=== PATIENT | male | born 1945 | race Caucasian/White ===

== ENCOUNTER 2018-06-11 16:47 | Inpatient (IN) | payer MEDICARE, OTHER ==
--- NOTE | 2018-06-11 17:39 | ED ---
General Adult HPI - General Chief complaint: Psychiatric Symptoms Stated complaint: PTSD/Suicidal Source: patient Mode of arrival: ambulatory Limitations: no limitations - History of Present Illness Initial comments: Dictation was produced using [employer] dictation software. please excuse any grammatical, word or spelling errors. Chief Complaint: 73-year-old war presents with suicidal ideation. History of Present Illness: Patient is a 73-year-old male past medical history of hiatal hernia presents with suicidal ideation. States that he wants to step out into traffic. Patient felt suicidal in the past. Physical history of posttraumatic stress disorder from [place] War. Patient reports not ever attempting suicide in the past. Patient denies any other symptoms at this time. No pain complaints. Denies any shortness of breath. No constitutional symptoms The ROS documented in this emergency department record has been reviewed and confirmed by me. Those systems with pertinent positive or negative responses have been documented in the HPI. All other systems are other negative and/or noncontributory. - Related Data Home Medications Medication Instructions Recorded Confirmed Fluticasone Nasal [place] [Flonase 1 spray EA NOSTRIL DAILY 06/21/15 06/11/18 Nasal [place]] Melatonin 3 mg PO HS 06/21/15 06/11/18 Omeprazole [PriLOSEC] 40 mg PO AC-[id number] 06/21/15 06/11/18 Atorvastatin [Lipitor] 40 mg PO HS 10/09/15 06/11/18 Isosorbide Mononitrate ER [Imdur] 30 mg PO QA 10/09/15 06/11/18 Nitroglycerin Sl Tabs [Nitrostat] 0.4 mg SUBLINGUAL DIRECTED PRN 12/28/15 Cholecalciferol (Vitamin D3) 2,000 unit PO DAILY 06/11/18 06/11/18 [Vitamin D3] LORazepam [Ativan] 0.5 mg PO DAILY PRN 06/11/18 06/11/18 Lisinopril [Zestril] 5 mg PO DAILY 06/11/18 06/11/18 Metoprolol Tartrate 25 mg PO BID 06/11/18 06/11/18 buPROPion HCL [Wellbutrin XL] 150 mg PO DAILY 06/11/18 06/11/18 traZODone HCL 50 mg PO HS 06/11/18 06/11/18 Previous Rx's Medication Instructions Recorded Aspirin EC [Ecotrin] 81 mg PO DAILY #30 tablet. 06/22/15 Allergies Allergy/AdvReac Type Severity Reaction Status Date / Time No Known Allergies Allergy Verified 06/11/18 17:35 Review of Systems ROS Statement: Those systems with pertinent positive or pertinent negative responses have been documented in the HPI. ROS Other: All systems not noted in ROS Statement are negative. Past Medical History Past Medical History: Coronary Artery Disease (CAD), Cancer, GERD/Reflux, Hyperlipidemia, Myocardial Infarction ([place]) Additional Past Medical History / Comment(s): DYSPHAGIA, CHRONIC DRY COUGH, HX COLON CANCER-2004, DIVERTICULAR DISORDER, hiatal hernia, Last Myocardial Infarction Date:: 2009 History of Any Multi-Drug Resistant Organisms: None Reported Past Surgical History: Bowel Resection, Cholecystectomy, Coronary Bypass/CABG, Heart Catheterization, Hernia Repair Additional Past Surgical History / Comment(s): QUAD CABG, bowel resection , umbilical hernia repair,,DEVIATED SEPTUM REPAIR AND SPUR REMOVED from nose Past Anesthesia/Blood Transfusion Reactions: Motion Sickness, Postoperative Nausea & Vomiting (PONV) Additional Past Anesthesia/Blood Transfusion Reaction / Comment(s): clausterphobic Past Psychological History: Anxiety, PTSD Smoking Status: Former smoker Past Alcohol Use History: None Reported Past Drug Use History: None Reported - Past Family History Son(s) Family Medical History: Cancer Father Family Medical History: Blood Disorder Additional Family Medical History / Comment(s): from a blood disorder Mother Family Medical History: Diabetes Mellitus Additional Family Medical History / Comment(s): age 53 -complications from dm Sister(s) Family Medical History: Diabetes Mellitus General Exam - General Exam Comments Initial Comments: PHYSICAL EXAM: General Impression: Alert and oriented x3, not in acute distress HEENT: Normocephalic atraumatic, extra-ocular movements intact, pupils equal and reactive to light bilaterally, mucous membranes moist. Cardiovascular: Heart regular rate and rhythm, S1&S2 audible, no murmurs, rubs or gallops Chest: Lungs clear to auscultation bilaterally, no rhonchi, no wheeze, no rales Abdomen: Bowel sounds present, abdomen soft, non-tender, non-distended, no organomegaly Musculoskeletal: Pulses present and equal in all extremities, no peripheral edema Motor: Power 5/5 bilaterally, no focal deficits noted Neurological: CN II-XII grossly intact, no focal motor or sensory deficits noted Skin: Intact with no visualized rashes Psych: Agitated, poor eye contact Limitations: no limitations Course Vital Signs 06/11/18 17:10 Temperature 98.1 F Pulse Rate 53 L Respiratory 18 Rate Blood Pressure 160/78 O2 Sat by Pulse 99 Oximetry Medical Decision Making - Medical Decision Making ED course: 73-year-old male presents with suicidal ideation. Patient denies any active auditory or visual hallucinations. No history of psychiatric disease. He does however have a history of posterior neck stress disorder. Patient has clear means of committing suicide. He does appear slightly agitated however is not overtly psychotic. Vital signs upon arrival are within acceptable limits. Patient PT was negative. Medical clearance for EPS assessment. Patient to be admitted to inpatient psychiatry. - Lab Data Result diagrams: 06/11/18 19:14 06/11/18 19:14 Lab Results 06/11/18 06/11/18 06/11/18 Range/Units 19:14 19:14 19:27 WBC 6.6 (3.8-10.6) k/uL RBC 5.80 (4.30-5.90) m/uL Hgb 17.7 H (13.0-17.5) gm/dL Hct 52.7 (39.0-53.0) % MCV 90.9 (80.0-100.0) fL MCH 30.5 (25.0-35.0) pg MCHC 33.5 (31.0-37.0) g/dL RDW 13.7 (11.5-15.5) % Plt Count 205 (150-450) k/uL Neutrophils % 62 % Lymphocytes % 25 % Monocytes % 8 % Eosinophils % 1 % Basophils % 1 % Neutrophils # 4.1 (1.3-7.7) k/uL Lymphocytes # 1.6 (1.0-4.8) k/uL Monocytes # 0.5 (0-1.0) k/uL Eosinophils # 0.1 (0-0.7) k/uL Basophils # 0.0 (0-0.2) k/uL Sodium 140 (137-145) mmol/L Potassium 4.5 (3.5-5.1) mmol/L Chloride 104 (98-107) mmol/L Carbon Dioxide 26 (22-30) mmol/L Anion Gap 10 mmol/L BUN 21 H (9-20) mg/dL Creatinine 0.67 (0.66-1.25) mg/dL Est GFR (CKD-EPI)AfAm >90 (>60 ml/min/1.73 sqM) Est GFR (CKD-EPI)NonAf >90 (>60 ml/min/1.73 sqM) Glucose 79 (74-99) mg/dL Calcium 9.7 (8.4-10.2) mg/dL Total Bilirubin 0.8 (0.2-1.3) mg/dL AST 31 (17-59) U/L ALT 44 (21-72) U/L Alkaline Phosphatase 119 (38-126) U/L Total Protein 6.8 (6.3-8.2) g/dL Albumin 4.4 (3.5-5.0) g/dL Urine Color Yellow Urine Appearance Clear (Clear) Urine pH 6.5 (5.0-8.0) Ur Specific [place] 1.017 (1.001-1.035) Urine Protein Negative (Negative) Urine Glucose (UA) Negative (Negative) Urine Ketones Negative (Negative) Urine Blood Negative (Negative) Urine Nitrite Negative (Negative) Urine Bilirubin Negative (Negative) Urine Urobilinogen <2.0 (<2.0) mg/dL Ur Leukocyte Esterase Negative (Negative) Urine Opiates Screen (NotDetected) Ur Oxycodone Screen (NotDetected) Urine Methadone Screen (NotDetected) Ur Propoxyphene Screen (NotDetected) Ur Barbiturates Screen (NotDetected) U Tricyclic Antidepress (NotDetected) Ur Phencyclidine Scrn (NotDetected) Ur Amphetamines Screen (NotDetected) U Methamphetamines Scrn (NotDetected) U Benzodiazepines Scrn (NotDetected) Urine Cocaine Screen (NotDetected) U Marijuana (THC) Screen (NotDetected) 06/11/18 Range/Units 19:27 WBC (3.8-10.6) k/uL RBC (4.30-5.90) m/uL Hgb (13.0-17.5) gm/dL Hct (39.0-53.0) % MCV (80.0-100.0) fL MCH (25.0-35.0) pg MCHC (31.0-37.0) g/dL RDW (11.5-15.5) % Plt Count (150-450) k/uL Neutrophils % % Lymphocytes % % Monocytes % % Eosinophils % % Basophils % % Neutrophils # (1.3-7.7) k/uL Lymphocytes # (1.0-4.8) k/uL Monocytes # (0-1.0) k/uL Eosinophils # (0-0.7) k/uL Basophils # (0-0.2) k/uL Sodium (137-145) mmol/L Potassium (3.5-5.1) mmol/L Chloride (98-107) mmol/L Carbon Dioxide (22-30) mmol/L Anion Gap mmol/L BUN (9-20) mg/dL Creatinine (0.66-1.25) mg/dL Est GFR (CKD-EPI)AfAm (>60 ml/min/1.73 sqM) Est GFR (CKD-EPI)NonAf (>60 ml/min/1.73 sqM) Glucose (74-99) mg/dL Calcium (8.4-10.2) mg/dL Total Bilirubin (0.2-1.3) mg/dL AST (17-59) U/L ALT (21-72) U/L Alkaline Phosphatase (38-126) U/L Total Protein (6.3-8.2) g/dL Albumin (3.5-5.0) g/dL Urine Color Urine Appearance (Clear) Urine pH (5.0-8.0) Ur Specific [place] (1.001-1.035) Urine Protein (Negative) Urine Glucose (UA) (Negative) Urine Ketones (Negative) Urine Blood (Negative) Urine Nitrite (Negative) Urine Bilirubin (Negative) Urine Urobilinogen (<2.0) mg/dL Ur Leukocyte Esterase (Negative) Urine Opiates Screen Not Detected (NotDetected) Ur Oxycodone Screen Not Detected (NotDetected) Urine Methadone Screen Not Detected (NotDetected) Ur Propoxyphene Screen Not Detected (NotDetected) Ur Barbiturates Screen Not Detected (NotDetected) U Tricyclic Antidepress Not Detected (NotDetected) Ur Phencyclidine Scrn Not Detected (NotDetected) Ur Amphetamines Screen Not Detected (NotDetected) U Methamphetamines Scrn Not Detected (NotDetected) U Benzodiazepines Scrn Detected H (NotDetected) Urine Cocaine Screen Not Detected (NotDetected) U Marijuana (THC) Screen Not Detected (NotDetected) Disposition Clinical Impression: Suicidal ideation Disposition: OTHER INSTITUTION NOT DEFINED Condition: Fair Decision Time: 21:18
[2018-06-11 19:33] LABS: Basophils % (A) 1 %; Eosinophils # (A) 0.1 k/uL (0-0.7); Eosinophils % (A) 1 %; HCT 52.7 % (39.0-53.0); HGB 17.7 gm/dL (13.0-17.5); Lymphocytes # (A) 1.6 k/uL (1.0-4.8); Lymphocytes % (A) 25 %; MCH 30.5 pg (25.0-35.0); MCHC 33.5 g/dL (31.0-37.0); MCV 90.9 fL (80.0-100.0); Mean Platelet Volume 6.5; Monocytes # (A) 0.5 k/uL (0-1.0); Monocytes % (A) 8 %; Neutrophils # (A) 4.1 k/uL (1.3-7.7); Neutrophils % (A) 62 %; Platelet Count 205 k/uL (150-450); RDW 13.7 % (11.5-15.5); WBC 6.6 k/uL (3.8-10.6)
[2018-06-11 19:42] LABS: Appearance,Urine Clear (Clear); Bilirubin,Urine Negative (Negative); Blood,Urine Negative (Negative); Color,Urine Yellow; Glucose,Urine (UA) Negative (Negative); Ketones,Urine Negative (Negative); Leukocyte Esterase,Urine Negative (Negative); Nitrite,Urine Negative (Negative); PH, Urine 6.5 (5.0-8.0); Protein,Urine Negative (Negative); Specific Gravity,Urine 1.017 (1.001-1.035); Urobilinogen,Urine <2.0 mg/dL (<2.0)
[2018-06-11 19:45] LABS: ALT 44 U/L (21-72); AST 31 U/L (17-59); Albumin 4.4 g/dL (3.5-5.0); Alkaline Phosphatase 119 U/L (38-126); Anion Gap 10 mmol/L; Blood Urea Nitrogen 21 mg/dL (9-20); Calcium 9.7 mg/dL (8.4-10.2); Carbon Dioxide 26 mmol/L (22-30); Chloride 104 mmol/L (98-107); Glucose 79 mg/dL (74-99); Potassium 4.5 mmol/L (3.5-5.1); Sodium 140 mmol/L (137-145); Total Bilirubin 0.8 mg/dL (0.2-1.3); Total Protein 6.8 g/dL (6.3-8.2)
[2018-06-11 19:57] LABS: Amphetamine Screen,Urine Not Detected (NotDetected); Barbiturate Screen,Urine Not Detected (NotDetected); Benzodiazepines Screen,Urine Detected (NotDetected); Cocaine Screen,Urine Not Detected (NotDetected); Methadone Screen, Urine Not Detected (NotDetected); Opiate Screen,Urine Not Detected (NotDetected); Oxycodone Screen, Urine Not Detected (NotDetected); Phencyclidine Screen,Urine Not Detected (NotDetected); Tricyclic Antidepressant,Urine Not Detected (NotDetected); Urn Cannabinoid Scrn Not Detected (NotDetected)
[2018-06-11] MEDS ORDERED: MAGNESIUM HYDROXIDE 2,400 MG/10 ML CUP PO PRN (21:03)
[2018-06-11] MEDS ORDERED: ACETAMINOPHEN TAB 325 MG TAB PO PRN (21:03)
[2018-06-11] MEDS ORDERED: MAG HYDROX/AL HYDROX/SIMETH 30 ML CUP PO PRN (21:03)
[2018-06-11] MEDS ORDERED: NITROGLYCERIN SL TABS 0.4 MG TAB SUBLINGUAL PRN (21:07)
[2018-06-11] MEDS: LORazepam 1 MG TAB PO SCH (21:32)
[2018-06-11] MEDS: MELATONIN 3 MG TABLET PO SCH (21:32)
[2018-06-12] MEDS: PANTOPRAZOLE 40 MG TABLET PO SCH (08:22)
[2018-06-12] MEDS: buPROPion XL 150 MG TAB.ER.24H PO SCH (08:23)
[2018-06-12] MEDS: ASPIRIN 81 MG PO SCH (08:23)
[2018-06-12] MEDS: LORATADINE 10 MG TAB PO SCH (08:23)
[2018-06-12] MEDS: METOPROLOL TARTRATE 25 MG TAB PO SCH (08:23)
[2018-06-12] MEDS: FLUTICASONE 50MCG/SPRAY NASAL 16GM EA NOSTRIL SCH (08:24)
[2018-06-12] MEDS: ISOSORBIDE MONONITRATE ER 30 MG TAB.ER.24H PO SCH (08:24)
[2018-06-12] MEDS: LISINOPRIL 5 MG TAB PO SCH (08:24)
[2018-06-12 09:34] VITALS: BMI 26.3
--- NOTE | 2018-06-12 11:28 | P.HP ---
Psychiatric H&P - . History & Physical: Allergies Allergy/AdvReac Type Severity Reaction Status Date / Time No Known Allergies Allergy Verified 06/11/18 17:35 Vital Signs Temp 97.5 F L 06/12/18 05:11 Pulse 59 L 06/12/18 08:26 Resp 16 06/12/18 05:11 BP 183/89 06/12/18 08:26 Pulse Ox 97 06/11/18 21:24 Intake & Output 06/11/18 06/12/18 06/12/18 18:59 06:59 18:59 Weight 85.6 kg 85.729 kg 85.729 kg Laboratory Last Values WBC 6.6 k/uL (3.8-10.6) 06/11/18 19:14 RBC 5.80 m/uL (4.30-5.90) 06/11/18 19:14 Hgb 17.7 gm/dL (13.0-17.5) H 06/11/18 19:14 Hct 52.7 % (39.0-53.0) 06/11/18 19:14 MCV 90.9 fL (80.0-100.0) 06/11/18 19:14 MCH 30.5 pg (25.0-35.0) 06/11/18 19:14 MCHC 33.5 g/dL (31.0-37.0) 06/11/18 19:14 RDW 13.7 % (11.5-15.5) 06/11/18 19:14 Plt Count 205 k/uL (150-450) 06/11/18 19:14 Neutrophils % 62 % 06/11/18 19:14 Lymphocytes % 25 % 06/11/18 19:14 Monocytes % 8 % 06/11/18 19:14 Eosinophils % 1 % 06/11/18 19:14 Basophils % 1 % 06/11/18 19:14 Neutrophils # 4.1 k/uL (1.3-7.7) 06/11/18 19:14 Lymphocytes # 1.6 k/uL (1.0-4.8) 06/11/18 19:14 Monocytes # 0.5 k/uL (0-1.0) 06/11/18 19:14 Eosinophils # 0.1 k/uL (0-0.7) 06/11/18 19:14 Basophils # 0.0 k/uL (0-0.2) 06/11/18 19:14 Sodium 140 mmol/L (137-145) 06/11/18 19:14 Potassium 4.5 mmol/L (3.5-5.1) 06/11/18 19:14 Chloride 104 mmol/L (98-107) 06/11/18 19:14 Carbon Dioxide 26 mmol/L (22-30) 06/11/18 19:14 Anion Gap 10 mmol/L 06/11/18 19:14 BUN 21 mg/dL (9-20) H 06/11/18 19:14 Creatinine 0.67 mg/dL (0.66-1.25) 06/11/18 19:14 Est GFR (CKD-EPI)AfAm >90 (>60 ml/min/1.73 sqM) 06/11/18 19:14 Est GFR (CKD-EPI)NonAf >90 (>60 ml/min/1.73 sqM) 06/11/18 19:14 Glucose 79 mg/dL (74-99) 06/11/18 19:14 Calcium 9.7 mg/dL (8.4-10.2) 06/11/18 19:14 Total Bilirubin 0.8 mg/dL (0.2-1.3) 06/11/18 19:14 AST 31 U/L (17-59) 06/11/18 19:14 ALT 44 U/L (21-72) 06/11/18 19:14 Alkaline Phosphatase 119 U/L (38-126) 06/11/18 19:14 Total Protein 6.8 g/dL (6.3-8.2) 06/11/18 19:14 Albumin 4.4 g/dL (3.5-5.0) 06/11/18 19:14 TSH 1.390 mIU/L (0.465-4.680) 06/11/18 19:14 Urine Color Yellow 06/11/18 19:27 Urine Appearance Clear (Clear) 06/11/18 19:27 Urine pH 6.5 (5.0-8.0) 06/11/18 19:27 Ur Specific [place] 1.017 (1.001-1.035) 06/11/18 19:27 Urine Protein Negative (Negative) 06/11/18 19:27 Urine Glucose (UA) Negative (Negative) 06/11/18 19:27 Urine Ketones Negative (Negative) 06/11/18 19:27 Urine Blood Negative (Negative) 06/11/18 19:27 Urine Nitrite Negative (Negative) 06/11/18 19:27 Urine Bilirubin Negative (Negative) 06/11/18 19:27 Urine Urobilinogen <2.0 mg/dL (<2.0) 06/11/18 19:27 Ur Leukocyte Esterase Negative (Negative) 06/11/18 19:27 Urine Opiates Screen Not Detected (NotDetected) 06/11/18 19:27 Ur Oxycodone Screen Not Detected (NotDetected) 06/11/18 19:27 Urine Methadone Screen Not Detected (NotDetected) 06/11/18 19:27 Ur Propoxyphene Screen Not Detected (NotDetected) 06/11/18 19:27 Ur Barbiturates Screen Not Detected (NotDetected) 06/11/18 19:27 U Tricyclic Antidepress Not Detected (NotDetected) 06/11/18 19:27 Ur Phencyclidine Scrn Not Detected (NotDetected) 06/11/18 19:27 Ur Amphetamines Screen Not Detected (NotDetected) 06/11/18 19:27 U Methamphetamines Scrn Not Detected (NotDetected) 06/11/18 19:27 U Benzodiazepines Scrn Detected (NotDetected) H 06/11/18 19:27 Urine Cocaine Screen Not Detected (NotDetected) 06/11/18 19:27 U Marijuana (THC) Screen Not Detected (NotDetected) 06/11/18 19:27 06/12/18 11:15 IDENTIFYING DATA: This patient is a 73-year-old male who was admitted to the mental health unit through the emergency room for suicidal ideation. HPI: The patient states he's been struggling with a very depressed mood and having suicidal thoughts. He states over the recent past he has been trying to convince himself to jump into traffic. He states on several occasions he has stood at the curb wanting to jump. He describes himself tearful on a regular basis. Sleep has been poor appetite stable energy level impaired. He has hopelessness thinking and states he has suicidal thoughts quite often. For unclear reasons he has had nonspecific thoughts of harming others. He identifies no potential person or group of people. He is uncomfortable with having those thoughts but they continue to occur at times. He endorses auditory hallucinations at times stating he is hearing noises and talking while at home. Sometimes it is mumbling but he will hear his name called. He describes no command auditory hallucinations. He describes no visual hallucinations. He states he will have a feeling as though there are other people in his home that aren't there. He endorses feelings of anxiety he will be panicky at times. He endorses a diagnosis of PTSD related to his service in [place] in the 60s. He states that he infrequently has nightmares but he often feels he is in danger he has a significant startle reflex noises are very uncomfortable he does not tolerate crowds of people etc. He states people were triggering his feelings of anger so much that he discontinued driving due to road rage reactions he was having. He states he would follow people and yell at them. He describes irritability in other contexts as well. He states he was recently around some neighborhood children and thought they were saying something about him and he yelled at them. He reports that he has no firearms at home. No clear history of hypomanic or manic episodes. PAST PSYCHIATRIC HISTORY: He reports this is his third psychiatric admission our staff are unaware of any prior admissions however, no history of suicide attempts however again he has stood at the curb several times thinking of jumping into traffic. He is currently [facility] He states he may be taking trazodone 50 mg at bedtime melatonin and Ativan 1 mg at bedtime as well. He believes he may have tried Lexapro in the past. He admits he is not a valid historian in terms of generating a list of medications used in the past. 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 No use of marijuana or any other illicit drug. FAMILY PSYCHIATRIC HISTORY: None reported, no history of suicides in the family FAMILY CHEMICAL DEPENDENCY HISTORY: None reported SOCIAL HISTORY: The patient is 73 years old he has been twice his current marriage has been 25 years. He resides with his . He is originally from the [facility]. He has 5 children 4 live in [place] and one lives in [place]. 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 He is also retired from the . He served 4 years in the [employer] in 16 years in the [employer]. 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 Although no details provided he states he was exposed to several traumas during his time of service. The patient reports an 11th grade education. He has 2 sisters. Legal history none reported, abuse history none reported. MENTAL STATUS EXAM: The patient is a male appearing his stated age she wears eyeglasses. He is dressed in his own clothing. He ambulates slowly to the office and is calmly seated. 3 times during our interaction he yells out "hey". He is aware he is doing this and states it has been a relatively new phenomenon over this last week. Speech is fluent and spontaneous nonpressured. He demonstrated some stuttering. He reports hopelessness thinking with ongoing suicidal thoughts. He states homicidal thoughts come to his mind but he does not want to harm anyone. He endorses auditory hallucinations as noted above and some thoughts that people are in his home but don't belong there. He endorses no visual hallucinations. Overall he was pleasant and cooperative during the session. Affect is congruent with his hopelessness and depressed mood. He did appear anxious at times. Thought process demonstrated circumstantial thinking he demonstrated no tangential thinking loose associations or flight of ideas. Insight and judgment impaired. He demonstrated no verbal or physical aggressiveness he demonstrated no abnormal involuntary movements. With cognitive testing he was oriented to person place and date although he name the date as the rather than the . He was able to register 3 words but could not spontaneously recall all 3 after a delay of 3 minutes. He did spontaneously recall one of the words he was able to recall another word with a verbal cue and was able to recall the last one with a multiple choice cue. He was able to easily name 5 major cities in the [place] and he was able to slowly name the months of the year backwards. He was able to name 3 objects. With abstraction questions he was mainly concrete he was able to abstract a proverb. STRENGTHS/WEAKNESSES: Strengths: Housing, income, support from spouse weaknesses : Current symptoms causing psychosocial dysfunction INTELLECTUAL FUNCTIONING: Average IMPRESSIONS: [] 1. Depression unspecified, psychosis unspecified, posttraumatic stress disorder chronic, rule out neurocognitive symptoms 2. History of hiatal hernia 3. Psychosocial dysfunction due to current psychiatric symptoms PLAN: Patient has been admitted to the mental health unit he is here voluntarily. We reviewed his presenting symptoms and medication options. I did try to reach his twice for collateral information but she was unavailable. [facility]. The Wellbutrin is likely subtherapeutic at its current dose and will not address symptoms of anxiety. We will consider changing that medication. We will consider utilizing Seroquel for symptoms of psychosis and to assist with sleep and mood stability. He will be seen by internal medicine for routine history and physical exam. We will monitor him for safety. We will involve his in treatment and discharge planning as he will allow.
[2018-06-12] MEDS: CHOLECALCIFEROL 1,000 UNIT TAB PO SCH (13:28)
[2018-06-12] MEDS: ATORVASTATIN 40 MG TAB PO SCH (21:10)
[2018-06-12] MEDS: MELATONIN 3 MG TABLET PO SCH (21:20)
[2018-06-12] MEDS: LORazepam 1 MG TAB PO SCH (21:20)
[2018-06-13] MEDS: buPROPion XL 150 MG TAB.ER.24H PO SCH (08:24)
[2018-06-13] MEDS: ISOSORBIDE MONONITRATE ER 30 MG TAB.ER.24H PO SCH (08:24)
[2018-06-13] MEDS: FLUTICASONE 50MCG/SPRAY NASAL 16GM EA NOSTRIL SCH (08:24)
[2018-06-13] MEDS: LORATADINE 10 MG TAB PO SCH (08:24)
[2018-06-13] MEDS: LISINOPRIL 5 MG TAB PO SCH (08:24)
[2018-06-13] MEDS: ASPIRIN 81 MG PO SCH (08:24)
[2018-06-13] MEDS: METOPROLOL TARTRATE 25 MG TAB PO SCH (08:24)
[2018-06-13] MEDS: PANTOPRAZOLE 40 MG TABLET PO SCH (08:25)
--- NOTE | 2018-06-13 10:54 | P.CONS ---
History of Present Illness - Reason for Consult Consult date: 06/12/18 Medical management - Chief Complaint PTSD/suicide - History of Present Illness 73-year-old male past medical history of hiatal hernia presents with suicidal ideation. States that he wants to step out into traffic. Patient felt suicidal in the past. Physical history of posttraumatic stress disorder from [place]. Patient reports not ever attempting suicide in the past. Patient denies any other symptoms at this time. No pain complaints. Denies any shortness of breath. No constitutional symptoms Review of Systems Constitutional: Denies anorexia, Denies fever Eyes: denies blurred vision Ears, nose, mouth and throat: Denies headache Cardiovascular: Denies chest pain, Denies dyspnea on exertion Respiratory: Denies cough, Denies hemoptysis Gastrointestinal: Denies abdominal pain, Denies nausea, Denies vomiting Genitourinary: Denies dysuria, Denies hematuria Musculoskeletal: Denies morning stiffness Integumentary: Denies color changes, Denies rash Neurological: Denies confusion, Denies headaches Endocrine: Denies excessive thirst Hematologic/Lymphatic: Denies easy bruising Past Medical History Past Medical History: Coronary Artery Disease (CAD), Cancer, GERD/Reflux, Hyperlipidemia, Myocardial Infarction (OR) Additional Past Medical History / Comment(s): DYSPHAGIA, CHRONIC DRY COUGH, HX COLON CANCER-2004, DIVERTICULAR DISORDER, hiatal hernia, Last Myocardial Infarction Date:: 2009 History of Any Multi-Drug Resistant Organisms: None Reported Past Surgical History: Bowel Resection, Cholecystectomy, Coronary Bypass/CABG, Heart Catheterization, Hernia Repair Additional Past Surgical History / Comment(s): QUAD CABG, bowel resection , umbilical hernia repair,,DEVIATED SEPTUM REPAIR AND SPUR REMOVED from nose Past Anesthesia/Blood Transfusion Reactions: Motion Sickness, Postoperative Nausea & Vomiting (PONV) Additional Past Anesthesia/Blood Transfusion Reaction / Comm: clausterphobic Past Psychological History: Anxiety, PTSD Smoking Status: Former smoker Past Alcohol Use History: None Reported Past Drug Use History: None Reported - Past Family History Son(s) Family Medical History: Cancer Father Family Medical History: Blood Disorder Additional Family Medical History / Comment(s): from a blood disorder Mother Family Medical History: Diabetes Mellitus Additional Family Medical History / Comment(s): age 53 -complications from dm Sister(s) Family Medical History: Diabetes Mellitus Medications and Allergies Home Medications Medication Instructions Recorded Confirmed Type Fluticasone Nasal [place] [Flonase 1 spray EA NOSTRIL DAILY 06/21/15 06/11/18 History Nasal [place]] Melatonin 3 mg PO HS 06/21/15 06/11/18 History Omeprazole [PriLOSEC] 40 mg PO AC-BRKFST 06/21/15 06/11/18 History Aspirin EC [Ecotrin] 81 mg PO DAILY #30 tablet. 06/22/15 06/11/18 Rx Atorvastatin [Lipitor] 40 mg PO HS 10/09/15 06/11/18 History Isosorbide Mononitrate ER [Imdur] 30 mg PO QAM 10/09/15 06/11/18 History Nitroglycerin Sl Tabs [Nitrostat] 0.4 mg SUBLINGUAL DIRECTED PRN 12/28/15 History Cholecalciferol (Vitamin D3) 2,000 unit PO DAILY 06/11/18 06/11/18 History [Vitamin D3] LORazepam [Ativan] 0.5 mg PO DAILY PRN 06/11/18 06/11/18 History Lisinopril [Zestril] 5 mg PO DAILY 06/11/18 06/11/18 History Metoprolol Tartrate 25 mg PO BID 06/11/18 06/11/18 History buPROPion HCL [Wellbutrin XL] 150 mg PO DAILY 06/11/18 06/11/18 History traZODone HCL 50 mg PO HS 06/11/18 06/11/18 History Allergies Allergy/AdvReac Type Severity Reaction Status Date / Time No Known Allergies Allergy Verified 06/11/18 17:35 Physical Exam Vitals: Vital Signs Temp Pulse Pulse Resp BP BP Pulse Ox 06/12/18 08:26 59 L 183/89 06/12/18 05:11 97.5 F L 60 16 154/83 06/11/18 21:24 97.7 F 53 L 16 124/75 97 06/11/18 17:10 98.1 F 53 L 18 160/78 99 Intake and Output 06/11/18 06/12/18 06/12/18 22:59 06:59 14:59 Other: Weight 85.729 kg 85.729 kg - Constitutional General appearance: Present: average body habitus, cooperative, no acute distress - EENT Eyes: Present: anicteric sclerae, EOMI, PERRLA, normal appearance ENT: Present: hearing grossly normal, normal oropharynx Ears: bilateral: normal - Neck Neck: Present: normal ROM. Absent: lymphadenopathy, rigidity, thyromegaly Carotids: negative: bruit present Thyroid: bilateral: normal size, negative: enlarged, nodule - Respiratory Respiratory: bilateral: CTA, negative: rales, rhonchi, wheezing - Cardiovascular Rhythm: regular Heart sounds: normal: S1, S2 Abnormal Heart Sounds: Absent: systolic murmur, diastolic murmur - Gastrointestinal General gastrointestinal: Present: normal bowel sounds, soft. Absent: distended , organomegaly, tenderness - Genitourinary Genitourinary Comment(s): deferred - Integumentary Integumentary: Present: normal turgor. Absent: jaundiced, rash, ulcer - Neurologic Neurologic: Present: CNII-XII intact. Absent: focal deficits - Musculoskeletal Musculoskeletal: Present: gait normal, strength equal bilaterally - Psychiatric Psychiatric: Present: A&O x's 3, appropriate affect, intact judgment & insight Results CBC & Chem 7: 06/11/18 19:14 06/11/18 19:14 Labs: Abnormal Lab Results - Last 24 Hours (Table) 06/11/18 06/11/18 06/11/18 Range/Units 19:14 19:14 19:27 Hgb 17.7 H (13.0-17.5) gm/dL BUN 21 H (9-20) mg/dL U Benzodiazepines Scrn Detected H (NotDetected) Assessment and Plan Assessment: 1. PTSD/suicide; your management 2. Uncontrolled Hypertension - Patient remains on lisinopril 5 mg daily along with metoprolol 25 mg daily and Imdur 30 mg daily - We will continue to monitor blood pressure closely and adjust medications if needed 3. Hyperlipidemia; continue with home dose of atorvastatin 40 mg daily at bedtime 4. Coronary artery disease; stable on aspirin, Lipitor, imdur, metoprolol and lisinopril 5. Gastroesophageal reflux disease; continue with Protonix 40 mg by mouth daily 6. Seasonal ALLERGIES; stable on fluticasone nasal spray 7. Sleep disorder; continue with trazodone and melatonin; further adjustments per your discretion We wish to thank you for this kind consultation; we will follow the patient with you; please don't hesitate to call for any questions and concerns
--- NOTE | 2018-06-13 11:35 | P.PN ---
Progress Note - Text Interval history: The patient is found walking in the hallway he follows me to an interview room. He reports his mood is "rough at times". Again he struggled with sleep last night as he chronically has. Appetite is stable. He reports trying to attend some groups. We discussed possible medication changes. I did receive a list of current medications from the [facility]. I was able to speak with his via phone with the patient's expressed permission. She is relatively unaware of any other medicines he's been on in the past and states he's been on his current medication regimen for as long as she has known him which is been over 20 years. She thinks he may have been on Lexapro but is not certain. She reviews symptoms he has been having at home prior to this admission including suicidal thoughts, irritability and "temper issues". She does corroborate the fact that he is experiencing auditory or visual hallucinations at times. Mental status exam: The patient is alert he is dressed in his own clothing he is seated calmly in the chair. Eye contact is intermittent. He is pleasant and cooperative during our session this morning. He describes a depressed mood with suicidal thoughts that are "off-and-on". He reports no thoughts of wanting to harm others. He states that he will experience an auditory hallucination most recently yesterday. He states at times he will see things in the room that appear to be shadowy figures. He reports feeling safe. He demonstrates no verbal or physical aggressiveness. Insight and judgment limited. Plan: The patient's will be started on Seroquel 25 mg at bedtime to help with hallucinations possible delusional thought irritability and possibly sleep. We will give consideration to changing the Wellbutrin to an SSRI so that it may target depressive and anxiety symptoms, we will discuss that further. We will monitor him for safety in encourage his continued participation in the milieu.
[2018-06-13] MEDS: CHOLECALCIFEROL 1,000 UNIT TAB PO SCH (11:50)
[2018-06-13] MEDS: MELATONIN 3 MG TABLET PO SCH (20:09)
[2018-06-13] MEDS: ATORVASTATIN 40 MG TAB PO SCH (20:09)
[2018-06-13] MEDS ORDERED: QUEtiapine 25 MG TAB PO SCH (21:00)
[2018-06-14] MEDS: PANTOPRAZOLE 40 MG TABLET PO SCH (08:40)
[2018-06-14] MEDS: LORATADINE 10 MG TAB PO SCH (08:40)
[2018-06-14] MEDS: LISINOPRIL 5 MG TAB PO SCH (08:40)
[2018-06-14] MEDS: METOPROLOL TARTRATE 25 MG TAB PO SCH (08:40)
[2018-06-14] MEDS: ISOSORBIDE MONONITRATE ER 30 MG TAB.ER.24H PO SCH (08:40)
[2018-06-14] MEDS: buPROPion XL 150 MG TAB.ER.24H PO SCH (08:40)
[2018-06-14] MEDS: FLUTICASONE 50MCG/SPRAY NASAL 16GM EA NOSTRIL SCH (08:40)
[2018-06-14] MEDS: ASPIRIN 81 MG PO SCH (08:40)
--- NOTE | 2018-06-14 11:01 | P.PN ---
Progress Note - Text Interval history: The patient is found in the hallway he follows me to an interview room. He reports feelings of depression. He continues to have difficulty with sleep. He states that it was fragmented throughout the night and staff recorded he slept 5 hours. He continues to report to staff experiences of auditory and visual hallucinations. We discussed our medication options he is comfortable with me initiating Zoloft for depression and anxiety in titrating the Seroquel further. We discussed discontinuing the Wellbutrin. Mental status exam: The patient is alert he ambulates slowly without ataxia. He reports a depressed mood with hopelessness thinking. He states he continues to have negative thoughts. He does continue to experience visual and auditory hallucinations at times. Overall he feels safe in the hospital. He demonstrates no verbal or physical aggressiveness. He demonstrates no tremor or any other abnormal involuntary movement. He demonstrated no cogwheel rigidity with passive extension of his upper extremities. Insight and judgment limited. He is pleasant and cooperative. He demonstrated no stuttering or yelling behavior during our interaction. Plan: The patient will continue on Seroquel we will titrate to 50 mg at bedtime , we will discontinue Wellbutrin XL and initiate Zoloft 25 mg daily with a plan of titrating that medication further. Vital signs reviewed. We will monitor him for safety. He requires continued psychiatric hospitalization.
[2018-06-14] MEDS: CHOLECALCIFEROL 1,000 UNIT TAB PO SCH (11:55)
[2018-06-14] MEDS: SERTRALINE 25 MG TAB PO SCH (11:55)
[2018-06-14] MEDS: MELATONIN 3 MG TABLET PO SCH (20:47)
[2018-06-14] MEDS: ATORVASTATIN 40 MG TAB PO SCH (20:47)
[2018-06-14] MEDS ORDERED: QUEtiapine 50 MG TAB PO SCH (21:00)
[2018-06-15] MEDS: METOPROLOL TARTRATE 25 MG TAB PO SCH (08:37)
[2018-06-15] MEDS: SERTRALINE 25 MG TAB PO SCH (08:37)
[2018-06-15] MEDS: ASPIRIN 81 MG PO SCH (08:37)
[2018-06-15] MEDS: PANTOPRAZOLE 40 MG TABLET PO SCH (08:37)
[2018-06-15] MEDS: LORATADINE 10 MG TAB PO SCH (08:37)
[2018-06-15] MEDS: ISOSORBIDE MONONITRATE ER 30 MG TAB.ER.24H PO SCH (08:37)
[2018-06-15] MEDS: FLUTICASONE 50MCG/SPRAY NASAL 16GM EA NOSTRIL SCH (08:38)
[2018-06-15] MEDS: LISINOPRIL 5 MG TAB PO SCH (08:38)
--- NOTE | 2018-06-15 08:55 | P.PN ---
Progress Note - Text Interval history: The patient is found in the hallway he follows me to an interview room. He states that he continues to struggle with negative thoughts and feels depressed. He finds his anxiety symptoms heightened at times and he will start stuttering. Staff recorded he slept 7 hours but he states that it was fragmented. He feels sleep is mildly better than when he presented to the hospital. He did have a supportive visit with his . We discussed his current medications and his questions were answered. Mental status exam: The patient is a male appearing his stated age. He is pleasant and cooperative. He is dressed in his own clothing hygiene grooming adequate. Speech is fluent spontaneous nonpressured. At times he does demonstrate some stuttering behavior. He endorses a depressed mood with some hopeless thinking. He endorses some intermittent auditory hallucinations. He is reporting no homicidal ideation. He demonstrates no verbal or physical aggressiveness. He demonstrates no abnormal involuntary movements. He does not appear to demonstrate any tangential thinking loose associations or flight of ideas. He remains oriented to person place and date. Plan: The patient will continue on Zoloft we will titrate this to 50 mg daily, we will titrate his Seroquel to 75 mg at bedtime. Vital signs reviewed. We will monitor him for safety and encourage his full participation in the milieu.
[2018-06-15] MEDS: CHOLECALCIFEROL 1,000 UNIT TAB PO SCH (12:39)
[2018-06-15] MEDS ORDERED: QUEtiapine 25 MG TAB PO SCH (21:00)
[2018-06-15] MEDS: ATORVASTATIN 40 MG TAB PO SCH (22:06)
[2018-06-15] MEDS: MELATONIN 3 MG TABLET PO SCH (22:06)
[2018-06-16] MEDS: PANTOPRAZOLE 40 MG TABLET PO SCH (08:36)
[2018-06-16] MEDS: ASPIRIN 81 MG PO SCH (08:36)
[2018-06-16] MEDS: SERTRALINE 50 MG TAB PO SCH (08:36)
[2018-06-16] MEDS: LORATADINE 10 MG TAB PO SCH (08:36)
[2018-06-16] MEDS: LISINOPRIL 5 MG TAB PO SCH (08:36)
[2018-06-16] MEDS: ISOSORBIDE MONONITRATE ER 30 MG TAB.ER.24H PO SCH (08:36)
[2018-06-16] MEDS: FLUTICASONE 50MCG/SPRAY NASAL 16GM EA NOSTRIL SCH (08:38)
[2018-06-16] MEDS: METOPROLOL TARTRATE 25 MG TAB PO SCH (09:21)
--- NOTE | 2018-06-16 10:23 | P.PN ---
Progress Note - Text Interval history: The patient is found in group he follows me to an interview room. He reports that he still feels on add and anxious at times. He states yesterday he had a thought of punching the window but he did not act on that and decided to walk in the hallway instead. He feels that his sleep is mildly improved. He feels he fell asleep quicker and when he woke up to use the restroom he was able to go back to sleep quicker than usual. We reviewed his psychotropic medications again his questions were answered. He endorses no visual hallucinations. He states he did experience an auditory hallucination briefly. Mental status exam: The patient is alert he is pleasant and cooperative. He endorses a distressed mood he feels on edge. He states he continues to feel some irritability at times. He reports intermittent auditory hallucinations but no visual hallucinations for 2 days. He demonstrates no verbal or physical aggressiveness he demonstrates no abnormal involuntary movements. Eye contact is appropriate speech is fluent spontaneous nonpressured. His affect is mildly anxious appearing. He is oriented to person place and date. Distribute no tangential thinking loose associations or flight of ideas. He states he will intermittently still have a suicidal thought. Plan: The patient will continue on his current psychotropic medication however I will titrate the Seroquel to 100 mg at bedtime. We will monitor him for safety and encourage his participation in the milieu. Vital signs reviewed. The patient requires continued psychiatric hospitalization for safety reasons.
[2018-06-16] MEDS: CHOLECALCIFEROL 1,000 UNIT TAB PO SCH (12:33)
[2018-06-16] MEDS: MELATONIN 3 MG TABLET PO SCH (21:32)
[2018-06-16] MEDS: ATORVASTATIN 40 MG TAB PO SCH (21:32)
[2018-06-16] MEDS: QUEtiapine 100 MG TAB PO SCH (21:32)
[2018-06-17] MEDS: PANTOPRAZOLE 40 MG TABLET PO SCH (08:35)
[2018-06-17] MEDS: LORATADINE 10 MG TAB PO SCH (08:36)
[2018-06-17] MEDS: ASPIRIN 81 MG PO SCH (08:36)
[2018-06-17] MEDS: METOPROLOL TARTRATE 25 MG TAB PO SCH (08:36)
[2018-06-17] MEDS: LISINOPRIL 5 MG TAB PO SCH (08:36)
[2018-06-17] MEDS: SERTRALINE 50 MG TAB PO SCH (08:36)
[2018-06-17] MEDS: ISOSORBIDE MONONITRATE ER 30 MG TAB.ER.24H PO SCH (08:36)
[2018-06-17] MEDS: FLUTICASONE 50MCG/SPRAY NASAL 16GM EA NOSTRIL SCH (09:33)
--- NOTE | 2018-06-17 10:20 | P.PN ---
Progress Note - Text Interval history: The patient is found in group he follows me to an interview room. He reports his mood is mildly better. He is endorsing no auditory or visual hallucinations and states he's had no suicidal thoughts in the last 24 hours. He does still feel on edge and feels his anxiety is provoked by stressors. [facility]. He reports having some difficulty sleeping last night due to disturbances on the unit. Mental status exam: The patient is a pleasant male appearing his stated age. He has adequate hygiene grooming. Speech is fluent spontaneous nonpressured. He does have an anxious affect at times he is able to demonstrate a range of affect however including appropriate smiling. He is reporting no suicidal ideation at this moment or homicidal ideation. He is endorsing no self-injurious thoughts. He does still have some intrusive anxiety thinking. Insight and judgment slowly improving. He demonstrates no verbal or physical aggressiveness. Currently he is reporting no auditory or visual hallucinations or specific delusions. He is oriented to person place and date. Plan: The patient will continue on the Zoloft and Seroquel as written. I will consider titrating the Zoloft further. We will monitor him for safety and encourage his participation in the milieu. He anticipates that his will visit this evening and we will look for collateral input from her after that visit. We will consider discharge towards the end of the week if clinically appropriate.
[2018-06-17] MEDS: CHOLECALCIFEROL 1,000 UNIT TAB PO SCH (12:32)
[2018-06-17] MEDS: ATORVASTATIN 40 MG TAB PO SCH (20:09)
[2018-06-17] MEDS: QUEtiapine 100 MG TAB PO SCH (20:09)
[2018-06-17] MEDS: MELATONIN 3 MG TABLET PO SCH (21:09)
[2018-06-17 21:24] LABS: Appearance,Urine Clear (Clear); Bacteria,Urine Rare /hpf; Bilirubin,Urine Negative (Negative); Blood,Urine Negative (Negative); Color,Urine Yellow; Glucose,Urine (UA) Negative (Negative); Ketones,Urine Negative (Negative); Leukocyte Esterase,Urine Small (Negative); Nitrite,Urine Negative (Negative); Protein,Urine Negative (Negative); RBC,Urine 1 /hpf (0-5); Specific Gravity,Urine 1.016 (1.001-1.035); Squamous Epithelial Cell,Urine <1 /hpf (0-4); Urobilinogen,Urine <2.0 mg/dL (<2.0); WBC,Urine 9 /hpf (0-5)
[2018-06-18] MEDS: ISOSORBIDE MONONITRATE ER 30 MG TAB.ER.24H PO SCH (08:40)
[2018-06-18] MEDS: FLUTICASONE 50MCG/SPRAY NASAL 16GM EA NOSTRIL SCH (08:40)
[2018-06-18] MEDS: PANTOPRAZOLE 40 MG TABLET PO SCH (08:41)
[2018-06-18] MEDS: ASPIRIN 81 MG PO SCH (08:41)
[2018-06-18] MEDS: LORATADINE 10 MG TAB PO SCH (08:41)
[2018-06-18] MEDS: METOPROLOL TARTRATE 25 MG TAB PO SCH (08:41)
[2018-06-18] MEDS: LISINOPRIL 5 MG TAB PO SCH (08:41)
[2018-06-18] MEDS: SERTRALINE 50 MG TAB PO SCH (08:41)
--- NOTE | 2018-06-18 10:06 | P.PN ---
Progress Note - Text Interval history: The patient is found in the hallway he follows me to an interview room. He reports that overall his mood is slowly improving. He states he did have a verbal argument with his over the phone yesterday but does not quite recall why. He thinks he slept well last night staff reported he slept 6 hours. Appetite stable. He is attending groups. He still describes being on edge but overall feels he is making some progress. Mental status exam: The patient is alert he is pleasant and cooperative. He is dressed in his own clothing. He is observed ambulating in the hallways without ataxia but does have a short stride. Eye contact is appropriate he is wearing eyeglasses. Speech is fluent spontaneous nonpressured. He reports some feelings of anxiety. He is reporting no suicidal ideation intent or plan for 2 days now. He is reporting no auditory or visual hallucinations for 2 days. He states he's had no impulsive thoughts of self injury. He does wonder why he came irritable with his on the phone. He does find himself irritated with disturbances on the mental health unit. He demonstrates no verbal or physical aggressiveness. He demonstrates no abnormal involuntary movements. Affect is expressive. He does have some appropriate smiling. Plan: The patient will continue on his current psychotropic medications we will consider titrating the Zoloft further. He is asked that I speak with his as she visited him last evening. We will continue to monitor him for safety. I will look for and put from the treatment team regarding his progress during group activity. Vital signs reviewed. We will continue to monitor him for safety.
[2018-06-18] MEDS: CHOLECALCIFEROL 1,000 UNIT TAB PO SCH (13:05)
[2018-06-18] MEDS: ATORVASTATIN 40 MG TAB PO SCH (20:57)
[2018-06-18] MEDS: MELATONIN 3 MG TABLET PO SCH (22:12)
[2018-06-18] MEDS: QUEtiapine 100 MG TAB PO SCH (22:12)
[2018-06-19 06:56] VITALS: BP 131/70; PULSE 70; RESP 12; TEMP 97.5
[2018-06-19] MEDS: PANTOPRAZOLE 40 MG TABLET PO SCH (08:38)
[2018-06-19] MEDS: ASPIRIN 81 MG PO SCH (08:38)
[2018-06-19] MEDS: FLUTICASONE 50MCG/SPRAY NASAL 16GM EA NOSTRIL SCH (08:39)
[2018-06-19] MEDS: LISINOPRIL 5 MG TAB PO SCH (08:39)
[2018-06-19] MEDS: SERTRALINE 50 MG TAB PO SCH (08:39)
[2018-06-19] MEDS: METOPROLOL TARTRATE 25 MG TAB PO SCH (08:39)
[2018-06-19] MEDS: LORATADINE 10 MG TAB PO SCH (08:39)
[2018-06-19] MEDS: ISOSORBIDE MONONITRATE ER 30 MG TAB.ER.24H PO SCH (08:39)
--- NOTE | 2018-06-19 09:23 | P.DS ---
Providers Date of admission: 06/11/18 20:28 Expected date of discharge: 06/19/18 Attending physician: Rodolfo Ramos Consults: 06/11/18 21:03 Consult Physician Routine Consulting Provider: Rojas Bowens Consult Reason/Comments: H & P and medical care Do you want consulting provider notified?: Yes Primary care physician: [facility] - Discharge Diagnosis(es) (1) Major depressive disorder, recurrent, severe w/o psychotic behavior Current Visit: Yes Status: Acute Priority: High (2) Posttraumatic stress disorder Current Visit: Yes Status: Acute Priority: Medium Hospital Course: Brief summary of admission note: This patient is a 73-year-old male who was admitted to the mental health unit through the emergency room for suicidal ideation. The patient stated he had been struggling with symptoms of depression and was feeling hopeless. In the recent past he has made several attempts to convince himself to jump into traffic. He reported being tearful on a regular basis and having impaired sleep and appetite. He was reporting auditory hallucinations and visual hallucinations at times. He endorsed no command auditory hallucinations. He described a history of PTSD related to his service in [place]. For full details please refer to my psychiatric evaluation dated 06/12/2018. Summary of hospital course: The patient was admitted to the mental health unit voluntarily. We reviewed his presenting symptoms and medication options. We were able to obtain a medication list from [facility]. I did speak with his via phone with his permission. He had been on Wellbutrin for a number of years. He had been taking Ativan and melatonin and trazodone at bedtime as well. We reviewed other medication trials. We decided to initiate Zoloft and titrated to 50 mg daily for depressive and anxiety symptoms. Seroquel was added to address symptoms of psychosis and this may also augment his antidepressant treatment as well as help with sleep. He tolerated these medications well. His did visit him during the course of the hospitalization. I did speak with her again yesterday via phone and she feels that he has made progress and feels comfortable with him returning home. The patient attended groups he was cooperative and pleasant throughout his stay. He was seen by internal medicine for routine history and physical exam. We discussed the need for him to work with a psychiatrist and he plans on following up with one in [facility]. He will likely utilized the [facility] for psychotherapy services. Mental status exam: The patient is a male appearing his stated age. He seated calmly hygiene grooming are adequate. He remains pleasant and cooperative. He is wearing his eyeglasses. He is observed ambulating in the hallway without ataxia but he does have a short stride in terms of gait. He describes his mood as being better. He is reporting no hopelessness thinking no suicidal or homicidal ideation intent or plan. He is reporting no auditory or visual hallucinations now for over 3 days. He is endorsing no specific delusions. He demonstrates no observed evidence of psychosis. His thought process is linear he demonstrates no tangential thinking loose associations or flight of ideas. He does not appear hypomanic or manic. He is oriented to person place and date. He demonstrates an appropriate range of affect including appropriate smiling. He demonstrates no verbal or physical aggressiveness he demonstrates no abnormal involuntary movements. Impressions 1. Major depressive disorder recurrent severe with psychosis, posttraumatic stress disorder chronic, rule out neurocognitive symptoms 2. History of hiatal hernia 3. Psychosocial dysfunction due to presenting symptoms Plan: The patient will be discharged from the mental health unit today. He will return home residing with his . His has been involved in his treatment planning and discharge planning and is agreeable with his return home. He will continue on Zoloft 50 mg daily. We discussed that this may require titration in the outpatient setting. He will continue on Seroquel 100 mg at bedtime. He may continue using melatonin 3 mg at bedtime as well. He is encouraged to follow-up with a psychiatrist for his medication management. He plans on utilizing the [facility] for individual psychotherapy. At this time there is no imminent safety concern he is appropriate for transition outpatient care. He is instructed to return to the hospital with any acute safety concerns. Patient Condition at Discharge: Stable Plan - Discharge Summary New Discharge Prescriptions: New Loratadine [Claritin] 10 mg PO DAILY tab Metoprolol Tartrate [Lopressor] 25 mg PO DAILY tab QUEtiapine [SEROquel] 100 mg PO HS #30 tab Sertraline [Zoloft] 50 mg PO DAILY #30 tab Continue Melatonin 3 mg PO HS Fluticasone Nasal [place] [Flonase Nasal [place]] 1 spray EA NOSTRIL DAILY Omeprazole [PriLOSEC] 40 mg PO AC-BRKFST Aspirin EC [Ecotrin] 81 mg PO DAILY #30 tablet. Atorvastatin [Lipitor] 40 mg PO HS Isosorbide Mononitrate ER [Imdur] 30 mg PO QAM Nitroglycerin Sl Tabs [Nitrostat] 0.4 mg SUBLINGUAL DIRECTED PRN PRN Reason: Chest Pain Lisinopril [Zestril] 5 mg PO DAILY Cholecalciferol (Vitamin D3) [Vitamin D3] 2,000 unit PO DAILY Discontinued traZODone HCL 50 mg PO HS LORazepam [Ativan] 0.5 mg PO DAILY PRN PRN Reason: Anxiety buPROPion HCL [Wellbutrin XL] 150 mg PO DAILY No Action Metoprolol Tartrate 25 mg PO BID Discharge Medication List Fluticasone Nasal [place] [Flonase Nasal [place]] 1 spray EA NOSTRIL DAILY 06/21/15 [History] Melatonin 3 mg PO HS 06/21/15 [History] Omeprazole [PriLOSEC] 40 mg PO AC-BRKFST 06/21/15 [History] Aspirin EC [Ecotrin] 81 mg PO DAILY #30 tablet. 06/22/15 [Rx] Atorvastatin [Lipitor] 40 mg PO HS 10/09/15 [History] Isosorbide Mononitrate ER [Imdur] 30 mg PO QAM 10/09/15 [History] Nitroglycerin Sl Tabs [Nitrostat] 0.4 mg SUBLINGUAL DIRECTED PRN 12/28/15 [ History] Cholecalciferol (Vitamin D3) [Vitamin D3] 2,000 unit PO DAILY 06/11/18 [History] Lisinopril [Zestril] 5 mg PO DAILY 06/11/18 [History] Metoprolol Tartrate 25 mg PO BID 06/11/18 [History] Loratadine [Claritin] 10 mg PO DAILY tab 06/19/18 [Rx] Metoprolol Tartrate [Lopressor] 25 mg PO DAILY tab 06/19/18 [Rx] QUEtiapine [SEROquel] 100 mg PO HS #30 tab 06/19/18 [Rx] Sertraline [Zoloft] 50 mg PO DAILY #30 tab 06/19/18 [Rx] Follow up Appointment(s)/Referral(s): [facility],Clinic [Primary Care Provider] - 1-2 days
[2018-06-19] MEDS: CHOLECALCIFEROL 1,000 UNIT TAB PO SCH (12:28)
== END 2018-06-19 12:27 | disposition home or self-care (01) | DRG 885 ==
LOC: EC 16:47 → 3MHU 20:28
PROVIDERS: ADMIT Psychiatry & Neurology Psychiatry; ATTEND Psychiatry & Neurology Psychiatry
DX: F33.3 Major depressive disorder, recurrent, severe with psychotic symptoms (principal); R45.851 Suicidal ideations; F43.12 Post-traumatic stress disorder, chronic; I25.10 Atherosclerotic heart disease of native coronary artery without angina pectoris; K21.9 Gastro-esophageal reflux disease without esophagitis; E78.5 Hyperlipidemia, unspecified; I10 Essential (primary) hypertension; J30.2 Other seasonal allergic rhinitis; G47.9 Sleep disorder, unspecified; Z79.82 Long term (current) use of aspirin; Z79.51 Long term (current) use of inhaled steroids; Z79.899 Other long term (current) drug therapy; I25.2 Old myocardial infarction; Z90.49 Acquired absence of other specified parts of digestive tract; Z95.1 Presence of aortocoronary bypass graft; Z85.038 Personal history of other malignant neoplasm of large intestine; Z87.891 Personal history of nicotine dependence; Z83.3 Family history of diabetes mellitus
CPT/HCPCS: 36415; 80053; 80306; 81001; 81003; 82075; 84443; 85025; 99285

== ENCOUNTER 2018-07-29 20:57 | Inpatient (IN) | payer MEDICARE, OTHER ==
[2018-07-29 22:50] LABS: Appearance,Urine Clear (Clear); Bilirubin,Urine Negative (Negative); Blood,Urine Negative (Negative); Color,Urine Yellow; Glucose,Urine (UA) Negative (Negative); Ketones,Urine Negative (Negative); Leukocyte Esterase,Urine Negative (Negative); Nitrite,Urine Negative (Negative); PH, Urine 5.5 (5.0-8.0); Protein,Urine Negative (Negative); Specific Gravity,Urine 1.022 (1.001-1.035); Urobilinogen,Urine <2.0 mg/dL (<2.0)
[2018-07-29 23:01] LABS: Amphetamine Screen,Urine Not Detected (NotDetected); Barbiturate Screen,Urine Not Detected (NotDetected); Benzodiazepines Screen,Urine Not Detected (NotDetected); Cocaine Screen,Urine Not Detected (NotDetected); Methadone Screen, Urine Not Detected (NotDetected); Opiate Screen,Urine Not Detected (NotDetected); Oxycodone Screen, Urine Not Detected (NotDetected); Phencyclidine Screen,Urine Not Detected (NotDetected); Tricyclic Antidepressant,Urine Detected (NotDetected); Urn Cannabinoid Scrn Not Detected (NotDetected)
[2018-07-29 23:40] LABS: Basophils # (A) 0.1 k/uL (0-0.2); Basophils % (A) 1 %; Eosinophils # (A) 0.1 k/uL (0-0.7); Eosinophils % (A) 2 %; HCT 46.7 % (39.0-53.0); Lymphocytes # (A) 1.1 k/uL (1.0-4.8); Lymphocytes % (A) 19 %; MCH 31.3 pg (25.0-35.0); MCHC 34.3 g/dL (31.0-37.0); MCV 91.2 fL (80.0-100.0); Mean Platelet Volume 7.1; Monocytes # (A) 0.4 k/uL (0-1.0); Monocytes % (A) 7 %; Neutrophils # (A) 3.8 k/uL (1.3-7.7); Neutrophils % (A) 67 %; Platelet Count 182 k/uL (150-450); RBC 5.12 m/uL (4.30-5.90); RDW 13.4 % (11.5-15.5); WBC 5.6 k/uL (3.8-10.6)
--- NOTE | 2018-07-29 23:57 | ED ---
Psych HPI - General Source: patient Mode of arrival: wheelchair <Keira Tapia - Last Filed: 07/30/18 03:35> <Low Hoyt - Last Filed: 07/30/18 04:53> - History of Present Illness MD Complaint: suicidal ideation <Benja Shepard - Last Filed: 07/30/18 13:42> - General Chief Complaint: Psychiatric Symptoms Stated Complaint: Suicidal Time Seen by Provider: 07/29/18 22:52 - History of Present Illness Initial Comments: 73-year-old male patient presents to the emergency department today for evaluation of suicidal ideation. Patient states that he was admitted to [facility] about one month ago. States that he was discharged on 3 new medications. States that he has been taking them as directed however over the last week he has been having impulses where he feels like he wants to break his fingers. 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 Patient states that he has been increasingly depressed and wants to . Patient states he is a [place] and has been dealing with PTSD and depression for many years however he never said anything are talked about it until recently. Patient states he doesn't know why he gets these impulses or what triggers them. He is also reporting "tics" where he has an "involuntary" movement of an arm or leg. Patient states he also has been experiencing generalized shaking. She states it has worsened since coming home from inpatient psych treatment, but he did have the episodes prior to the stay as well. Patient states otherwise he physically feels well. Patient denies any recent rash, fever, chills, shortness breath, chest pain, abdominal pain, nausea, vomiting, diarrhea, constipation, back pain, numbness, tingling, dizziness, weakness, hematuria, dysuria, urinary urgency, urinary frequency, headache, visual changes, or any other complaints. (Keira Tapia) - Related Data Home Medications Medication Instructions Recorded Confirmed Fluticasone Nasal [place] [Flonase 1 spray EA NOSTRIL DAILY 06/21/15 07/29/18 Nasal [place]] Melatonin 3 mg PO HS 06/21/15 07/29/18 Omeprazole [PriLOSEC] 40 mg PO AC-[id number] 06/21/15 07/29/18 Atorvastatin [Lipitor] 40 mg PO HS 10/09/15 07/29/18 Isosorbide Mononitrate ER [Imdur] 30 mg PO DAILY 10/09/15 07/29/18 Nitroglycerin Sl Tabs [Nitrostat] 0.4 mg SUBLINGUAL Q5M PRN 12/28/15 07/29/18 Cholecalciferol (Vitamin D3) 2,000 unit PO DAILY 06/11/18 07/29/18 [Vitamin D3] Lisinopril [Zestril] 5 mg PO HS 06/11/18 07/29/18 Divalproex Sodium [Depakote ER] 250 mg PO HS 07/29/18 07/29/18 Metoprolol Tartrate [Lopressor] 25 mg PO HS 07/29/18 07/29/18 QUEtiapine [SEROquel] 50 mg PO HS 07/29/18 07/29/18 Previous Rx's Medication Instructions Recorded Aspirin EC [Ecotrin] 81 mg PO DAILY #30 tablet. 06/22/15 Loratadine [Claritin] 10 mg PO DAILY tab 06/19/18 Sertraline [Zoloft] 50 mg PO DAILY #30 tab 06/19/18 Allergies Allergy/AdvReac Type Severity Reaction Status Date / Time No Known Allergies Allergy Verified 07/29/18 23:11 Review of Systems ROS Other: All systems not noted in ROS Statement are negative. <Keira Tapia - Last Filed: 07/30/18 03:35> ROS Other: All systems not noted in ROS Statement are negative. <Low Hoyt - Last Filed: 07/30/18 04:53> ROS Other: All systems not noted in ROS Statement are negative. <Benja Shepard - Last Filed: 07/30/18 13:42> ROS Statement: Those systems with pertinent positive or pertinent negative responses have been documented in the HPI. Past Medical History Past Medical History: Coronary Artery Disease (CAD), Cancer, GERD/Reflux, Hyperlipidemia, Myocardial Infarction ([place]) Additional Past Medical History / Comment(s): DYSPHAGIA, CHRONIC DRY COUGH, HX COLON CANCER-2004, DIVERTICULAR DISORDER, hiatal hernia,, Last Myocardial Infarction Date:: 2009 History of Any Multi-Drug Resistant Organisms: None Reported Past Surgical History: Bowel Resection, Cholecystectomy, Coronary Bypass/CABG, Heart Catheterization, Hernia Repair Additional Past Surgical History / Comment(s): QUAD CABG, bowel resection , umbilical hernia repair,,DEVIATED SEPTUM REPAIR AND SPUR REMOVED from nose, Past Anesthesia/Blood Transfusion Reactions: Motion Sickness, Postoperative Nausea & Vomiting (PONV) Additional Past Anesthesia/Blood Transfusion Reaction / Comment(s): clausterphobic Past Psychological History: Anxiety, Depression, PTSD Smoking Status: Former smoker Past Alcohol Use History: None Reported Past Drug Use History: None Reported - Past Family History Son(s) Family Medical History: Cancer Father Family Medical History: Blood Disorder Additional Family Medical History / Comment(s): from a blood disorder Mother Family Medical History: Diabetes Mellitus Additional Family Medical History / Comment(s): age 53 -complications from dm Sister(s) Family Medical History: Diabetes Mellitus <Keira Tapia M - Last Filed: 07/30/18 03:35> General Exam Limitations: physical limitation General appearance: alert, in no apparent distress, other (This is a well- developed, well-nourished elderly male patient in no acute distress. Vital signs upon presentation are temperature 98.4F, pulse 60, respirations 18, blood pressure 154/86, pulse ox 97% on room air.) Eye exam: Present: normal appearance, PERRL, EOMI. Absent: scleral icterus, conjunctival injection, periorbital swelling ENT exam: Present: normal exam, normal oropharynx, mucous membranes moist Respiratory exam: Present: normal lung sounds bilaterally. Absent: respiratory distress, wheezes, rales, rhonchi, stridor Cardiovascular Exam: Present: regular rate, normal rhythm, normal heart sounds. Absent: systolic murmur, diastolic murmur, rubs, gallop, clicks GI/Abdominal exam: Present: soft, normal bowel sounds. Absent: distended, tenderness, guarding, rebound, rigid Neurological exam: Present: alert, oriented X3, CN II-XII intact, other ( Strength in all 4 extremities is 5/5. Did see involuntary movement of the right arm and leg, lasted 1 second.) Psychiatric exam: Present: depressed, suicidal ideation Skin exam: Present: warm, dry, intact, normal color. Absent: rash <Keira Tapia M - Last Filed: 07/30/18 03:35> Vital Signs 07/29/18 07/30/18 07/30/18 21:59 02:32 03:30 Temperature 98.4 F Pulse Rate 60 68 Respiratory 18 16 16 Rate Blood Pressure 154/86 161/82 O2 Sat by Pulse 97 98 Oximetry 07/30/18 07:42 Temperature 97.7 F Pulse Rate 52 L Respiratory 15 Rate Blood Pressure 159/75 O2 Sat by Pulse 97 Oximetry Medical Decision Making - Lab Data Result diagrams: 07/29/18 23:13 07/30/18 00:45 - EKG Data -: EKG Interpreted by Mi - Radiology Data Radiology results: report reviewed, image reviewed <Keira Tapia - Last Filed: 07/30/18 03:35> - Lab Data Result diagrams: 07/29/18 23:13 07/30/18 00:45 <Low Hoyt - Last Filed: 07/30/18 04:53> - Lab Data Result diagrams: 07/29/18 23:13 07/30/18 00:45 <Benja Shepard - Last Filed: 07/30/18 13:42> - Medical Decision Making 73 male the ER for evaluation of psychiatric illness that he wants to/his fingers, patient be transferred for inpatient psychiatric treatment and evaluation (Benja Shepard) - Lab Data Lab Results 07/29/18 07/29/18 07/29/18 Range/Units 22:15 22:15 23:13 WBC 5.6 (3.8-10.6) k/uL RBC 5.12 (4.30-5.90) m/uL Hgb 16.0 (13.0-17.5) gm/dL Hct 46.7 (39.0-53.0) % MCV 91.2 (80.0-100.0) fL MCH 31.3 (25.0-35.0) pg MCHC 34.3 (31.0-37.0) g/dL RDW 13.4 (11.5-15.5) % Plt Count 182 (150-450) k/uL Neutrophils % 67 % Lymphocytes % 19 % Monocytes % 7 % Eosinophils % 2 % Basophils % 1 % Neutrophils # 3.8 (1.3-7.7) k/uL Lymphocytes # 1.1 (1.0-4.8) k/uL Monocytes # 0.4 (0-1.0) k/uL Eosinophils # 0.1 (0-0.7) k/uL Basophils # 0.1 (0-0.2) k/uL Sodium (137-145) mmol/L Potassium (3.5-5.1) mmol/L Chloride (98-107) mmol/L Carbon Dioxide (22-30) mmol/L Anion Gap mmol/L BUN (9-20) mg/dL Creatinine (0.66-1.25) mg/dL Est GFR (CKD-EPI)AfAm (>60 ml/min/1.73 sqM) Est GFR (CKD-EPI)NonAf (>60 ml/min/1.73 sqM) Glucose (74-99) mg/dL Calcium (8.4-10.2) mg/dL Total Bilirubin (0.2-1.3) mg/dL AST (17-59) U/L ALT (21-72) U/L Alkaline Phosphatase (38-126) U/L Total Protein (6.3-8.2) g/dL Albumin (3.5-5.0) g/dL Urine Color Yellow Urine Appearance Clear (Clear) Urine pH 5.5 (5.0-8.0) Ur Specific [place] 1.022 (1.001-1.035) Urine Protein Negative (Negative) Urine Glucose (UA) Negative (Negative) Urine Ketones Negative (Negative) Urine Blood Negative (Negative) Urine Nitrite Negative (Negative) Urine Bilirubin Negative (Negative) Urine Urobilinogen <2.0 (<2.0) mg/dL Ur Leukocyte Esterase Negative (Negative) Urine Opiates Screen Not Detected (NotDetected) Ur Oxycodone Screen Not Detected (NotDetected) Urine Methadone Screen Not Detected (NotDetected) Ur Propoxyphene Screen Not Detected (NotDetected) Ur Barbiturates Screen Not Detected (NotDetected) U Tricyclic Antidepress Detected H (NotDetected) Ur Phencyclidine Scrn Not Detected (NotDetected) Ur Amphetamines Screen Not Detected (NotDetected) U Methamphetamines Scrn Not Detected (NotDetected) U Benzodiazepines Scrn Not Detected (NotDetected) Urine Cocaine Screen Not Detected (NotDetected) U Marijuana (THC) Screen Not Detected (NotDetected) 07/30/18 Range/Units 00:45 WBC (3.8-10.6) k/uL RBC (4.30-5.90) m/uL Hgb (13.0-17.5) gm/dL Hct (39.0-53.0) % MCV (80.0-100.0) fL MCH (25.0-35.0) pg MCHC (31.0-37.0) g/dL RDW (11.5-15.5) % Plt Count (150-450) k/uL Neutrophils % % Lymphocytes % % Monocytes % % Eosinophils % % Basophils % % Neutrophils # (1.3-7.7) k/uL Lymphocytes # (1.0-4.8) k/uL Monocytes # (0-1.0) k/uL Eosinophils # (0-0.7) k/uL Basophils # (0-0.2) k/uL Sodium 140 (137-145) mmol/L Potassium 4.7 (3.5-5.1) mmol/L Chloride 106 (98-107) mmol/L Carbon Dioxide 27 (22-30) mmol/L Anion Gap 7 mmol/L BUN 21 H (9-20) mg/dL Creatinine 0.54 L (0.66-1.25) mg/dL Est GFR (CKD-EPI)AfAm >90 (>60 ml/min/1.73 sqM) Est GFR (CKD-EPI)NonAf >90 (>60 ml/min/1.73 sqM) Glucose 83 (74-99) mg/dL Calcium 9.3 (8.4-10.2) mg/dL Total Bilirubin 0.6 (0.2-1.3) mg/dL AST 38 (17-59) U/L ALT 51 (21-72) U/L Alkaline Phosphatase 104 (38-126) U/L Total Protein 6.5 (6.3-8.2) g/dL Albumin 4.0 (3.5-5.0) g/dL Urine Color Urine Appearance (Clear) Urine pH (5.0-8.0) Ur Specific [place] (1.001-1.035) Urine Protein (Negative) Urine Glucose (UA) (Negative) Urine Ketones (Negative) Urine Blood (Negative) Urine Nitrite (Negative) Urine Bilirubin (Negative) Urine Urobilinogen (<2.0) mg/dL Ur Leukocyte Esterase (Negative) Urine Opiates Screen (NotDetected) Ur Oxycodone Screen (NotDetected) Urine Methadone Screen (NotDetected) Ur Propoxyphene Screen (NotDetected) Ur Barbiturates Screen (NotDetected) U Tricyclic Antidepress (NotDetected) Ur Phencyclidine Scrn (NotDetected) Ur Amphetamines Screen (NotDetected) U Methamphetamines Scrn (NotDetected) U Benzodiazepines Scrn (NotDetected) Urine Cocaine Screen (NotDetected) U Marijuana (THC) Screen (NotDetected) - EKG Data EKG Comments: EKG obtained at 2333 shows sinus bradycardia with a ventricular rate of 55, [place] interval 122, QRS duration 90, QT 428, QTC 409. (Keira Tapia) - Radiology Data CT brain without contrast was obtained. Report was reviewed in its entirety. Impression by Dr. Caballero shows cerebral atrophy and chronic small vessel ischemia. Old left-sided lacunar infarct. There is some progression of the white matter disease compared to old exam. I did review previous MRI brain from 2015, lacunar infarct seems consistent with those findings. (Keira Tapia) Disposition <Keira Tapia - Last Filed: 07/30/18 03:35> <Low Hoyt - Last Filed: 07/30/18 04:53> Is patient prescribed a controlled substance at d/c from ED?: No <Benja Shepard - Last Filed: 07/30/18 13:42> Clinical Impression: Suicidal ideation, Mood disorder Disposition: TRANSFER TO PSYCH HOSP/UNIT Condition: Fair Referrals: Mark Wells DO [Primary Care Provider] - 1-2 days
--- NOTE | 2018-07-30 00:19 | CT ---
EXAMINATION TYPE: CT brain wo con DATE OF EXAM: 07/29/2018 COMPARISON: 11/27/2012 HISTORY: Prior on synapse, pt having suicidal thoughts CT DLP: 2247.70 mGycm Automated exposure control for dose reduction was used. FINDINGS: There is cerebral cortical atrophy. There is patchy hypodensity in the periventricular white matter. There is no mass effect nor midline shift. The calvarium is intact. There is no evidence of intracran ial hemorrhage. There is 8 mm old lacunar infarct in the anterior left internal capsule. IMPRESSION: CEREBRAL ATROPHY AND CHRONIC SMALL VESSEL ISCHEMIA. OLD LEFT-SIDED LACUNAR INFARCT. THERE IS SOME PRO GRESSION OF THE WHITE MATTER DISEASE COMPARED TO OLD EXAM.
[2018-07-30 01:04] LABS: ALT 51 U/L (21-72); AST 38 U/L (17-59); Alkaline Phosphatase 104 U/L (38-126); Anion Gap 7 mmol/L; Blood Urea Nitrogen 21 mg/dL (9-20); Calcium 9.3 mg/dL (8.4-10.2); Carbon Dioxide 27 mmol/L (22-30); Chloride 106 mmol/L (98-107); Glucose 83 mg/dL (74-99); Potassium 4.7 mmol/L (3.5-5.1); Sodium 140 mmol/L (137-145); Total Bilirubin 0.6 mg/dL (0.2-1.3); Total Protein 6.5 g/dL (6.3-8.2)
[2018-07-30] MEDS ORDERED: SERTRALINE 50 MG TAB PO SCH (09:00)
[2018-07-30] MEDS ORDERED: ISOSORBIDE MONONITRATE ER 30 MG TAB.ER.24H PO SCH (09:00)
[2018-07-30] MEDS ORDERED: ZIPRASIDONE 20 MG VIAL IM PRN (17:00)
[2018-07-30] MEDS ORDERED: ACETAMINOPHEN TAB 325 MG TAB PO PRN (17:00)
[2018-07-30] MEDS ORDERED: MAGNESIUM HYDROXIDE 2,400 MG/10 ML CUP PO PRN (17:00)
[2018-07-30] MEDS ORDERED: MAG HYDROX/AL HYDROX/SIMETH 30 ML CUP PO PRN (17:00)
[2018-07-30] MEDS ORDERED: NITROGLYCERIN SL TABS 0.4 MG TAB SUBLINGUAL PRN (17:18)
[2018-07-30] MEDS: MELATONIN 3 MG TABLET PO SCH (20:15)
[2018-07-30] MEDS: METOPROLOL TARTRATE 25 MG TAB PO SCH (20:15)
[2018-07-30] MEDS: ATORVASTATIN 40 MG TAB PO SCH (20:15)
[2018-07-30] MEDS: QUEtiapine 50 MG TAB PO SCH (20:15)
[2018-07-30] MEDS: DIVALPROEX ER 250 MG TAB.ER.24H PO SCH (20:15)
[2018-07-30] MEDS ORDERED: LISINOPRIL 5 MG TAB PO SCH (21:00)
[2018-07-30] MEDS ORDERED: QUEtiapine 50 MG TAB PO SCH (21:00)
[2018-07-30] MEDS ORDERED: MELATONIN 3 MG TABLET PO SCH (21:00)
[2018-07-30] MEDS ORDERED: DIVALPROEX ER 250 MG TAB.ER.24H PO SCH (21:00)
[2018-07-30] MEDS ORDERED: METOPROLOL TARTRATE 25 MG TAB PO SCH (21:00)
[2018-07-30] MEDS ORDERED: ATORVASTATIN 40 MG TAB PO SCH (21:00)
[2018-07-31] MEDS ORDERED: PANTOPRAZOLE 40 MG TABLET PO SCH (07:30)
[2018-07-31] MEDS: FLUTICASONE 50MCG/SPRAY NASAL 16GM EA NOSTRIL SCH (07:56)
[2018-07-31] MEDS: CHOLECALCIFEROL 1,000 UNIT TAB PO SCH (07:57)
[2018-07-31] MEDS: ASPIRIN 81 MG PO SCH (07:57)
[2018-07-31] MEDS: ISOSORBIDE MONONITRATE ER 30 MG TAB.ER.24H PO SCH (07:57)
[2018-07-31] MEDS: SERTRALINE 50 MG TAB PO SCH (07:57)
[2018-07-31] MEDS: LORATADINE 10 MG TAB PO SCH (07:57)
[2018-07-31] MEDS: LISINOPRIL 5 MG TAB PO SCH (07:57)
[2018-07-31] MEDS: PANTOPRAZOLE 40 MG TABLET PO SCH (08:29)
[2018-07-31 09:16] LABS: ALT 61 U/L (21-72); AST 42 U/L (17-59); Albumin 4.2 g/dL (3.5-5.0); Alkaline Phosphatase 116 U/L (38-126); Anion Gap 9 mmol/L; Bilirubin, Delta 0.3 mg/dL (0.0-0.2); Bilirubin,Unconjugated 0.5 mg/dL (0.0-1.1); Blood Urea Nitrogen 18 mg/dL (9-20); Calcium 9.4 mg/dL (8.4-10.2); Carbon Dioxide 26 mmol/L (22-30); Chloride 107 mmol/L (98-107); Glucose 92 mg/dL (74-99); Potassium 4.6 mmol/L (3.5-5.1); Sodium 142 mmol/L (137-145); Total Bilirubin 0.8 mg/dL (0.2-1.3)
--- NOTE | 2018-07-31 14:36 | P.HP ---
Psychiatric H&P - . H&P Date: 07/31/18 History & Physical: IDENTIFYING DATA: The patient is a 73-year-old male admitted to the psychiatric unit voluntarily with complaints of poor frustration tolerance, periods of increased anxiety and confusion, fluctuating levels of depression, episodes of irritability and thoughts of self-harm. HISTORY OF PRESENT ILLNESS: This is his second admission to our psychiatric unit ; the first was in May 2018 when he presented with depression and suicidal ideation. He was discharged with the diagnoses of major depressive disorder recurrent severe without psychotic features and posttraumatic stress disorder. He stated that he was "doing better" for a brief period of time after discharge but his overall his mental state gradually declined. He described fluctuating levels of depression and recurrent thoughts of and suicide. He is easily frustrated and when he becomes frustrated he punches the crawford or pulls at his fingers. He described increasing frustration in the context of increasing difficulties with concentration, attention and problem-solving. He states he becomes easily frustrated when faced with a problem or making a decision. As a result of his difficulties his has assumed responsibility for managing the household finances, paying bills and coordinating appointments. He recognizes that he is having more more difficulty with concentration and problem-solving skills and this recognition is part of his frustration. He also described increased problem with his balance and walking. He describes periodic involuntary movements that he believes have been increased in frequency. He believes the involuntary movements, which usually consists of an abrupt jerking of his hands or his legs, occur more difficulty when he is frustrated, angry or anxious. He also described instances where he becomes angry and fearful in the presence of strangers. He described a recurrent experience where he feels as though strangers are talking about him. He described an instance where he lashed out at "some younger people" because he believed they were talking about him. He feels sad, hopeless and helpless. He feels guilty his has to assume more responsibilities and managing the household because of his impairments. He has thoughts of suicide but denied intent or plan. He denied suicidal gestures. He described difficulty falling and staying asleep. He reports increased fatigue and a general feeling of weakness. He feels tense and irritable and finds himself worrying about minor matters. He denied recent change in weight. He obsesses over his increasing disability but did not describe behaviors or cognitions consistent with obsessions or compulsions. He denied use of alcohol or drugs. He denied experiencing auditory, visual or olfactory hallucinations. He described ideas of reference and general paranoia but did not described thought insertion, thought broadcasting or thought control. He had a repeat CT scanned in the emergency room which demonstrated cerebral atrophy and chronic small vessel disease ischemia, an old LEFT-sided lacunar infarct and progression of the white matter disease compared to his exam from November 2012. In retrospect, he began to experience difficulty with problem solving, concentration and attention while he was working at [employer]. He stated that he was making mistakes and "could've been fired" but instead was reassigned to a [employer] position. He also reported difficulties with problem solving and managing conflict when he was in the [employer]. These difficulties were the primary reasons he decided to retire from the [employer]. PAST PSYCHIATRIC HISTORY: This is his second or third psychiatric hospitalization. Has been diagnosed with recurrent depressive disorder and PTSD. The latter diagnosis as a result of his service and deployment during the [place] War. He receives his mental health [facility]. PAST MEDICAL HISTORY: History of coronary artery disease, GERD, cancer hyperlipidemia and an old myocardial infarct. ALLERGIES: NO KNOWN DRUG ALLERGIES. SUBSTANCE USE HISTORY: According to record she has a history of alcohol use problems but has been abstinent for over 40 years. FAMILY PSYCHIATRIC/SUBSTANCE USE HISTORY: None LEGAL HISTORY: No legal history. SOCIAL HISTORY: He is currently in his second marriage. He lives with his of 25 years in [facility]. He retired from [employer] after 36 years. He also retired from the . He served 4 years in the [employer] and 16 years in the [employer]. 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 He was exposed to combat during his deployment in [place]. He has high school education. He has 5 children four of whom live in [place]. MENTAL STATUS EXAM: He presented as a pale and frail-appearing 73-year-old male who was pleasant on approach. He made eye contact and attended to the interview. He had no distinguishing features or prominent physical abnormalities. He had a blunted facial expression. He was alert and oriented to person, place and time. He showed periodic involuntary movements characterized by abrupt jerking of his hands or his legs. He was tremulous. His gait was unsteady, slow and narrow-based. His speech was spontaneous with decreased rate and rhythm. He had occasional articulation difficulties. His affect was anxious but stable and appropriate. He described wishes but denied suicidal ideation, plan or intent. He denied homicidal ideation. He expressed such depressive cognitions as hopelessness and helplessness. He ruminated about his cognitive difficulties, his poor frustration tolerance and his difficulty with problem solving skills. He expressed ideas of reference and paranoid ideation but did not describe clear delusional paranoid thoughts. His thinking was concrete but his associations were coherent. Logical. He did not demonstrate clang associations, perseverations, nasal just some blocking. He denied hallucinations and did not appear to be responding to internal stimuli. Global impression of intellect is average. He has some awareness of his illness and need for mental health treatment. We completed the Mini-Mental State Examination. His total score is 25/30 consistent with cognitive impairment. He had no impairment in orientation, registration or language. He demonstrated difficulties with attention, calculation and recall. He also completed the Montral Cognitive Assessment. His total score was 20/30 consistent with moderate cognitive impairment. He showed no impairment in visuospatial/executive functioning, naming, and orientation. He had impairments in attention, language, abstraction and delayed recall. STRENGTHS: Family support, stable marriage, stable housing, stable finances. WEAKNESSES: Multiple medical problems, increasing cognitive impairment. IMPRESSION: Is a 73-year-old male who has a history of depression. He presented to the psychiatric unit with complaints of increasing anxiety, frustration, depression and thoughts of suicide. He described increasing cognitive impairment that has been present for about 10 years but worsening to where his is assuming more responsibility for managing the household. He has difficulty with problem solving and multitasking. His performance on both the Mini-Mental State Examination and the Montral Cognitive Assessment, consistent with a cognitive impairment involving such functions as attention, abstraction, language, calculation and delayed recall. 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 I suspect that the involuntary movements are related to the progression of this report vascular disease. 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 Safety precautions. Continue outpatient psychotropic medications including Depakote ER 250 mg at bedtime, melatonin 3 mg at bedtime, Seroquel 25 mg at bedtime and Zoloft 50 mg daily. Consult neurology for evaluation of the neurocognitive disorder and involuntary movements. Consider an MRI and EEG. Consult medicine for initial physical exam and medical history. Encourage participation in therapeutic groups and activities. Evaluate clinical status response to treatment daily basis. Allergies Allergy/AdvReac Type Severity Reaction Status Date / Time No Known Allergies Allergy Verified 07/29/18 23:11 Vital Signs Temp 97.7 F 07/31/18 07:15 Pulse 67 07/31/18 07:15 Resp 18 07/31/18 07:15 BP 132/90 07/31/18 07:15 Pulse Ox 97 07/31/18 07:15 Laboratory Last Values WBC 5.6 k/uL (3.8-10.6) 07/29/18 23:13 RBC 5.12 m/uL (4.30-5.90) 07/29/18 23:13 Hgb 16.0 gm/dL (13.0-17.5) 07/29/18 23:13 Hct 46.7 % (39.0-53.0) 07/29/18 23:13 MCV 91.2 fL (80.0-100.0) 07/29/18 23:13 MCH 31.3 pg (25.0-35.0) 07/29/18 23:13 MCHC 34.3 g/dL (31.0-37.0) 07/29/18 23:13 RDW 13.4 % (11.5-15.5) 07/29/18 23:13 Plt Count 182 k/uL (150-450) 07/29/18 23:13 Neutrophils % 67 % 07/29/18 23:13 Lymphocytes % 19 % 07/29/18 23:13 Monocytes % 7 % 07/29/18 23:13 Eosinophils % 2 % 07/29/18 23:13 Basophils % 1 % 07/29/18 23:13 Neutrophils # 3.8 k/uL (1.3-7.7) 07/29/18 23:13 Lymphocytes # 1.1 k/uL (1.0-4.8) 07/29/18 23:13 Monocytes # 0.4 k/uL (0-1.0) 07/29/18 23:13 Eosinophils # 0.1 k/uL (0-0.7) 07/29/18 23:13 Basophils # 0.1 k/uL (0-0.2) 07/29/18 23:13 Sodium 142 mmol/L (137-145) 07/31/18 08:04 Potassium 4.6 mmol/L (3.5-5.1) 07/31/18 08:04 Chloride 107 mmol/L (98-107) 07/31/18 08:04 Carbon Dioxide 26 mmol/L (22-30) 07/31/18 08:04 Anion Gap 9 mmol/L 07/31/18 08:04 BUN 18 mg/dL (9-20) 07/31/18 08:04 Creatinine 0.59 mg/dL (0.66-1.25) L 07/31/18 08:04 Est GFR (CKD-EPI)AfAm >90 (>60 ml/min/1.73 sqM) 07/31/18 08:04 Est GFR (CKD-EPI)NonAf >90 (>60 ml/min/1.73 sqM) 07/31/18 08:04 Glucose 92 mg/dL (74-99) 07/31/18 08:04 Calcium 9.4 mg/dL (8.4-10.2) 07/31/18 08:04 Total Bilirubin 0.8 mg/dL (0.2-1.3) 07/31/18 08:04 Conjugated Bilirubin 0.0 mg/dL (0.0-0.3) 07/31/18 08:04 Unconjugated Bilirubin 0.5 mg/dL (0.0-1.1) 07/31/18 08:04 Delta Bilirubin 0.3 mg/dL (0.0-0.2) H 07/31/18 08:04 AST 42 U/L (17-59) 07/31/18 08:04 ALT 61 U/L (21-72) 07/31/18 08:04 Alkaline Phosphatase 116 U/L (38-126) 07/31/18 08:04 Total Protein 7.0 g/dL (6.3-8.2) 07/31/18 08:04 Albumin 4.2 g/dL (3.5-5.0) 07/31/18 08:04 Urine Color Yellow 07/29/18 22:15 Urine Appearance Clear (Clear) 07/29/18 22:15 Urine pH 5.5 (5.0-8.0) 07/29/18 22:15 Ur Specific Spring 1.022 (1.001-1.035) 07/29/18 22:15 Urine Protein Negative (Negative) 07/29/18 22:15 Urine Glucose (UA) Negative (Negative) 07/29/18 22:15 Urine Ketones Negative (Negative) 07/29/18 22:15 Urine Blood Negative (Negative) 07/29/18 22:15 Urine Nitrite Negative (Negative) 07/29/18 22:15 Urine Bilirubin Negative (Negative) 07/29/18 22:15 Urine Urobilinogen <2.0 mg/dL (<2.0) 07/29/18 22:15 Ur Leukocyte Esterase Negative (Negative) 07/29/18 22:15 Urine Opiates Screen Not Detected (NotDetected) 07/29/18 22:15 Ur Oxycodone Screen Not Detected (NotDetected) 07/29/18 22:15 Urine Methadone Screen Not Detected (NotDetected) 07/29/18 22:15 Ur Propoxyphene Screen Not Detected (NotDetected) 07/29/18 22:15 Ur Barbiturates Screen Not Detected (NotDetected) 07/29/18 22:15 Valproic Acid <10.0 ug/mL 07/30/18 17:42 U Tricyclic Antidepress Detected (NotDetected) H 07/29/18 22:15 Ur Phencyclidine Scrn Not Detected (NotDetected) 07/29/18 22:15 Ur Amphetamines Screen Not Detected (NotDetected) 07/29/18 22:15 U Methamphetamines Scrn Not Detected (NotDetected) 07/29/18 22:15 U Benzodiazepines Scrn Not Detected (NotDetected) 07/29/18 22:15 Urine Cocaine Screen Not Detected (NotDetected) 07/29/18 22:15 U Marijuana (THC) Screen Not Detected (NotDetected) 07/29/18 22:15 07/31/18 09:20 07/31/18 14:28
--- NOTE | 2018-07-31 15:25 | CONS ---
CONSULTATION DATE OF CONSULTATION: 07/31/2018 REASON FOR CONSULTATION: Medical management requested by Dr. Hull. CONSULTATION: This is a pleasant 73-year-old patient of Dr. Wells. Chronic stable medical conditions include coronary artery disease with history of bypass, GERD, hyperlipidemia and diverticulosis. Patient has a diagnosis of anxiety, depression, PTSD. The patient was progressively getting more depressed, suicidal, and he has been battling psychiatric illness for a long time. Not too long ago he was in the psychiatry unit here. The patient was feeling strong feelings of suicide. Sometimes he wants to smash the wall or take a hammer and smash his fingers. Hence he presented to the ER, admitted for the same. Otherwise he has been tolerating a diet. He gets these episodes where his body will jerk; it is not seizure activity, and sometimes he can voluntarily control it. When he gets more anxious sometimes, it will be more pronounced. Sometimes it interferes with what he is doing otherwise. I did witness at least 2 of these during my interview. REVIEW OF SYSTEMS: CONSTITUTIONAL: None. HEENT: None. RESPIRATORY: None. CARDIOVASCULAR: None. GASTROINTESTINAL: GENITOURINARY: None. MUSCULOSKELETAL: None. DERMATOLOGICAL: None. HEMATOLOGICAL: None. LYMPHATICS: None. PSYCHIATRY: As above. NEUROLOGICAL: As above. PAST MEDICAL HISTORY: 1. Coronary artery disease. 2. GERD. 3. Hyperlipidemia. 4. Myocardial infarction. 5. Chronic dry cough. 6. Colon cancer in 2004. 7. Diverticulosis. 8. Hiatal hernia. PAST SURGICAL HISTORY: 1. Bowel resection. 2. Cholecystectomy. 3. Cardiac bypass. 4. Umbilical hernia repair. 5. Deviated nasal septum repair. PSYCH HISTORY: 1. Major depressive disorder, recurrent. 2. Post-traumatic stress disorder. SOCIAL HISTORY: Patient started smoking in his teens, quit in the 1970s, smoked anywhere from half to a pack a day. Has not drunk alcohol in over 40 years. . 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 FAMILY HISTORY: Blood disorder, type unknown. HOME MEDICATIONS: 1. Zoloft 50 mg a day. 2. Seroquel 50 mg at bedtime. 3. Prilosec 40 mg with breakfast. 4. Nitrostat 0.4 sublingually q.5 p.r.n. 5. Lopressor 25 p.o. at bedtime. 6. Melatonin 3 mg at bedtime. 7. Claritin 10 mg p.o. daily. 8. Zestril 5 mg at bedtime. 9. Imdur ER 30 mg p.o. daily. 10.Flonase 1 spray each nostril daily. 11.Depakote ER 250 mg at bedtime. 12.Vitamin D3 2000 units p.o. daily. 13.Lipitor 40 mg at bedtime. 14.Aspirin 81 mg p.o. daily. ALLERGIES: NONE. PHYSICAL EXAMINATION: Temperature 97.7, pulse 67, respiration 18, blood pressure 132/90, pulse ox 97% on room air. GENERAL APPEARANCE: Average build. Sitting up. Somewhat depressed-appearing. EYES: Pupils equal. Conjunctivae normal. HEENT: External appearance of nose and ears normal. Oral cavity normal. NECK: JVD not raised. Mass not palpable. RESPIRATORY: Effort normal. LUNGS: Slightly decreased breath sounds. CARDIOVASCULAR: First and second sounds normal. No edema. ABDOMEN: Soft, non-tender. Liver and spleen not palpable. LYMPHATIC: No lymph node palpable in neck or axillae. PSYCHIATRY: Alert and oriented x3. Mood and affect depressed-appearing. NEUROLOGICAL: Pupils equal. Cranial nerves grossly intact. Power and sensation grossly intact. I did witness an episode where his body just twitched momentarily. INVESTIGATIONS: White count 5.6, hemoglobin 16, potassium 4.7, BUN 18, creatinine 0.59. TSH 1.4. UA negative. Urine drug screen positive for tricyclic antidepressants. ASSESSMENT: 1. Major depression, recurrent, with an acute episode. 2. Post-traumatic stress disorder. 3. Coronary artery disease with prior history of coronary artery bypass. 4. Gastroesophageal reflux disease. 5. Essential hypertension. 6. Colonic diverticulosis, asymptomatic. 7. Hiatal hernia. PLAN: Home medications are to be resumed. Care was discussed with the patient. Antidepressant will be adjusted per Dr. Hull. Patient is otherwise up and about, tolerating his diet. Thank you, Dr. Hull. MMANDRZEJL / IJN: [id number] /
[2018-07-31] MEDS: QUEtiapine 50 MG TAB PO SCH (20:13)
[2018-07-31] MEDS: ATORVASTATIN 40 MG TAB PO SCH (20:13)
[2018-07-31] MEDS: DIVALPROEX ER 250 MG TAB.ER.24H PO SCH (20:13)
[2018-07-31] MEDS: MELATONIN 3 MG TABLET PO SCH (20:14)
[2018-07-31] MEDS: METOPROLOL TARTRATE 25 MG TAB PO SCH (20:14)
[2018-08-01] MEDS: SERTRALINE 50 MG TAB PO SCH (08:38)
[2018-08-01] MEDS: FLUTICASONE 50MCG/SPRAY NASAL 16GM EA NOSTRIL SCH (08:38)
[2018-08-01] MEDS: CHOLECALCIFEROL 1,000 UNIT TAB PO SCH (08:38)
[2018-08-01] MEDS: PANTOPRAZOLE 40 MG TABLET PO SCH (08:38)
[2018-08-01] MEDS: LORATADINE 10 MG TAB PO SCH (08:38)
[2018-08-01] MEDS: ISOSORBIDE MONONITRATE ER 30 MG TAB.ER.24H PO SCH (08:38)
[2018-08-01] MEDS: LISINOPRIL 5 MG TAB PO SCH (08:38)
[2018-08-01] MEDS: ASPIRIN 81 MG PO SCH (08:38)
--- NOTE | 2018-08-01 15:25 | P.PN ---
Progress Note - Text Progress Note Date: 08/01/18 Interval history: Patient seen in [facility] today. He says his sleep was about average last night. He does not seem to voice any adverse psychotropic medication side effects. He talks about having mood swings prior to admission. We discussed his medications. Mental status exam: He is alert and cooperative with the interview. His speech is fluent, not rapid or pressured. Thought processes are organized. His mood he describes as pretty good. He denies any thoughts of harm to self or others. He has not verbalize any current hallucinations. He does not show any current agitation. Plan: We'll maintain current psychotropic medication regimen. Continue to monitor for any side effects and monitor his ongoing response. We'll continue to cover this patient through the weekend.
[2018-08-01] MEDS: DIVALPROEX ER 250 MG TAB.ER.24H PO SCH (20:06)
[2018-08-01] MEDS: ATORVASTATIN 40 MG TAB PO SCH (20:06)
[2018-08-01] MEDS: MELATONIN 3 MG TABLET PO SCH (20:07)
[2018-08-01] MEDS: METOPROLOL TARTRATE 25 MG TAB PO SCH (20:07)
[2018-08-01] MEDS: QUEtiapine 50 MG TAB PO SCH (20:07)
[2018-08-02] MEDS: FLUTICASONE 50MCG/SPRAY NASAL 16GM EA NOSTRIL SCH (07:29)
[2018-08-02] MEDS: LORATADINE 10 MG TAB PO SCH (07:30)
[2018-08-02] MEDS: ISOSORBIDE MONONITRATE ER 30 MG TAB.ER.24H PO SCH (07:30)
[2018-08-02] MEDS: CHOLECALCIFEROL 1,000 UNIT TAB PO SCH (07:30)
[2018-08-02] MEDS: PANTOPRAZOLE 40 MG TABLET PO SCH (07:30)
[2018-08-02] MEDS: ASPIRIN 81 MG PO SCH (07:30)
[2018-08-02] MEDS: SERTRALINE 50 MG TAB PO SCH (07:30)
[2018-08-02] MEDS: LISINOPRIL 5 MG TAB PO SCH (07:30)
--- NOTE | 2018-08-02 10:25 | P.PN ---
Progress Note - Text Progress Note Date: 08/02/18 Interval history: Patient seen in [facility] today. He relates that he slept well last night. He seems to be eating well. He describes that his mood is doing good. He does not voice any adverse psychotropic medication side effects. Mental status exam: He is alert and cooperative with the interview. His speech is fluent, not rapid or pressured. Thought processes are organized. His mood is described as "good." He does not show any agitation. He denies any thoughts of harm to self or others. He denies any hallucinations. He does not make any delusional statements. Plan: Maintain current psychotropic medication regimen. We'll continue to monitor for any medication side effects and monitor his ongoing response to treatment.
[2018-08-02] MEDS: QUEtiapine 50 MG TAB PO SCH (20:10)
[2018-08-02] MEDS: DIVALPROEX ER 250 MG TAB.ER.24H PO SCH (20:10)
[2018-08-02] MEDS: ATORVASTATIN 40 MG TAB PO SCH (20:10)
[2018-08-02] MEDS: MELATONIN 3 MG TABLET PO SCH (20:10)
[2018-08-02] MEDS: METOPROLOL TARTRATE 25 MG TAB PO SCH (20:10)
[2018-08-03] MEDS: PANTOPRAZOLE 40 MG TABLET PO SCH (07:36)
[2018-08-03] MEDS: ISOSORBIDE MONONITRATE ER 30 MG TAB.ER.24H PO SCH (07:37)
[2018-08-03] MEDS: LISINOPRIL 5 MG TAB PO SCH (07:37)
[2018-08-03] MEDS: FLUTICASONE 50MCG/SPRAY NASAL 16GM EA NOSTRIL SCH (07:38)
[2018-08-03] MEDS: ASPIRIN 81 MG PO SCH (07:38)
[2018-08-03] MEDS: SERTRALINE 50 MG TAB PO SCH (07:38)
[2018-08-03] MEDS: LORATADINE 10 MG TAB PO SCH (07:38)
[2018-08-03] MEDS: CHOLECALCIFEROL 1,000 UNIT TAB PO SCH (07:38)
--- NOTE | 2018-08-03 15:03 | P.PN ---
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 He complained of feeling depressed and anxious by merely about his increasing disability abilities versus his and managing the household. He recognizes his cognitive impairments and a gradual decline in his memory. He also complained of increased anxiety and increasing distressing thoughts of his [place] war experiences. He slept 6 hours last night and is attending therapeutic groups and activities. Medicine consult appreciated. Mental status exam: He presented as a neatly groomed elderly male who was pleasant on approach. He made eye contact and attended to the interview. He had no prominent physical abnormalities. He had an anxious facial expression. He was alert and oriented to person, place and time. He was tremulous but displayed no abnormal movements today. His speech was spontaneous with slight increase in rate and rhythm. His affect was anxious but stable and appropriate. He denied suicidal ideation or wishes. He expressed feelings of hopelessness and helplessness. He did not express ideas reference, paranoid delusion or delusions. He denied hallucinations and did not appear to be responding to internal stimuli. Assessment: He appears less distressed and anxious denied admission. Although I suspect that he has a vascular neurocognitive disorder cannot rulec0- occurring Alzheimer's type dementia. He would benefit from a neurological evaluation particularly in light of the intermittent movement disorder. Plan: Continue hospitalization. Continue safety precautions. Begin a trial of Aricept 5 mg at bedtime. Discontinue Depakote ER. Increase Zoloft 100 mg daily. Continue Seroquel 50 mg at bedtime for now evaluate the need to continue the antipsychotic. Continue melatonin 3 mg at bedtime. Neurology consult. [facility] to coordinate discharge and aftercare services. Encouraged continued participation in therapeutic groups and activities. Evaluate clinical status response to treatment daily basis.
[2018-08-03] MEDS: QUEtiapine 50 MG TAB PO SCH (20:41)
[2018-08-03] MEDS: METOPROLOL TARTRATE 25 MG TAB PO SCH (20:41)
[2018-08-03] MEDS: DONEPEZIL 5 MG TAB PO SCH (20:41)
[2018-08-03] MEDS: MELATONIN 3 MG TABLET PO SCH (20:41)
[2018-08-03] MEDS: ATORVASTATIN 40 MG TAB PO SCH (20:41)
--- NOTE | 2018-08-04 00:07 | P.CNNES ---
History of Present Illness Consult date: 08/03/18 History of Present Illness: The patient is a 73-year-old right-handed white male with history of PTSD and depression who presented to the emergency room department with suicidal ideation. Neurology was requested to see the patient regarding dementia and abnormal movements. The patient states he's had memory problems for over a year. He states he has difficulty focusing. He stopped taking care of his finances several years ago on that his handle it because he was having difficulty. He gave up his license one year ago because he was having rage road rage. He describes occasional jerking of his limbs. He has been seen by a neurologist in the past and was prescribed Lyrica for this. He is not certain whether it helped. He has had an MRI in the past which showed a lacunar infarct. He is not aware of that. He denies any neurologic complaints such as headache dizziness focal weakness or numbness. His main neurologic complaint is his memory problems and forgetfulness. He had a CAT scan of the brain in the emergency room which showed cerebral atrophy and old left lacunar infarct. Review of Systems Constitutional: Denies chills, Denies fever Eyes: denies blurred vision, denies pain Ears, nose, mouth and throat: Denies headache, Denies sore throat Cardiovascular: Denies chest pain, Denies shortness of breath Musculoskeletal: Denies myalgias Neurological: Denies numbness, Denies weakness Past Medical History Past Medical History: Coronary Artery Disease (CAD), Cancer, GERD/Reflux, Hyperlipidemia, Myocardial Infarction (DE) Additional Past Medical History / Comment(s): DYSPHAGIA, CHRONIC DRY COUGH, HX COLON CANCER-2004, DIVERTICULAR DISORDER, hiatal hernia,, Last Myocardial Infarction Date:: 2009 History of Any Multi-Drug Resistant Organisms: None Reported Past Surgical History: Bowel Resection, Cholecystectomy, Coronary Bypass/CABG, Heart Catheterization, Hernia Repair Additional Past Surgical History / Comment(s): QUAD CABG, bowel resection , umbilical hernia repair,,DEVIATED SEPTUM REPAIR AND SPUR REMOVED from nose, Past Anesthesia/Blood Transfusion Reactions: Motion Sickness, Postoperative Nausea & Vomiting (PONV) Additional Past Anesthesia/Blood Transfusion Reaction / Comment(s): clausterphobic Smoking Status: Former smoker - Past Family History Son(s) Family Medical History: Cancer Father Family Medical History: Blood Disorder Additional Family Medical History / Comment(s): from a blood disorder Mother Family Medical History: Diabetes Mellitus Additional Family Medical History / Comment(s): age 53 -complications from dm Sister(s) Family Medical History: Diabetes Mellitus Medications and Allergies Home Medications Medication Instructions Recorded Confirmed Type Fluticasone Nasal [place] [Flonase 1 spray EA NOSTRIL DAILY 06/21/15 08/02/18 History Nasal [place]] Melatonin 3 mg PO HS 06/21/15 08/02/18 History Omeprazole [PriLOSEC] 40 mg PO AC-BRKFST 06/21/15 08/02/18 History Aspirin EC [Ecotrin] 81 mg PO DAILY #30 tablet.dr 06/22/15 08/02/18 Rx Atorvastatin [Lipitor] 40 mg PO HS 10/09/15 08/02/18 History Isosorbide Mononitrate ER [Imdur] 30 mg PO DAILY 10/09/15 08/02/18 History Nitroglycerin Sl Tabs [Nitrostat] 0.4 mg SUBLINGUAL Q5M PRN 12/28/15 08/02/18 History Cholecalciferol (Vitamin D3) 2,000 unit PO DAILY 06/11/18 08/02/18 History [Vitamin D3] Lisinopril [Zestril] 5 mg PO HS 06/11/18 08/02/18 History Loratadine [Claritin] 10 mg PO DAILY tab 06/19/18 08/02/18 Rx Sertraline [Zoloft] 50 mg PO DAILY #30 tab 06/19/18 08/02/18 Rx Divalproex Sodium [Depakote ER] 250 mg PO HS 07/29/18 08/02/18 History Metoprolol Tartrate [Lopressor] 25 mg PO HS 07/29/18 08/02/18 History QUEtiapine [SEROquel] 50 mg PO HS 07/29/18 08/02/18 History Allergies Allergy/AdvReac Type Severity Reaction Status Date / Time No Known Allergies Allergy Verified 08/02/18 06:26 Physical Examination - Vital Signs Vital Signs: Vital Signs Temp Pulse Pulse Resp BP BP 08/03/18 08:18 61 20 158/84 08/03/18 06:16 98.0 F 57 L 16 130/80 - Constitutional General appearance: average body habitus, cooperative - EENT EENT: PERRL, hearing intact, vision intact - Respiratory Respiratory: lungs clear - Cardiovascular Cardiovascular: regular rate, normal S1 - Neurologic Neurologic examination: X Mental status: He was awake he was alert he was oriented to person year and month he was able to give the date he knew he was in [facility] he knew the county he was able to name the president and past 3 presidents he was able to do simple calculations he was able to spell world forward and backward remote memory was intact. He was unable to recall objects given to him after 3 minutes. Cranial nerve examination: PERRL, face symmetric, tongue midline Speech examination: intact Sensorimotor examination: intact Detailed motor examination: grossly full strength in all extremities - Psychiatric Psychiatric: depressed Results - Laboratory Findings CBC and BMP: 07/29/18 23:13 07/31/18 08:04 Abnormal Lab Findings: Abnormal Labs 07/29/18 07/30/18 07/31/18 22:15 00:45 08:04 BUN 21 H Creatinine 0.54 L 0.59 L Delta Bilirubin 0.3 H U Tricyclic Antidepress Detected H Assessment and Plan (1) Cognitive impairment Current Visit: Yes Status: Acute SNOMED Code(s): 183187484 (2) Myoclonic jerking Current Visit: Yes Status: Acute SNOMED Code(s): 44043233 (3) Posttraumatic stress disorder Current Visit: No Status: Acute Priority: Medium SNOMED Code(s): 78418914 Plan: The patient is a 73-year-old man with cognitive impairment and history of myoclonic jerks. He states he's had the involuntary movements for several years. Been treated in the past with Lyrica. He is unclear whether it helped. His had a CAT scan of the brain which showed atrophy and old left lacunar infarct and white matter changes. Patient may have some degree of vascular dementia. Recommend carotid ultrasound and EEG He is already on Depakote which may help the myoclonic jerks
[2018-08-04] MEDS: LISINOPRIL 5 MG TAB PO SCH (08:31)
[2018-08-04] MEDS: ASPIRIN 81 MG PO SCH (08:31)
[2018-08-04] MEDS: CHOLECALCIFEROL 1,000 UNIT TAB PO SCH (08:31)
[2018-08-04] MEDS: ISOSORBIDE MONONITRATE ER 30 MG TAB.ER.24H PO SCH (08:31)
[2018-08-04] MEDS: FLUTICASONE 50MCG/SPRAY NASAL 16GM EA NOSTRIL SCH (08:32)
[2018-08-04] MEDS: SERTRALINE 100 MG TAB PO SCH (08:32)
[2018-08-04] MEDS: LORATADINE 10 MG TAB PO SCH (08:32)
[2018-08-04] MEDS: PANTOPRAZOLE 40 MG TABLET PO SCH (08:32)
--- NOTE | 2018-08-04 11:33 | US ---
EXAMINATION TYPE: US carotid duplex BILAT DATE OF EXAM: 08/04/2018 COMPARISON: US 2010 CLINICAL HISTORY: Stroke. Patient stated has had TICS with noted stuttering x multiple years EXAM MEASUREMENTS: RIGHT: Peak Systolic Velocity (PSV) cm/sec ----- Right CCA: 59.4 ----- Right ICA: 55.7 ----- Right ECA: 80.5 ICA/CCA ratio: 0.9 RIGHT: End Diastole cm/sec ----- Right CCA: 7.6 ----- Right ICA: 16.5 ----- Right ECA: 2.2 LEFT: Peak Systolic Velocity (PSV) cm/sec ----- Left CCA: 72.6 ----- Left ICA: 97.7 ----- Left ECA: 98.4 prox ICA/CCA ratio: 1.3 LEFT: End Diastole cm/sec ----- Left CCA: 11.8 ----- Left ICA: 21.0 ----- Left ECA: 0.0 VERTEBRALS (direction of flow): Right Vertebral: Antegrade Left Vertebral: Antegrade Rhythm: Normal Mild intimal wall changes are noted Right ICA/ECA. Moderate, mixed and irregular intimal wall changes are noted Left ICA/ ECA, abut PSV is wnl bilaterally. IMPRESSION: 1. Atherosclerotic changes bilaterally with no significant hemodynamic stenosis. Criteria for Assigning % of Stenosis / Diameter reduction (Estimation based on the indirect measurements of the internal carotid artery velocities (ICA PSV). 1. Normal (no stenosis)=ICA PSV < 125 cm/s: ratio < 2.0: ICA EDV<40 cm/s. 2. Less than 50% stenosis=ICA PSV < 125 cm/s: ratio < 2.0: ICA EDV<40 cm/s. 3. 50 to 69% stenosis=ICA PSV of 125 to 230 cm/s: ration 2.0 ? 4.0: ICA EDV 40-100 cm/s. 4. Greater than 70% stenosis to near occlusion= ICA PSV > 230 cm/s: ratio > 4.0: ICA EDV > 100 cm/s. 5. Near occlusion= ICA PSV velocities may be low or undetectable: variable ratio and ICA EDV. 6. Total occlusion=unable to detect flow.
--- NOTE | 2018-08-04 13:42 | P.PN ---
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 I also met with his during the family meeting. He reports feeling less depressed and anxious. During the family meeting he described his concerns including his difficulty with memory and problem solving. He recognizes that some of the apparent self-harm such as twisting his finger and punching wall or expression of the frustration he is felt regarding his cognitive changes. His recognizes the memory impairments and increased difficulty with problem solving. She asked if he has a Alzheimer's disease because her father had the illness. I explained that we suspect he has a dementia most likely as result of "mini strokes". We discussed aftercare and recommended to have neuropsychological testing, a geropsychiatry assessment and continue medical and /or neurological management through the [place]. Neurology consult appreciated. Carotid Doppler showed atherosclerotic changes bilaterally with no significant hemodynamic stenosis. Mental status exam: He was neatly groomed, pleasant and cooperative. He demonstrated myoclonic movements during the interview. He was anxious. He denied suicidal ideation or wishes. He did not express ideas reference or paranoid ideation. His thinking was concrete but his associations were coherent and logical. He demonstrates insight or understanding of his cognitive limitations. Assessment: He is less distressed anxious and depressed since admission. The neurologist concurs with diagnosis of a vascular dementia. Awaiting the results of the EEG. Plan: Continue the inpatient hospitalization. Continue seeing precautions. Continue Zoloft 100 mg daily and Seroquel 50 mg at bedtime. Continue Aricept 5 mg at bedtime and titrated clinical response and tolerance. ornamental metal worker helper to coordinate aftercare including neuropsychological testing and a general psychiatric assessment at [facility]. Encouraged continued participation in therapeutic groups and activities. Evaluate clinical status response to treatment daily basis.
[2018-08-04] MEDS: ATORVASTATIN 40 MG TAB PO SCH (20:12)
[2018-08-04] MEDS: QUEtiapine 50 MG TAB PO SCH (20:12)
[2018-08-04] MEDS: DONEPEZIL 5 MG TAB PO SCH (20:12)
[2018-08-04] MEDS: METOPROLOL TARTRATE 25 MG TAB PO SCH (20:12)
[2018-08-04] MEDS: MELATONIN 3 MG TABLET PO SCH (20:12)
--- NOTE | 2018-08-04 20:51 | EEG ---
ELECTROENCEPHALOGRAM REPORT DATE OF EE08/04/2018 ELECTROENCEPHALOGRAPHIC EXAMINATION REPORT: INDICATION FOR EXAMINATION: This patient is a 73-year-old male being evaluated for altered mental status and myoclonic jerks. AGE: [age]. EEG FINDINGS: A routine 21-channel awake digital EEG recording was accomplished utilizing the 10-20 international system with bipolar and referential montages. The background activity in the most alert resting state consists of a low to medium amplitude, fairly well developed and well sustained 7-8 Hz activity over the posterior head regions. This posterior rhythm attenuates to eye opening. There is a small amount of low amplitude 18-20 Hz beta activity seen maximally over the anterior head regions. Muscle and movement artifact was observed on a few occasions during the tracing. Hyperventilation was not performed. Photic stimulation and flash frequencies of 2-30 Hz produced a good symmetrical occipital driving response. No epileptiform discharges were seen. IMPRESSION: This EEG is within normal limits for the patient's age. The EEG failed to reveal any focal, lateralized, or epileptiform abnormalities. Clinical correlation is recommended. MMDEVON / NOELN: [id number] /
[2018-08-05] MEDS: FLUTICASONE 50MCG/SPRAY NASAL 16GM EA NOSTRIL SCH (07:42)
[2018-08-05] MEDS: LISINOPRIL 5 MG TAB PO SCH (07:42)
[2018-08-05] MEDS: SERTRALINE 100 MG TAB PO SCH (07:42)
[2018-08-05] MEDS: ISOSORBIDE MONONITRATE ER 30 MG TAB.ER.24H PO SCH (07:43)
[2018-08-05] MEDS: CHOLECALCIFEROL 1,000 UNIT TAB PO SCH (07:43)
[2018-08-05] MEDS: ASPIRIN 81 MG PO SCH (07:43)
[2018-08-05] MEDS: LORATADINE 10 MG TAB PO SCH (07:43)
[2018-08-05] MEDS: PANTOPRAZOLE 40 MG TABLET PO SCH (07:43)
--- NOTE | 2018-08-05 09:43 | P.PN ---
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 He complained of feeling depressed and anxious by merely about his increasing disability abilities versus his and managing the household. He recognizes his cognitive impairments and a gradual decline in his memory. Assessment: He appears less distressed and anxious denied admission. Although I suspect that he has a vascular neurocognitive disorder cannot rulec0- occurring Alzheimer's type dementia. He would benefit from a neurological evaluation particularly in light of the intermittent movement disorder. . 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 He complained of feeling depressed and anxious by merely about his increasing disability abilities versus his and managing the household. He recognizes his cognitive impairments and a gradual decline in his memory. He also complained of increased anxiety and increasing distressing thoughts of his [place] war experiences. He slept 6 hours last night and is attending therapeutic groups and activities. Medicine consult appreciated. Mental status exam: He presented as a neatly groomed elderly male who was pleasant on approach. He made eye contact and attended to the interview. He had no prominent physical abnormalities. He had an anxious facial expression. He was alert and oriented to person, place and time. He was tremulous but displayed no abnormal movements today. His speech was spontaneous with slight increase in rate and rhythm. His affect was anxious but stable and appropriate. He denied suicidal ideation or wishes. He expressed feelings of hopelessness and helplessness. He did not express ideas reference, paranoid delusion or delusions. He denied hallucinations and did not appear to be responding to internal stimuli. Assessment: He appears less distressed and anxious denied admission. Although I suspect that he has a vascular neurocognitive disorder cannot rulec0- occurring Alzheimer's type dementia. He would benefit from a neurological evaluation particularly in light of the intermittent movement disorder. Plan: Continue hospitalization. Continue safety precautions. Begin a trial of Aricept 5 mg at bedtime. Discontinue Depakote ER. Increase Zoloft 100 mg daily. Continue Seroquel 50 mg at bedtime for now evaluate the need to continue the antipsychotic. Continue melatonin 3 mg at bedtime. Neurology consult. log chain worker to coordinate discharge and aftercare services. Encouraged continued participation in therapeutic groups and activities. Evaluate clinical status response to treatment daily basis. Objective - Vital Signs Vital signs: Vital Signs Temp 97.8 F 08/05/18 06:31 Pulse 66 08/05/18 07:45 Resp 18 08/05/18 07:45 BP 136/76 08/05/18 07:45 Pulse Ox 97 08/04/18 07:06 - Constitutional General appearance: Present: cooperative - EENT Eyes: Present: PERRLA - Neck Thyroid: right: normal size - Cardiovascular Heart sounds: normal: S1, S2 - Neurologic Neurologic: Present: CNII-XII intact, focal deficits - Psychiatric Psychiatric: Present: A&O x's 3, intact judgment & insight - Labs CBC & Chem 7: 07/29/18 23:13 07/31/18 08:04
[2018-08-05] MEDS: DONEPEZIL 5 MG TAB PO SCH (20:10)
[2018-08-05] MEDS: METOPROLOL TARTRATE 25 MG TAB PO SCH (20:10)
[2018-08-05] MEDS: QUEtiapine 50 MG TAB PO SCH (20:10)
[2018-08-05] MEDS: ATORVASTATIN 40 MG TAB PO SCH (20:10)
[2018-08-05] MEDS: MELATONIN 3 MG TABLET PO SCH (20:10)
[2018-08-06] MEDS: LORazepam 1 MG TAB PO PRN (03:40)
[2018-08-06] MEDS: FLUTICASONE 50MCG/SPRAY NASAL 16GM EA NOSTRIL SCH (07:44)
[2018-08-06] MEDS: ASPIRIN 81 MG PO SCH (07:44)
[2018-08-06] MEDS: ISOSORBIDE MONONITRATE ER 30 MG TAB.ER.24H PO SCH (07:44)
[2018-08-06] MEDS: LORATADINE 10 MG TAB PO SCH (07:44)
[2018-08-06] MEDS: LISINOPRIL 5 MG TAB PO SCH (07:44)
[2018-08-06] MEDS: CHOLECALCIFEROL 1,000 UNIT TAB PO SCH (07:44)
[2018-08-06] MEDS: PANTOPRAZOLE 40 MG TABLET PO SCH (07:45)
[2018-08-06] MEDS: SERTRALINE 100 MG TAB PO SCH (07:58)
--- NOTE | 2018-08-06 13:55 | P.PN ---
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 He complained of feeling depressed and anxious by merely about his increasing disability abilities versus his and managing the household. He recognizes his cognitive impairments and a gradual decline in his memory. Assessment: He appears less distressed and anxious denied admission. Although I suspect that he has a vascular neurocognitive disorder cannot rulec0- occurring Alzheimer's type dementia. He would benefit from a neurological evaluation particularly in light of the intermittent movement disorder. I will discuss today with with the patient about adding new medicine Namenda 5 mg at bedtime plus . . 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 He complained of feeling depressed and anxious by merely about his increasing disability abilities versus his and managing the household. He recognizes his cognitive impairments and a gradual decline in his memory. He also complained of increased anxiety and increasing distressing thoughts of his [place] war experiences. He slept 6 hours last night and is attending therapeutic groups and activities. Medicine consult appreciated. Mental status exam: He presented as a neatly groomed elderly male who was pleasant on approach. He made eye contact and attended to the interview. He had no prominent physical abnormalities. He had an anxious facial expression. He was alert and oriented to person, place and time. He was tremulous but displayed no abnormal movements today. His speech was spontaneous with slight increase in rate and rhythm. His affect was anxious but stable and appropriate. He denied suicidal ideation or wishes. He expressed feelings of hopelessness and helplessness. He did not express ideas reference, paranoid delusion or delusions. He denied hallucinations and did not appear to be responding to internal stimuli. Assessment: He appears less distressed and anxious denied admission. Although I suspect that he has a vascular neurocognitive disorder cannot rulec0- occurring Alzheimer's type dementia. He would benefit from a neurological evaluation particularly in light of the intermittent movement disorder. Plan: Continue hospitalization. Continue safety precautions. Begin a trial of Aricept 5 mg at bedtime. Discontinue Depakote ER. Increase Zoloft 100 mg daily. Continue Seroquel 50 mg at bedtime for now evaluate the need to continue the antipsychotic. Continue melatonin 3 mg at bedtime. Neurology consult. rail maintenance worker to coordinate discharge and aftercare services. Encouraged continued participation in therapeutic groups and activities. Evaluate clinical status response to treatment daily basis. Consideration today after talking with the patient would be to add Namenda 5 mg by mouth daily at bedtime and will add Lamictal 25 mg for racing thoughts and decrease rumination Objective - Vital Signs Vital signs: Vital Signs Temp 97.8 F 08/06/18 03:35 Pulse 57 L 08/06/18 07:47 Resp 18 08/06/18 07:47 BP 153/75 08/06/18 07:47 Pulse Ox 97 08/04/18 07:06 - Labs CBC & Chem 7: 07/29/18 23:13 07/31/18 08:04
[2018-08-06] MEDS: MELATONIN 3 MG TABLET PO SCH (19:41)
[2018-08-06] MEDS: METOPROLOL TARTRATE 25 MG TAB PO SCH (19:42)
[2018-08-06] MEDS: ATORVASTATIN 40 MG TAB PO SCH (19:42)
[2018-08-06] MEDS: DONEPEZIL 5 MG TAB PO SCH (19:42)
[2018-08-06] MEDS: QUEtiapine 50 MG TAB PO SCH (19:42)
[2018-08-06] MEDS: MEMANTINE 5 MG TAB PO SCH (19:42)
[2018-08-06] MEDS ORDERED: lamoTRIgine 25 MG TAB PO SCH (21:00)
[2018-08-07] MEDS: FLUTICASONE 50MCG/SPRAY NASAL 16GM EA NOSTRIL SCH (08:32)
[2018-08-07] MEDS: LISINOPRIL 5 MG TAB PO SCH (08:32)
[2018-08-07] MEDS: SERTRALINE 100 MG TAB PO SCH ×2 (08:33→20:34)
[2018-08-07] MEDS: ASPIRIN 81 MG PO SCH (08:33)
[2018-08-07] MEDS: ISOSORBIDE MONONITRATE ER 30 MG TAB.ER.24H PO SCH (08:33)
[2018-08-07] MEDS: PANTOPRAZOLE 40 MG TABLET PO SCH (08:33)
[2018-08-07] MEDS: CHOLECALCIFEROL 1,000 UNIT TAB PO SCH (08:33)
[2018-08-07] MEDS: LORATADINE 10 MG TAB PO SCH (08:33)
--- NOTE | 2018-08-07 10:22 | P.PN ---
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 He complained of feeling depressed and anxious by merely about his increasing disability abilities versus his and managing the household. He recognizes his cognitive impairments and a gradual decline in his memory. He also complained of increased anxiety and increasing distressing thoughts of his [place] war experiences. He slept 8 hours last night and is attending therapeutic groups and activities. Medicine consult appreciated. Mental status exam: He presented as a neatly groomed elderly male who was pleasant on approach. He made eye contact and attended to the interview. He had no prominent physical abnormalities. He had an anxious facial expression. He was alert and oriented to person, place and time. He was tremulous but displayed no abnormal movements today. His speech was spontaneous with slight increase in rate and rhythm. His affect was anxious but stable and appropriate. He denied suicidal ideation or wishes. He expressed feelings of hopelessness and helplessness.He rates his depression as 8 /10 and anxiety 8/10. He did not express ideas reference, paranoid delusion or delusions. He denied hallucinations and did not appear to be responding to internal stimuli. Assessment: He appears less distressed and anxious denied admission. Although I suspect that he has a vascular neurocognitive disorder cannot rulec0- occurring Alzheimer's type dementia. He would benefit from a neurological evaluation particularly in light of the intermittent movement disorder. Plan: Continue hospitalization. Continue safety precautions. Begin a trial of Aricept 10 mg at bedtime. Discontinue Depakote ER. Increase Zoloft 200 mg daily. Continue Seroquel 50 mg at bedtime for now evaluate the need to continue the antipsychotic. Continue melatonin 3 mg at bedtime. Neurology consult. electronics worker to coordinate discharge and aftercare services. Encouraged continued participation in therapeutic groups and activities. Evaluate clinical status response to treatment daily basis. Consideration today after talking with the patient would be to add Namenda 5 mg by mouth daily at bedtime and will add Lamictal 50 mg for racing thoughts and decrease rumination. He is very inquisitive but shows short-term memory confusion but has a better long-term memory. [id number] 20 minutes and documentation time.
[2018-08-07] MEDS: QUEtiapine 50 MG TAB PO SCH (20:33)
[2018-08-07] MEDS: ATORVASTATIN 40 MG TAB PO SCH (20:33)
[2018-08-07] MEDS: DONEPEZIL 10 MG TAB PO SCH (20:33)
[2018-08-07] MEDS: MEMANTINE 5 MG TAB PO SCH (20:33)
[2018-08-07] MEDS: lamoTRIgine 25 MG TAB PO SCH (20:34)
[2018-08-07] MEDS: MELATONIN 3 MG TABLET PO SCH (20:34)
[2018-08-07] MEDS: METOPROLOL TARTRATE 25 MG TAB PO SCH (20:34)
[2018-08-08] MEDS: PANTOPRAZOLE 40 MG TABLET PO SCH (07:50)
[2018-08-08] MEDS: ASPIRIN 81 MG PO SCH (08:25)
[2018-08-08] MEDS: ISOSORBIDE MONONITRATE ER 30 MG TAB.ER.24H PO SCH (08:25)
[2018-08-08] MEDS: LISINOPRIL 5 MG TAB PO SCH (08:25)
[2018-08-08] MEDS: FLUTICASONE 50MCG/SPRAY NASAL 16GM EA NOSTRIL SCH (08:25)
[2018-08-08] MEDS: LORATADINE 10 MG TAB PO SCH (08:25)
[2018-08-08] MEDS: CHOLECALCIFEROL 1,000 UNIT TAB PO SCH (08:25)
--- NOTE | 2018-08-08 19:04 | PN ---
PROGRESS NOTE The patient is seen, interviewed in detail. Found in a better mood. He reports his mood has been improving slowly and gradually. Today he denies any suicidal or homicidal ideation. He said he used to have worsening symptoms of PTSD, but they are getting better. He is still having some memory lapses. He reports that this is month of May and but he knows the year. He is oriented to place. The patient reports with the medication his mood is improving and so is his cognition. He denies any side effects from medication. MENTAL EXAMINATION: Patient is alert on x2. Has fair eye contact. Speech few word sentences. Mood dysphoric and anxious with congruent affect. He denies any suicidal ideation. I did not see him responding to internal stimuli. Attention span is fair. Insight and judgment improving slowly and gradually. ASSESSMENT: 1. Posttraumatic stress disorder by history. 2. Vascular neurocognitive disorder. 3. Possible major depressive disorder, moderate. PLAN OF TREATMENT: We will continue to adjust medications accordingly as he has been responding to medication and having no side effects. We will continue to monitor his behaviors. May increase the Lamictal after a few days. We will continue with Daja for now. MMODL / IJN: [id number] /
[2018-08-08] MEDS: lamoTRIgine 25 MG TAB PO SCH (20:19)
[2018-08-08] MEDS: ATORVASTATIN 40 MG TAB PO SCH (20:19)
[2018-08-08] MEDS: MEMANTINE 5 MG TAB PO SCH (20:20)
[2018-08-08] MEDS: DONEPEZIL 10 MG TAB PO SCH (20:20)
[2018-08-08] MEDS: METOPROLOL TARTRATE 25 MG TAB PO SCH (20:20)
[2018-08-08] MEDS: QUEtiapine 50 MG TAB PO SCH (20:20)
[2018-08-08] MEDS: SERTRALINE 100 MG TAB PO SCH (20:20)
[2018-08-08] MEDS: MELATONIN 3 MG TABLET PO SCH (20:21)
[2018-08-08] MEDS ORDERED: lamoTRIgine 25 MG TAB PO SCH (21:00)
[2018-08-09] MEDS: LORazepam 1 MG TAB PO PRN (04:10)
[2018-08-09] MEDS: LISINOPRIL 5 MG TAB PO SCH (08:35)
[2018-08-09] MEDS: CHOLECALCIFEROL 1,000 UNIT TAB PO SCH (08:35)
[2018-08-09] MEDS: LORATADINE 10 MG TAB PO SCH (08:35)
[2018-08-09] MEDS: ASPIRIN 81 MG PO SCH (08:35)
[2018-08-09] MEDS: PANTOPRAZOLE 40 MG TABLET PO SCH (08:35)
[2018-08-09] MEDS: ISOSORBIDE MONONITRATE ER 30 MG TAB.ER.24H PO SCH (08:35)
[2018-08-09] MEDS: FLUTICASONE 50MCG/SPRAY NASAL 16GM EA NOSTRIL SCH (08:36)
--- NOTE | 2018-08-09 12:59 | PN ---
PROGRESS NOTE HISTORY: The patient is seen interviewed, found in somewhat better. He still has some memory issues. He keeps saying that it is the month of May rather than July, but he is accurate about the date and the year. He is oriented to place and person. He said he continues to have sleep problems. He did not sleep good last night, which is making him a little tired during the day. He is trying to go to groups and learn coping skills. MENTAL STATUS EXAM: The patient is alert and oriented x2. Has fair eye contact. Speech fluent. His mood anxious, dysphoric with congruent affect. Denies suicidal ideation. I did not see him responding to internal stimuli. Memory somewhat impaired. Insight and judgment improving slowing and gradually. ASSESSMENT: 1. Posttraumatic stress disorder by history. 2. Vascular neurocognitive disorder. 3. 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 PLAN: We will continue with the current medications for now. We may increase the melatonin from 3 mg to 5 or 6 to help with sleep because he continues to have sleep issues. We will keep him on other medications, as he has been responding well to the medications. Encouraged him to attend groups and meetings. HAYLEY / SABINO: [id number] /
[2018-08-09] MEDS: ATORVASTATIN 40 MG TAB PO SCH (20:28)
[2018-08-09] MEDS: MELATONIN 5 MG TABLET PO SCH (20:28)
[2018-08-09] MEDS: QUEtiapine 50 MG TAB PO SCH (20:29)
[2018-08-09] MEDS: MEMANTINE 5 MG TAB PO SCH (20:29)
[2018-08-09] MEDS: lamoTRIgine 25 MG TAB PO SCH (20:29)
[2018-08-09] MEDS: SERTRALINE 100 MG TAB PO SCH (20:29)
[2018-08-09] MEDS: METOPROLOL TARTRATE 25 MG TAB PO SCH (20:29)
[2018-08-09] MEDS: DONEPEZIL 10 MG TAB PO SCH (20:29)
[2018-08-09] MEDS ORDERED: MEMANTINE 5 MG TAB PO SCH (21:00)
[2018-08-10] MEDS: FLUTICASONE 50MCG/SPRAY NASAL 16GM EA NOSTRIL SCH (07:41)
[2018-08-10] MEDS: CHOLECALCIFEROL 1,000 UNIT TAB PO SCH (07:41)
[2018-08-10] MEDS: ASPIRIN 81 MG PO SCH (07:41)
[2018-08-10] MEDS: LISINOPRIL 5 MG TAB PO SCH (07:41)
[2018-08-10] MEDS: LORATADINE 10 MG TAB PO SCH (07:41)
[2018-08-10] MEDS: ISOSORBIDE MONONITRATE ER 30 MG TAB.ER.24H PO SCH (07:42)
[2018-08-10] MEDS: PANTOPRAZOLE 40 MG TABLET PO SCH (08:09)
--- NOTE | 2018-08-10 12:05 | P.PN ---
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 He complained of feeling depressed and anxious by merely about his increasing disability abilities versus his and managing the household. He recognizes his cognitive impairments and a gradual decline in his memory. He also complained of increased anxiety and increasing distressing thoughts of his [place] war experiences. He slept 8 hours last night and is attending therapeutic groups and activities. Medicine consult appreciated. Mental status exam: He presented as a neatly groomed elderly male who was pleasant on approach. He made eye contact and attended to the interview. He had no prominent physical abnormalities. He had an anxious facial expression. He was alert and oriented to person, place and time. He was tremulous but displayed no abnormal movements today. His speech was spontaneous with slight increase in rate and rhythm. His affect was anxious but stable and appropriate. He denied suicidal ideation or wishes. He expressed feelings of hopelessness and helplessness.He rates his depression as 4 /10 and anxiety 4/10. He did not express ideas reference, paranoid delusion or delusions. He denied hallucinations and did not appear to be responding to internal stimuli. Assessment: He appears less distressed and anxious denied admission. Although I suspect that he has a vascular neurocognitive disorder cannot rulec0- occurring Alzheimer's type dementia which has improved. He is able to ambulate in the hallway without a cane and does well. He would benefit from a neurological evaluation particularly in light of the intermittent movement disorder. 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 On these types of patients are difficult on medications usually require higher dosing due to alteration in the NMDA receptor. Plan: Continue hospitalization. Continue safety precautions. Begin a trial of Aricept 10 mg at bedtime. Increase Zoloft 200 mg daily. Continue Seroquel 50 mg at bedtime for now evaluate the need to continue the antipsychotic. Continue melatonin 3 mg at bedtime. Neurology consult. food counter worker to coordinate discharge and aftercare services. Encouraged continued participation in therapeutic groups and activities. Evaluate clinical status response to treatment daily basis. Consideration today after talking with the patient would be to add Namenda 10 mg by mouth daily at bedtime and will add Lamictal 100 mg for racing thoughts and decrease rumination. After addition of 100 mg a Lamictal at at bedtime and increase his Namenda to 10 mg without any side effects should be able to be discharged on 08/11/2018. He is very inquisitive but shows improvement short-term memory but has a better long-term memory. [id number] 20 minutes and documentation time.
[2018-08-10] MEDS: ATORVASTATIN 40 MG TAB PO SCH (20:13)
[2018-08-10] MEDS: DONEPEZIL 10 MG TAB PO SCH (20:13)
[2018-08-10] MEDS: MELATONIN 5 MG TABLET PO SCH (20:15)
[2018-08-10] MEDS: SERTRALINE 100 MG TAB PO SCH (20:16)
[2018-08-10] MEDS: QUEtiapine 50 MG TAB PO SCH (20:16)
[2018-08-10] MEDS: METOPROLOL TARTRATE 25 MG TAB PO SCH (20:16)
[2018-08-10] MEDS ORDERED: MEMANTINE 10 MG TAB PO SCH (21:00)
[2018-08-10] MEDS ORDERED: lamoTRIgine 100 MG TAB PO SCH (21:00)
[2018-08-11] MEDS: LORazepam 1 MG TAB PO PRN (03:43)
[2018-08-11 03:44] VITALS: TEMP 97.8
[2018-08-11] MEDS: ISOSORBIDE MONONITRATE ER 30 MG TAB.ER.24H PO SCH (08:29)
[2018-08-11] MEDS: CHOLECALCIFEROL 1,000 UNIT TAB PO SCH (08:29)
[2018-08-11] MEDS: LISINOPRIL 5 MG TAB PO SCH (08:29)
[2018-08-11] MEDS: ASPIRIN 81 MG PO SCH (08:29)
[2018-08-11] MEDS: LORATADINE 10 MG TAB PO SCH (08:30)
[2018-08-11] MEDS: FLUTICASONE 50MCG/SPRAY NASAL 16GM EA NOSTRIL SCH (08:30)
[2018-08-11] MEDS: PANTOPRAZOLE 40 MG TABLET PO SCH (08:30)
[2018-08-11 09:27] VITALS: BP 170/79; PULSE 64; RESP 20
--- NOTE | 2018-08-11 12:28 | P.DS ---
Providers Date of admission: 07/30/18 16:58 Expected date of discharge: 08/11/18 Attending physician: Salo Vaughn DO Consults: 07/30/18 17:00 Consult Physician Routine Consulting Provider: Rojas Bowens Consult Reason/Comments: H &P and medical care Do you want consulting provider notified?: Yes 08/03/18 09:38 Consult Physician Routine Consulting Provider: Margarita Jordan Consult Reason/Comments: dementia, white matter disease, abnormal movements Do you want consulting provider notified?: Yes Primary care physician: Mark Wells - Discharge Diagnosis(es) (1) Cognitive impairment Current Visit: Yes Status: Acute Priority: Low (2) Mood disorder Current Visit: Yes Status: Acute Priority: Low (3) Bradycardia Current Visit: No Status: Acute Priority: Low (4) CAD (coronary artery disease) Current Visit: Yes Status: Acute Hospital Course: IDENTIFYING DATA: The patient is a 73-year-old male admitted to the psychiatric unit voluntarily with complaints of poor frustration tolerance, periods of increased anxiety and confusion, fluctuating levels of depression, episodes of irritability and thoughts of self-harm.Clinical Problems : Major vascular neurocognitive disorder, 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 He complained of feeling depressed and anxious by merely about his increasing disability abilities versus his and managing the household. He recognizes his cognitive impairments and a gradual decline in his memory. Mental status exam: He presented as a neatly groomed elderly male who was pleasant on approach. He made eye contact and attended to the interview. He had no prominent physical abnormalities. He had an anxious facial expression. He was alert and oriented to person, place and time. He was tremulous but displayed no abnormal movements today. His speech was spontaneous with slight increase in rate and rhythm. His affect was anxious but stable and appropriate. He denied suicidal ideation or wishes. He expressed feelings of hopelessness and helplessness.He rates his depression as 4 /10 and anxiety 4/10. He did not express ideas reference, paranoid delusion or delusions. He denied hallucinations and did not appear to be responding to internal stimuli. Assessment: He appears less distressed and anxious denied admission. Although I suspect that he has a vascular neurocognitive disorder cannot rulec0- occurring Alzheimer's type dementia which has improved. He is able to ambulate in the hallway without a cane and does well. He would benefit from a neurological evaluation particularly in light of the intermittent movement disorder. 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 On these types of patients are difficult on medications usually require higher dosing due to alteration in the NMDA receptor. He is on Depakote and Lamictal and should be monitored his ammonia level as well as Depakote level. I think would be of value outpatient basis for the neurologist to see if really need Depakote and Lamictal and could decrease Depakote and discontinue on outpatient basis. I do believe has diagnoses at the time of admission was neurocognitive disorder but I think her greater extent he showed more pseudodementia which more dementia qualities. He is certainly improved with the addition of Namenda and increasing his Aricept will additional increase of the Zoloft to 200 mg at bedtime and stabilized his affect mood and his rumination. Pertinent Studies: Lab work was well within normal limits at the time of discharge Patient Condition at Discharge: Stable Plan - Discharge Summary Discharge Rx Participant: Yes New Discharge Prescriptions: New Donepezil [Aricept] 10 mg PO HS #30 tab Cholecalciferol [Vitamin D3] 2,000 unit PO DAILY tab lamoTRIgine [LaMICtal] 100 mg PO HS #30 tab Memantine [Namenda] 10 mg PO HS #30 tab Metoprolol Tartrate [Lopressor] 25 mg PO HS tab QUEtiapine [SEROquel] 50 mg PO HS #30 tab Sertraline [Zoloft] 200 mg PO HS #30 tab Continue Fluticasone Nasal [place] [Flonase Nasal [place]] 1 spray EA NOSTRIL DAILY Omeprazole [PriLOSEC] 40 mg PO AC-BRKFST Isosorbide Mononitrate ER [Imdur] 30 mg PO DAILY Nitroglycerin Sl Tabs [Nitrostat] 0.4 mg SUBLINGUAL Q5M PRN PRN Reason: Chest Pain Cholecalciferol (Vitamin D3) [Vitamin D3] 2,000 unit PO DAILY Loratadine [Claritin] 10 mg PO DAILY tab Atorvastatin [Lipitor] 40 mg PO HS #60 tab Divalproex Sodium [Depakote ER] 250 mg PO HS #60 tab.er.24h Discontinued Melatonin 3 mg PO HS Aspirin EC [Ecotrin] 81 mg PO DAILY #30 tablet. Lisinopril [Zestril] 5 mg PO HS Sertraline [Zoloft] 50 mg PO DAILY #30 tab Metoprolol Tartrate [Lopressor] 25 mg PO HS QUEtiapine [SEROquel] 50 mg PO HS Discharge Medication List Fluticasone Nasal [place] [Flonase Nasal [place]] 1 spray EA NOSTRIL DAILY 06/21/15 [History] Omeprazole [PriLOSEC] 40 mg PO AC-BRKFST 06/21/15 [History] Isosorbide Mononitrate ER [Imdur] 30 mg PO DAILY 10/09/15 [History] Nitroglycerin Sl Tabs [Nitrostat] 0.4 mg SUBLINGUAL Q5M PRN 12/28/15 [History] Cholecalciferol (Vitamin D3) [Vitamin D3] 2,000 unit PO DAILY 06/11/18 [History] Loratadine [Claritin] 10 mg PO DAILY tab 06/19/18 [Rx] Atorvastatin [Lipitor] 40 mg PO HS #60 tab 08/11/18 [Rx] Cholecalciferol [Vitamin D3] 2,000 unit PO DAILY tab 08/11/18 [Rx] Divalproex Sodium [Depakote ER] 250 mg PO HS #60 tab.er.24h 08/11/18 [Rx] Donepezil [Aricept] 10 mg PO HS #30 tab 08/11/18 [Rx] Memantine [Namenda] 10 mg PO HS #30 tab 08/11/18 [Rx] Metoprolol Tartrate [Lopressor] 25 mg PO HS tab 08/11/18 [Rx] QUEtiapine [SEROquel] 50 mg PO HS #30 tab 08/11/18 [Rx] Sertraline [Zoloft] 200 mg PO HS #30 tab 08/11/18 [Rx] lamoTRIgine [LaMICtal] 100 mg PO HS #30 tab 08/11/18 [Rx] Follow up Appointment(s)/Referral(s): Susan SÁNCHEZ [Other] - 08/13/18 12:00 pm (Skype: Jackelin Diego) Mark Wells, [Primary Care Provider] - 1-2 days Activity/Diet/Wound Care/Special Instructions: Keep your follow up appointments as scheduled. Continue medications as prescribed. No alcohol or street drugs. No access to guns or weapons. Crisis line if needed . Discharge Disposition: HOME SELF-CARE
[2018-08-11 13:40] VITALS: BMI 26.5
== END 2018-08-11 14:38 | disposition home or self-care (01) | DRG 885 ==
LOC: EC 20:57 → 3MHU 07-30 16:58
PROVIDERS: ADMIT Psychiatry & Neurology Psychiatry; ATTEND Psychiatry & Neurology Psychiatry
DX: F39 Unspecified mood [affective] disorder (principal); F33.1 Major depressive disorder, recurrent, moderate; R45.851 Suicidal ideations; R41.9 Unspecified symptoms and signs involving cognitive functions and awareness; E78.5 Hyperlipidemia, unspecified; F01.50 Vascular dementia, unspecified severity, without behavioral disturbance, psychotic disturbance, mood disturbance, and anxiety; F43.10 Post-traumatic stress disorder, unspecified; G25.3 Myoclonus; I10 Essential (primary) hypertension; I25.10 Atherosclerotic heart disease of native coronary artery without angina pectoris; I25.2 Old myocardial infarction; I73.9 Peripheral vascular disease, unspecified; K21.9 Gastro-esophageal reflux disease without esophagitis; K44.9 Diaphragmatic hernia without obstruction or gangrene; K57.30 Diverticulosis of large intestine without perforation or abscess without bleeding; K57.90 Diverticulosis of intestine, part unspecified, without perforation or abscess without bleeding; R00.1 Bradycardia, unspecified; R13.10 Dysphagia, unspecified; R05 Cough; G30.9 Alzheimer's disease, unspecified; F02.80 Dementia in other diseases classified elsewhere, unspecified severity, without behavioral disturbance, psychotic disturbance, mood disturbance, and anxiety; G31.9 Degenerative disease of nervous system, unspecified; Z79.82 Long term (current) use of aspirin; Z79.899 Other long term (current) drug therapy; Z85.038 Personal history of other malignant neoplasm of large intestine; Z95.1 Presence of aortocoronary bypass graft; Z87.891 Personal history of nicotine dependence; Z86.73 Personal history of transient ischemic attack (TIA), and cerebral infarction without residual deficits; Z90.49 Acquired absence of other specified parts of digestive tract; Z83.3 Family history of diabetes mellitus
CPT/HCPCS: 36415; 70450; 80048; 80053; 80076; 80164; 80306; 81003; 84443; 85025; 93005; 93880; 95816; 99285

== ENCOUNTER 2018-11-21 22:35 | Emergency (ER) | payer MEDICARE, OTHER ==
[2018-11-21 22:47] VITALS: RESP 20
[2018-11-21] MEDS ORDERED: SODIUM CHLORIDE 0.9% 1,000 ML IV STA (23:02)
[2018-11-21 23:22] LABS: Basophils % (A) 1 %; Eosinophils # (A) 0.1 k/uL (0-0.7); Eosinophils % (A) 3 %; HCT 43.5 % (39.0-53.0); HGB 14.8 gm/dL (13.0-17.5); Lymphocytes # (A) 1.4 k/uL (1.0-4.8); Lymphocytes % (A) 27 %; MCH 30.9 pg (25.0-35.0); Mean Platelet Volume 6.7; Monocytes # (A) 0.4 k/uL (0-1.0); Monocytes % (A) 8 %; Neutrophils # (A) 3.1 k/uL (1.3-7.7); Neutrophils % (A) 60 %; Platelet Count 164 k/uL (150-450); RBC 4.78 m/uL (4.30-5.90); RDW 13.3 % (11.5-15.5); WBC 5.3 k/uL (3.8-10.6)
[2018-11-21 23:26] LABS: Partial Thromboplastin Time 23.1 sec (22.0-30.0); Prothrombin Time 10.3 sec (9.0-12.0)
--- NOTE | 2018-11-21 23:26 | ED ---
Abdominal Pain HPI - General Chief Complaint: Abdominal Pain Stated Complaint: Abd pain Time Seen by Provider: 11/21/18 23:02 Source: patient Mode of arrival: EMS Limitations: no limitations - History of Present Illness Initial Comments: This is a 73-year-old woman with past medical history listed below who presents to the emergency department today for evaluation of abdominal pain. The patient reports that he was in his usual state of health throughout the day today, he had a normal bowel movement was able to eat his normal diet. He reports that he went to bed but upon laying down and began having some abdominal discomfort. He describes it as diffuse but worse in the left lower quadrant. Pain was not associated with any nausea, vomiting or to have a bowel movement. Patient reports he got back up and tried walking around but continued to have abdominal pain so he asked his to bring him to the hospital for evaluation. describes the pain as generalized aching throughout his entire abdomen. Pain resolved after receiving morphine in route to the hospital. - Related Data Home Medications Medication Instructions Recorded Confirmed Fluticasone Nasal [place] [Flonase 1 spray EA NOSTRIL DAILY 06/21/15 11/21/18 Nasal [place]] Omeprazole [PriLOSEC] 40 mg PO AC-BRKFST 06/21/15 11/21/18 Isosorbide Mononitrate ER [Imdur] 30 mg PO DAILY 10/09/15 11/21/18 Nitroglycerin Sl Tabs [Nitrostat] 0.4 mg SUBLINGUAL Q5M PRN 12/28/15 11/21/18 Atorvastatin [Lipitor] 20 mg PO HS 11/21/18 11/21/18 Cholecalciferol [Vitamin D3] 1,000 unit PO DAILY 11/21/18 11/21/18 Divalproex ER [Depakote ER] 500 mg PO HS 11/21/18 11/21/18 Previous Rx's Medication Instructions Recorded Loratadine [Claritin] 10 mg PO DAILY tab 06/19/18 Memantine [Namenda] 10 mg PO HS #30 tab 08/11/18 Metoprolol Tartrate [Lopressor] 25 mg PO HS tab 08/11/18 QUEtiapine [SEROquel] 50 mg PO HS #30 tab 08/11/18 Sertraline [Zoloft] 200 mg PO HS #30 tab 08/11/18 lamoTRIgine [LaMICtal] 100 mg PO HS #30 tab 08/11/18 Allergies Allergy/AdvReac Type Severity Reaction Status Date / Time No Known Allergies Allergy Verified 11/21/18 23:28 Review of Systems ROS Statement: Those systems with pertinent positive or pertinent negative responses have been documented in the HPI. ROS Other: All systems not noted in ROS Statement are negative. Past Medical History Past Medical History: Coronary Artery Disease (CAD), Cancer, GERD/Reflux, Hyperlipidemia, Myocardial Infarction (SC) Additional Past Medical History / Comment(s): DYSPHAGIA, CHRONIC DRY COUGH, HX COLON CANCER-2004, DIVERTICULAR DISORDER, hiatal hernia,, Last Myocardial Infarction Date:: 2009 History of Any Multi-Drug Resistant Organisms: None Reported Past Surgical History: Bowel Resection, Cholecystectomy, Coronary Bypass/CABG, Heart Catheterization, Hernia Repair Additional Past Surgical History / Comment(s): QUAD CABG, bowel resection , umbilical hernia repair,,DEVIATED SEPTUM REPAIR AND SPUR REMOVED from nose, Past Anesthesia/Blood Transfusion Reactions: Motion Sickness, Postoperative Nausea & Vomiting (PONV) Additional Past Anesthesia/Blood Transfusion Reaction / Comment(s): clausterphobic Past Psychological History: Anxiety, Depression, PTSD Smoking Status: Former smoker Past Alcohol Use History: None Reported Past Drug Use History: None Reported - Past Family History Son(s) Family Medical History: Cancer Father Family Medical History: Blood Disorder Additional Family Medical History / Comment(s): from a blood disorder Mother Family Medical History: Diabetes Mellitus Additional Family Medical History / Comment(s): age 53 -complications from dm Sister(s) Family Medical History: Diabetes Mellitus General Exam - General Exam Comments Initial Comments: Physical Exam GENERAL: Patient is well-developed and well-nourished. Patient is nontoxic and well- hydrated and is in no distress. HENT: Normocephalic, Atraumatic. EYES: PERRL, EOMI PULMONARY: Unlabored respirations. No audible rales rhonchi or wheezing was noted. CARDIOVASCULAR: There is a regular rate and rhythm without any murmurs gallops or rubs. ABDOMEN: Soft with normal bowel sounds. Mild tenderness to palpation in all quadrants, worse in the left lower quadrant , non-peritoneal No pulsating masses SKIN: Skin is clear with no lesions or rashes and otherwise unremarkable. : Deferred NEUROLOGIC: Alert and oriented to person, place and month MUSCULOSKELETAL: Normal extremities with adequate strength and full range of motion. No lower extremity swelling or edema. No calf tenderness. PSYCHIATRIC: Pleasantly confused Limitations: no limitations Limitations: no limitations Course Vital Signs 11/21/18 11/22/18 11/22/18 22:43 02:02 04:06 Temperature 98.4 F 98.1 F Pulse Rate 57 L 47 L 52 L Respiratory 20 20 20 Rate Blood Pressure 115/77 140/82 147/79 O2 Sat by Pulse 94 L 97 94 L Oximetry Medical Decision Making - Medical Decision Making Patient was seen and evaluated history was obtained from the patient and at bedside Elderly male with diffuse abdominal pain and labs and imaging ordered As revealed no acute abnormalities Computed tomography scan revealed no acute pathology Patient is resting comfortably and is abdominal pain-free. Results were discussed with the patient, at this time he is concerned that his abdominal pain is possibly related to gas. At this time patient is comfortable with plan for discharge home. Return parameters were discussed of questions pertaining care were answered and patient was discharged home in stable condition. - Lab Data Result diagrams: 11/21/18 22:57 11/21/18 22:57 Lab Results 11/21/18 11/21/18 11/21/18 Range/Units 22:57 22:57 22:57 WBC 5.3 (3.8-10.6) k/uL RBC 4.78 (4.30-5.90) m/uL Hgb 14.8 (13.0-17.5) gm/dL Hct 43.5 (39.0-53.0) % MCV 91.0 (80.0-100.0) fL MCH 30.9 (25.0-35.0) pg MCHC 34.0 (31.0-37.0) g/dL RDW 13.3 (11.5-15.5) % Plt Count 164 (150-450) k/uL Neutrophils % 60 % Lymphocytes % 27 % Monocytes % 8 % Eosinophils % 3 % Basophils % 1 % Neutrophils # 3.1 (1.3-7.7) k/uL Lymphocytes # 1.4 (1.0-4.8) k/uL Monocytes # 0.4 (0-1.0) k/uL Eosinophils # 0.1 (0-0.7) k/uL Basophils # 0.0 (0-0.2) k/uL PT (9.0-12.0) sec INR (<1.2) APTT (22.0-30.0) sec Sodium 142 (137-145) mmol/L Potassium 4.2 (3.5-5.1) mmol/L Chloride 111 H (98-107) mmol/L Carbon Dioxide 25 (22-30) mmol/L Anion Gap 6 mmol/L BUN 20 (9-20) mg/dL Creatinine 0.57 L (0.66-1.25) mg/dL Est GFR (CKD-EPI)AfAm >90 (>60 ml/min/1.73 sqM) Est GFR (CKD-EPI)NonAf >90 (>60 ml/min/1.73 sqM) Glucose 105 H (74-99) mg/dL Plasma Lactic Acid Bhavik 1.2 (0.7-2.0) mmol/L Calcium 8.6 (8.4-10.2) mg/dL Total Bilirubin 0.2 (0.2-1.3) mg/dL AST 22 (17-59) U/L ALT 36 (21-72) U/L Alkaline Phosphatase 79 (38-126) U/L Troponin I (0.000-0.034) ng/mL Total Protein 5.8 L (6.3-8.2) g/dL Albumin 3.5 (3.5-5.0) g/dL Amylase 43 (30-110) U/L Lipase 153 (23-300) U/L Urine Color Urine Appearance (Clear) Urine pH (5.0-8.0) Ur Specific [place] (1.001-1.035) Urine Protein (Negative) Urine Glucose (UA) (Negative) Urine Ketones (Negative) Urine Blood (Negative) Urine Nitrite (Negative) Urine Bilirubin (Negative) Urine Urobilinogen (<2.0) mg/dL Ur Leukocyte Esterase (Negative) 11/21/18 11/21/18 11/22/18 Range/Units 22:57 22:57 01:54 WBC (3.8-10.6) k/uL RBC (4.30-5.90) m/uL Hgb (13.0-17.5) gm/dL Hct (39.0-53.0) % MCV (80.0-100.0) fL MCH (25.0-35.0) pg MCHC (31.0-37.0) g/dL RDW (11.5-15.5) % Plt Count (150-450) k/uL Neutrophils % % Lymphocytes % % Monocytes % % Eosinophils % % Basophils % % Neutrophils # (1.3-7.7) k/uL Lymphocytes # (1.0-4.8) k/uL Monocytes # (0-1.0) k/uL Eosinophils # (0-0.7) k/uL Basophils # (0-0.2) k/uL PT 10.3 (9.0-12.0) sec INR 1.0 (<1.2) APTT 23.1 (22.0-30.0) sec Sodium (137-145) mmol/L Potassium (3.5-5.1) mmol/L Chloride (98-107) mmol/L Carbon Dioxide (22-30) mmol/L Anion Gap mmol/L BUN (9-20) mg/dL Creatinine (0.66-1.25) mg/dL Est GFR (CKD-EPI)AfAm (>60 ml/min/1.73 sqM) Est GFR (CKD-EPI)NonAf (>60 ml/min/1.73 sqM) Glucose (74-99) mg/dL Plasma Lactic Acid Bhavik (0.7-2.0) mmol/L Calcium (8.4-10.2) mg/dL Total Bilirubin (0.2-1.3) mg/dL AST (17-59) U/L ALT (21-72) U/L Alkaline Phosphatase (38-126) U/L Troponin I <0.012 (0.000-0.034) ng/mL Total Protein (6.3-8.2) g/dL Albumin (3.5-5.0) g/dL Amylase (30-110) U/L Lipase (23-300) U/L Urine Color Light Yellow Urine Appearance Clear (Clear) Urine pH 7.0 (5.0-8.0) Ur Specific [place] 1.047 H (1.001-1.035) Urine Protein Negative (Negative) Urine Glucose (UA) Negative (Negative) Urine Ketones Negative (Negative) Urine Blood Negative (Negative) Urine Nitrite Negative (Negative) Urine Bilirubin Negative (Negative) Urine Urobilinogen <2.0 (<2.0) mg/dL Ur Leukocyte Esterase Negative (Negative) Disposition Clinical Impression: Abdominal pain Disposition: HOME SELF-CARE Condition: Good Instructions: Abdominal Pain (ED) Is patient prescribed a controlled substance at d/c from ED?: No Referrals: Mark Wells DO [Primary Care Provider] - 1-2 days
[2018-11-21 23:37] LABS: ALT 36 U/L (21-72); AST 22 U/L (17-59); Albumin 3.5 g/dL (3.5-5.0); Alkaline Phosphatase 79 U/L (38-126); Amylase 43 U/L (30-110); Anion Gap 6 mmol/L; Blood Urea Nitrogen 20 mg/dL (9-20); Calcium 8.6 mg/dL (8.4-10.2); Carbon Dioxide 25 mmol/L (22-30); Chloride 111 mmol/L (98-107); Glucose 105 mg/dL (74-99); Lipase 153 U/L (23-300); Potassium 4.2 mmol/L (3.5-5.1); Sodium 142 mmol/L (137-145); Total Bilirubin 0.2 mg/dL (0.2-1.3); Total Protein 5.8 g/dL (6.3-8.2)
--- NOTE | 2018-11-22 01:00 | CT ---
EXAMINATION TYPE: CT abdomen pelvis w con DATE OF EXAM: 11/22/2018 COMPARISON: 04/29/2014 HISTORY: LLQ abd pain CT DLP: 1058 mGycm Automated exposure control for dose reduction was used. TECHNIQUE: Helical acquisition of images was performed from the lung bases through the pelvis. CONTRAST: Performed without Oral Contrast and with IV Contrast, patient injected with 100 mL of Isovue 300. FINDINGS: There is mild subsegmental atelectasis at the lung bases. Heart is enlarged. There is no pericardial effusion. There is very small hiatal hernia. Liver and spleen appear normal. There are clips from cholecystectomy. The bile ducts are not dilated. There is no adrenal mass. There is no evidence of pancreatic mass. There is small accessory spleen. Kidneys show satisfactory contrast opacification. There is no hydron ephrosis. Abdominal aorta is atheromatous. There is no retroperitoneal adenopathy. Ureters are not di lated. Appendix is not seen. There is no sign of appendicitis. There is no evidence of free air. Bladder distends smoothly. There is no inguinal hernia. There is no free fluid in the pelvis. There i s no evidence of a bowel obstruction. I see no intestinal wall thickening. There is no mesenteric [place] ma. There are mild spondylotic changes in the lumbar spine. Bony pelvis is intact. IMPRESSION: MILD ATHEROSCLEROTIC VASCULAR DISEASE. CARDIOMEGALY. INTERSTITIAL INFILTRATES AND ATELECTASIS AT THE LUNG BASES. NO SIGNIFICANT CHANGE OVERALL COMPARED TO OLD EXAM. STABLE CARDIOMEGALY. I do not see a cause for left lower quadrant pain.
[2018-11-22 02:24] LABS: Appearance,Urine Clear (Clear); Bilirubin,Urine Negative (Negative); Blood,Urine Negative (Negative); Color,Urine Light Yellow; Glucose,Urine (UA) Negative (Negative); Ketones,Urine Negative (Negative); Leukocyte Esterase,Urine Negative (Negative); Nitrite,Urine Negative (Negative); Protein,Urine Negative (Negative); Urobilinogen,Urine <2.0 mg/dL (<2.0)
[2018-11-22 02:43] LABS: Specific Gravity,Urine 1.047 (1.001-1.035)
[2018-11-22 04:07] VITALS: BP 147/79; PULSE 52; TEMP 98.1
== END 2018-11-22 04:07 | disposition home or self-care (01) ==
LOC: EC 22:35
DX: R10.84 Generalized abdominal pain (principal); R41.0 Disorientation, unspecified; E78.5 Hyperlipidemia, unspecified; I25.10 Atherosclerotic heart disease of native coronary artery without angina pectoris; K21.9 Gastro-esophageal reflux disease without esophagitis; I25.2 Old myocardial infarction; F32.9 Major depressive disorder, single episode, unspecified; Z87.891 Personal history of nicotine dependence; Z79.51 Long term (current) use of inhaled steroids; Z79.899 Other long term (current) drug therapy; Z85.038 Personal history of other malignant neoplasm of large intestine; Z95.1 Presence of aortocoronary bypass graft; Z90.49 Acquired absence of other specified parts of digestive tract
CPT/HCPCS: 36415; 80053; 82150; 83605; 83690; 84484; 85025; 85610; 85730; 81003; 74177; 99285; 96360; Q9967

== ENCOUNTER 2019-03-09 07:09 | Day surgery (SDC) | payer MEDICARE, OTHER ==
[2019-03-04 16:21] VITALS: BMI 27.1
[~2019-03-09 07:09] MED LIST: LACTATED RINGERS 1,000 ML IV SCH
[2019-03-09 07:56] VITALS: TEMP 97.2
[2019-03-09] MEDS: PHENYLEPHRINE 10% OPHTH DROPS 5 ML BTL OP ONE ×3 (07:57→08:24)
[2019-03-09] MEDS: CYCLOPENTOLATE 1% OPHTH SOLN 2 ML BTL OP ONE ×3 (08:04→08:27)
[2019-03-09] MEDS ORDERED: LIDOCAINE 1% 20 ML VIAL (10MG/ML) FOR IV START INTRADERMA ONE (08:04)
[2019-03-09] MEDS: KETOROLAC 0.5% OPHTH DROPS 5 ML BTL OP ONE ×3 (08:07→08:30)
[2019-03-09] MEDS ORDERED: HYALURONATE SODIUM INTRAOCULAR 1 EACH SYRINGE (10MG/ML) INTRAOCULA ONE (08:52)
[2019-03-09] MEDS ORDERED: BALANCED SALT IRRIG SOLN COMB2 15 ML IRRIG.SOLN IRRIGATION ONE (08:52)
[2019-03-09] MEDS ORDERED: PROPOFOL 10 MG/ML 20 ML VIAL IV ONE (08:54)
[2019-03-09] MEDS ORDERED: MIDAZOLAM 2 MG/2 ML VIAL ONE (08:54)
[2019-03-09] MEDS ORDERED: EPINEPHrine (PF) 0.5 ML in BALANCED SALT IRRIG SOLN COMB2 500 ML IRRIGATION ONE (09:09)
[2019-03-09 09:26] VITALS: PULSE 51
--- NOTE | 2019-03-09 09:27 | P.OP ---
Date of Procedure: 03/09/19 Procedure(s) Performed: PREOPERATIVE DIAGNOSIS: Cataract, left eye. POSTOPERATIVE DIAGNOSIS: Cataract, left eye. OPERATION: Phacoemulsification of cataract, intraocular lens placement, left eye. DESCRIPTION OF PROCEDURE: The patient was taken to the operating room. Intravenous Propofol was given so as to bring about sedation. The following mixture was given for local anesthesia: 5 mL of 2% lidocaine, 5 mL of 0.75% Marcaine, and 1 mL of Wydase. Approximately 4 mL was injected in the retrobulbar space of the surgical eye. Additional 1 mL was then directed to the temporal area of the surgical eye. This was performed to allow adequate neurological block of the facial muscles. The patient was revived. The patient was prepped and draped in the usual sterile manner for the operative eye. A lid speculum was put into position. The conjunctiva was resected back from the limbus in the 12 o'clock position. Bleeding was controlled with electrocautery. A #69 blade was then used and a half-thickness scleral incision approximately 1-mm posterior to the limbus was made on bare sclera. This was shelved in the clear cornea using a crescent knife. Next a 15-degree blade was used to make a stab incision at the 3 o'clock position at the corneolimbal interface. A keratome blade was then used and the superior wound was extended into the anterior chamber. Viscoelastic was injected into the anterior chamber to maintain its form. A cystotome was used and a continuous anterior capsulot bk was made. Hydrodissection of the lens cortex using a blunt cannula and BSS was performed. A phaco probe was then introduced and a groove extending from 12 to 6 o'clock in the lens was created. A Jae wand was used through the stab incision and used to perform a divide and conquer dismantling of the cataract. An irrigation aspiration probe was utilized and any residual cortex was removed from the eye. Again, viscoelastic was injected into the anterior chamber. An Donald posterior chamber lens implant was placed in a delivery cartridge and injected into the anterior chamber. A Sinskey hook was utilized to spin the lens into position within the capsular bag. The irrigation and aspiration probe was again introduced and any residual viscoelastic was removed from the eye. BSS was injected via blunt canula into the limbal stab incision and the anterior chamber was re-inflated. The conjunctiva was reapproximated using electrocautery. One drop of 0.25% Timoptic was placed over the corneal along with an antibiotic ophthalmic ointment. Two sterile patches and a Pearl eye shield were taped into position. The patient was transported to the recovery room in stable condition. Pathology: none sent Condition: stable Disposition: same day
[2019-03-09 09:46] VITALS: BP 125/79; RESP 18
[2019-03-09] MEDS ORDERED: TIMOLOL 0.5% OPHTH DROPS 5 ML BTL OP ONE (23:00)
[2019-03-09] MEDS ORDERED: TOBRA-DEXAMET 0.3-0.1% OPHTH OINT 3.5 GM TUBE OPHTHALMIC NR (23:00)
[2019-03-09] MEDS ORDERED: BUPIVACAINE (PF) 0.75% 5 ML, HYALURONIDASE, HUMAN RECOMB 150 UNIT, LIDOCAINE 2% (PF) 10... MISCELLANE ONE ×3 (23:00)
== END 2019-03-09 09:48 | disposition home or self-care (01) ==
LOC: OR 07:09
PROVIDERS: ATTEND Ophthalmology
DX: H25.13 Age-related nuclear cataract, bilateral (principal); F03.90 Unspecified dementia, unspecified severity, without behavioral disturbance, psychotic disturbance, mood disturbance, and anxiety; I10 Essential (primary) hypertension; E78.5 Hyperlipidemia, unspecified; Z79.899 Other long term (current) drug therapy
CPT/HCPCS: 66984; V2632; J2250; J3470; J2001; J0171; J2704

== ENCOUNTER → 2019-04-16 | Outpatient (CLI) | payer MEDICARE, OTHER ==
[~2019-04-16] MED LIST changes: +IODINE/POTASS IOD (LUGOLS) 8 ML BTL TOPICAL ONE; -LACTATED RINGERS 1,000 ML IV SCH
--- NOTE | 2019-04-17 13:13 | NM ---
EXAMINATION TYPE: NM DatScan Brain SPECT DATE OF EXAM: 04/16/2019 COMPARISON: NONE HISTORY: Tremor TECHNIQUE: 10 drops of Lugol's solution was administered 1 hour prior to injection as a thyroid bloc juana agent. After the administration of 4.53 mCi I-123 Ioflupane DaTscan. Images obtained 3 hours p ost injection. SPECT images of the brain were acquired with axial and coronal reconstructions. FINDINGS: There is normal uptake along the striata. Comma shaped activity is symmetric. IMPRESSION: Normal NICOLE scan.
== END | disposition home or self-care (01) ==
LOC: RADNMMAIN 10:57
PROVIDERS: ATTEND Psychiatry & Neurology Neurology
DX: G25.0 Essential tremor (principal)
CPT/HCPCS: 78607; A9584

== ENCOUNTER → 2019-05-05 | Outpatient (CLI) | payer MEDICARE, OTHER ==
--- NOTE | 2019-05-05 15:29 | US ---
EXAMINATION TYPE: US venous doppler duplex LE BI DATE OF EXAM: 05/05/2019 3:14 PM COMPARISON: NONE CLINICAL HISTORY: R60.0 Bilateral low ext edema. Pain and edema bilateral legs, worse on the left SIDE PERFORMED: bilateral TECHNIQUE: The lower extremity deep venous system is examined utilizing real time linear array sonog anjali with graded compression, doppler sonography and color-flow sonography. VESSELS IMAGED: External Iliac Vein (EIV) Common Femoral Vein Deep Femoral Vein Greater Saphenous Vein * Femoral Vein Popliteal Vein Small Saphenous Vein * Proximal Calf Veins (* superficial vessels) Grayscale, color doppler, spectral doppler imaging performed of the deep veins of the lower extremiti es. There is normal flow, compressibility, vascular waveforms. Right Leg: No evidence of DVT as visualized Left Leg: No evidence of DVT as visualized IMPRESSION: No sonographic evidence of deep venous thrombosis within the bilateral lower extremities .
[2019-05-05 15:56] LABS: Basophils # (A) 0.1 k/uL (0-0.2); Basophils % (A) 1 %; Eosinophils # (A) 0.1 k/uL (0-0.7); Eosinophils % (A) 2 %; HCT 47.2 % (39.0-53.0); HGB 15.3 gm/dL (13.0-17.5); Lymphocytes # (A) 1.5 k/uL (1.0-4.8); Lymphocytes % (A) 23 %; MCH 29.8 pg (25.0-35.0); MCHC 32.3 g/dL (31.0-37.0); MCV 92.3 fL (80.0-100.0); Mean Platelet Volume 6.8; Monocytes # (A) 0.4 k/uL (0-1.0); Monocytes % (A) 7 %; Neutrophils % (A) 64 %; Platelet Count 202 k/uL (150-450); RBC 5.11 m/uL (4.30-5.90); RDW 13.6 % (11.5-15.5); WBC 6.3 k/uL (3.8-10.6)
[2019-05-05 16:12] LABS: ALT 25 U/L (21-72); AST 28 U/L (17-59); African American GFR (CKD) >90 (>60 ml/min/1.73 sqM); Albumin 4.3 g/dL (3.5-5.0); Alkaline Phosphatase 80 U/L (38-126); Anion Gap 9 mmol/L; Blood Urea Nitrogen 19 mg/dL (9-20); Calcium 9.4 mg/dL (8.4-10.2); Carbon Dioxide 26 mmol/L (22-30); Chloride 110 mmol/L (98-107); Glucose 80 mg/dL (74-99); Sodium 145 mmol/L (137-145); Total Bilirubin 0.5 mg/dL (0.2-1.3); Total Protein 6.7 g/dL (6.3-8.2)
== END | disposition home or self-care (01) ==
LOC: RADUSWWP 13:11
PROVIDERS: ATTEND Family Medicine
DX: R60.0 Localized edema (principal)
CPT/HCPCS: 36415; 80053; 83880; 85025; 93970

== ENCOUNTER 2019-05-17 23:07 | Observation (INO) | payer MEDICARE, OTHER ==
[2019-05-17] MEDS ORDERED: SODIUM CHLORIDE 0.9% 500 ML 500 ML IV ONE (23:20)
--- NOTE | 2019-05-17 23:21 | ED ---
General Adult HPI - General Stated complaint: L side numbness Time Seen by Provider: 05/17/19 23:11 Source: patient, family, RN notes reviewed, old records reviewed - History of Present Illness Initial comments: 74-year-old male presenting for evaluation of left-sided numbness. Symptoms began approximately one hour prior to arrival. At 2220. Patient states they are somewhat improved. He felt as though his speech was somewhat slow to this is also resolved. He has no headache. Denies any weakness. Only complains of numbness left leg, left hand and left face. Again this is improving at the time my evaluation. He has previous history of TIA. Denies chest pain or dyspnea. Denies abdominal pain. Denies nausea vomiting. Denies headache. - Related Data Home Medications Medication Instructions Recorded Confirmed Fluticasone Nasal [place] [Flonase 1 spray EA NOSTRIL DAILY 06/21/15 05/17/19 Nasal [place]] Omeprazole [PriLOSEC] 40 mg PO AC-BRKFST 06/21/15 05/17/19 Isosorbide Mononitrate ER [Imdur] 30 mg PO DAILY 10/09/15 05/17/19 Nitroglycerin Sl Tabs [Nitrostat] 0.4 mg SUBLINGUAL Q5M PRN 12/28/15 05/17/19 Atorvastatin [Lipitor] 20 mg PO HS 11/21/18 05/17/19 Cholecalciferol [Vitamin D3] 1,000 unit PO DAILY 11/21/18 05/17/19 Divalproex ER [Depakote ER] 500 mg PO HS 11/21/18 05/17/19 Sertraline [Zoloft] 100 mg PO DAILY 12/17/18 05/17/19 Loratadine [Claritin] 10 mg PO DAILY 03/04/19 05/17/19 Furosemide [Lasix] 20 mg PO DAILY 05/17/19 05/17/19 Previous Rx's Medication Instructions Recorded Memantine [Namenda] 10 mg PO HS #30 tab 08/11/18 Metoprolol Tartrate [Lopressor] 25 mg PO HS tab 08/11/18 QUEtiapine [SEROquel] 50 mg PO HS #30 tab 08/11/18 lamoTRIgine [LaMICtal] 100 mg PO HS #30 tab 08/11/18 Allergies Allergy/AdvReac Type Severity Reaction Status Date / Time No Known Allergies Allergy Verified 05/17/19 23:43 Review of Systems ROS Statement: Those systems with pertinent positive or pertinent negative responses have been documented in the HPI. ROS Other: All systems not noted in ROS Statement are negative. Past Medical History Past Medical History: Coronary Artery Disease (CAD), Cancer, CVA/TIA, Eye Disorder, GERD/Reflux, Hyperlipidemia, Memory Impairment, Myocardial Infarction ([place]) Additional Past Medical History / Comment(s): DYSPHAGIA, CHRONIC DRY COUGH, HX COLON CANCER-2004, DIVERTICULAR DISORDER, Hiatal Hernia, "TOLD HE HAD A COUPLE MINI-STROKES." DILIP CATARACTS. MILD DEMENTIA. UNSTEADY ON FEET AT TIMES, USES CANE OR WALKER. Last Myocardial Infarction Date:: 2009 History of Any Multi-Drug Resistant Organisms: None Reported Past Surgical History: Bowel Resection, Cholecystectomy, Coronary Bypass/CABG, Heart Catheterization, Hernia Repair Additional Past Surgical History / Comment(s): QUAD CABG, Umbilical hernia repair, DEVIATED SEPTUM REPAIR/SPUR REMOVED from nose, Past Anesthesia/Blood Transfusion Reactions: Motion Sickness, Postoperative Nausea & Vomiting (PONV) Additional Past Anesthesia/Blood Transfusion Reaction / Comment(s): PONV X1. Claustrophobic Smoking Status: Former smoker - Past Family History Son(s) Family Medical History: Cancer Father Family Medical History: Blood Disorder Additional Family Medical History / Comment(s): from a blood disorder Mother Family Medical History: Diabetes Mellitus Additional Family Medical History / Comment(s): age 53 -complications from dm Sister(s) Family Medical History: Diabetes Mellitus General Exam General appearance: alert, in no apparent distress Head exam: Present: atraumatic, normocephalic Eye exam: Present: normal appearance, PERRL, EOMI ENT exam: Present: mucous membranes dry Respiratory exam: Present: normal lung sounds bilaterally, respiratory distress Cardiovascular Exam: Present: regular rate, normal rhythm GI/Abdominal exam: Present: soft. Absent: distended, tenderness Extremities exam: Present: full ROM, pedal edema Back exam: Present: normal inspection Neurological exam: Present: alert, oriented X3, CN II-XII intact, other (Normal strength throughout all 4 extremities, 5 out of 5. No ataxia. No facial droop, no dysarthria.). Absent: motor sensory deficit Psychiatric exam: Present: normal affect, normal mood Skin exam: Present: warm, dry, intact Course Vital Signs 05/17/19 23:20 Temperature 98.0 F Pulse Rate 56 L Respiratory 20 Rate Blood Pressure 158/83 O2 Sat by Pulse 96 Oximetry EKG Findings - EKG Comments: EKG Findings:: EKG: Sinus bradycardia, rate 54, FL interval 154, QRS duration 90, QTC 402, no ST segment elevation. Medical Decision Making - Medical Decision Making 74-year-old male presenting with sudden onset left-sided numbness. Patient does have decreased sensation on the left, he has normal motor exam. NIH of 3. No ataxia, stable vitals. Head CT is obtained which is negative for intracranial hemorrhage or mass effect, CT angiography negative for acute occlusion or stenosis. Patient has normal CBC, normal CMP. He will be admitted for further TIA and CVA workup. - Lab Data Result diagrams: 05/17/19 23:24 05/17/19 23:24 Lab Results 05/17/19 05/17/19 05/17/19 Range/Units 23:24 23:24 23:24 WBC 6.2 (3.8-10.6) k/uL RBC 4.82 (4.30-5.90) m/uL Hgb 14.4 (13.0-17.5) gm/dL Hct 43.6 (39.0-53.0) % MCV 90.6 (80.0-100.0) fL MCH 29.9 (25.0-35.0) pg MCHC 33.0 (31.0-37.0) g/dL RDW 13.6 (11.5-15.5) % Plt Count 183 (150-450) k/uL Neutrophils % 62 % Lymphocytes % 25 % Monocytes % 8 % Eosinophils % 3 % Basophils % 1 % Neutrophils # 3.9 (1.3-7.7) k/uL Lymphocytes # 1.6 (1.0-4.8) k/uL Monocytes # 0.5 (0-1.0) k/uL Eosinophils # 0.2 (0-0.7) k/uL Basophils # 0.0 (0-0.2) k/uL PT 11.1 (9.0-12.0) sec INR 1.0 (<1.2) APTT 23.9 (22.0-30.0) sec Sodium 141 (137-145) mmol/L Potassium 3.8 (3.5-5.1) mmol/L Chloride 107 (98-107) mmol/L Carbon Dioxide 25 (22-30) mmol/L Anion Gap 9 mmol/L BUN 15 (9-20) mg/dL Creatinine 0.62 L (0.66-1.25) mg/dL Est GFR (CKD-EPI)AfAm >90 (>60 ml/min/1.73 sqM) Est GFR (CKD-EPI)NonAf >90 (>60 ml/min/1.73 sqM) Glucose 108 H (74-99) mg/dL Calcium 9.1 (8.4-10.2) mg/dL Total Bilirubin 0.4 (0.2-1.3) mg/dL AST 21 (17-59) U/L ALT 17 L (21-72) U/L Alkaline Phosphatase 80 (38-126) U/L Troponin I (0.000-0.034) ng/mL Total Protein 6.1 L (6.3-8.2) g/dL Albumin 3.9 (3.5-5.0) g/dL 05/17/19 Range/Units 23:24 WBC (3.8-10.6) k/uL RBC (4.30-5.90) m/uL Hgb (13.0-17.5) gm/dL Hct (39.0-53.0) % MCV (80.0-100.0) fL MCH (25.0-35.0) pg MCHC (31.0-37.0) g/dL RDW (11.5-15.5) % Plt Count (150-450) k/uL Neutrophils % % Lymphocytes % % Monocytes % % Eosinophils % % Basophils % % Neutrophils # (1.3-7.7) k/uL Lymphocytes # (1.0-4.8) k/uL Monocytes # (0-1.0) k/uL Eosinophils # (0-0.7) k/uL Basophils # (0-0.2) k/uL PT (9.0-12.0) sec INR (<1.2) APTT (22.0-30.0) sec Sodium (137-145) mmol/L Potassium (3.5-5.1) mmol/L Chloride (98-107) mmol/L Carbon Dioxide (22-30) mmol/L Anion Gap mmol/L BUN (9-20) mg/dL Creatinine (0.66-1.25) mg/dL Est GFR (CKD-EPI)AfAm (>60 ml/min/1.73 sqM) Est GFR (CKD-EPI)NonAf (>60 ml/min/1.73 sqM) Glucose (74-99) mg/dL Calcium (8.4-10.2) mg/dL Total Bilirubin (0.2-1.3) mg/dL AST (17-59) U/L ALT (21-72) U/L Alkaline Phosphatase (38-126) U/L Troponin I <0.012 (0.000-0.034) ng/mL Total Protein (6.3-8.2) g/dL Albumin (3.5-5.0) g/dL Disposition Clinical Impression: Cerebrovascular accident, Transient cerebral ischemia Disposition: ADMITTED IP TO THIS [facility] Condition: Stable Is patient prescribed a controlled substance at d/c from ED?: No Referrals: [facility],Clinic [Primary Care Provider] - 1-2 days Decision to Admit Reason: Admit from EC Decision Date: 05/18/19 Decision Time: 00:33
[2019-05-17 23:34] LABS: Basophils % (A) 1 %; Eosinophils # (A) 0.2 k/uL (0-0.7); Eosinophils % (A) 3 %; HCT 43.6 % (39.0-53.0); HGB 14.4 gm/dL (13.0-17.5); Lymphocytes # (A) 1.6 k/uL (1.0-4.8); Lymphocytes % (A) 25 %; MCH 29.9 pg (25.0-35.0); MCV 90.6 fL (80.0-100.0); Mean Platelet Volume 6.6; Monocytes # (A) 0.5 k/uL (0-1.0); Monocytes % (A) 8 %; Neutrophils # (A) 3.9 k/uL (1.3-7.7); Neutrophils % (A) 62 %; Platelet Count 183 k/uL (150-450); RBC 4.82 m/uL (4.30-5.90); RDW 13.6 % (11.5-15.5); WBC 6.2 k/uL (3.8-10.6)
[2019-05-17 23:43] LABS: ALT 17 U/L (21-72); AST 21 U/L (17-59); African American GFR (CKD) >90 (>60 ml/min/1.73 sqM); Albumin 3.9 g/dL (3.5-5.0); Alkaline Phosphatase 80 U/L (38-126); Anion Gap 9 mmol/L; Blood Urea Nitrogen 15 mg/dL (9-20); Calcium 9.1 mg/dL (8.4-10.2); Carbon Dioxide 25 mmol/L (22-30); Chloride 107 mmol/L (98-107); Glucose 108 mg/dL (74-99); Potassium 3.8 mmol/L (3.5-5.1); Sodium 141 mmol/L (137-145); Total Bilirubin 0.4 mg/dL (0.2-1.3); Total Protein 6.1 g/dL (6.3-8.2)
[2019-05-17 23:50] LABS: Partial Thromboplastin Time 23.9 sec (22.0-30.0); Prothrombin Time 11.1 sec (9.0-12.0)
--- NOTE | 2019-05-18 00:13 | CT ---
EXAM: CT Angiography Head With Intravenous Contrast CLINICAL HISTORY: Neuro Deficits TECHNIQUE: Axial computed tomographic angiography images of the head with intravenous contrast using CT angiography protocol. DLP is 1744 mGy-cm. This CT exam was performed using one or more of the following dose reduction techniques: automated exposure control, adjustment of the mA and/or kV according to patient size, and/or use of iterative reconstruction technique. MIP reconstructed images were created and reviewed. Coronal and sagittal reformatted images were created and reviewed. COMPARISON: No relevant prior studies available. FINDINGS: Right internal carotid artery: No acute findings. Intracranial segment is patent with no significant stenosis. No aneurysm. Right anterior cerebral artery: Unremarkable. No occlusion or significant stenosis. No aneurysm. Right middle cerebral artery: Unremarkable. No occlusion or significant stenosis. No aneurysm. Right posterior cerebral artery: Unremarkable. No occlusion or significant stenosis. No aneurysm. Right vertebral artery: Unremarkable as visualized. Left internal carotid artery: No acute findings. Intracranial segment is patent with no significant stenosis. No aneurysm. Left anterior cerebral artery: Unremarkable. No occlusion or significant stenosis. No aneurysm. Left middle cerebral artery: Unremarkable. No occlusion or significant stenosis. No aneurysm. Left posterior cerebral artery: Unremarkable. No occlusion or significant stenosis. No aneurysm. Left vertebral artery: Unremarkable as visualized. Basilar artery: Unremarkable. No occlusion or significant stenosis. No aneurysm. IMPRESSION: Normal head CTA. EXAM: CT Angiography Neck With intravenous Contrast CLINICAL HISTORY: : Neuro Deficits TECHNIQUE: Axial computed tomographic angiography images of the neck with intravenous contrast DLP is 744 mGy-cm. This CT exam was performed using one or more of the following dose reduction techniques: automated exposure control, adjustment of the mA and/or kV according to patient size, and/or use of iterative reconstruction technique. MIP reconstructed images were created and reviewed. Coronal and sagittal reformatted images were created and reviewed. COMPARISON: No relevant prior studies available. FINDINGS: VASCULATURE: Right common carotid artery: Unremarkable. No significant stenosis. No dissection or occlusion. Right internal carotid artery: Unremarkable. Extracranial segment is patent with no significant stenosis. No dissection or occlusion. Right external carotid artery: Unremarkable. No occlusion. Right vertebral artery: Unremarkable. No significant stenosis. No dissection or occlusion. Left common carotid artery: Unremarkable. No significant stenosis. No dissection or occlusion. Left internal carotid artery: Unremarkable. Extracranial segment is patent with no significant stenosis. No dissection or occlusion. Left external carotid artery: Unremarkable. No occlusion. Left vertebral artery: Unremarkable. No significant stenosis. No dissection or occlusion. NECK: Bones/joints: No acute fracture. No dislocation. Soft tissues: Unremarkable as visualized. No mass. CAROTID STENOSIS REFERENCE USING NASCET CRITERIA: % ICA stenosis = (1 - narrowest ICA diameter/diameter of distal cervical ICA) x 100. Mild - <50% stenosis. Moderate - 50-69% stenosis. Severe - 70-94% stenosis. Near occlusion - 95-99% stenosis. Occluded - 100% stenosis. IMPRESSION: Normal neck CTA.
--- NOTE | 2019-05-18 00:15 | CT ---
EXAM: CT Head Without Intravenous Contrast CLINICAL HISTORY: Reason: Neuro Deficits TECHNIQUE: Axial computed tomography images of the head/brain without intravenous contrast. DLP is 1744 mGy-cm. This CT exam was performed using one or more of the following dose reduction techniques: automated exposure control, adjustment of the mA and/or kV according to patient size, and/or use of iterative reconstruction technique. COMPARISON: No relevant prior studies available. FINDINGS: No intracranial hemorrhage, abnormal intra- or extra-axial collections or parenchymal lesions are seen. There are involutional changes with prominence of the sulci, basal cisterns and ventricles. Scattered white matter hypoattenuations are present, likely from small vessel disease. The simmons-white differentiation is preserved. No evidence of mass effect, midline shift, or edema. The osseous structures are unremarkable. The visualized portions of the paranasal sinuses are clear. IMPRESSION: 1. No acute intracranial process. 2. Involutional changes with small vessel disease. Stable compared to prior study
[2019-05-18] MEDS ORDERED: ASPIRIN 325 MG TAB PO STA (00:19)
--- NOTE | 2019-05-18 00:29 | XR ---
EXAM: XR Chest, 1 View CLINICAL HISTORY: altered mental status TECHNIQUE: Frontal view of the chest. COMPARISON: 12/17/18 FINDINGS: Lungs: Unremarkable. No consolidation. Pleural space: Unremarkable. No pneumothorax. Heart: Unremarkable. No cardiomegaly. Mediastinum: Unremarkable. Bones/joints: Unremarkable. IMPRESSION: Normal chest x-ray.
[2019-05-18] MEDS: SODIUM CHLORIDE 0.9% 1,000 ML IV SCH ×2 (02:00→18:11)
--- NOTE | 2019-05-18 15:01 | P.CNNES ---
History of Present Illness Consult date: 05/18/19 Requesting physician: Ricky Salvador Reason for Consult: CVA Chief complaint: Left facial and sided numbness and weakness History of Present Illness: 74 RH male who presented to the ER on the evening of 05/17/19 with a one-hour onset of left facial and upper and lower extremity weakness as well as LL>UE weakness. There was also mentioning of difficulty with speech. He had some trouble getting OOB to ambulate according to the , so came to the ER due to the abrupt neuro changes. He was noted to be improving with his symptoms on arrival, specifically his speech. However, he is still numb and weak on the left side. There is no facial droop, but his LLE in particular is edematous and feels heavy. The edema has been ongoing for a while. Denies recent head/neck trauma. Review of Systems 14-point ROS performed and as per HPI. Neurologically, patient denies decreased level or loss of consciousness, headache, seizure, changes in vision, diplopia, amaurosis, changes in hearing, facial droop, ptosis, vertigo, hearing loss, tinnitus, dysphagia, aphasia, other focal numbness/weakness not mentioned above, tremors or bowel/bladder incontinence. Past Medical History Past Medical History: Coronary Artery Disease (CAD), Cancer, CVA/TIA, Eye Disorder, GERD/Reflux, Hyperlipidemia, Memory Impairment, Myocardial Infarction (MS) Additional Past Medical History / Comment(s): DYSPHAGIA, CHRONIC DRY COUGH, HX COLON CANCER-2004, DIVERTICULAR DISORDER, Hiatal Hernia, "TOLD HE HAD A COUPLE MINI-STROKES." DILIP CATARACTS. MILD DEMENTIA. UNSTEADY ON FEET AT TIMES, USES CANE OR WALKER. Last Myocardial Infarction Date:: 2009 History of Any Multi-Drug Resistant Organisms: None Reported Past Surgical History: Bowel Resection, Cholecystectomy, Coronary Bypass/CABG, Heart Catheterization, Hernia Repair Additional Past Surgical History / Comment(s): QUAD CABG, Umbilical hernia repair, DEVIATED SEPTUM REPAIR/SPUR REMOVED from nose, Past Anesthesia/Blood Transfusion Reactions: Motion Sickness, Postoperative Nausea & Vomiting (PONV) Additional Past Anesthesia/Blood Transfusion Reaction / Comment(s): PONV X1. Claustrophobic Past Psychological History: Anxiety, Depression, PTSD Smoking Status: Former smoker Past Alcohol Use History: None Reported Additional Past Alcohol Use History / Comment(s): started smoking in his teens- quit 1969's, smoked 1/2-1 PPD Past Drug Use History: None Reported - Past Family History Son(s) Family Medical History: Cancer Father Family Medical History: Blood Disorder Additional Family Medical History / Comment(s): from a blood disorder Mother Family Medical History: Diabetes Mellitus Additional Family Medical History / Comment(s): age 53 -complications from dm Sister(s) Family Medical History: Diabetes Mellitus Medications and Allergies Home Medications Medication Instructions Recorded Confirmed Type Fluticasone Nasal [place] [Flonase 1 spray EA NOSTRIL DAILY 06/21/15 05/17/19 History Nasal [place]] Omeprazole [PriLOSEC] 40 mg PO AC-BRKFST 06/21/15 05/17/19 History Isosorbide Mononitrate ER [Imdur] 30 mg PO DAILY 10/09/15 05/17/19 History Nitroglycerin Sl Tabs [Nitrostat] 0.4 mg SUBLINGUAL Q5M PRN 12/28/15 05/17/19 History Memantine [Namenda] 10 mg PO HS #30 tab 08/11/18 05/17/19 Rx Metoprolol Tartrate [Lopressor] 25 mg PO HS tab 08/11/18 05/17/19 Rx QUEtiapine [SEROquel] 50 mg PO HS #30 tab 08/11/18 05/17/19 Rx lamoTRIgine [LaMICtal] 100 mg PO HS #30 tab 08/11/18 05/17/19 Rx Atorvastatin [Lipitor] 20 mg PO HS 11/21/18 05/17/19 History Cholecalciferol [Vitamin D3] 1,000 unit PO DAILY 11/21/18 05/17/19 History Divalproex ER [Depakote ER] 500 mg PO HS 11/21/18 05/17/19 History Sertraline [Zoloft] 100 mg PO DAILY 12/17/18 05/17/19 History Loratadine [Claritin] 10 mg PO DAILY 03/04/19 05/17/19 History Furosemide [Lasix] 20 mg PO DAILY 05/17/19 05/17/19 History Allergies Allergy/AdvReac Type Severity Reaction Status Date / Time No Known Allergies Allergy Verified 05/17/19 23:43 Physical Examination - Vital Signs Vital Signs: Vital Signs Temp Pulse Pulse Resp BP BP Pulse Ox 05/18/19 09:29 96.8 F L 50 L 16 131/72 97 05/18/19 03:30 54 L 17 05/18/19 03:15 98.2 F 54 L 17 118/70 95 05/18/19 02:00 51 L 22 135/83 92 L 05/18/19 01:10 55 L 19 127/77 95 05/18/19 00:40 52 L 9 L 143/82 95 05/18/19 00:10 55 L 20 127/78 92 L 05/18/19 00:00 55 L 30 H 158/83 93 L 05/17/19 23:20 98.0 F 56 L 20 158/83 96 Intake and Output 05/17/19 05/18/19 05/18/19 22:59 06:59 14:59 Intake Total 230 118 Balance 230 118 Intake: Amount of Fluid Infused ( 30 ml) Intake, IV Titration 200 Amount Sodium Chloride 0.9% 1, 200 000 ml @ 100 mls/hr IV . Q10H [facility] Rx#:[id number] Oral 118 Other: Voiding Method Urinal Urinal # Voids 1 1 Weight 90.5 kg Gen NAD Pleasant and cooperative HEENT NCAT Sclera without icterus O/P clear Neck Supple No carotid bruit Cor RRR no m/r/g Lungs CTAB Abd Soft NTND +BS Ext Warm to touch 2+ LLE pitting edema Neuro MS A+Ox2 Normal fluency Able to follow all basic commands MoCA 20/30 with mild perseveration and semantic paraphasia CN PERRL VFF no APD EOMI no nystagmus or ANGÉLICA Left V2-3 decreased to LT No facial asymmetry Masseter's symmetric Hearing diminished to normal voice bilaterally Speech not dysarthric Equal elevation of palate Tongue midline Sym shrug and SCM bilaterally Motor Normal bulk/tone Mild left pronator and leg drift No tremors Strength 5/5 right 4+/5 left Sens Diminished to LT throughout left No neglect or extinction Coord No dysmetria on FTN bilaterally DTRs 1+/4 sym throughout Toes mute bilaterally No clonus at achilles Gait Deferred NIHSS [address] of without contrast 05/17/19. No acute intracranial abnormalities. There are involutional changes with prominence of the sulci, basal cisterns and ventricles. There are scattered white matter hypo-densities consistent with chronic small vessel ischemic disease. CT angiogram head and neck 05/17/19. No intra-or extracranial vascular stenosis or large vessel occlusion. - Laboratory Findings CBC and BMP: 05/17/19 23:24 05/17/19 23:24 Abnormal Lab Findings: Abnormal Labs 05/17/19 23:24 Creatinine 0.62 L Glucose 108 H ALT 17 L Total Protein 6.1 L Assessment and Plan Assessment: New-onset left-sided numbness and weakness with concerns for subcortical acute CVA. 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 Plan: -Since his ABCD2 score is 5, will treat him with DAPT aspirin 81mg/day and clopidogrel 75mg/day for 21 days then de-escalate to 325mg po qd. -Permissive HTN <220/120. -Statin therapy. -MRI Brain wo juan luis. -TTE -PT/OT/SP per protocol -Stroke education given to patient and -DVT prophylaxis: SCDs -Continue memantine from outpatient for his cognitive impairment with question of vascular dementia. This will need to be followed up as outpatient. -d/w patient and . All questions answered. Thank you for this consultation. Time with Patient: Greater than 30 (Time spent in direct patient care, greater than 50% of which was spent in [id number] counseling and coordination of care: 70 minutes.)
--- NOTE | 2019-05-18 17:47 | P.HPIM ---
History of Present Illness H&P Date: 05/18/19 Chief Complaint: Left-sided numbness and weakness. Patient is a 74-year-old male with a known history of CVA/TIA with greater stability, coronary artery disease status post bypass graft, hypertension, hyperlipidemia and mild cognitive impairment came to ER with the complaints of left-sided numbness and slightly increased weakness mainly left lower extremity since yesterday evening. Patient also felt some facial numbness and numbness of the lips as well on the left side. Patient thinks his weakness on the left side is slightly worsened compared to his baseline. Patient had dizziness. No chest pain or shortness of breath. Patient is having bilateral lower extremity swelling and is on Lasix for the past 14 days. Recent lower 20 duplex scan is negative for DVT. Denied any leg pain. Right lower extremities swelling is better and he still having left lower extremity swelling. Patient did have graft vein taken from left leg previously. No complaints of pleuritic chest pain. Patient had fluid drained from his spine about her month back. No fever no chills. No nausea vomiting abdominal pain or diarrhea. Chest x-ray showed no acute cardio pulmonary process. EKG showed sinus bradycardia. CT head showed no acute intracranial process. Involutional changes with small vessel disease. Stable compared to previous study. CTA head and neck no abnormalities. Review of Systems Constitutional: Patient denies any fever or chills . No generalized weakness or weight loss. Abdomen: Patient denied nausea vomiting and diarrhea and abdominal pain. Cardiovascular: Patient denies any chest pain or short of breath no palpitations. Respiratory: patient denied any cough is from production. No shortness of breath Neurologic: Vision does have numbness and weakness on the left side and left facial numbness as well.. Musculoskeletal: Patient denies any complaints of joint swelling or deformity. Left leg swelling. No pain. Skin: Negative Psychiatric: Negative Endocrine: No heat or cold intolerance. No recent weight gain. Genitourinary: No dysuria or hematuria. All other 14 point ROS negative except the above Past Medical History Past Medical History: Coronary Artery Disease (CAD), Cancer, CVA/TIA, Eye Disorder, GERD/Reflux, Hyperlipidemia, Memory Impairment, Myocardial Infarction (VT) Additional Past Medical History / Comment(s): DYSPHAGIA, CHRONIC DRY COUGH, HX COLON CANCER-2004, DIVERTICULAR DISORDER, Hiatal Hernia, "TOLD HE HAD A COUPLE MINI-STROKES." DILIP CATARACTS. MILD DEMENTIA. UNSTEADY ON FEET AT TIMES, USES CANE OR WALKER. Last Myocardial Infarction Date:: 2009 History of Any Multi-Drug Resistant Organisms: None Reported Past Surgical History: Bowel Resection, Cholecystectomy, Coronary Bypass/CABG, Heart Catheterization, Hernia Repair Additional Past Surgical History / Comment(s): QUAD CABG, Umbilical hernia repair, DEVIATED SEPTUM REPAIR/SPUR REMOVED from nose, Past Anesthesia/Blood Transfusion Reactions: Motion Sickness, Postoperative Nausea & Vomiting (PONV) Additional Past Anesthesia/Blood Transfusion Reaction / Comment(s): PONV X1. Claustrophobic Past Psychological History: Anxiety, Depression, PTSD Smoking Status: Former smoker Past Alcohol Use History: None Reported Additional Past Alcohol Use History / Comment(s): started smoking in his teens- quit s, smoked 1/2-1 PPD Past Drug Use History: None Reported - Past Family History Son(s) Family Medical History: Cancer Father Family Medical History: Blood Disorder Additional Family Medical History / Comment(s): from a blood disorder Mother Family Medical History: Diabetes Mellitus Additional Family Medical History / Comment(s): age 53 -complications from dm Sister(s) Family Medical History: Diabetes Mellitus Medications and Allergies Home Medications Medication Instructions Recorded Confirmed Type Fluticasone Nasal [place] [Flonase 1 spray EA NOSTRIL DAILY 06/21/15 05/17/19 History Nasal [place]] Omeprazole [PriLOSEC] 40 mg PO AC-BRKFST 06/21/15 05/17/19 History Isosorbide Mononitrate ER [Imdur] 30 mg PO DAILY 10/09/15 05/17/19 History Nitroglycerin Sl Tabs [Nitrostat] 0.4 mg SUBLINGUAL Q5M PRN 12/28/15 05/17/19 History Memantine [Namenda] 10 mg PO HS #30 tab 08/11/18 05/17/19 Rx Metoprolol Tartrate [Lopressor] 25 mg PO HS tab 08/11/18 05/17/19 Rx QUEtiapine [SEROquel] 50 mg PO HS #30 tab 08/11/18 05/17/19 Rx lamoTRIgine [LaMICtal] 100 mg PO HS #30 tab 08/11/18 05/17/19 Rx Atorvastatin [Lipitor] 20 mg PO HS 12/29/18 06/24/19 History Cholecalciferol [Vitamin D3] 1,000 unit PO DAILY 11/21/18 05/17/19 History Divalproex ER [Depakote ER] 500 mg PO HS 11/21/18 05/17/19 History Sertraline [Zoloft] 100 mg PO DAILY 12/17/18 05/17/19 History Loratadine [Claritin] 10 mg PO DAILY 03/04/19 05/17/19 History Furosemide [Lasix] 20 mg PO DAILY 05/17/19 05/17/19 History Allergies Allergy/AdvReac Type Severity Reaction Status Date / Time No Known Allergies Allergy Verified 05/17/19 23:43 Physical Exam Vitals: Vital Signs Temp Pulse Pulse Resp BP BP Pulse Ox 05/18/19 09:29 96.8 F L 50 L 16 131/72 97 05/18/19 03:30 54 L 17 05/18/19 03:15 98.2 F 54 L 17 118/70 95 05/18/19 02:00 51 L 22 135/83 92 L 05/18/19 01:10 55 L 19 127/77 95 05/18/19 00:40 52 L 9 L 143/82 95 05/18/19 00:10 55 L 20 127/78 92 L 05/18/19 00:00 55 L 30 H 158/83 93 L 05/17/19 23:20 98.0 F 56 L 20 158/83 96 Intake and Output 05/17/19 05/18/19 05/18/19 22:59 06:59 14:59 Intake Total 230 118 Balance 230 118 Intake: Amount of Fluid Infused ( 30 ml) Intake, IV Titration 200 Amount Sodium Chloride 0.9% 1, 200 000 ml @ 100 mls/hr IV . Q10H [facility] Rx#:[id number] Oral 118 Other: Voiding Method Urinal Urinal # Voids 1 1 Weight 90.5 kg PHYSICAL EXAMINATION: Patient is lying in the bed comfortably, no acute distress, awake alert and oriented.. HEENT: Normocephalic. Neck is supple. Pupils reactive. Nostrils clear. Oral cavity is moist. Ears reveal no drainage. Neck reveals no JVD, carotid bruits, or thyromegaly. CHEST EXAMINATION: Trachea is central. Symmetrical expansion. Lung ribera clear to auscultation and percussion. CARDIAC: Normal S1, S2 with no gallops. No murmurs ABDOMEN: Soft. Bowel sounds normal. No organomegaly. No abdominal bruits. Extremities: reveal no edema. No clubbing or cyanosis Neurologically awake, alert, oriented x3 . Left-sided numbness and weakness, motor 4/5 Skin: No rash or skin lesions. Psychiatric: Coperative. Nonsuicidal Musculoskeletal: No joint swelling or deformity. Normal range of motion. Results CBC & Chem 7: 05/17/19 23:24 05/17/19 23:24 Labs: Abnormal Lab Results - Last 24 Hours (Table) 05/17/19 Range/Units 23:24 Creatinine 0.62 L (0.66-1.25) mg/dL Glucose 108 H (74-99) mg/dL ALT 17 L (21-72) U/L Total Protein 6.1 L (6.3-8.2) g/dL Thrombosis Risk Factor Assmnt - DVT/VTE Prophylaxis DVT/VTE Prophylaxis: Pharmacologic Prophylaxis ordered - Choose All That Apply Any of the Below Risk Factors Present?: Yes Each Factor Represents 1 point: Abnormal pulmonary function (COPD), Obesity (BMI >25), Swollen legs (current) Other Risk Factors: Yes Each Risk Factor Represents 2 Points: Age 61-74 years Other congenital or acquired thrombophilia - If yes, enter type in comment: No Thrombosis Risk Factor Assessment Total Risk Factor Score: 5 Thrombosis Risk Factor Assessment Level: High Risk Assessment and Plan Assessment: Left-sided numbness and tingling along with increased weakness. Possible acute CVA. Left lower extremity swelling is likely due to venous stasis. Recent duplex scan is negative for DVT. History of CVA/TIA with gait instability and uses a walker. Coronary artery disease with history of CABG Hypertension Hyperlipidemia GERD History of colonic Cancer in 2004 Mild cognitive impairment History of [place] Hiatal hernia Anxiety/depression/PTSD next and previous history of smoking DVT prophylaxis with heparin subcu Plan: Patient be continued on aspirin Plavix. We'll hold blood pressure medications for permissive hypertension due to acute CVA. CT head and CT angiogram of the head and neck workup negative so far. MRI of the brain and TTE was ordered. Neurology was consulted. Continue with home medications and follow up closely. Continue with neuro checks and fall precautions. Further conditions based on the clitoral course. Prognosis is guarded. Time with Patient: Greater than 30
[2019-05-18] MEDS: SERTRALINE 100 MG TAB PO SCH (18:09)
[2019-05-18] MEDS: PANTOPRAZOLE 40 MG TABLET PO SCH (18:09)
[2019-05-18] MEDS: CLOPIDOGREL 75 MG TAB PO SCH (18:09)
[2019-05-18 19:55] VITALS: RESP 18
[2019-05-18] MEDS ORDERED: lamoTRIgine 100 MG TAB PO SCH (21:00)
[2019-05-18] MEDS ORDERED: QUEtiapine 50 MG TAB PO SCH (21:00)
[2019-05-18] MEDS ORDERED: DIVALPROEX ER 500 MG TAB.ER.24H PO SCH (21:00)
[2019-05-18] MEDS ORDERED: MEMANTINE 10 MG TAB PO SCH (21:00)
[2019-05-18] MEDS ORDERED: ATORVASTATIN 20 MG TAB PO SCH (21:00)
[2019-05-18] MEDS: HEPARIN SODIUM,PORCINE 5,000 UNIT/ML 1 ML VIAL SQ SCH (22:07)
[2019-05-19] MEDS ORDERED: ASPIRIN 325 MG TAB PO SCH (00:30)
[2019-05-19] MEDS: SODIUM CHLORIDE 0.9% 1,000 ML IV SCH ×2 (06:02→06:36)
[2019-05-19] MEDS: PANTOPRAZOLE 40 MG TABLET PO SCH (06:36)
[2019-05-19] MEDS: CLOPIDOGREL 75 MG TAB PO SCH (08:06)
[2019-05-19] MEDS: SERTRALINE 100 MG TAB PO SCH (08:06)
[2019-05-19] MEDS: HEPARIN SODIUM,PORCINE 5,000 UNIT/ML 1 ML VIAL SQ SCH (08:06)
[2019-05-19 08:07] LABS: Cholesterol 153 mg/dL (<200); HDL Cholesterol 31 mg/dL (40-60); LDL Cholesterol,Calculated 99 mg/dL (0-99); Triglycerides 117 mg/dL (<150)
[2019-05-19] MEDS ORDERED: ASPIRIN 81 MG PO SCH (09:00)
[2019-05-19] MEDS ORDERED: CHOLECALCIFEROL 1,000 UNIT TAB PO SCH (09:00)
[2019-05-19] MEDS ORDERED: FLUTICASONE 50MCG/SPRAY NASAL 16GM EA NOSTRIL SCH (09:00)
--- NOTE | 2019-05-19 09:46 | P.PN ---
Subjective Progress Note Date: 05/19/19 Principal diagnosis: CVA Numbness improved. No other events O/N. No new neuro c/o. Objective - Vital Signs Vital signs: Vital Signs Temp 97.5 F L 05/19/19 08:00 Pulse 57 L 05/19/19 08:00 Resp 18 05/19/19 08:00 BP 121/59 05/19/19 08:00 Pulse Ox 97 05/19/19 08:00 Intake & Output 05/18/19 05/19/19 05/19/19 18:59 06:59 18:59 Intake Total 598 120 Balance 598 120 Weight 90.5 kg Intake: Oral 598 120 Other: Voiding Method Urinal Urinal # Voids 1 1 1 - Exam Gen NAD Pleasant and cooperative Neuro MS A+Ox2 Normal fluency Able to follow all basic commands CN PERRL VFF no APD EOMI no nystagmus or ANGÉLICA Left V2-3 decreased to LT No facial asymmetry Masseter's symmetric Hearing diminished to normal voice bilaterally Speech not dysarthric Equal elevation of palate Tongue midline Sym shrug and SCM bilaterally Motor Normal bulk/tone Mild left pronator and leg drift No tremors Strength 5/5 right 4+/5 left Sens Diminished to LT throughout left No neglect or extinction Coord Not tested today DTRs 1+/4 sym throughout Toes mute bilaterally No clonus at achilles Gait Deferred NIHSS 3 - Labs CBC & Chem 7: 05/17/19 23:24 05/17/19 23:24 Labs: Abnormal Lab Results - Last 24 Hours (Table) 05/19/19 Range/Units 06:21 HDL Cholesterol 31 L (40-60) mg/dL Assessment and Plan Assessment: New-onset left-sided numbness and weakness with concerns for subcortical acute CVA. 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 Plan: -Since his ABCD2 score is 5, will treat him with DAPT aspirin 81mg/day and clopidogrel 75mg/day for 21 days then de-escalate to 325mg po qd. -Can start to gradually lower BP but keep SBP >130. -Statin therapy. -MRI Brain wo juan luis; awaiting study. -TTE; awaiting study. -PT/OT/SP per protocol -DVT prophylaxis: SCDs -Continue memantine from outpatient for his cognitive impairment with question of vascular dementia. This will need to be followed up as outpatient. -d/w patient. All questions answered. Thank you again for this consultation. Please call with ?. Time with Patient: Less than 30 (Time spent in direct patient care, greater than 50% of which was spent in [id number] counseling and coordination of care: 25 minutes.)
[2019-05-19] MEDS ORDERED: LORazepam 2 MG/ML INJ IV STA (10:08)
--- NOTE | 2019-05-19 11:52 | ECHOF ---
Referral Reason:CVA MEASUREMENTS -------- HEIGHT: 180.3 cm WEIGHT: 90.3 kg BP: 147/62 RVIDd: 4.2 cm (< 3.3) IVSd: 1.2 cm (0.6 - 1.1) LVIDd: 4.6 cm (3.9 - 5.3) LVPWd: 1.1 cm (0.6 - 1.1) IVSs: 1.7 cm LVIDs: 3.3 cm LVPWs: 1.5 cm LAESV Index (A-L): 30.49 ml/m Ao Diam: 3.1 cm (2.0 - 3.7) AV Cusp: 2.2 cm (1.5 - 2.6) LA Diam: 3.8 cm (2.7 - 3.8) MV EXCURSION: 18.048 mm (> 18.000) MV EF SLOPE: 69 mm/s (70 - 150) EPSS: 0.7 cm MV E Rene: 0.54 m/s MV DecT: 174 ms MV A Rene: 0.68 m/s MV E/A Ratio: 0.80 RAP: 5.00 mmHg RVSP: 19.87 mmHg FINDINGS -------- Sinus rhythm. This was a technically difficult study with suboptimal views. Previous CABG The left ventricular size is normal. There is mild concentric left ventricular hypertrophy. Overa ll left ventricular systolic function is low-normal with, an EF between 50 - 55 %. The right ventricle is severely enlarged. LA is midly dilated 29-33ml/m2. The right atrial size is normal. Lumason used Interatrial and interventricular septum intact. The aortic valve is trileaflet and appears structurally normal. The mitral valve leaflets are mildly thickened. Mild mitral regurgitation is present. Mild tricuspid regurgitation present. Right ventricular systolic pressure is normal at < 35 mmHg. There is no pulmonic regurgitation present. The aortic root size is normal. IVC Not well visulized. There is no pericardial effusion. CONCLUSIONS -------- 1. Sinus rhythm. 2. This was a technically difficult study with suboptimal views. 3. Previous CABG 4. The left ventricular size is normal. 5. There is mild concentric left ventricular hypertrophy. 6. Overall left ventricular systolic function is low-normal with, an EF between 50 - 55 %. 7. The right ventricle is severely enlarged. 8. LA is midly dilated 29-33ml/m2. 9. The right atrial size is normal. 10. Lumason used 11. Interatrial and interventricular septum intact. 12. The aortic valve is trileaflet and appears structurally normal. 13. Mild mitral regurgitation is present. 14. Mild tricuspid regurgitation present. 15. Right ventricular systolic pressure is normal at < 35 mmHg. 16. There is no pulmonic regurgitation present. 17. The aortic root size is normal. 18. IVC Not well visulized. 19. There is no pericardial effusion. EVENT COORDINATOR: Mirta Sullivan RDCS
--- NOTE | 2019-05-19 11:54 | MR ---
EXAMINATION TYPE: MR brain wo con DATE OF EXAM: 05/19/2019 COMPARISON: 06/02/2015 HISTORY: 74-year-old female CVA TECHNIQUE: Multiplanar, multisequence images of the brain and brainstem were acquired without IV con trast. Diffusion weighted imaging is performed. FINDINGS: No evidence for acute infarction, hemorrhage, mass, mass effect, midline shift, herniation, effacemen t of basal cisterns, or extra-axial fluid collection. Mild to moderate generalized supratentorial volume loss. There is moderate ventriculomegaly which is stable to minimally progressed from 06/02/2015. Jack's ra carina is calculated at 0.38 (versus 0.36, previously). Major intracranial flow voids are intact. T2/FLAIR weighted sequences show moderate scattered burden of bright white matter change in the subco rtical, deep, and more confluent disease in the periventricular region of both cerebral hemispheres. Changes are overall stable and also involve the bilateral paramedian saurav. Midline structures demonstrate normal morphology. The craniocervical junction is normal. Scattered moderate mucosal thickening ethmoid air cells and mild to moderate within the maxillary sin uses. Globes appear intact. Fluid within the right mastoid air cells. IMPRESSION: 1. No acute intracranial abnormality seen. 2. Moderate ventriculomegaly, stable to minimally progressed from 06/02/2015. Findings likely in part secondary to central cerebral atrophy. Underlying NPH not excluded. Clinically correlate. 3. Moderate scattered and confluent burden of bright white matter change similar to 2014, nonspecific , likely relating to chronic small vessel ischemic disease. 4. Trapped fluid in the right mastoid air cells. Correlate for any mastoid pain to exclude mastoiditi s.
[2019-05-19 13:02] VITALS: BP 133/66; PULSE 61; TEMP 97.4
--- NOTE | 2019-05-27 23:51 | P.DS ---
Providers Date of admission: 05/18/19 00:29 Expected date of discharge: 05/19/19 Attending physician: Yoly Elam Consults: 05/18/19 00:30 Consult Physician Routine Consulting Provider: Sj Daley Consult Reason/Comments: TIA Do you want consulting provider notified?: Yes Primary care physician: [facility] Hospital Course: Discharge diagnosis Left-sided numbness and tingling along with increased weakness. Possible acute CVA. Left lower extremity swelling is likely due to venous stasis. Recent duplex scan is negative for DVT. Improved now. History of CVA/TIA with gait instability and uses a walker. Coronary artery disease with history of CABG Hypertension Hyperlipidemia GERD History of colonic Cancer in 2004 Mild cognitive impairment History of [place] Hiatal hernia Anxiety/depression/PTSD next and previous history of smoking DVT prophylaxis with heparin subcu Hospital course Patient is a 74-year-old male with a known history of CVA/TIA with greater stability, coronary artery disease status post bypass graft, hypertension, hyperlipidemia and mild cognitive impairment came to ER with the complaints of left-sided numbness and slightly increased weakness mainly left lower extremity since yesterday evening. Patient also felt some facial numbness and numbness of the lips as well on the left side. Patient thinks his weakness on the left side is slightly worsened compared to his baseline. Patient had dizziness. No chest pain or shortness of breath. Patient is having bilateral lower extremity swelling and is on Lasix for the past 14 days. Recent lower 20 duplex scan is negative for DVT. Denied any leg pain. Right lower extremities swelling is better and he still having left lower extremity swelling. Patient did have graft vein taken from left leg previously. No complaints of pleuritic chest pain. Patient had fluid drained from his spine about her month back. No fever no chills. No nausea vomiting abdominal pain or diarrhea. Chest x-ray showed no acute cardio pulmonary process. EKG showed sinus bradycardia. CT head showed no acute intracranial process. Involutional changes with small vessel disease. Stable compared to previous study. CTA head and neck no abnormalities. Patient will be continued on aspirin Plavix. Did hold blood pressure medications for permissive hypertension due to acute CVA. CT head and CT angiogram of the head and neck workup negative so far. MRI of the brain and TTE was ordered. Negative so far. Neurology has seen the patient. . Continue with home medications and follow up closely. Continue with neuro checks and fall precautions. Patient's leg swelling left improved with compression stockings. Otherwise patient did improve clinically and left-sided weakness also at baseline now. Patient is stable to be discharged home. PHYSICAL EXAMINATION: Patient is lying in the bed comfortably, no acute distress, awake alert and oriented.. HEENT: Normocephalic. Neck is supple. Pupils reactive. Nostrils clear. Oral cavity is moist. Ears reveal no drainage. Neck reveals no JVD, carotid bruits, or thyromegaly. CHEST EXAMINATION: Trachea is central. Symmetrical expansion. Lung ribera clear to auscultation and percussion. CARDIAC: Normal S1, S2 with no gallops. No murmurs ABDOMEN: Soft. Bowel sounds normal. No organomegaly. No abdominal bruits. Extremities: reveal no edema. No clubbing or cyanosis Neurologically awake, alert, oriented x3 . Left-sided numbness and weakness, motor 4/5 Skin: No rash or skin lesions. Psychiatric: Coperative. Nonsuicidal Musculoskeletal: No joint swelling or deformity. Normal range of motion. Vital Signs Temp 97.5 F L 05/19/19 08:00 Pulse 57 L 05/19/19 08:00 Resp 18 05/19/19 08:00 BP 121/59 05/19/19 08:00 Pulse Ox 97 05/19/19 08:00 Intake & Output 05/18/19 05/19/19 05/19/19 18:59 06:59 18:59 Intake Total 598 120 Balance 598 120 Weight 90.5 kg Intake: Oral 598 120 Other: Voiding Method Urinal Urinal # Voids 1 1 1 Total time taken greater than 35 minutes including 18 minutes for counseling and coordination of care. Patient Condition at Discharge: Stable Plan - Discharge Summary Discharge Rx Participant: No New Discharge Prescriptions: New Aspirin 81 mg PO DAILY #21 chew Clopidogrel [Plavix] 75 mg PO DAILY #21 tab Continue Fluticasone Nasal [place] [Flonase Nasal [place]] 1 spray EA NOSTRIL DAILY Omeprazole [PriLOSEC] 40 mg PO AC-BRKFST Isosorbide Mononitrate ER [Imdur] 30 mg PO DAILY Nitroglycerin Sl Tabs [Nitrostat] 0.4 mg SUBLINGUAL Q5M PRN PRN Reason: Chest Pain lamoTRIgine [LaMICtal] 100 mg PO HS #30 tab Memantine [Namenda] 10 mg PO HS #30 tab Metoprolol Tartrate [Lopressor] 25 mg PO HS tab QUEtiapine [SEROquel] 50 mg PO HS #30 tab Cholecalciferol [Vitamin D3 (25 Mcg = 1000 Iu)] 1,000 unit PO DAILY Atorvastatin [Lipitor] 20 mg PO HS Divalproex ER [Depakote ER] 500 mg PO HS Sertraline [Zoloft] 100 mg PO DAILY Loratadine [Claritin] 10 mg PO DAILY Discontinued Furosemide [Lasix] 20 mg PO DAILY Discharge Medication List Fluticasone Nasal [place] [Flonase Nasal [place]] 1 spray EA NOSTRIL DAILY 06/21/15 [History] Omeprazole [PriLOSEC] 40 mg PO AC-BRKFST 06/21/15 [History] Isosorbide Mononitrate ER [Imdur] 30 mg PO DAILY 10/09/15 [History] Nitroglycerin Sl Tabs [Nitrostat] 0.4 mg SUBLINGUAL Q5M PRN 12/28/15 [History] Memantine [Namenda] 10 mg PO HS #30 tab 08/11/18 [Rx] Metoprolol Tartrate [Lopressor] 25 mg PO HS tab 08/11/18 [Rx] QUEtiapine [SEROquel] 50 mg PO HS #30 tab 08/11/18 [Rx] lamoTRIgine [LaMICtal] 100 mg PO HS #30 tab 08/11/18 [Rx] Atorvastatin [Lipitor] 20 mg PO HS 11/21/18 [History] Cholecalciferol [Vitamin D3 (25 Mcg = 1000 Iu)] 1,000 unit PO DAILY 11/21/18 [History] Divalproex ER [Depakote ER] 500 mg PO HS 11/21/18 [History] Sertraline [Zoloft] 100 mg PO DAILY 12/17/18 [History] Loratadine [Claritin] 10 mg PO DAILY 03/04/19 [History] Aspirin 81 mg PO DAILY #21 chew 05/19/19 [Rx] Clopidogrel [Plavix] 75 mg PO DAILY #21 tab 05/19/19 [Rx] Follow up Appointment(s)/Referral(s): [facility],Clinic [Primary Care Provider] - 05/26/19 2:00 pm Patient Instructions/Handouts: Transient Ischemic Attack (DC), Bradycardia (DC) Discharge Disposition: HOME SELF-CARE
== END 2019-05-19 17:00 | disposition home or self-care (01) ==
LOC: EC 23:07 → 3SCARD 05-18 00:29
PROVIDERS: ADMIT Hospitalist; ATTEND Hospitalist
DX: R20.2 Paresthesia of skin (principal); R20.0 Anesthesia of skin; R53.1 Weakness; M79.89 Other specified soft tissue disorders; I10 Essential (primary) hypertension; R41.3 Other amnesia; R42 Dizziness and giddiness; Z86.73 Personal history of transient ischemic attack (TIA), and cerebral infarction without residual deficits; R26.9 Unspecified abnormalities of gait and mobility; I25.10 Atherosclerotic heart disease of native coronary artery without angina pectoris; Z95.1 Presence of aortocoronary bypass graft; E78.5 Hyperlipidemia, unspecified; K21.9 Gastro-esophageal reflux disease without esophagitis; I25.2 Old myocardial infarction; F03.90 Unspecified dementia, unspecified severity, without behavioral disturbance, psychotic disturbance, mood disturbance, and anxiety; F43.10 Post-traumatic stress disorder, unspecified; F40.240 Claustrophobia; F32.9 Major depressive disorder, single episode, unspecified; J44.9 Chronic obstructive pulmonary disease, unspecified; E66.9 Obesity, unspecified; Z68.27 Body mass index [BMI] 27.0-27.9, adult; R60.9 Edema, unspecified; G93.89 Other specified disorders of brain; R41.89 Other symptoms and signs involving cognitive functions and awareness; K44.9 Diaphragmatic hernia without obstruction or gangrene; R29.703 NIHSS score 3; Z85.038 Personal history of other malignant neoplasm of large intestine; Z90.49 Acquired absence of other specified parts of digestive tract; Z87.891 Personal history of nicotine dependence; Z79.899 Other long term (current) drug therapy; Z80.9 Family history of malignant neoplasm, unspecified; Z83.3 Family history of diabetes mellitus; Z83.2 Family history of diseases of the blood and blood-forming organs and certain disorders involving the immune mechanism; I73.9 Peripheral vascular disease, unspecified
CPT/HCPCS: 96372 ×2; 96374; 99285; 36415; 93005; 97162; 97535; 97166; 92610; 92523; 80061; 80053; 84484; 85025; 85610; 85730; 71045; 70496; 70450; 70498; 70551; G0378 ×2; C8929; J2060; J1644 ×2; Q9950; Q9967; 93306

== ENCOUNTER → 2019-07-14 | Day surgery (SDC) | payer MEDICARE, OTHER ==
[2019-07-12 11:23] VITALS: BMI 27.1
[~2019-07-14] MED LIST changes: -IODINE/POTASS IOD (LUGOLS) 8 ML BTL TOPICAL ONE; +LACTATED RINGERS 1,000 ML IV SCH; +LIDOCAINE 1% 20 ML VIAL (10MG/ML) FOR IV START INTRADERMA PRN; +LIDOCAINE 1% INJ 10MG/ML (20 ML MDV) ONE; +PROPOFOL 10 MG/ML 20 ML VIAL IV ONE
--- NOTE | 2019-07-14 09:22 | P.GSHP ---
History of Present Illness H&P Date: 07/14/19 CHIEF COMPLAINT: GERD and colon screen HISTORY OF PRESENT ILLNESS: The patient is a 74-year-old male who presents with gastroesophageal reflux disease and need for colon screen. Upper and lower endoscopy were offered for further evaluation and management. PAST MEDICAL HISTORY: Please see list. PAST SURGICAL HISTORY: Please see list. MEDICATIONS: Please see list. ALLERGIES: Please see list. SOCIAL HISTORY: No illicit drug use FAMILY HISTORY: No reports of Crohn disease or ulcerative colitis. REVIEW OF ORGAN SYSTEMS: CONSTITUTIONAL: No reports of fevers or chills. GI: Denies any blood in stools or constipation. PHYSICAL EXAM: VITAL SIGNS: Stable GENERAL: Well-developed pleasant in no acute distress. HEENT: No scleral icterus. Extraocular movements grossly intact. Moist buccal mucosa. NECK: Supple without lymphadenopathy. CHEST: Unlabored respirations. Equal bilateral excursions. CARDIOVASCULAR: Regular rate and rhythm. Distal 2+ pulses. ABDOMEN: Soft, nondistended. MUSCULOSKELETAL: No clubbing, cyanosis, or edema. ASSESSMENT: 1. Gastroesophageal reflux disease 2. Colon screen. PLAN: 1. Recommend proceeding with an upper and lower endoscopy Past Medical History Past Medical History: Coronary Artery Disease (CAD), Cancer, CVA/TIA, Eye Disorder, GERD/Reflux, Hyperlipidemia, Memory Impairment, Myocardial Infarction (CT) Additional Past Medical History / Comment(s): DYSPHAGIA, CHRONIC DRY COUGH, HX COLON CANCER-2004 WITH SURGERY., DIVERTICULAR DISORDER, Hiatal Hernia, TIA'S , CATARACT RIGHT EYE., MILD DEMENTIA. , PROBLEMS WITH BALANCE- USES CANE., STATES HAVING DIARRHEA. Last Myocardial Infarction Date:: 2009 History of Any Multi-Drug Resistant Organisms: None Reported Past Surgical History: Bowel Resection, Cholecystectomy, Coronary Bypass/CABG, Heart Catheterization, Hernia Repair Additional Past Surgical History / Comment(s): QUAD CABG (MPH 2009), Umbilical hernia repair, DEVIATED SEPTUM REPAIR/SPUR REMOVED from nose, Past Anesthesia/Blood Transfusion Reactions: Motion Sickness, Postoperative Nausea & Vomiting (PONV) Additional Past Anesthesia/Blood Transfusion Reaction / Comment(s): PONV X1. Claustrophobic Past Psychological History: Anxiety, Depression, PTSD Smoking Status: Former smoker Past Alcohol Use History: None Reported Additional Past Alcohol Use History / Comment(s): started smoking in his teens- quit , smoked 1/2-1 PPD Past Drug Use History: None Reported - Past Family History Son(s) Family Medical History: Cancer Father Family Medical History: Blood Disorder Additional Family Medical History / Comment(s): from a blood disorder Mother Family Medical History: Diabetes Mellitus Additional Family Medical History / Comment(s): age 53 -complications from dm Sister(s) Family Medical History: Diabetes Mellitus Medications and Allergies Home Medications Medication Instructions Recorded Confirmed Type Fluticasone Nasal [place] [Flonase 1 spray EA NOSTRIL DAILY 06/21/15 07/12/19 History Nasal [place]] Omeprazole [PriLOSEC] 40 mg PO AC-BRKFST 06/21/15 07/12/19 History Isosorbide Mononitrate ER [Imdur] 30 mg PO DAILY 10/09/15 07/12/19 History Nitroglycerin Sl Tabs [Nitrostat] 0.4 mg SUBLINGUAL Q5M PRN 12/28/15 07/12/19 History Memantine [Namenda] 10 mg PO HS #30 tab 08/11/18 07/12/19 Rx Metoprolol Tartrate [Lopressor] 25 mg PO HS tab 08/11/18 07/12/19 Rx QUEtiapine [SEROquel] 50 mg PO HS #30 tab 08/11/18 07/12/19 Rx lamoTRIgine [LaMICtal] 100 mg PO HS #30 tab 08/11/18 07/12/19 Rx Atorvastatin [Lipitor] 20 mg PO HS 11/21/18 07/12/19 History Cholecalciferol [Vitamin D3 (25 1,000 unit PO DAILY 11/21/18 07/12/19 History Mcg = 1000 Iu)] Divalproex ER [Depakote ER] 500 mg PO HS 11/21/18 07/12/19 History Sertraline [Zoloft] 100 mg PO DAILY 12/17/18 07/12/19 History Loratadine [Claritin] 10 mg PO DAILY 03/04/19 07/12/19 History Ascorbic Acid [Vitamin C] 1,000 mg PO DAILY 07/12/19 07/12/19 History Melatonin 3 mg PO HS PRN 07/12/19 07/12/19 History Tamsulosin HCl [Flomax] 0.4 mg PO DAILY 07/12/19 07/12/19 History Allergies Allergy/AdvReac Type Severity Reaction Status Date / Time No Known Allergies Allergy Verified 07/12/19 10:47
[2019-07-14 09:41] VITALS: TEMP 97.8
--- NOTE | 2019-07-14 10:19 | P.PCN ---
Date of Procedure: 07/14/19 Description of Procedure: PREOPERATIVE DIAGNOSIS: Gastroesophageal reflux disease. POSTOPERATIVE DIAGNOSIS: Gastroesophageal reflux disease. Diaphragmatic hiatal hernia Superficial chronic gastritis Hyperplastic gastric polyps OPERATION: Esophagogastroduodenoscopy with biopsies along antrum. SURGEON: Evy Marina MD ANESTHESIA: MAC. INDICATIONS: The patient is a 74-year-old male who presents with a history of reflux disease. Benefits and risks of the procedure were described. Informed consent was obtained. DESCRIPTION: The patient was brought into the endoscopy suite and laid in the left lateral decubitus position. An Olympus gastroscope was passed along the posterior oropharynx down to the distal esophagus where the squamocolumnar junction was encountered at 41 cm from the incisors. The stomach was entered and no bile reflux was found. Additional findings are listed below. Biopsies with cold forceps were obtained of the antrum. The first through third portion of the duodenum was examined and unremarkable. Retroflexion of the scope confirmed Hill grade 3 lower esophageal valve. The squamocolumnar junction demonstrated LA grade B erosive esophagitis. The stomach was desufflated. The patient tolerated the procedure well. FINDINGS: Squamocolumnar junction 41 cm from the incisors. Diaphragmatic hiatus at 43 cm. Hiatal hernia, 2 cm Hill grade 3 lower esophageal valve. LA grade B erosive esophagitis. No active duodenitis. Chronic gastritis without active bleeding Gastric polyp along gastric cardia, hyperplastic RECOMMENDATIONS: Upper endoscopy as needed.
[2019-07-14 10:22] VITALS: RESP 17
--- NOTE | 2019-07-14 10:24 | P.PCN ---
Date of Procedure: 07/14/19 Description of Procedure: PREOPERATIVE DIAGNOSIS: Change in bowel habits POSTOPERATIVE DIAGNOSIS: Change in bowel habits Diverticulosis, scattered Ascending colon adenoma OPERATION: Colonoscopy to the ileocecal valve and appendiceal orifice. Colonoscopy with cold forceps for polypectomy ascending colon SURGEON: Evy Marina MD. ANESTHESIA: MAC. INDICATIONS: The patient is a 74-year-old male who presents with change in bowel habits. Benefits and risks were described and informed consent was obtained. DESCRIPTION OF PROCEDURE: The patient had undergone Sprep. He had been brought into the operating room and laid in the left lateral decubitus position. After adequate intravenous sedation, the rectum was examined with 2% lidocaine jelly. The prostatic fossa was unremarkable. No external hemorrhoids were encountered. The rectal tone was within normal limits. No lesions were palpated in the rectal vault. An Olympus colonoscope was advanced until the ileocecal valve and appendiceal orifice were clearly viewed. The prep was good. Scattered diverticulosis was encountered. No colonic polyps were found. No evidence of focal colitis was found. Retroflexion of the scope demonstrated grade 1 internal hemorrhoids without active bleeding or inflammation. The colon was desufflated. The patient had tolerated the procedure well. Withdrawal time was over 6 minutes. FINDINGS: Aronchick preparation quality scale 2 (1-5) Internal hemorrhoids, grade 1 No external prolapsed hemorrhoids. No arteriovenous malformations. Scattered sigmoid diverticulosis Removal of 1 polyp: -Cold forceps biopsy at ascending colon, 4 mm tubulovillous adenoma No focal colitis. RECOMMENDATIONS: Lower endoscopy in 5 years, 2023 Plan - Discharge Summary New Discharge Prescriptions: No Action Fluticasone Nasal [place] [Flonase Nasal [place]] 1 spray EA NOSTRIL DAILY Omeprazole [PriLOSEC] 40 mg PO AC-BRKFST Isosorbide Mononitrate ER [Imdur] 30 mg PO DAILY Nitroglycerin Sl Tabs [Nitrostat] 0.4 mg SUBLINGUAL Q5M PRN PRN Reason: Chest Pain lamoTRIgine [LaMICtal] 100 mg PO HS #30 tab Memantine [Namenda] 10 mg PO HS #30 tab Metoprolol Tartrate [Lopressor] 25 mg PO HS tab QUEtiapine [SEROquel] 50 mg PO HS #30 tab Cholecalciferol [Vitamin D3 (25 Mcg = 1000 Iu)] 1,000 unit PO DAILY Atorvastatin [Lipitor] 20 mg PO HS Divalproex ER [Depakote ER] 500 mg PO HS Sertraline [Zoloft] 100 mg PO DAILY Loratadine [Claritin] 10 mg PO DAILY Tamsulosin HCl [Flomax] 0.4 mg PO DAILY Melatonin 3 mg PO HS PRN PRN Reason: Insomnia Ascorbic Acid [Vitamin C] 1,000 mg PO DAILY Discharge Medication List Fluticasone Nasal [place] [Flonase Nasal [place]] 1 spray EA NOSTRIL DAILY 06/21/15 [History] Omeprazole [PriLOSEC] 40 mg PO AC-BRKFST 06/21/15 [History] Isosorbide Mononitrate ER [Imdur] 30 mg PO DAILY 10/09/15 [History] Nitroglycerin Sl Tabs [Nitrostat] 0.4 mg SUBLINGUAL Q5M PRN 12/28/15 [History] Memantine [Namenda] 10 mg PO HS #30 tab 08/11/18 [Rx] Metoprolol Tartrate [Lopressor] 25 mg PO HS tab 08/11/18 [Rx] QUEtiapine [SEROquel] 50 mg PO HS #30 tab 08/11/18 [Rx] lamoTRIgine [LaMICtal] 100 mg PO HS #30 tab 08/11/18 [Rx] Atorvastatin [Lipitor] 20 mg PO HS 11/21/18 [History] Cholecalciferol [Vitamin D3 (25 Mcg = 1000 Iu)] 1,000 unit PO DAILY 11/21/18 [History] Divalproex ER [Depakote ER] 500 mg PO HS 11/21/18 [History] Sertraline [Zoloft] 100 mg PO DAILY 12/17/18 [History] Loratadine [Claritin] 10 mg PO DAILY 03/04/19 [History] Ascorbic Acid [Vitamin C] 1,000 mg PO DAILY 07/12/19 [History] Melatonin 3 mg PO HS PRN 07/12/19 [History] Tamsulosin HCl [Flomax] 0.4 mg PO DAILY 07/12/19 [History] Follow up Appointment(s)/Referral(s): Evy Marina MD [STAFF PHYSICIAN] - 08/03/19 Patient Instructions/Handouts: *Surgery [facility] - (Anesthesia) Endoscopy Discharge Instructions, Hiatal Hernia (DC), Gastroesophageal Reflux Disease (DC), Colonoscopy (DC), Upper Endoscopy (DC) Activity/Diet/Wound Care/Special Instructions: REST TODAY, ENCOURAGE FLUIDS AT HOME Discharge Disposition: HOME SELF-CARE
[2019-07-14 10:35] VITALS: BP 124/74; PULSE 77
== END | disposition home or self-care (01) ==
LOC: ORWHC2ENDO 09:06
PROVIDERS: ATTEND Surgery Plastic and Reconstructive Surgery
DX: K57.30 Diverticulosis of large intestine without perforation or abscess without bleeding (principal); K29.50 Unspecified chronic gastritis without bleeding; K44.9 Diaphragmatic hernia without obstruction or gangrene; D12.2 Benign neoplasm of ascending colon; K31.7 Polyp of stomach and duodenum; K22.10 Ulcer of esophagus without bleeding; K64.0 First degree hemorrhoids; R13.10 Dysphagia, unspecified; K21.9 Gastro-esophageal reflux disease without esophagitis; Z85.038 Personal history of other malignant neoplasm of large intestine; I25.10 Atherosclerotic heart disease of native coronary artery without angina pectoris; Z87.891 Personal history of nicotine dependence; E78.5 Hyperlipidemia, unspecified; I21.A9 Other myocardial infarction type; I69.311 Memory deficit following cerebral infarction; F03.90 Unspecified dementia, unspecified severity, without behavioral disturbance, psychotic disturbance, mood disturbance, and anxiety; R05 Cough; Z95.1 Presence of aortocoronary bypass graft; Z90.49 Acquired absence of other specified parts of digestive tract; F41.9 Anxiety disorder, unspecified; F32.9 Major depressive disorder, single episode, unspecified; F43.10 Post-traumatic stress disorder, unspecified; Z83.2 Family history of diseases of the blood and blood-forming organs and certain disorders involving the immune mechanism; Z83.3 Family history of diabetes mellitus; Z79.899 Other long term (current) drug therapy
CPT/HCPCS: 88305; 45380; 43239; J2001; J2704

== ENCOUNTER 2019-10-03 05:51 | Emergency (ER) | payer MEDICARE, OTHER ==
[2019-10-03 06:00] VITALS: BP 169/80; PULSE 57; RESP 18; TEMP 98
[2019-10-03] MEDS ORDERED: HYDROcodone/APAP 7.5-325MG 1 EACH TAB PO ONE (06:13)
--- NOTE | 2019-10-03 06:32 | XR ---
EXAM: XR Right Ribs, 2 Views CLINICAL HISTORY: ITS.REASON XR Reason: fall, pain, sob TECHNIQUE: Frontal and oblique views of the right ribs. COMPARISON: No relevant prior studies available. IMPRESSION: Cardiomegaly. No pneumothorax. Small opacities in the left lower lobe, possibly aspiration or atelectasis. No definite rib fracture.
--- NOTE | 2019-10-03 06:44 | ED ---
Fall HPI - General Chief Complaint: Fall Stated Complaint: bROKEN RIBS Time Seen by Provider: 10/03/19 06:09 Source: patient, RN notes reviewed Mode of arrival: ambulatory - History of Present Illness Initial Comments: 74-year-old male presents emergency Department chief complaint fall, right sided rib pain. Patient states that around 6 PM yesterday he tripped falling on the g round striking his right ribs. He denies any abdominal pain, headache injury, neck pain, upper or lower extremity injury. Patient states that her stated deep breath does not feel short of breath at rest. Patient denies any bruising denies any blood thinners. - Related Data Home Medications Medication Instructions Recorded Confirmed Fluticasone Nasal [place] [Flonase 1 spray EA NOSTRIL DAILY 06/21/15 07/12/19 Nasal [place]] Omeprazole [PriLOSEC] 40 mg PO AC-BRKFST 06/21/15 07/12/19 Isosorbide Mononitrate ER [Imdur] 30 mg PO DAILY 10/09/15 07/14/19 Nitroglycerin Sl Tabs [Nitrostat] 0.4 mg SUBLINGUAL Q5M PRN 12/28/15 07/14/19 Atorvastatin [Lipitor] 20 mg PO HS 11/21/18 07/12/19 Cholecalciferol [Vitamin D3 (25 1,000 unit PO DAILY 11/21/18 07/12/19 Mcg = 1000 Iu)] Divalproex ER [Depakote ER] 500 mg PO HS 11/21/18 07/12/19 Sertraline [Zoloft] 100 mg PO DAILY 12/17/18 07/12/19 Loratadine [Claritin] 10 mg PO DAILY 03/04/19 07/12/19 Ascorbic Acid [Vitamin C] 1,000 mg PO DAILY 07/12/19 07/12/19 Melatonin 3 mg PO HS PRN 07/12/19 07/12/19 Tamsulosin HCl [Flomax] 0.4 mg PO DAILY 07/12/19 07/12/19 Previous Rx's Medication Instructions Recorded Memantine [Namenda] 10 mg PO HS #30 tab 08/11/18 Metoprolol Tartrate [Lopressor] 25 mg PO HS tab 08/11/18 QUEtiapine [SEROquel] 50 mg PO HS #30 tab 08/11/18 lamoTRIgine [LaMICtal] 100 mg PO HS #30 tab 08/11/18 Hydrocodone/Acetaminophen [[place] 1 tab PO Q6HR PRN #12 tab 10/03/19 5-325] Allergies Allergy/AdvReac Type Severity Reaction Status Date / Time No Known Allergies Allergy Verified 10/03/19 06:00 Review of Systems ROS Statement: Those systems with pertinent positive or pertinent negative responses have been documented in the HPI. ROS Other: All systems not noted in ROS Statement are negative. Past Medical History Past Medical History: Coronary Artery Disease (CAD), Cancer, CVA/TIA, Eye Disorder, GERD/Reflux, Hyperlipidemia, Memory Impairment, Myocardial Infarction (ID) Additional Past Medical History / Comment(s): DYSPHAGIA, CHRONIC DRY COUGH, HX COLON CANCER-2004 WITH SURGERY., DIVERTICULAR DISORDER, Hiatal Hernia, TIA'S , CATARACT RIGHT EYE., MILD DEMENTIA. , PROBLEMS WITH BALANCE- USES CANE., STATES HAVING DIARRHEA. Last Myocardial Infarction Date:: 2009 History of Any Multi-Drug Resistant Organisms: None Reported Past Surgical History: Bowel Resection, Cholecystectomy, Coronary Bypass/CABG, Heart Catheterization, Hernia Repair Additional Past Surgical History / Comment(s): QUAD CABG (MPH 2009), Umbilical hernia repair, DEVIATED SEPTUM REPAIR/SPUR REMOVED from nose, Past Anesthesia/Blood Transfusion Reactions: Motion Sickness, Postoperative Nausea & Vomiting (PONV) Additional Past Anesthesia/Blood Transfusion Reaction / Comment(s): PONV X1. Claustrophobic Past Psychological History: Anxiety, Depression, PTSD Smoking Status: Former smoker Past Alcohol Use History: None Reported Past Drug Use History: None Reported - Past Family History Son(s) Family Medical History: Cancer Father Family Medical History: Blood Disorder Additional Family Medical History / Comment(s): from a blood disorder Mother Family Medical History: Diabetes Mellitus Additional Family Medical History / Comment(s): age 53 -complications from dm Sister(s) Family Medical History: Diabetes Mellitus General Exam Limitations: no limitations General appearance: alert, in no apparent distress Head exam: Present: atraumatic, normocephalic, normal inspection Eye exam: Present: normal appearance, PERRL, EOMI. Absent: scleral icterus, conjunctival injection, periorbital swelling ENT exam: Present: normal exam, normal oropharynx, mucous membranes moist Neck exam: Present: normal inspection, full ROM. Absent: tenderness, meningismus, lymphadenopathy Respiratory exam: Present: normal lung sounds bilaterally, chest wall tenderness (Moderate right anterior to lateral rib tenderness). Absent: respiratory dis tress, wheezes, rales, rhonchi, stridor Cardiovascular Exam: Present: regular rate, normal rhythm, normal heart sounds. Absent: systolic murmur, diastolic murmur, rubs, gallop, clicks GI/Abdominal exam: Present: soft, normal bowel sounds. Absent: distended, tenderness, guarding, rebound, rigid Back exam: Present: full ROM. Absent: tenderness, CVA tenderness (R), CVA tenderness (L) Course Vital Signs 10/03/19 05:58 Temperature 98 F Pulse Rate 57 L Respiratory 18 Rate Blood Pressure 169/80 O2 Sat by Pulse 97 Oximetry Medical Decision Making - Medical Decision Making Rib series x-rays were obtained which shows no definite rib fracture or no evidence of pneumothorax. There is some atelectasis noted in the left lung which is consistent with patient short shallow breaths. Patient will provided pain control, incentive spirometry. Patient advised to follow-up for recheck in 2 days return for any worsening cough, fever or any other symptoms. Disposition Clinical Impression: Fall, Contusion of rib on right side Disposition: HOME SELF-CARE Condition: Stable Instructions (If sedation given, give patient instructions): Rib Contusion (ED) Additional Instructions: Please return to the Emergency Department if symptoms worsen or any other concerns. Prescriptions: Hydrocodone/Acetaminophen [[place] 5-325] 1 tab PO Q6HR PRN #12 tab PRN Reason: Pain Is patient prescribed a controlled substance at d/c from ED?: Yes When asked, does pt state using other controlled substances?: No If prescribed controlled substance>3 days was MAPS reviewed?: Prescribed <3 Days If opioid is for acute pain is fill amount 7 days or less?: Yes If Rx opioid, was Start Talking consent form obtained?: Yes Referrals: Mark Wells DO [Primary Care Provider] - 1-2 days Time of Disposition: 06:44
== END 2019-10-03 07:02 | disposition home or self-care (01) ==
LOC: EC 05:51
DX: S20.211A Contusion of right front wall of thorax, initial encounter (principal); I25.10 Atherosclerotic heart disease of native coronary artery without angina pectoris; E78.5 Hyperlipidemia, unspecified; I25.2 Old myocardial infarction; K21.9 Gastro-esophageal reflux disease without esophagitis; F41.9 Anxiety disorder, unspecified; F32.9 Major depressive disorder, single episode, unspecified; Z79.51 Long term (current) use of inhaled steroids; Z79.899 Other long term (current) drug therapy; Z87.891 Personal history of nicotine dependence; Z95.1 Presence of aortocoronary bypass graft; Z85.038 Personal history of other malignant neoplasm of large intestine; Z86.73 Personal history of transient ischemic attack (TIA), and cerebral infarction without residual deficits; W01.198A Fall on same level from slipping, tripping and stumbling with subsequent striking against other object, initial encounter
CPT/HCPCS: 99283

== ENCOUNTER 2019-11-05 15:24 | Observation (INO) | payer MEDICARE, OTHER ==
--- NOTE | 2019-11-05 16:15 | ED ---
General Adult HPI - General Chief complaint: Extremity Problem,Nontraumatic Stated complaint: Arm numbness/pain Time Seen by Provider: 11/05/19 15:33 Source: patient Mode of arrival: ambulatory Limitations: no limitations - History of Present Illness Initial comments: patient is 74-year-old male with history of TIA presenting to the emergency department with a chief complaint of numbness and pain in the left arm. Patient reports the pain has been ongoing for last 2-3 weeks and has not developed more numbness along the upper part of the left arm. Patient also reports he has developed left leg numbness but denies weakness there. Patient reports he is having slight trouble speaking. His states that has been out when for the past week. Patient is also reported numbness on his lips. His reports the symptoms have been ongoing for about one week. Patient went to sleep last night at 1900 and wwoke up this morning at 0600 with worsening of the symptoms.patient denies any blurry vision.patient does have some tremors in the left upper extremity. - Related Data Home Medications Medication Instructions Recorded Confirmed Fluticasone Nasal [place] [Flonase 1 spray EA NOSTRIL DAILY 06/21/15 07/12/19 Nasal [place]] Omeprazole [PriLOSEC] 40 mg PO AC-BRKFST 06/21/15 07/12/19 Isosorbide Mononitrate ER [Imdur] 30 mg PO DAILY 10/09/15 07/14/19 Nitroglycerin Sl Tabs [Nitrostat] 0.4 mg SUBLINGUAL Q5M PRN 12/28/15 07/14/19 Atorvastatin [Lipitor] 20 mg PO HS 11/21/18 07/12/19 Cholecalciferol [Vitamin D3 (25 1,000 unit PO DAILY 11/21/18 07/12/19 Mcg = 1000 Iu)] Divalproex ER [Depakote ER] 500 mg PO HS 11/21/18 07/12/19 Sertraline [Zoloft] 100 mg PO DAILY 12/17/18 07/12/19 Loratadine [Claritin] 10 mg PO DAILY 03/04/19 07/12/19 Ascorbic Acid [Vitamin C] 1,000 mg PO DAILY 07/12/19 07/12/19 Melatonin 3 mg PO HS PRN 07/12/19 07/12/19 Tamsulosin HCl [Flomax] 0.4 mg PO DAILY 07/12/19 07/12/19 Previous Rx's Medication Instructions Recorded Memantine [Namenda] 10 mg PO HS #30 tab 08/11/18 Metoprolol Tartrate [Lopressor] 25 mg PO HS tab 08/11/18 QUEtiapine [SEROquel] 50 mg PO HS #30 tab 08/11/18 lamoTRIgine [LaMICtal] 100 mg PO HS #30 tab 08/11/18 Hydrocodone/Acetaminophen [[place] 1 tab PO Q6HR PRN #12 tab 10/03/19 5-325] Allergies Allergy/AdvReac Type Severity Reaction Status Date / Time No Known Allergies Allergy Verified 11/05/19 15:31 Review of Systems ROS Statement: Those systems with pertinent positive or pertinent negative responses have been documented in the HPI. ROS Other: All systems not noted in ROS Statement are negative. Past Medical History Past Medical History: Coronary Artery Disease (CAD), Cancer, CVA/TIA, Eye Disorder, GERD/Reflux, Hyperlipidemia, Memory Impairment, Myocardial Infarction ([place]) Additional Past Medical History / Comment(s): DYSPHAGIA, CHRONIC DRY COUGH, HX COLON CANCER-2004 WITH SURGERY., DIVERTICULAR DISORDER, Hiatal Hernia, TIA'S , CATARACT RIGHT EYE., MILD DEMENTIA. , PROBLEMS WITH BALANCE- USES CANE., STATES HAVING DIARRHEA. Last Myocardial Infarction Date:: 2009 History of Any Multi-Drug Resistant Organisms: None Reported Past Surgical History: Bowel Resection, Cholecystectomy, Coronary Bypass/CABG, Heart Catheterization, Hernia Repair Additional Past Surgical History / Comment(s): QUAD CABG (MPH 2009), Umbilical hernia repair, DEVIATED SEPTUM REPAIR/SPUR REMOVED from nose, Past Anesthesia/Blood Transfusion Reactions: Motion Sickness, Postoperative Nausea & Vomiting (PONV) Additional Past Anesthesia/Blood Transfusion Reaction / Comment(s): PONV X1. Claustrophobic Past Psychological History: Anxiety, Depression, PTSD Smoking Status: Former smoker Past Alcohol Use History: None Reported Past Drug Use History: None Reported - Past Family History Son(s) Family Medical History: Cancer Father Family Medical History: Blood Disorder Additional Family Medical History / Comment(s): from a blood disorder Mother Family Medical History: Diabetes Mellitus Additional Family Medical History / Comment(s): age 53 -complications from dm Sister(s) Family Medical History: Diabetes Mellitus General Exam Limitations: no limitations General appearance: alert, in no apparent distress Head exam: Present: atraumatic, normocephalic, normal inspection Eye exam: Present: normal appearance, PERRL, EOMI Pupils: Present: normal accommodation ENT exam: Present: normal exam, normal oropharynx, mucous membranes moist, TM's normal bilaterally, normal external ear exam Neck exam: Present: normal inspection, full ROM Respiratory exam: Present: normal lung sounds bilaterally. Absent: respiratory distress, wheezes, rales, stridor, chest wall tenderness Cardiovascular Exam: Present: regular rate, normal rhythm, normal heart sounds Extremities exam: Present: normal inspection, full ROM Back exam: Present: normal inspection, full ROM Neurological exam: Present: alert, oriented X3, normal gait Psychiatric exam: Present: normal affect, normal mood Skin exam: Present: warm, dry, intact, normal color Course Vital Signs 11/05/19 11/05/19 11/05/19 15:29 17:00 17:10 Temperature 97.5 F L Pulse Rate 63 56 L 57 L Respiratory 16 20 24 Rate Blood Pressure 172/97 146/84 141/100 O2 Sat by Pulse 99 98 98 Oximetry 11/05/19 11/05/19 17:20 18:10 Temperature Pulse Rate 58 L 59 L Respiratory 23 17 Rate Blood Pressure 141/100 155/81 O2 Sat by Pulse 97 97 Oximetry Medical Decision Making - Medical Decision Making patient is 74-year-old male with history of TIA presenting to the emergency department a chief complaint ofleft arm pain. On exam patient has no left-sided weakness. Patient is having tremors. Patient is also complaining of some lip numbness, left-sided arm pain and numbness, left lower extremity. Patient does have dementia. present to answer any questions. So. The patient has been having these symptoms for a week that have been waxing and waning. Patient went to sleep last night at 1900 with baseline symptoms and woke up this morning with gradually increasing severity of the symptoms according to the . Patient is not slurring. No facial drooping noted. no visual changes. I suspect the patient has suffered a TIA. during the ED course, patient developed left-sided chest pain that radiates along the left arm. Patient was given Nitropaste. Initial EKG shows sinus bradycardia with no ST changes. Repeat EKG shows normal sinus rhythm with out any ST changes. Initial troponin is negative. CT brain negative for acute changes. CBC and CMP unremarkable. Patient given Nitropaste with some improvement in symptoms. Chest x-ray shows negative acute changes. Patient will be admitted for observation and serial troponins. Neurology consulted. Cardiology consulted. Admitting physician is Dr. jones. Case discussed with Dr. El who also examined the patient. - Lab Data Result diagrams: 11/05/19 16:30 11/05/19 16:30 Lab Results 11/05/19 11/05/19 11/05/19 Range/Units 16:30 16:30 16:30 WBC 5.3 (3.8-10.6) k/uL RBC 5.18 (4.30-5.90) m/uL Hgb 15.5 (13.0-17.5) gm/dL Hct 45.8 (39.0-53.0) % MCV 88.5 (80.0-100.0) fL MCH 29.9 (25.0-35.0) pg MCHC 33.7 (31.0-37.0) g/dL RDW 13.5 (11.5-15.5) % Plt Count 170 (150-450) k/uL Neutrophils % 64 % Lymphocytes % 25 % Monocytes % 7 % Eosinophils % 2 % Basophils % 1 % Neutrophils # 3.3 (1.3-7.7) k/uL Lymphocytes # 1.3 (1.0-4.8) k/uL Monocytes # 0.4 (0-1.0) k/uL Eosinophils # 0.1 (0-0.7) k/uL Basophils # 0.0 (0-0.2) k/uL PT 10.2 (9.0-12.0) sec INR 0.9 (<1.2) APTT 23.4 (22.0-30.0) sec Sodium 141 (137-145) mmol/L Potassium 4.1 (3.5-5.1) mmol/L Chloride 106 (98-107) mmol/L Carbon Dioxide 25 (22-30) mmol/L Anion Gap 10 mmol/L BUN 16 (9-20) mg/dL Creatinine 0.62 L (0.66-1.25) mg/dL Est GFR (CKD-EPI)AfAm >90 (>60 ml/min/1.73 sqM) Est GFR (CKD-EPI)NonAf >90 (>60 ml/min/1.73 sqM) Glucose 74 (74-99) mg/dL Calcium 9.2 (8.4-10.2) mg/dL Total Bilirubin 0.5 (0.2-1.3) mg/dL AST 22 (17-59) U/L ALT 19 (4-49) U/L Alkaline Phosphatase 97 (38-126) U/L Troponin I (0.000-0.034) ng/mL Total Protein 6.6 (6.3-8.2) g/dL Albumin 4.2 (3.5-5.0) g/dL 11/05/19 Range/Units 16:30 WBC (3.8-10.6) k/uL RBC (4.30-5.90) m/uL Hgb (13.0-17.5) gm/dL Hct (39.0-53.0) % MCV (80.0-100.0) fL MCH (25.0-35.0) pg MCHC (31.0-37.0) g/dL RDW (11.5-15.5) % Plt Count (150-450) k/uL Neutrophils % % Lymphocytes % % Monocytes % % Eosinophils % % Basophils % % Neutrophils # (1.3-7.7) k/uL Lymphocytes # (1.0-4.8) k/uL Monocytes # (0-1.0) k/uL Eosinophils # (0-0.7) k/uL Basophils # (0-0.2) k/uL PT (9.0-12.0) sec INR (<1.2) APTT (22.0-30.0) sec Sodium (137-145) mmol/L Potassium (3.5-5.1) mmol/L Chloride (98-107) mmol/L Carbon Dioxide (22-30) mmol/L Anion Gap mmol/L BUN (9-20) mg/dL Creatinine (0.66-1.25) mg/dL Est GFR (CKD-EPI)AfAm (>60 ml/min/1.73 sqM) Est GFR (CKD-EPI)NonAf (>60 ml/min/1.73 sqM) Glucose (74-99) mg/dL Calcium (8.4-10.2) mg/dL Total Bilirubin (0.2-1.3) mg/dL AST (17-59) U/L ALT (4-49) U/L Alkaline Phosphatase (38-126) U/L Troponin I <0.012 (0.000-0.034) ng/mL Total Protein (6.3-8.2) g/dL Albumin (3.5-5.0) g/dL Disposition Clinical Impression: Chest pain, Neurological symptoms Disposition: ADMITTED IP TO THIS HOSP Condition: Stable Is patient prescribed a controlled substance at d/c from ED?: No Time of Disposition: 18:02
--- NOTE | 2019-11-05 17:12 | CT ---
EXAMINATION TYPE: CT brain wo con for TPA DATE OF EXAM: 11/05/2019 COMPARISON: 05/17/2019 HISTORY: Neuro deficits. CT DLP: 1379.4 mGycm Automated exposure control for dose reduction was used. There is cerebral cortical atrophy. There is patchy hypodensity in the periventricular white matter a nd more noticeable in the occipital lobes. There is probably old 1 cm lacunar infarct left internal c apsule. The calvarium is intact. There is no mass effect nor midline shift. There is no sign of intra cranial hemorrhage. IMPRESSION: Cerebral atrophy and chronic small vessel ischemia. No acute abnormality. No change.
[2019-11-05 17:14] LABS: Basophils % (A) 1 %; Eosinophils # (A) 0.1 k/uL (0-0.7); Eosinophils % (A) 2 %; HCT 45.8 % (39.0-53.0); HGB 15.5 gm/dL (13.0-17.5); Lymphocytes # (A) 1.3 k/uL (1.0-4.8); Lymphocytes % (A) 25 %; MCH 29.9 pg (25.0-35.0); MCHC 33.7 g/dL (31.0-37.0); MCV 88.5 fL (80.0-100.0); Mean Platelet Volume 7.2; Monocytes # (A) 0.4 k/uL (0-1.0); Monocytes % (A) 7 %; Neutrophils # (A) 3.3 k/uL (1.3-7.7); Neutrophils % (A) 64 %; Platelet Count 170 k/uL (150-450); RBC 5.18 m/uL (4.30-5.90); RDW 13.5 % (11.5-15.5); WBC 5.3 k/uL (3.8-10.6)
--- NOTE | 2019-11-05 17:15 | XR ---
EXAMINATION TYPE: XR chest 2V DATE OF EXAM: 11/05/2019 COMPARISON: 10/03/2019 HISTORY: Rib pain TECHNIQUE: 2 views FINDINGS: There is no heart failure nor confluent pneumonic infiltrate. Costophrenic angles are clear . There are sternal wires. Costophrenic angles are fairly clear. IMPRESSION: No active cardiopulmonary disease. There is clearing of some mild pleural reaction left l ateral lung base compared to old exam.
[2019-11-05 17:25] LABS: INR 0.9 (<1.2); Partial Thromboplastin Time 23.4 sec (22.0-30.0); Prothrombin Time 10.2 sec (9.0-12.0)
[2019-11-05 17:26] LABS: ALT 19 U/L (4-49); AST 22 U/L (17-59); African American GFR (CKD) >90 (>60 ml/min/1.73 sqM); Albumin 4.2 g/dL (3.5-5.0); Alkaline Phosphatase 97 U/L (38-126); Anion Gap 10 mmol/L; Blood Urea Nitrogen 16 mg/dL (9-20); Calcium 9.2 mg/dL (8.4-10.2); Carbon Dioxide 25 mmol/L (22-30); Chloride 106 mmol/L (98-107); Glucose 74 mg/dL (74-99); Non-African American GFR(CKD) >90 (>60 ml/min/1.73 sqM); Potassium 4.1 mmol/L (3.5-5.1); Sodium 141 mmol/L (137-145); Total Bilirubin 0.5 mg/dL (0.2-1.3); Total Protein 6.6 g/dL (6.3-8.2)
[2019-11-05] MEDS ORDERED: NITROGLYCERIN OINT 1 INCH/GM PACKET TOPICAL STA (17:41)
[2019-11-05] MEDS ORDERED: NITROGLYCERIN SL TABS 0.4 MG TAB SUBLINGUAL PRN ×2 (17:56→21:33)
--- NOTE | 2019-11-05 21:14 | P.CNNES ---
History of Present Illness Consult date: 11/05/19 Requesting physician: Mauricio Delgado Reason for Consult: TIA neuro symptoms History of Present Illness: Patient is a 74-year-old male with history of coronary artery disease, previous TIA/CVA on 05/18/2019, when he presented with left facial, left lower and left upper extremity weakness. Patient had a negative MRI, was placed on dual antiplatelet medications for 3 weeks, then to switch to aspirin alone. Patient was taking aspirin 325 mg daily, but one of his physicians told him to stop the aspirin and he has not been taking any aspirin or any antiplatelet agent in the past 4 months. Patient states that his left leg has been feeling numb almost for a month. He has been having pain in the left arm, left hand and forearm for a week, but yesterday it started extending to the left shoulder and left side of the neck, therefore his brought him to the ER. In the ER he was also having pain in the left side of the jaw, and left side of the neck. He was given nitro paste. Patient says that he has been having some numbness of left perioral region since yesterday, which seems to be getting worse. Patient's EKG shows normal sinus rhythm. CBC, CMP him a PT/PTT normal. Troponin negative. Computed tomography scan of head showed cerebral atrophy and chronic small vessel ischemia. No acute abnormality. Chest x-ray showed no active cardiopulmonary disease. There is clearing of some mild pleural reaction left lateral lung base compared to old exam. Patient had a normal CTA of head and neck on 05/17/2019. Patient's last 2-D echo also from April 2019 showed EF 50-55%. Left atrium is mildly dilated. Interatrial and interventricular septum intact. Patient's last cholesterol checked on 05/19/2019 showed 153, LDL 99, HDL 31 and triglycerides 117. Review of Systems Patient complains of left arm pain, left-sided numbness, stuttering, difficulty finding words sometimes. States he had history of PTSD and follows up at [facility] as he is a from [place]. Denies headache, diplopia, loss of vision. Past Medical History Past Medical History: Coronary Artery Disease (CAD), Cancer, CVA/TIA, Eye Disorder, GERD/Reflux, Hyperlipidemia, Memory Impairment, Myocardial Infarction ([place]) Additional Past Medical History / Comment(s): DYSPHAGIA, CHRONIC DRY COUGH, HX COLON CANCER-2004 WITH SURGERY., DIVERTICULAR DISORDER, Hiatal Hernia, TIA'S , CATARACT RIGHT EYE., MILD DEMENTIA. , PROBLEMS WITH BALANCE- USES CANE., STATES HAVING DIARRHEA. Last Myocardial Infarction Date:: 2009 History of Any Multi-Drug Resistant Organisms: None Reported Past Surgical History: Bowel Resection, Cholecystectomy, Coronary Bypass/CABG, Heart Catheterization, Hernia Repair Additional Past Surgical History / Comment(s): QUAD CABG (MPH 2009), Umbilical hernia repair, DEVIATED SEPTUM REPAIR/SPUR REMOVED from nose, Past Anesthesia/Blood Transfusion Reactions: Motion Sickness, Postoperative Nausea & Vomiting (PONV) Additional Past Anesthesia/Blood Transfusion Reaction / Comment(s): PONV X1. Claustrophobic Past Psychological History: Anxiety, Depression, PTSD Smoking Status: Former smoker Past Alcohol Use History: None Reported Past Drug Use History: None Reported - Past Family History Son(s) Family Medical History: Cancer Father Family Medical History: Blood Disorder Additional Family Medical History / Comment(s): from a blood disorder Mother Family Medical History: Diabetes Mellitus Additional Family Medical History / Comment(s): age 53 -complications from dm Sister(s) Family Medical History: Diabetes Mellitus Medications and Allergies Home Medications Medication Instructions Recorded Confirmed Type Fluticasone Nasal [place] [Flonase 1 spray EA NOSTRIL DAILY 06/21/15 11/05/19 History Nasal [place]] Omeprazole [PriLOSEC] 40 mg PO AC-BRKFST 06/21/15 11/05/19 History Isosorbide Mononitrate ER [Imdur] 30 mg PO DAILY 10/09/15 11/05/19 History Nitroglycerin Sl Tabs [Nitrostat] 0.4 mg SUBLINGUAL Q5M PRN 12/28/15 11/05/19 History Memantine [Namenda] 10 mg PO HS #30 tab 08/11/18 11/05/19 Rx Metoprolol Tartrate [Lopressor] 25 mg PO HS tab 08/11/18 11/05/19 Rx QUEtiapine [SEROquel] 50 mg PO HS #30 tab 08/11/18 11/05/19 Rx lamoTRIgine [LaMICtal] 100 mg PO HS #30 tab 08/11/18 11/05/19 Rx Atorvastatin [Lipitor] 20 mg PO HS 11/21/18 11/05/19 History Cholecalciferol [Vitamin D3 (25 1,000 unit PO DAILY 11/21/18 11/05/19 History Mcg = 1000 Iu)] Divalproex ER [Depakote ER] 500 mg PO HS 11/21/18 11/05/19 History Sertraline [Zoloft] 100 mg PO DAILY 12/17/18 11/05/19 History Loratadine [Claritin] 10 mg PO DAILY 03/04/19 11/05/19 History Tamsulosin HCl [Flomax] 0.4 mg PO BID 07/12/19 11/05/19 History Hydrocodone/Acetaminophen [[place] 1 tab PO Q6HR PRN #12 tab 10/03/19 Rx 5-325] Cholestyramine/Aspartame 1 scoop PO TID 11/05/19 11/05/19 History [Cholestyramine Light Powder] Allergies Allergy/AdvReac Type Severity Reaction Status Date / Time No Known Allergies Allergy Verified 11/05/19 20:31 Physical Examination - Vital Signs Vital Signs: Vital Signs Temp Pulse Resp BP Pulse Ox 11/05/19 18:55 98.1 F 11/05/19 18:36 98.1 F 11/05/19 18:10 59 L 17 155/81 97 11/05/19 17:20 58 L 23 141/100 97 11/05/19 17:10 57 L 24 141/100 98 11/05/19 17:00 56 L 20 146/84 98 11/05/19 15:29 97.5 F L 63 16 172/97 99 Intake and Output 11/05/19 11/05/19 11/05/19 06:59 14:59 22:59 Other: Weight 90.718 kg On examination patient is an elderly male, in no acute distress. He is alert and awake, fairly well oriented. He thinks it is September 2019 that he is in [facility] and knows name of the current president. Patient's speech and language functions appear is intact although he sometimes stutters. No aphasia. On cranial examination pupils are round and reactive to light, visual ribera are full, external muscles are intact. Face is symmetric and tongue protrudes slightly to the right. Palatal elevation is normal. On muscle strength testing there is no pronator drift and the strength is normal in the arms and legs except left hip flexion, which is 5-. Reflexes are 2+ and plantars are probably upgoing bilaterally. Sensory touch is decreased in the left side of the body. No ataxia for [id number], tone and bulk of muscles normal. There is no carotid bruit or murmur peripheral pulses present. Results - Laboratory Findings CBC and BMP: 11/05/19 16:30 11/05/19 16:30 Abnormal Lab Findings: Abnormal Labs 11/05/19 16:30 Creatinine 0.62 L Assessment and Plan Assessment: * 74-year-old male with history of TIA/CVA in April 2019, was supposed to be on aspirin, discontinued aspirin 4 months ago, now admitted with left arm and neck pain, and left-sided paresthesias. Need to rule out cardiac as well as cerebrovascular etiology. Patient's examination shows numbness of left side of the body, which possibly could be chronic from his previous CVA in April 2019. * Hypertension * Coronary artery disease Plan: * Patient has not been taking antiplatelet medication for 4 months. Patient has been restarted on aspirin 325 mg daily. * Patient's left arm, left-sided neck and jaw pain is more suggestive of cardiac etiology. Cardiology is also on board. * Continue Lipitor 40 mg. * Dr. Posada will be covering neurology service over the weekend.
[2019-11-05] MEDS: lamoTRIgine 100 MG TAB PO SCH (22:28)
[2019-11-05] MEDS: DIVALPROEX ER 500 MG TAB.ER.24H PO SCH (22:28)
[2019-11-05] MEDS: TAMSULOSIN 0.4 MG CAP.ER.24H PO SCH (22:29)
[2019-11-05] MEDS: METOPROLOL TARTRATE 25 MG TAB PO SCH (22:29)
[2019-11-05] MEDS: QUEtiapine 50 MG TAB PO SCH (22:29)
[2019-11-05] MEDS: MEMANTINE 10 MG TAB PO SCH (22:29)
[2019-11-05] MEDS: MELATONIN 5 MG TABLET PO SCH (23:05)
[2019-11-05] MEDS: CHOLESTYRAMINE (WITH SUGAR) 4 GM PACKET PO SCH (23:05)
[2019-11-06 06:00] LABS: Cholesterol 151 mg/dL (<200); HDL Cholesterol 35 mg/dL (40-60); LDL Cholesterol,Calculated 90 mg/dL (0-99); Triglycerides 132 mg/dL (<150)
[2019-11-06] MEDS: PANTOPRAZOLE 40 MG TABLET PO SCH (07:01)
[2019-11-06] MEDS ORDERED: ASPIRIN 325 MG TAB PO SCH (09:00)
[2019-11-06] MEDS: FLUTICASONE 50MCG/SPRAY NASAL 16GM EA NOSTRIL SCH (09:13)
[2019-11-06] MEDS: TAMSULOSIN 0.4 MG CAP.ER.24H PO SCH ×2 (09:13→22:01)
[2019-11-06] MEDS: CHOLESTYRAMINE (WITH SUGAR) 4 GM PACKET PO SCH ×3 (09:13→22:01)
[2019-11-06] MEDS: SERTRALINE 100 MG TAB PO SCH (09:13)
[2019-11-06] MEDS: LORATADINE 10 MG TAB PO SCH (09:13)
[2019-11-06] MEDS: CHOLECALCIFEROL 1,000 UNIT TAB PO SCH (09:13)
[2019-11-06] MEDS ORDERED: REGADENOSON 0.4 MG/5 ML SYRINGE IV ONE (10:10)
--- NOTE | 2019-11-06 10:11 | P.CRDCN ---
History of Present Illness Consult date: 11/06/19 Requesting physician: Rojas Bowens Chief complaint: left arm and leg numbness, facial numbness, chest pressure History of present illness: this is a 74-year-old gentleman who follows regularly with Dr. VC Childs in the office. Patient has known history of coronary artery disease with prior bypass surgery, BELL to the LAD, saphenous vein graft to the PDA, PLV, and OM, history of hyperlipidemia hypertension,patient also has a history of some weakness and numbness in his bilateral lower extremities over the years. According to the patient, he was at a [employer] yesterday and developed some numbness and tingling in his left arm, as well as his left leg, he states that the side of his face also felt numb and tingly and he had some mild difficulty in speaking. Patient is known to have mild stuttering but this was different according to the . Patient also states that at the same time he had some pressure in the left chest area with some discomfort in his jaw, he has been getting intermittent left-sided chest pressure and jaw discomfort off-and-on. He states that the discomfort he had prior to his bypass was also located in the jaw area.patient's most recent cardiac catheterization was performed in 2014, medical therapy advised at that time. He is unsure as to when his last stress test was.at scan of the brain performed on arrival here showed cerebral atrophy and chronic small vessel ischemia with no acute abnormality.chest x-ray did not reveal any active cardiopulmonary disease.EKG on presentation here showed a normal sinus rhythm with T wave inversion noted in the anterior leads, upon reviewing prior EKGs patient had similar changes in the past.blood pressure 140/70 with a heart rate in the 50s, 97% on room air.White blood cell count 5.3, hemoglobin 15.5, platelet count 170. Sodium 141, potassium 4.1, BUN 16, creatinine 0.6.troponins are negative 3. Cholesterol 151, LDL 90, triglycerides 132, and HDL 35.at the time of my examination this morning, patient continues to complain of some mild numbness and tingling in his left upper and lower extremity, denies any chest discomfort at present. Past Medical History Past Medical History: Coronary Artery Disease (CAD), Cancer, CVA/TIA, Eye Disorder, GERD/Reflux, Hyperlipidemia, Memory Impairment, Myocardial Infarction (MT) Additional Past Medical History / Comment(s): DYSPHAGIA, CHRONIC DRY COUGH, HX COLON CANCER-2005 WITH SURGERY., DIVERTICULAR DISORDER, Hiatal Hernia, TIA'S , CATARACT RIGHT EYE., MILD DEMENTIA. , PROBLEMS WITH BALANCE- USES CANE., STATES HAVING DIARRHEA. Last Myocardial Infarction Date:: 2009 History of Any Multi-Drug Resistant Organisms: None Reported Past Surgical History: Bowel Resection, Cholecystectomy, Coronary Bypass/CABG, Heart Catheterization, Hernia Repair Additional Past Surgical History / Comment(s): QUAD CABG (MPH 2009), Umbilical hernia repair, DEVIATED SEPTUM REPAIR/SPUR REMOVED from nose, Past Anesthesia/Blood Transfusion Reactions: Motion Sickness, Postoperative Nausea & Vomiting (PONV) Additional Past Anesthesia/Blood Transfusion Reaction / Comment(s): PONV X1. Claustrophobic Past Psychological History: Anxiety, Depression, PTSD Smoking Status: Former smoker Past Alcohol Use History: None Reported Past Drug Use History: None Reported - Past Family History Son(s) Family Medical History: Cancer Father Family Medical History: Blood Disorder Additional Family Medical History / Comment(s): from a blood disorder Mother Family Medical History: Diabetes Mellitus Additional Family Medical History / Comment(s): age 53 -complications from dm Sister(s) Family Medical History: Diabetes Mellitus Medications and Allergies Home Medications Medication Instructions Recorded Confirmed Type Fluticasone Nasal [place] [Flonase 1 spray EA NOSTRIL DAILY 06/21/15 11/05/19 History Nasal [place]] Omeprazole [PriLOSEC] 40 mg PO AC-BRKFST 06/21/15 11/05/19 History Isosorbide Mononitrate ER [Imdur] 30 mg PO DAILY 10/09/15 11/05/19 History Nitroglycerin Sl Tabs [Nitrostat] 0.4 mg SUBLINGUAL Q5M PRN 12/28/15 11/05/19 History Memantine [Namenda] 10 mg PO HS #30 tab 08/11/18 11/05/19 Rx Metoprolol Tartrate [Lopressor] 25 mg PO HS tab 08/11/18 11/05/19 Rx QUEtiapine [SEROquel] 50 mg PO HS #30 tab 08/11/18 11/05/19 Rx lamoTRIgine [LaMICtal] 100 mg PO HS #30 tab 08/11/18 11/05/19 Rx Atorvastatin [Lipitor] 20 mg PO HS 11/21/18 11/05/19 History Cholecalciferol [Vitamin D3 (25 1,000 unit PO DAILY 11/21/18 11/05/19 History Mcg = 1000 Iu)] Divalproex ER [Depakote ER] 500 mg PO HS 11/21/18 11/05/19 History Sertraline [Zoloft] 100 mg PO DAILY 12/17/18 11/05/19 History Loratadine [Claritin] 10 mg PO DAILY 03/04/19 11/05/19 History Tamsulosin HCl [Flomax] 0.4 mg PO BID 07/12/19 11/05/19 History Cholestyramine/Aspartame 1 scoop PO TID 11/05/19 11/05/19 History [Cholestyramine Light Powder] Allergies Allergy/AdvReac Type Severity Reaction Status Date / Time No Known Allergies Allergy Verified 11/05/19 20:31 Physical Exam Vitals: Vital Signs Temp Pulse Pulse Resp BP BP Pulse Ox 11/06/19 08:35 97.4 F L 52 L 18 141/72 97 11/06/19 04:00 97.9 F 50 L 18 130/67 96 11/06/19 00:00 97.7 F 61 18 136/63 97 11/05/19 20:46 97.8 F 64 18 157/76 97 11/05/19 20:00 97.8 F 64 20 157/76 97 11/05/19 18:55 98.1 F 11/05/19 18:36 98.1 F 11/05/19 18:10 59 L 17 155/81 97 11/05/19 17:20 58 L 23 141/100 97 11/05/19 17:10 57 L 24 141/100 98 11/05/19 17:00 56 L 20 146/84 98 11/05/19 15:29 97.5 F L 63 16 172/97 99 Intake and Output 11/05/19 11/06/19 11/06/19 22:59 06:59 14:59 Other: # Voids 1 Weight 90.718 kg 89.5 kg PHYSICAL EXAMINATION: GENERAL:4-year-old gentleman in no acute distress at the time of my ex amination HEENT: Head is atraumatic, normocephalic. Pupils equal, round. Sclera anicteric. Conjunctiva are clear. Mucous membranes of the mouth are moist. Neck is supple. There is no elevated jugular venous pressure.no carotid bruit is heard. HEART EXAMINATION: [Heart S1, S2 normal. No murmur or gallop heard.] CHEST EXAMINATION:[ Lungs are clear to auscultation and precussion. No chest w all tenderness is noted on palpation or with deep breathing.] ABDOMEN: [ Soft, nontender. Bowel sounds are heard. No organomegaly noted]. EXTREMITIES:[ 2+ peripheral pulses with no evidence of peripheral edema and no calf tenderness noted]. NEUROLOGIC [patient is awake, alert and oriented 3 Results 11/05/19 16:30 11/05/19 16:30 Cardiac Enzymes 11/05/19 11/05/19 11/05/19 Range/Units 16:30 16:30 22:15 AST 22 (17-59) U/L Troponin I <0.012 <0.012 (0.000-0.034) ng/mL 11/06/19 Range/Units 05:11 AST (17-59) U/L Troponin I <0.012 (0.000-0.034) ng/mL Coagulation 11/05/19 Range/Units 16:30 PT 10.2 (9.0-12.0) sec APTT 23.4 (22.0-30.0) sec Lipids 11/06/19 Range/Units 05:11 Triglycerides 132 (<150) mg/dL Cholesterol 151 (<200) mg/dL HDL Cholesterol 35 L (40-60) mg/dL CBC 11/05/19 Range/Units 16:30 WBC 5.3 (3.8-10.6) k/uL RBC 5.18 (4.30-5.90) m/uL Hgb 15.5 (13.0-17.5) gm/dL Hct 45.8 (39.0-53.0) % Plt Count 170 (150-450) k/uL Comprehensive Metabolic Panel 11/05/19 Range/Units 16:30 Sodium 141 (137-145) mmol/L Potassium 4.1 (3.5-5.1) mmol/L Chloride 106 (98-107) mmol/L Carbon Dioxide 25 (22-30) mmol/L BUN 16 (9-20) mg/dL Creatinine 0.62 L (0.66-1.25) mg/dL Glucose 74 (74-99) mg/dL Calcium 9.2 (8.4-10.2) mg/dL AST 22 (17-59) U/L ALT 19 (4-49) U/L Alkaline Phosphatase 97 (38-126) U/L Total Protein 6.6 (6.3-8.2) g/dL Albumin 4.2 (3.5-5.0) g/dL Current Medications Generic Name Dose Route Start Last Admin Trade Name Freq PRN Reason Stop Dose Admin Aspirin 325 mg 11/06/19 09:00 11/06/19 09:13 Aspirin PO 325 mg DAILY MARI Administration Cholecalciferol 1,000 unit 11/06/19 09:00 11/06/19 09:13 Vitamin D3 (25 Mcg = 1000 Iu) PO 1,000 unit DAILY MARI Administration Cholestyramine Resin 1 gm 11/05/19 22:00 11/06/19 09:13 Questran PO 1 gm TID MARI Administration Divalproex Sodium 500 mg 11/05/19 21:45 11/05/19 22:28 Depakote Er PO 500 mg HS MARI Administration Fluticasone Propionate 1 spray 11/06/19 09:00 11/06/19 09:13 Flonase Nasal [place] EA NOSTRIL 1 spray DAILY MARI Administration Lamotrigine 100 mg 11/05/19 21:45 11/05/19 22:28 Lamictal PO 100 mg HS MARI Administration Loratadine 10 mg 11/06/19 09:00 11/06/19 09:13 Claritin PO 10 mg DAILY MARI Administration Melatonin 5 mg 11/05/19 22:30 11/05/19 23:05 Melatonin PO 5 mg HS MARI Administration Memantine 10 mg 11/05/19 21:45 11/05/19 22:29 Namenda PO 10 mg HS MARI Administration Metoprolol Tartrate 25 mg 11/05/19 21:45 11/05/19 22:29 Lopressor PO 25 mg HS MARI Administration Nitroglycerin 0.4 mg 11/05/19 17:56 Nitrostat SUBLINGUAL Q5M PRN Chest Pain Nitroglycerin 0.4 mg 11/05/19 21:33 Nitrostat SUBLINGUAL Q5M PRN Chest Pain Pantoprazole Sodium 40 mg 11/06/19 07:30 11/06/19 07:01 Protonix PO 40 mg AC-BRKFST MARI Administration Quetiapine Fumarate 50 mg 11/05/19 21:45 11/05/19 22:29 Seroquel PO 50 mg HS MARI Administration Sertraline HCl 100 mg 11/06/19 09:00 11/06/19 09:13 Zoloft PO 100 mg DAILY MARI Administration Tamsulosin HCl 0.4 mg 11/05/19 21:45 11/06/19 09:13 Flomax PO 0.4 mg BID MARI Administration Intake and Output 11/05/19 11/06/19 11/06/19 22:59 06:59 14:59 Other: # Voids 1 Weight 90.718 kg 89.5 kg 11/05/19 16:30 11/05/19 16:30 EKG Interpretations (text) EKG shows normal sinus rhythm with T wave inversion in the anterior leads Assessment and Plan Plan: assessment and plan #1 symptoms of left arm and leg numbness with left facial numbness, rule out TIA #2 symptoms of left-sided chest pressure and heaviness with radiation to the jaw, possible angina, troponins negative 3. EKG shows normal sinus rhythm with anterior T-wave inversion. Similar to prior EKGs. #3 coronary artery disease with prior bypass surgery #4 hypertension #5 hyperlipidemia #6 prior TIA Plan From cardiology's perspective, we will request an echocardiogram with Doppler study be performed. We'll perform a Lexiscan stress test on Friday. continue aspirin, metoprolol, initiate a statin.Further recommendations to follow. DNP note has been reviewed, I agree with a documented findings and plan of care. Patient was seen and examined.
[2019-11-06] MEDS ORDERED: DIAZEPAM 5 MG TAB PO STA (10:16)
--- NOTE | 2019-11-06 10:29 | P.PN ---
Subjective Progress Note Date: 11/06/19 Principal diagnosis: Right cerebral infarct The patient is a 74-year-old gentleman who presented to the emergency department with left sided numbness tingling and pain. Patient reports his symptoms are the same as yesterday. He does however notice tingling involving his lips also. Patient complains of a mild headache. He says that the numbness involves the entire left side of his body, including his chest and abdomen. Objective - Vital Signs Vital signs: Vital Signs Temp 97.4 F L 11/06/19 08:35 Pulse 52 L 11/06/19 08:35 Resp 18 11/06/19 08:35 BP 141/72 11/06/19 08:35 Pulse Ox 97 11/06/19 08:35 Intake & Output 11/05/19 11/06/19 11/06/19 18:59 06:59 18:59 Weight 90.718 kg 89.5 kg Other: # Voids 1 - Exam the patient is reclining in the bed. He is well-nourished, well-developed and in no acute distress. Heart: Regular rate and rhythm Extremities: Without edema Neurological examination Mental status: Patient is awake, alert and oriented 3. He feels as if he is having difficulty with his speech. I do not detect any dysarthria or aphasia. Cranial nerves: Pupils are equal, round and reactive to light. Visual ribera are full to confrontation. Extraocular muscles are intact. There is diminished sensation to pinprick and light touch in the left V2 distribution. Smile was symmetric. Tongue protrudes to the right of midline. Shoulder shrug is symmetric. Motor: Left upper and lower extremity strength is diminished in comparison to the right. Deep tendon reflexes: 2+/4+ throughout. - Labs CBC & Chem 7: 11/05/19 16:30 11/05/19 16:30 Labs: Abnormal Lab Results - Last 24 Hours (Table) 11/05/19 11/06/19 Range/Units 16:30 05:11 Creatinine 0.62 L (0.66-1.25) mg/dL HDL Cholesterol 35 L (40-60) mg/dL Assessment and Plan Plan: Impressions/plan: 1) right sided cerebral ischemia-we'll check MRI of the brain. 2) appreciate cardiology input as patient seems to be some quite anxious and concerned about an TX 3) we'll prescribe Valium for claustrophobia related to MRI 4) agree with restarting the patient's aspirin 5) echocardiogram and further stroke workup has been ordered Time with Patient: Less than 30 (spent 25 minutes with patient via telephone neurology)
--- NOTE | 2019-11-06 14:20 | MR ---
EXAMINATION TYPE: MR brain wo con DATE OF EXAM: 11/06/2019 1:40 PM. COMPARISON: Previous study dated 05/19/2019. HISTORY: Right cerebral infarct. Technique: Multiplanar, multiecho imaging of the brain was obtained without intravenous contrast. FINDINGS: There are generalized changes of sulcal prominence and ventriculomegaly, compatible with a trophic change. Structures are unremarkable. There is a normal craniocervical junction. Echoplanar diffusion imaging shows no evidence of restricted diffusion. There are normal vascular flow voids. Both orbits appear normal. There is no evidence of a CP angle mass lesion. There is diffuse punctate and confluent periventricular white matter disease, unchanged from the prev ious study. There is no mass effect, midline shift or intracranial blood. IMPRESSION: 1. NO ACUTE INTRACRANIAL ABNORMALITY. 2. ATROPHIC CHANGE. 3. BOTH PUNCTATE AND CONFLUENT PERIVENTRICULAR WHITE MATTER DISEASE SUGGESTIVE OF SMALL VESSEL DISEAS E AND CHRONIC ISCHEMIC CHANGE.
--- NOTE | 2019-11-06 20:29 | P.HPIM ---
History of Present Illness H&P Date: 11/06/19 Chief Complaint: left-sided weakness History of presenting complaint: This is a pleasant 74-year-old patient of Dr. woo. Chronic stable medical conditions include: 2 disease with a bypass, GERD, hyperlipidemia, history of colon cancer with surgery in 2004, chronic diverticulosis, hiatal hernia prior TIA. A day prior to presentation patient was numbers and weakness of the left arm and left leg. Also left side of the face became numb. There was a questionable change in speech. No change in vision no change in swallowing. Admitted for the same. Initial computed tomography scan in the ER did not show any evidence of acute stroke. There is some improvement but no resolution of symptoms. Patient at the bedside this morning. Neurology was consulted. They ordered an MRI.. Patient to baseline uses a cane Review of systems: GEN.: Tired EYES: None HEENT: None NECK: None RESPIRATORY: None CARDIOVASCULAR: None GASTROINTESTINAL: None GENITOURINARY: None MUSCULOSKELETAL: Some joint pains LYMPHATICS: None HEMATOLOGICAL: None PSYCHIATRY: None NEUROLOGICAL: As above Social history: . No alcohol history. Patient smoked from his teens to early 70s. Smoked half a pack to a pack a day. Physical examination: VITAL SIGNS: 97.5, 63, 16, 172/77, 99% room air GENERAL: 26.8-BMI, propped up in bed. EYES: Pupils equal. Conjunctiva normal. HEENT: External appearance of nose and ears normal, oral cavity grossly normal. NECK: JVD not raised; masses not palpable. HEART: First and second heart sounds are normal; no edema. LUNGS: Respiratory rate normal; clear to auscultation. ABDOMEN: Soft, nontender, liver spleen not palpable, no masses palpable. PSYCH: Alert and oriented x3; mood and affect normal. NEUROLOGICAL: Decreased sensation left side of the face, power on the left arm and left leg is 4/5. LYMPHATICS: No lymph nodes palpable in the axilla and neck INVESTIGATIONS, reviewed in the clinical context: White count 5.3 hemoglobin 15.5 platelets 170 potassium 4.1 and creatinine 0.62 Troponin I [address] brain-chronic changes Chest x-ray film personally reviewed by me-possibly some chronic findings EKG tracing personally reviewed by me-nonspecific T-wave changes Assessment: -Possible acute stroke in the brain stem affecting the left top of the face and the left side of the body -Coronary artery disease with prior history of bypass -GERD -Hyperlipidemia -Chronic diverticulosis -Hiatal hernia -Mild cognitive impairment -BPH Plan: Home medications resumed. MRI was ordered. Dose of Lipitor was increased. Rayray canchola is on aspirin. Other home medications resumed. No change in swallowing. No change in vision. We'll consult PTOT. Care was discussed with the patient and at the bedside. Past Medical History Past Medical History: Coronary Artery Disease (CAD), Cancer, CVA/TIA, Eye Disorder, GERD/Reflux, Hyperlipidemia, Memory Impairment, Myocardial Infarction (MD) Additional Past Medical History / Comment(s): DYSPHAGIA, CHRONIC DRY COUGH, HX COLON CANCER-2004 WITH SURGERY., DIVERTICULAR DISORDER, Hiatal Hernia, TIA'S , CATARACT RIGHT EYE., MILD DEMENTIA. , PROBLEMS WITH BALANCE- USES CANE., STATES HAVING DIARRHEA. Last Myocardial Infarction Date:: 2009 History of Any Multi-Drug Resistant Organisms: None Reported Past Surgical History: Bowel Resection, Cholecystectomy, Coronary Bypass/CABG, Heart Catheterization, Hernia Repair Additional Past Surgical History / Comment(s): QUAD CABG (MPH 2009), Umbilical hernia repair, DEVIATED SEPTUM REPAIR/SPUR REMOVED from nose, Past Anesthesia/Blood Transfusion Reactions: Motion Sickness, Postoperative Nausea & Vomiting (PONV) Additional Past Anesthesia/Blood Transfusion Reaction / Comment(s): PONV X1. Claustrophobic Past Psychological History: Anxiety, Depression, PTSD Smoking Status: Former smoker Past Alcohol Use History: None Reported Past Drug Use History: None Reported - Past Family History Son(s) Family Medical History: Cancer Father Family Medical History: Blood Disorder Additional Family Medical History / Comment(s): from a blood disorder Mother Family Medical History: Diabetes Mellitus Additional Family Medical History / Comment(s): age 53 -complications from dm Sister(s) Family Medical History: Diabetes Mellitus Medications and Allergies Home Medications Medication Instructions Recorded Confirmed Type Fluticasone Nasal [place] [Flonase 1 spray EA NOSTRIL DAILY 06/21/15 11/05/19 History Nasal [place]] Omeprazole [PriLOSEC] 40 mg PO AC-BRKFST 06/21/15 11/05/19 History Isosorbide Mononitrate ER [Imdur] 30 mg PO DAILY 10/09/15 11/05/19 History Nitroglycerin Sl Tabs [Nitrostat] 0.4 mg SUBLINGUAL Q5M PRN 12/28/15 11/05/19 History Memantine [Namenda] 10 mg PO HS #30 tab 08/11/18 11/05/19 Rx Metoprolol Tartrate [Lopressor] 25 mg PO HS tab 08/11/18 11/05/19 Rx QUEtiapine [SEROquel] 50 mg PO HS #30 tab 08/11/18 11/05/19 Rx lamoTRIgine [LaMICtal] 100 mg PO HS #30 tab 08/11/18 11/05/19 Rx Atorvastatin [Lipitor] 20 mg PO HS 11/21/18 11/05/19 History Cholecalciferol [Vitamin D3 (25 1,000 unit PO DAILY 11/21/18 11/05/19 History Mcg = 1000 Iu)] Divalproex ER [Depakote ER] 500 mg PO HS 11/21/18 11/05/19 History Sertraline [Zoloft] 100 mg PO DAILY 12/17/18 11/05/19 History Loratadine [Claritin] 10 mg PO DAILY 03/04/19 11/05/19 History Tamsulosin HCl [Flomax] 0.4 mg PO BID 07/12/19 11/05/19 History Cholestyramine/Aspartame 1 scoop PO TID 11/05/19 11/05/19 History [Cholestyramine Light Powder] Allergies Allergy/AdvReac Type Severity Reaction Status Date / Time No Known Allergies Allergy Verified 11/05/19 20:31 Physical Exam Vitals: Vital Signs Temp Pulse Pulse Resp BP BP Pulse Ox 11/06/19 08:35 97.4 F L 52 L 18 141/72 97 11/06/19 04:00 97.9 F 50 L 18 130/67 96 11/06/19 00:00 97.7 F 61 18 136/63 97 11/05/19 20:46 97.8 F 64 18 157/76 97 11/05/19 20:00 97.8 F 64 20 157/76 97 11/05/19 18:55 98.1 F 11/05/19 18:36 98.1 F 11/05/19 18:10 59 L 17 155/81 97 11/05/19 17:20 58 L 23 141/100 97 11/05/19 17:10 57 L 24 141/100 98 11/05/19 17:00 56 L 20 146/84 98 11/05/19 15:29 97.5 F L 63 16 172/97 99 Intake and Output 11/05/19 11/06/19 11/06/19 22:59 06:59 14:59 Other: # Voids 1 Weight 90.718 kg 89.5 kg Results CBC & Chem 7: 11/05/19 16:30 11/05/19 16:30 Labs: Abnormal Lab Results - Last 24 Hours (Table) 11/05/19 11/06/19 Range/Units 16:30 05:11 Creatinine 0.62 L (0.66-1.25) mg/dL HDL Cholesterol 35 L (40-60) mg/dL Thrombosis Risk Factor Assmnt - Choose All That Apply Each Risk Factor Represents 2 Points: Age 61-74 years Thrombosis Risk Factor Assessment Total Risk Factor Score: 2 Thrombosis Risk Factor Assessment Level: Low Risk
[2019-11-06] MEDS: METOPROLOL TARTRATE 25 MG TAB PO SCH (22:00)
[2019-11-06] MEDS: DIVALPROEX ER 500 MG TAB.ER.24H PO SCH (22:00)
[2019-11-06] MEDS: CLOPIDOGREL 75 MG TAB PO SCH (22:00)
[2019-11-06] MEDS: ATORVASTATIN 40 MG TAB PO SCH (22:00)
[2019-11-06] MEDS: lamoTRIgine 100 MG TAB PO SCH (22:00)
[2019-11-06] MEDS: ENOXAPARIN 40 MG/0.4 ML SYRINGE SQ SCH (22:01)
[2019-11-06] MEDS: MELATONIN 5 MG TABLET PO SCH (22:01)
[2019-11-06] MEDS: QUEtiapine 50 MG TAB PO SCH (22:01)
[2019-11-06] MEDS: MEMANTINE 10 MG TAB PO SCH (22:01)
[2019-11-07] MEDS: PANTOPRAZOLE 40 MG TABLET PO SCH (06:46)
[2019-11-07] MEDS: LORATADINE 10 MG TAB PO SCH (08:33)
[2019-11-07] MEDS: SERTRALINE 100 MG TAB PO SCH (08:33)
[2019-11-07] MEDS: CHOLESTYRAMINE (WITH SUGAR) 4 GM PACKET PO SCH ×3 (08:33→21:16)
[2019-11-07] MEDS: ASPIRIN 81 MG PO SCH (08:33)
[2019-11-07] MEDS: TAMSULOSIN 0.4 MG CAP.ER.24H PO SCH ×2 (08:33→21:15)
[2019-11-07] MEDS: CLOPIDOGREL 75 MG TAB PO SCH (08:33)
[2019-11-07] MEDS: CHOLECALCIFEROL 1,000 UNIT TAB PO SCH (08:33)
[2019-11-07] MEDS: FLUTICASONE 50MCG/SPRAY NASAL 16GM EA NOSTRIL SCH (08:34)
[2019-11-07] MEDS: ENOXAPARIN 40 MG/0.4 ML SYRINGE SQ SCH (08:34)
--- NOTE | 2019-11-07 13:23 | PN ---
PROGRESS NOTE This patient was admitted with a numbness in the left upper arm as well as the leg. The MRI is not suggestive of any stroke. The patient could have underlying possibility of cervical arthritis or pinched nerve needs to be ruled out. The patient has a history suggestive of atypical angina. The patient can be discharged from the cardiac point of view, and we will evaluate the patient with a stress test as an outpatient. HAYLEY / SABINO: [id number] /
--- NOTE | 2019-11-07 16:12 | P.PN ---
Progress Note - Text Progress Note Date: 11/07/19 Chief Complaint: left-sided weakness History of presenting complaint: This is a pleasant 74-year-old patient of Dr. woo. Chronic stable medical conditions include: 2 disease with a bypass, GERD, hyperlipidemia, history of colon cancer with surgery in 2004, chronic diverticulosis, hiatal hernia prior TIA. A day prior to presentation patient was numbers and weakness of the left arm and left leg. Also left side of the face became numb. There was a questionable change in speech. No change in vision no change in swallowing. Admitted for the same. Initial computed tomography scan in the ER did not show any evidence of acute stroke. There is some improvement but no resolution of symptoms. Patient at the bedside this morning. Neurology was consulted. They ordered an MRI.. Patient to baseline uses a cane [id number] weakness is still present and some left-sided facial weakness is also present. MRI was unremarkable. Review of systems: Was done for constitutional, cardiovascular,neurological, GI, pulmonary. relevant finding as above Active Medications Aminophylline (Aminophylline) 100 mg IV ONCE PRN PRN Reason: Patient Response Stop: 11/08/19 23:00 Aspirin (Aspirin) 81 mg PO DAILY [facility] Last Admin: 11/07/19 08:33 Dose: 81 mg Documented by: Atorvastatin Calcium (Lipitor) 40 mg PO [facility] Last Admin: 11/06/19 22:00 Dose: 40 mg Documented by: Caffeine Citrate (Cafcit Inj) 60 mg IV ONCE PRN PRN Reason: Patient Response Stop: 11/08/19 23:00 Cholecalciferol (Vitamin D3 (25 Mcg = 1000 Iu)) 1,000 unit PO DAILY [facility] Last Admin: 11/07/19 08:33 Dose: 1,000 unit Documented by: Cholestyramine Resin (Questran) 1 gm PO TID [facility] Last Admin: 11/07/19 08:33 Dose: 1 gm Documented by: Clopidogrel Bisulfate (Plavix) 75 mg PO DAILY [facility] Last Admin: 11/07/19 08:33 Dose: 75 mg Documented by: Divalproex Sodium (Depakote Er) 500 mg PO HS [facility] Last Admin: 11/06/19 22:00 Dose: 500 mg Documented by: Enoxaparin Sodium (Lovenox) 40 mg SQ DAILY [facility] Last Admin: 11/07/19 08:34 Dose: 40 mg Documented by: Fluticasone Propionate (Flonase Nasal [place]) 1 spray EA NOSTRIL DAILY [facility] Last Admin: 11/07/19 08:34 Dose: 1 spray Documented by: Dipyridamole 51 mg/ Sodium (Chloride) 50 mls @ 750 mls/hr IV ONCE ONE Stop: 11/08/19 06:03 Lamotrigine (Lamictal) 100 mg PO [facility] Last Admin: 11/06/19 22:00 Dose: Not Given Documented by: Loratadine (Claritin) 10 mg PO DAILY [facility] Last Admin: 11/07/19 08:33 Dose: 10 mg Documented by: Melatonin (Melatonin) 5 mg PO [facility] Last Admin: 11/06/19 22:01 Dose: 5 mg Documented by: Memantine (Namenda) 10 mg PO [facility] Last Admin: 11/06/19 22:01 Dose: 10 mg Documented by: Metoprolol Tartrate (Lopressor) 25 mg PO [facility] Last Admin: 11/06/19 22:00 Dose: 25 mg Documented by: Nitroglycerin (Nitrostat) 0.4 mg SUBLINGUAL Q5M PRN PRN Reason: Chest Pain Nitroglycerin (Nitrostat) 0.4 mg SUBLINGUAL Q5M PRN PRN Reason: Chest Pain Pantoprazole Sodium (Protonix) 40 mg PO AC-BRKFST [facility] Last Admin: 11/07/19 06:46 Dose: 40 mg Documented by: Quetiapine Fumarate (Seroquel) 50 mg PO [facility] Last Admin: 11/06/19 22:01 Dose: 50 mg Documented by: Sertraline HCl (Zoloft) 100 mg PO DAILY [facility] Last Admin: 11/07/19 08:33 Dose: 100 mg Documented by: Tamsulosin HCl (Flomax) 0.4 mg PO BID [facility] Last Admin: 11/07/19 08:33 Dose: 0.4 mg Documented by: Physical examination: VITAL SIGNS: 98.1, 60, 18, 139/80, 98% room air GENERAL: sitting up in bed. EYES: Pupils equal. Conjunctiva normal. HEENT: External appearance of nose and ears normal, oral cavity grossly normal. NECK: JVD not raised; masses not palpable. HEART: First and second heart sounds are normal; no edema. LUNGS: Respiratory rate normal; clear to auscultation. ABDOMEN: Soft, nontender, liver spleen not palpable, no masses palpable. PSYCH: Alert and oriented x3; mood and affect normal. NEUROLOGICAL: Decreased sensation left side of the face, power on the left arm and left leg is 4/5. INVESTIGATIONS, reviewed in the clinical context: MRI showing some punctated very ventricular white matter disease. Previous testing White count 5.3 hemoglobin 15.5 platelets 170 potassium 4.1 and creatinine 0.62 Troponin I [address] brain-chronic changes Chest x-ray film personally reviewed by me-possibly some chronic findings EKG tracing personally reviewed by me-nonspecific T-wave changes Assessment: -Possible acute lacunar stroke in the brain stem affecting the left top of the face and the left side of the body, possibly is not not shown up on the MRI. -Coronary artery disease with prior history of bypass -GERD -Hyperlipidemia -Chronic diverticulosis -Hiatal hernia -Mild cognitive impairment -BPH Plan: discuss with and . Depending on PTOT output. Patient family looking at possible ECF. For rehab
[2019-11-07] MEDS: MELATONIN 5 MG TABLET PO SCH (21:15)
[2019-11-07] MEDS: lamoTRIgine 100 MG TAB PO SCH (21:15)
[2019-11-07] MEDS: METOPROLOL TARTRATE 25 MG TAB PO SCH (21:15)
[2019-11-07] MEDS: DIVALPROEX ER 500 MG TAB.ER.24H PO SCH (21:15)
[2019-11-07] MEDS: QUEtiapine 50 MG TAB PO SCH (21:15)
[2019-11-07] MEDS: MEMANTINE 10 MG TAB PO SCH (21:15)
[2019-11-07] MEDS: ATORVASTATIN 40 MG TAB PO SCH (21:15)
[2019-11-08] MEDS ORDERED: AMINOPHYLLINE 500 MG/20 ML VIAL IV PRN (06:00)
[2019-11-08] MEDS ORDERED: CAFFEINE CITRATE 60 MG/3 ML VIAL IV PRN (06:00)
--- NOTE | 2019-11-08 06:19 | P.CONS ---
History of Present Illness - Chief Complaint Gait disturbance - History of Present Illness I had the opportunity to see patient for inpatient rehab consultation with regard to gait disturbance. Patient admitted to [facility] November 05 acute onset left-sided numbness and left-sided facial discomfort. Seen in consultation by neurology, Dr. Avendano and cardiology who notes T-wave inversion. Head CT with atrophy and chronic small vessel change. Chest x-ray with old left pleural reaction only. Brain MRI with atrophy and punctate lesions periventricular white matter. PT reports minimal assistance for functional mobility and gait 20 feet, hand-held, incoordination noted. OT and speech prescribed. Previous functional history as elicited from patient: 74-year-old right-handed white male who is lives in one floor home with . Retired. does cooking, laundry, driving. Patient independent with standing shower and occasionally with standard cane. Dr. Wells is regular doctor. Denies tobacco or alcohol. Family history mother with diabetes. Review of Systems Review of systems: ENT: Denies sneezes or discharge. Eyes: Denies discharge or photophobia. Cardiac: Denies chest pain or palpitation. Pulmonary: Denies cough or shortness of breath. Gastrointestinal: Denies nausea, emesis, constipation, diarrhea. Genitourinary: Denies discharge or frequency. Musculoskeletal: Denies muscle or bone aches. Neurologic: Left-sided numbness and mild weakness. Endocrine: Denies shakes or sweats. Oncology: Denies cancers. Dermatologic: Denies rash, itching, pruritus. ALLERGY/immunology: Denies sneezes, rashes. Past Medical History Past Medical History: Coronary Artery Disease (CAD), Cancer, CVA/TIA, Eye Disorder, GERD/Reflux, Hyperlipidemia, Memory Impairment, Myocardial Infarction (NE) Additional Past Medical History / Comment(s): DYSPHAGIA, CHRONIC DRY COUGH, HX COLON CANCER-2004 WITH SURGERY., DIVERTICULAR DISORDER, Hiatal Hernia, TIA'S , CATARACT RIGHT EYE., MILD DEMENTIA. , PROBLEMS WITH BALANCE- USES CANE., STATES HAVING DIARRHEA. Last Myocardial Infarction Date:: 2009 History of Any Multi-Drug Resistant Organisms: None Reported Past Surgical History: Bowel Resection, Cholecystectomy, Coronary Bypass/CABG, Heart Catheterization, Hernia Repair Additional Past Surgical History / Comment(s): QUAD CABG ([facility] 2009), Umbilical hernia repair, DEVIATED SEPTUM REPAIR/SPUR REMOVED from nose, Past Anesthesia/Blood Transfusion Reactions: Motion Sickness, Postoperative Nausea & Vomiting (PONV) Additional Past Anesthesia/Blood Transfusion Reaction / Comm: PONV X1. Claustrophobic Past Psychological History: Anxiety, Depression, PTSD Smoking Status: Former smoker Past Alcohol Use History: None Reported Past Drug Use History: None Reported - Past Family History Son(s) Family Medical History: Cancer Father Family Medical History: Blood Disorder Additional Family Medical History / Comment(s): from a blood disorder Mother Family Medical History: Diabetes Mellitus Additional Family Medical History / Comment(s): age 53 -complications from dm Sister(s) Family Medical History: Diabetes Mellitus Medications and Allergies Home Medications Medication Instructions Recorded Confirmed Type Fluticasone Nasal [place] [Flonase 1 spray EA NOSTRIL DAILY 06/21/15 11/06/19 History Nasal [place]] Omeprazole [PriLOSEC] 40 mg PO AC-BRKFST 06/21/15 11/06/19 History Isosorbide Mononitrate ER [Imdur] 30 mg PO DAILY 10/09/15 11/06/19 History Nitroglycerin Sl Tabs [Nitrostat] 0.4 mg SUBLINGUAL Q5M PRN 12/28/15 11/06/19 History Memantine [Namenda] 10 mg PO HS #30 tab 08/11/18 11/06/19 Rx Metoprolol Tartrate [Lopressor] 25 mg PO HS tab 08/11/18 11/06/19 Rx QUEtiapine [SEROquel] 50 mg PO HS #30 tab 08/11/18 11/06/19 Rx lamoTRIgine [LaMICtal] 100 mg PO HS #30 tab 08/11/18 11/06/19 Rx Atorvastatin [Lipitor] 20 mg PO HS 11/21/18 11/06/19 History Cholecalciferol [Vitamin D3 (25 1,000 unit PO DAILY 11/21/18 11/06/19 History Mcg = 1000 Iu)] Divalproex ER [Depakote ER] 500 mg PO HS 11/21/18 11/06/19 History Sertraline [Zoloft] 100 mg PO DAILY 12/17/18 11/06/19 History Loratadine [Claritin] 10 mg PO DAILY 03/04/19 11/06/19 History Tamsulosin HCl [Flomax] 0.4 mg PO BID 07/12/19 11/06/19 History Cholestyramine/Aspartame 1 scoop PO TID 11/05/19 11/06/19 History [Cholestyramine Light Powder] Allergies Allergy/AdvReac Type Severity Reaction Status Date / Time No Known Allergies Allergy Verified 11/05/19 20:31 Physical Exam Vitals: Vital Signs Temp Pulse Resp BP Pulse Ox 11/08/19 00:00 98.4 F 62 18 139/74 97 11/07/19 19:27 98.4 F 62 18 152/84 96 11/07/19 16:45 97.9 F 62 18 121/65 96 11/07/19 11:30 98.1 F 60 18 139/80 98 11/07/19 08:20 97.8 F 59 L 18 123/72 96 Intake and Output 11/07/19 11/07/19 11/08/19 14:59 22:59 06:59 Intake Total 1080 360 Output Total 800 Balance 1080 -440 Intake: Oral 1080 360 Output: Urine 800 Other: # Voids 2 2 Weight 90.4 kg Skin: Good color, texture, turgor. General: Medium build and comfortable appearance. Head: Normocephalic, atraumatic. Eyes: Symmetric. Pupils equal round. Ears: Symmetric. Hearing within normal limits. Mouth: Clear. Neck: Supple. Carotid without bruit. Cardiac: Regular rate and rhythm. Lungs: Clear anteriorly and posteriorly. Abdomen: Soft active nontender. Extremities: Normal tone. Neurological: Mental status: Alert, cooperative, pleasant. Cranial nerves: Symmetric facial tone and trapezius. Motor: Normal strength and isolation all 4 limbs. Apraxic left side. Sensation: Intact throughout but mildly depressed left side. DTRs: Symmetric and equal throughout. Mobility: Sits with minimal assistance. Results CBC & Chem 7: 11/05/19 16:30 11/05/19 16:30 Assessment and Plan (1) Cerebrovascular accident Current Visit: No Status: Acute Code(s): I63.9 - CEREBRAL INFARCTION, UNSPECIFIED SNOMED Code(s): 376965057 Plan: Impression: 1. Gait disturbance. 2. Stroke with resultant left repair with history of previous stroke. 3. Coronary disease with history of NE. 4. History of cancer. Comments and plan: At this time PT ongoing and OT and speech prescribed. Follow therapies with yourself for possible need and benefit of inpatient rehab. This was discussed with patient.
[2019-11-08] MEDS: PANTOPRAZOLE 40 MG TABLET PO SCH (06:30)
[2019-11-08] MEDS ORDERED: DIPYRIDAMOLE 51 MG in SODIUM CHLORIDE 0.9% 39.8 ML IV ONE (07:00)
[2019-11-08] MEDS: TAMSULOSIN 0.4 MG CAP.ER.24H PO SCH ×2 (09:18→20:19)
[2019-11-08] MEDS: ENOXAPARIN 40 MG/0.4 ML SYRINGE SQ SCH (09:18)
[2019-11-08] MEDS: CHOLECALCIFEROL 1,000 UNIT TAB PO SCH (09:18)
[2019-11-08] MEDS: LORATADINE 10 MG TAB PO SCH (09:18)
[2019-11-08] MEDS: CHOLESTYRAMINE (WITH SUGAR) 4 GM PACKET PO SCH ×3 (09:18→20:19)
[2019-11-08] MEDS: ASPIRIN 81 MG PO SCH (09:18)
[2019-11-08] MEDS: SERTRALINE 100 MG TAB PO SCH (09:18)
[2019-11-08] MEDS: CLOPIDOGREL 75 MG TAB PO SCH (09:18)
--- NOTE | 2019-11-08 10:14 | ECHOF ---
Referral Reason:chest pain MEASUREMENTS -------- HEIGHT: 180.3 cm WEIGHT: 90.3 kg BP: 139/74 RVIDd: 3.3 cm (< 3.3) IVSd: 1.4 cm (0.6 - 1.1) LVIDd: 4.3 cm (3.9 - 5.3) LVPWd: 1.4 cm (0.6 - 1.1) IVSs: 1.6 cm LVIDs: 3.0 cm LVPWs: 1.9 cm LAESV Index (A-L): 42.71 ml/m Ao Diam: 3.4 cm (2.0 - 3.7) AV Cusp: 1.8 cm (1.5 - 2.6) LA Diam: 4.0 cm (2.7 - 3.8) MV EXCURSION: 16.312 mm (> 18.000) MV EF SLOPE: 70 mm/s (70 - 150) EPSS: 0.6 cm MV E Rene: 0.46 m/s MV DecT: 248 ms MV A Rene: 0.67 m/s MV E/A Ratio: 0.69 RAP: 5.00 mmHg RVSP: 30.35 mmHg TAPSE: 20.69 mm FINDINGS -------- Sinus rhythm. This was a technically difficult study with suboptimal views. The left ventricular size is normal. There is moderate concentric left ventricular hypertrophy. O verall left ventricular systolic function is mildly impaired with, an EF between 45 - 50 %. Normal LAP Grade 1 Diastolic Dysfunction. Mid to basal inferiorlateral is hypokinetic The right ventricle is mildly enlarged. The right ventricular systolic function is mildly impaired. LA is severely dilated >40 ml/m2 The right atrial size is normal. Lumason used Aortic valve is trileaflet and is mildly thickened. The mitral valve is normal. Mild mitral regurgitation is present. The tricuspid valve appears structurally normal. Mild tricuspid regurgitation present. Right vent ricular systolic pressure is normal at < 35 mmHg. There is no pulmonic regurgitation present. The aortic root size is normal. IVC Not well visulized. There is no pericardial effusion. CONCLUSIONS -------- 1. Sinus rhythm. 2. This was a technically difficult study with suboptimal views. 3. The left ventricular size is normal. 4. There is moderate concentric left ventricular hypertrophy. 5. Overall left ventricular systolic function is mildly impaired with, an EF between 45 - 50 %. 6. Normal LAP Grade 1 Diastolic Dysfunction. 7. Mid to basal inferiorlateral is hypokinetic 8. The right ventricle is mildly enlarged. 9. The right ventricular systolic function is mildly impaired. 10. LA is severely dilated >40 ml/m2 11. The right atrial size is normal. 12. Lumason used 13. Aortic valve is trileaflet and is mildly thickened. 14. The mitral valve is normal. 15. Mild mitral regurgitation is present. 16. The tricuspid valve appears structurally normal. 17. Mild tricuspid regurgitation present. 18. Right ventricular systolic pressure is normal at < 35 mmHg. 19. There is no pulmonic regurgitation present. 20. The aortic root size is normal. 21. IVC Not well visulized. 22. There is no pericardial effusion. MAILROOM CLERK: Mirta Sullivan RDCS
[2019-11-08] MEDS: DIVALPROEX ER 500 MG TAB.ER.24H PO SCH (20:18)
[2019-11-08] MEDS: ATORVASTATIN 40 MG TAB PO SCH (20:18)
[2019-11-08] MEDS: lamoTRIgine 100 MG TAB PO SCH (20:19)
[2019-11-08] MEDS: QUEtiapine 50 MG TAB PO SCH (20:19)
[2019-11-08] MEDS: MEMANTINE 10 MG TAB PO SCH (20:19)
[2019-11-08] MEDS: MELATONIN 5 MG TABLET PO SCH (20:19)
[2019-11-08] MEDS: METOPROLOL TARTRATE 25 MG TAB PO SCH (20:22)
[2019-11-08] MEDS: FLUTICASONE 50MCG/SPRAY NASAL 16GM EA NOSTRIL SCH (20:23)
--- NOTE | 2019-11-08 20:33 | P.PN ---
Progress Note - Text Progress Note Date: 11/08/19 Chief Complaint: left-sided weakness interval history: This is a pleasant 74-year-old patient of Dr. woo. Chronic stable medical conditions include: 2 disease with a bypass, GERD, hyperlipidemia, history of colon cancer with surgery in 2004, chronic diverticulosis, hiatal hernia prior TIA. A day prior to presentation patient was numbers and weakness of the left arm and left leg. Also left side of the face became numb. There was a questionable change in speech. No change in vision no change in swallowing. Admitted for the same. Initial computed tomography scan in the ER did not show any evidence of acute stroke. There is some improvement but no resolution of symptoms. Patient at the bedside this morning. Neurology was consulted. They ordered an MRI.. Patient to baseline uses a cane [id number] weakness persist. No new issues. Tolerated diet. PTOT of the case. Looking to go to inpatient rehab.. Review of systems: Was done for constitutional, cardiovascular,neurological, GI, pulmonary. relevant finding as above Active Medications Aminophylline (Aminophylline) 100 mg IV ONCE PRN PRN Reason: Patient Response Stop: 11/08/19 23:00 Aspirin (Aspirin) 81 mg PO DAILY [facility] Last Admin: 11/08/19 09:18 Dose: 81 mg Documented by: Atorvastatin Calcium (Lipitor) 40 mg PO HS [facility] Last Admin: 11/08/19 20:18 Dose: 40 mg Documented by: Caffeine Citrate (Cafcit Inj) 60 mg IV ONCE PRN PRN Reason: Patient Response Stop: 11/08/19 23:00 Cholecalciferol (Vitamin D3 (25 Mcg = 1000 Iu)) 1,000 unit PO DAILY [facility] Last Admin: 11/08/19 09:18 Dose: 1,000 unit Documented by: Cholestyramine Resin (Questran) 1 gm PO TID [facility] Last Admin: 11/08/19 20:19 Dose: 1 gm Documented by: Clopidogrel Bisulfate (Plavix) 75 mg PO DAILY [facility] Last Admin: 11/08/19 09:18 Dose: 75 mg Documented by: Divalproex Sodium (Depakote Er) 500 mg PO HS [facility] Last Admin: 11/08/19 20:18 Dose: 500 mg Documented by: Enoxaparin Sodium (Lovenox) 40 mg SQ DAILY [facility] Last Admin: 11/08/19 09:18 Dose: 40 mg Documented by: Fluticasone Propionate (Flonase Nasal [place]) 1 spray EA NOSTRIL DAILY [facility] Last Admin: 11/08/19 20:23 Dose: Not Given Documented by: Lamotrigine (Lamictal) 100 mg PO [facility] Last Admin: 11/08/19 20:19 Dose: 100 mg Documented by: Loratadine (Claritin) 10 mg PO DAILY [facility] Last Admin: 11/08/19 09:18 Dose: 10 mg Documented by: Melatonin (Melatonin) 5 mg PO [facility] Last Admin: 11/08/19 20:19 Dose: 5 mg Documented by: Memantine (Namenda) 10 mg PO [facility] Last Admin: 11/08/19 20:19 Dose: 10 mg Documented by: Metoprolol Tartrate (Lopressor) 25 mg PO [facility] Last Admin: 11/08/19 20:22 Dose: 25 mg Documented by: Nitroglycerin (Nitrostat) 0.4 mg SUBLINGUAL Q5M PRN PRN Reason: Chest Pain Nitroglycerin (Nitrostat) 0.4 mg SUBLINGUAL Q5M PRN PRN Reason: Chest Pain Pantoprazole Sodium (Protonix) 40 mg PO AC-BRKFST [facility] Last Admin: 11/08/19 06:30 Dose: 40 mg Documented by: Quetiapine Fumarate (Seroquel) 50 mg PO [facility] Last Admin: 11/08/19 20:19 Dose: 50 mg Documented by: Sertraline HCl (Zoloft) 100 mg PO DAILY [facility] Last Admin: 11/08/19 09:18 Dose: 100 mg Documented by: Tamsulosin HCl (Flomax) 0.4 mg PO BID [facility] Last Admin: 11/08/19 20:19 Dose: 0.4 mg Documented by: Physical examination: VITAL SIGNS: medicine 0.5, 60, 16, 129/68, 97% room air GENERAL: laying in bed, comfortable EYES: Pupils equal. Conjunctiva normal. HEENT: External appearance of nose and ears normal, oral cavity grossly normal. NECK: JVD not raised; masses not palpable. HEART: First and second heart sounds are normal; no edema. LUNGS: Respiratory rate normal; clear to auscultation. ABDOMEN: Soft, nontender, liver spleen not palpable, no masses palpable. PSYCH: Alert and oriented x3; mood and affect normal. NEUROLOGICAL: Decreased sensation left side of the face, power on the left arm and left leg is 4/5. INVESTIGATIONS, reviewed in the clinical context: MRI showing some punctated very ventricular white matter disease. Previous testing White count 5.3 hemoglobin 15.5 platelets 170 potassium 4.1 and creatinine 0.62 Troponin I [address] brain-chronic changes Chest x-ray film personally reviewed by me-possibly some chronic findings EKG tracing personally reviewed by me-nonspecific T-wave changes Assessment: -Possible acute lacunar stroke in the brain stem affecting the left top of the face and the left side of the body, possibly is not not shown up on the MRI. -Coronary artery disease with prior history of bypass -GERD -Hyperlipidemia -Chronic diverticulosis -Hiatal hernia -Mild cognitive impairment -BPH Plan: discussed with social insurance administrator Charly. Authorization will not come back at least until tomorrow. Care was discussed with the patient. Other medications to continue. Heart rate to go down to rehab once authorization maco
--- NOTE | 2019-11-08 21:37 | P.PN ---
Progress Note - Text Progress Note Date: 11/08/19 SUBJECTIVE/INTERVAL EVENTS: No acute overnight events. Patient continues to report numbness of his L face, arm, trunk and leg along with some weakness. Patient reporting issues with gait for about 3 months where his balance would be off. Patient reports some urinary accidents and problems with short term memory. PHYSICAL EXAMINATION: VITAL SIGNS: T 97.5 HR 60 RR 16 BP 129/68 O2 sat 97% on RA GEN.: NAD, pleasant and cooperative HEENT: NCAT, sclera without icterus NECK: Supple SKIN AND EXTREMITIES: Warm to touch, no edema NEURO: Mental status: Patient is awake, alert and oriented 3. No dysarthria or aphasia. Cranial nerves: Pupils are equal, round and reactive to light. Visual ribera are full to confrontation. Extraocular muscles are intact. There is diminished sensation to pinprick and light touch in the left V2 distribution. Smile was symmetric. Tongue protrudes to the right of midline. Shoulder shrug is symmetric. Motor: Left upper and lower extremity strength is diminished in comparison to the right. Sensation: Decreased to LT in LUE and LLE along with L trunk. At times, the sensation deficit crosses the midline and at times it stops exactly at the midline Deep tendon reflexes: 2+/4+ throughout. DIAGNOSTICS: Laboratory: TC 151 LDL 90 HDL 35 TG 132 Imaging: MRI brain without contrast 11/06/2019: no acute intracranial abnormality. H will change. Both tympanic confluent periventricular white matter disease suggestive of small vessel disease and chronic ischemic change. transthoracic [id number]/16/2019: SR. EF 45-50%. LV normal size. LV mildly enlarged. LA severely dilated. RA size is normal. mid to basal inferior-lateral is hypokinetic. ASSESSMENT and PLAN: 74-year-old male with history of TIA/CVA in April 2019, was supposed to be on aspirin, discontinued aspirin 4 months ago, now admitted with left arm and neck pain, and left-sided paresthesias. Patient reports that when he had his bypass surgery, he had similar symptoms of L-sided numbness. Patient's examination shows numbness of left side of the body, which possibly could be chronic from his previous CVA in April 2019, but it's unlikely to have complete L-sided numbness without any crossing unless there's complete one-sided hemispheric stroke. MRI brain with no stroke findings. Difficult to see it as MRI negative stroke considering distribution of patient's symptoms, but patient with risk factors, would recommend ASA and statin for stroke prevention. Patient's TTE also showing severely dilated LA. Patient should get long-term monitoring. RECOMMENDATION: 1. ASA 81mg qday 2. Patient's left arm, left-sided neck and jaw pain is more suggestive of cardiac etiology. Cardiology is also on board. 3, Continue Lipitor 40 mg. 4. Neurology outpatient follow-up within 2-3 weeks of discharge. 5. Discussed ED precautions with patient 6. Neurology will sign off at this time. Please contact with additional quest ions or concerns.
[2019-11-09 05:54] VITALS: RESP 16
[2019-11-09] MEDS: TAMSULOSIN 0.4 MG CAP.ER.24H PO SCH (08:36)
[2019-11-09] MEDS: CHOLECALCIFEROL 1,000 UNIT TAB PO SCH (08:36)
[2019-11-09] MEDS: SERTRALINE 100 MG TAB PO SCH (08:36)
[2019-11-09] MEDS: ASPIRIN 81 MG PO SCH (08:36)
[2019-11-09] MEDS: LORATADINE 10 MG TAB PO SCH (08:36)
[2019-11-09] MEDS: CLOPIDOGREL 75 MG TAB PO SCH (08:36)
[2019-11-09] MEDS: PANTOPRAZOLE 40 MG TABLET PO SCH (08:36)
[2019-11-09] MEDS: FLUTICASONE 50MCG/SPRAY NASAL 16GM EA NOSTRIL SCH (08:37)
[2019-11-09] MEDS: ENOXAPARIN 40 MG/0.4 ML SYRINGE SQ SCH (08:37)
[2019-11-09] MEDS: CHOLESTYRAMINE (WITH SUGAR) 4 GM PACKET PO SCH (08:37)
[2019-11-09 13:16] VITALS: BP 160/95; PULSE 54; TEMP 97.9
--- NOTE | 2019-11-15 13:09 | P.DS ---
Providers Date of admission: 11/07/19 08:26 Expected date of discharge: 11/09/19 Attending physician: Rojas Bowens Consults: 11/05/19 17:56 Consult Physician Urgent Consulting Provider: Geraldo Childs Consult Reason/Comments: chest pain Do you want consulting provider notified?: Yes 11/05/19 18:00 Consult Physician Stat Consulting Provider: Kelly Avendano Consult Reason/Comments: TIA, neuro symtoms Do you want consulting provider notified?: Yes 11/07/19 16:13 Consult Physician Routine Consulting Provider: Darron Gardner Consult Reason/Comments: -IPD rehab Do you want consulting provider notified?: Yes Primary care physician: [facility] Course: Chief Complaint: left-sided weakness History of presenting complaint: pleasant 74-year-old patient of Dr. wells. Chronic stable medical conditions include: Coronary artery disease with a bypass, GERD, hyperlipidemia, history of colon cancer with surgery in 2004, colonic diverticulosis, hiatal hernia prior TIA. A day prior to presentation patient had numbness and weakness of the left arm and left leg. Also left side of the face became numb. There was a questionable change in speech. No change in vision, no change in swallowing. Patient uses a cane Hospital course: Initial computed tomography scan in the ER did not show any evidence of acute stroke. There is some improvement but no resolution of symptoms. MRI.-. Both punctated confluent periventricular white matter disease. Possibly lacunar stroke. Patient is doing well. Plan is for patient to go home and get outpatient rehab. Discussed with the patient and the physical therapist. And the immigration case manager. Discussion and discharge planning more than 35 minutes Physical examination: VITAL SIGNS: 97.9, 54, 16, 126/74, 96% room air GENERAL: Sitting up in bed, comfortable EYES: Pupils equal. Conjunctiva normal. HEENT: External appearance of nose and ears normal, oral cavity grossly normal. NECK: JVD not raised; masses not palpable. HEART: First and second heart sounds are normal; no edema. LUNGS: Respiratory rate normal; clear to auscultation. ABDOMEN: Soft, nontender, liver spleen not palpable, no masses palpable. PSYCH: Alert and oriented x3; mood and affect normal. NEUROLOGICAL: Decreased sensation left side of the face, power on the left arm and left leg is 4/5. INVESTIGATIONS, reviewed in the clinical context: MRI showing some punctated very ventricular white matter disease. 2-D echo-moderate concentric left medical hypertrophy. EF 45-50% Previous testing White count 5.3 hemoglobin 15.5 platelets 170 potassium 4.1 and creatinine 0.62 Troponin I [address] brain-chronic changes Chest x-ray film personally reviewed by me-possibly some chronic findings EKG tracing personally reviewed by me-nonspecific T-wave changes Assessment: -Possible acute lacunar stroke in the brain stem affecting the left top of the face and the left side of the body, -Coronary artery disease with prior history of bypass -GERD -Hyperlipidemia -Chronic diverticulosis -Hiatal hernia -Mild cognitive impairment -BPH Disposition: Home Plan - Discharge Summary Discharge Rx Participant: No New Discharge Prescriptions: New Aspirin 81 mg PO DAILY chew Atorvastatin [Lipitor] 40 mg PO HS #30 tab Clopidogrel [Plavix] 75 mg PO DAILY #30 tab Continue Fluticasone Nasal [place] [Flonase Nasal [place]] 1 spray EA NOSTRIL DAILY Omeprazole [PriLOSEC] 40 mg PO AC-BRKFST Isosorbide Mononitrate ER [Imdur] 30 mg PO DAILY Nitroglycerin Sl Tabs [Nitrostat] 0.4 mg SUBLINGUAL Q5M PRN PRN Reason: Chest Pain lamoTRIgine [LaMICtal] 100 mg PO HS #30 tab Memantine [Namenda] 10 mg PO HS #30 tab QUEtiapine [SEROquel] 50 mg PO HS #30 tab Cholecalciferol [Vitamin D3 (25 Mcg = 1000 Iu)] 1,000 unit PO DAILY Divalproex ER [Depakote ER] 500 mg PO HS Sertraline [Zoloft] 100 mg PO DAILY Loratadine [Claritin] 10 mg PO DAILY Tamsulosin HCl [Flomax] 0.4 mg PO BID Cholestyramine/Aspartame [Cholestyramine Light Powder] 1 scoop PO TID Changed Metoprolol Tartrate [Lopressor] 12.5 mg PO BID #0 tab Discontinued Atorvastatin [Lipitor] 20 mg PO HS Discharge Medication List Fluticasone Nasal [place] [Flonase Nasal [place]] 1 spray EA NOSTRIL DAILY 06/21/15 [History] Omeprazole [PriLOSEC] 40 mg PO AC-BRKFST 06/21/15 [History] Isosorbide Mononitrate ER [Imdur] 30 mg PO DAILY 10/09/15 [History] Nitroglycerin Sl Tabs [Nitrostat] 0.4 mg SUBLINGUAL Q5M PRN 12/28/15 [History] Memantine [Namenda] 10 mg PO HS #30 tab 08/11/18 [Rx] QUEtiapine [SEROquel] 50 mg PO HS #30 tab 08/11/18 [Rx] lamoTRIgine [LaMICtal] 100 mg PO HS #30 tab 08/11/18 [Rx] Cholecalciferol [Vitamin D3 (25 Mcg = 1000 Iu)] 1,000 unit PO DAILY 11/21/18 [History] Divalproex ER [Depakote ER] 500 mg PO HS 11/21/18 [History] Sertraline [Zoloft] 100 mg PO DAILY 12/17/18 [History] Loratadine [Claritin] 10 mg PO DAILY 03/04/19 [History] Tamsulosin HCl [Flomax] 0.4 mg PO BID 07/12/19 [History] Cholestyramine/Aspartame [Cholestyramine Light Powder] 1 scoop PO TID 11/05/19 [History] Aspirin 81 mg PO DAILY chew 11/09/19 [Rx] Atorvastatin [Lipitor] 40 mg PO HS #30 tab 11/09/19 [Rx] Clopidogrel [Plavix] 75 mg PO DAILY #30 tab 11/09/19 [Rx] Metoprolol Tartrate [Lopressor] 12.5 mg PO BID #0 tab 11/09/19 [Rx] Follow up Appointment(s)/Referral(s): Mark Wells DO [Primary Care Provider] - 11/11/19 4:00 pm Hang Becker MD [STAFF PHYSICIAN] - 1 Week Geraldo Childs MD [STAFF PHYSICIAN] - 11/15/19 10:00 am () Activity/Diet/Wound Care/Special Instructions: dose of Lopressor changed. No new prescription Discharge Disposition: TRANSFER TO SNF/ECF
== END 2019-11-09 15:31 ==
LOC: EC 15:24 → 3SCARD 18:14 → OBSVTOIN 11-07 08:26 → INTOOBSV 11-07 08:26 → 6NMEDSUR 11-08 23:04 → UNDODISIN 11-09 15:31
PROVIDERS: ADMIT Hospitalist; ATTEND Hospitalist
DX: R53.1 Weakness (principal); R51 Headache; R29.810 Facial weakness; R20.2 Paresthesia of skin; F03.90 Unspecified dementia, unspecified severity, without behavioral disturbance, psychotic disturbance, mood disturbance, and anxiety; E78.5 Hyperlipidemia, unspecified; F32.9 Major depressive disorder, single episode, unspecified; F40.240 Claustrophobia; F43.10 Post-traumatic stress disorder, unspecified; F80.81 Childhood onset fluency disorder; I10 Essential (primary) hypertension; I25.2 Old myocardial infarction; K21.9 Gastro-esophageal reflux disease without esophagitis; T39.016A Underdosing of aspirin, initial encounter; K44.9 Diaphragmatic hernia without obstruction or gangrene; Z91.128 Patient's intentional underdosing of medication regimen for other reason; K57.90 Diverticulosis of intestine, part unspecified, without perforation or abscess without bleeding; N40.0 Benign prostatic hyperplasia without lower urinary tract symptoms; H26.9 Unspecified cataract; R19.7 Diarrhea, unspecified; R25.1 Tremor, unspecified; R26.9 Unspecified abnormalities of gait and mobility; F41.9 Anxiety disorder, unspecified; Z79.82 Long term (current) use of aspirin; Z79.899 Other long term (current) drug therapy; Z85.038 Personal history of other malignant neoplasm of large intestine; Z86.73 Personal history of transient ischemic attack (TIA), and cerebral infarction without residual deficits; Z87.891 Personal history of nicotine dependence; Z95.1 Presence of aortocoronary bypass graft; Z90.49 Acquired absence of other specified parts of digestive tract; Z83.3 Family history of diabetes mellitus; Z80.9 Family history of malignant neoplasm, unspecified
CPT/HCPCS: 96372 ×4; 93005 ×2; 99285; 36415; 97116; 97161; 97530; 97535; 97166; 92523; 80061; 80053; 84484 ×2; 85025; 85610; 85730; 71046; 70450; 70551; G0378 ×6; C8929; J1650 ×4; J1245; Q9950; 93306

== ENCOUNTER 2021-11-07 08:39 | Inpatient (IN) | payer MEDICARE, OTHER ==
--- NOTE | 2021-11-07 09:05 | ED ---
General Adult HPI - General Chief complaint: Fall Stated complaint: dizziness Time Seen by Provider: 11/07/21 08:44 Source: patient, EMS Mode of arrival: EMS Limitations: no limitations - History of Present Illness Initial comments: Dictation was produced using [employer] dictation software. please excuse any grammatical, word or spelling errors. Chief Complaint: 76-year-old male presents emergency department after fall History of Present Illness: Patient is a 76-year-old male he fell this morning. Patient states he felt lightheaded after waking up. He is has been feeling fatigued and weak for the last couple days. Patient has developed a slight cough. Denies any obvious sick contacts. He does have some mild shortness of breath. Patient denies any pain complaints. Denies any loss of consciousness. Patient takes Plavix. He has history of coronary artery disease. The ROS documented in this emergency department record has been reviewed and confirmed by me. Those systems with pertinent positive or negative responses have been documented in the HPI. All other systems are other negative and/or noncontributory. PHYSICAL EXAM: General Impression: Alert and oriented x3, not in acute distress HEENT: Normocephalic atraumatic, extra-ocular movements intact, pupils equal and reactive to light bilaterally, mucous membranes moist. Cardiovascular: Heart regular rate and rhythm Chest: Able to complete full sentences, no retractions, no tachypnea, mild wheezing bilaterally with auscultation to the lungs Abdomen: abdomen soft, non-tender, non-distended, no organomegaly Musculoskeletal: Pulses present and equal in all extremities, no peripheral edema Motor: no focal deficits noted Neurological: CN II-XII grossly intact, no focal motor or sensory deficits noted Skin: Intact with no visualized rashes Psych: Normal affect and mood ED course: 76-year-old male presents to the emergency department after fall. He's been feeling lightheaded for the last couple days. He does have a cough that he recently developed. Vital signs upon arrival shows 91% on room air, rest of vital signs within acceptable limits. More history was obtained from patient's that he was currently at the bedside states this morning he syncopized. Patient has a history of heart failure. Takes multiple cardiac medications. He also has developed a cough over the last couple days. Patient chronic issues of sinus infections. reports that he was at home and he had fallen and was not able to pick the patient up. There is only 2 of them that that the home. Patient is so weak. will have difficulty caring for the patient home given how weak he is. Orthostatic vital signs are normal. Patient alert and relates however so weak that we cannot do an ambulatory trial or ambulatory pulse ox.Case discussed with Dr. Bowens who is willing to accept patients care. EKG interpretation: Ventricular rate 86, normal sinus rhythm,. 1:30, QRS 80, QTc 442. No [place] prolongation, no QTC prolongation. ST depressions in lateral precordial leads. These appear to be new compared to EKG from 11/05/2019 - Related Data Home Medications Medication Instructions Recorded Confirmed Fluticasone Nasal [place] [Flonase 1 spray EA NOSTRIL DAILY 06/21/15 11/07/21 Nasal [place]] Isosorbide Mononitrate ER [Imdur] 30 mg PO DAILY 10/09/15 11/07/21 Cholecalciferol [Vitamin D3 (25 50 mcg PO DAILY 11/21/18 11/07/21 Mcg = 1000 Iu)] Sertraline [Zoloft] 100 mg PO DAILY 12/17/18 11/07/21 Tamsulosin HCl [Flomax] 0.4 mg PO BID 07/12/19 11/07/21 Ascorbic Acid [Vitamin C] 1,000 mg PO DAILY 11/07/21 11/07/21 Aspirin EC [Ecotrin Low Dose] 81 mg PO DAILY 11/07/21 11/07/21 Atorvastatin [Lipitor] 20 mg PO HS 11/07/21 11/07/21 Cholestyramine/Aspartame 4 gm PO DAILY 11/07/21 11/07/21 [Cholestyramine Light Packet] Melatonin 3 mg PO HS PRN 11/07/21 11/07/21 Metoprolol Tartrate [Lopressor] 25 mg PO DAILY 11/07/21 11/07/21 Mirabegron [Myrbetriq] 50 mg PO DAILY 11/07/21 11/07/21 OLANZapine [ZyPREXA] 2.5 mg PO HS 11/07/21 11/07/21 Omeprazole 40 mg PO DAILY 11/07/21 11/07/21 Previous Rx's Medication Instructions Recorded Memantine [Namenda] 10 mg PO HS #30 tab 08/11/18 lamoTRIgine [LaMICtal] 100 mg PO HS #30 tab 08/11/18 Clopidogrel [Plavix] 75 mg PO DAILY #30 tab 11/09/19 Allergies Allergy/AdvReac Type Severity Reaction Status Date / Time No Known Allergies Allergy Verified 11/07/21 10:07 Review of Systems ROS Statement: Those systems with pertinent positive or pertinent negative responses have been documented in the HPI. ROS Other: All systems not noted in ROS Statement are negative. Past Medical History Past Medical History: Coronary Artery Disease (CAD), Cancer, CVA/TIA, Eye Disorder, GERD/Reflux, Hyperlipidemia, Memory Impairment, Myocardial Infarction ([place]) Additional Past Medical History / Comment(s): DYSPHAGIA, CHRONIC DRY COUGH, HX COLON CANCER-2004 WITH SURGERY., DIVERTICULAR DISORDER, Hiatal Hernia, TIA'S , CATARACT RIGHT EYE., MILD DEMENTIA. , PROBLEMS WITH BALANCE- USES CANE., STATES HAVING DIARRHEA. Last Myocardial Infarction Date:: 2009 History of Any Multi-Drug Resistant Organisms: None Reported Past Surgical History: Bowel Resection, Cholecystectomy, Coronary Bypass/CABG, Heart Catheterization, Hernia Repair Additional Past Surgical History / Comment(s): QUAD CABG (MPH 2009), Umbilical hernia repair, DEVIATED SEPTUM REPAIR/SPUR REMOVED from nose, Past Anesthesia/Blood Transfusion Reactions: Motion Sickness, Postoperative Nausea & Vomiting (PONV) Additional Past Anesthesia/Blood Transfusion Reaction / Comment(s): PONV X1. Claustrophobic Past Psychological History: Anxiety, Depression, PTSD Smoking Status: Former smoker Past Alcohol Use History: None Reported Past Drug Use History: None Reported - Past Family History Son(s) Family Medical History: Cancer Father Family Medical History: Blood Disorder Additional Family Medical History / Comment(s): from a blood disorder Mother Family Medical History: Diabetes Mellitus Additional Family Medical History / Comment(s): age 53 -complications from dm Sister(s) Family Medical History: Diabetes Mellitus General Exam Limitations: no limitations Course Vital Signs 11/07/21 11/07/21 11/07/21 08:46 10:27 11:43 Temperature 99 F Pulse Rate 79 88 Pulse Rate [ 92 Left Sitting] Pulse Rate [ 98 Left Standing] Pulse Rate [ 90 Left Supine] Respiratory 20 20 Rate Blood Pressure 155/79 146/84 Blood Pressure 131/78 [Left Arm Sitting] Blood Pressure 135/85 [Left Arm Standing] Blood Pressure 135/67 [Left Arm Supine] O2 Sat by Pulse 91 L 93 L Oximetry Medical Decision Making - Lab Data Result diagrams: 11/07/21 09:50 11/07/21 09:50 Lab Results 11/07/21 11/07/21 11/07/21 Range/Units 09:50 09:50 09:50 WBC 7.6 (3.8-10.6) k/uL RBC 5.63 (4.30-5.90) m/uL Hgb 17.8 H (13.0-17.5) gm/dL Hct 52.3 (39.0-53.0) % MCV 92.8 (80.0-100.0) fL MCH 31.6 (25.0-35.0) pg MCHC 34.0 (31.0-37.0) g/dL RDW 13.1 (11.5-15.5) % Plt Count 164 (150-450) k/uL MPV 7.5 Neutrophils % 91 % Lymphocytes % 3 % Monocytes % 4 % Eosinophils % 1 % Basophils % 0 % Neutrophils # 6.9 (1.3-7.7) k/uL Lymphocytes # 0.2 L (1.0-4.8) k/uL Monocytes # 0.3 (0-1.0) k/uL Eosinophils # 0.1 (0-0.7) k/uL Basophils # 0.0 (0-0.2) k/uL PT (9.0-12.0) sec INR (<1.2) APTT (22.0-30.0) sec Sodium 139 (137-145) mmol/L Potassium 5.2 H (3.5-5.1) mmol/L Chloride 106 (98-107) mmol/L Carbon Dioxide 25 (22-30) mmol/L Anion Gap 8 mmol/L BUN 15 (9-20) mg/dL Creatinine 0.75 (0.66-1.25) mg/dL Est GFR (CKD-EPI)AfAm >90 (>60 ml/min/1.73 sqM) Est GFR (CKD-EPI)NonAf >90 (>60 ml/min/1.73 sqM) Glucose 89 (74-99) mg/dL Plasma Lactic Acid Bhavik 2.0 (0.7-2.0) mmol/L Calcium 9.5 (8.4-10.2) mg/dL Magnesium 2.0 (1.6-2.3) mg/dL NT-Pro-B Natriuret Pep pg/mL Coronavirus (PCR) (Not Detectd) 11/07/21 11/07/21 11/07/21 Range/Units 09:50 09:50 11:15 WBC (3.8-10.6) k/uL RBC (4.30-5.90) m/uL Hgb (13.0-17.5) gm/dL Hct (39.0-53.0) % MCV (80.0-100.0) fL MCH (25.0-35.0) pg MCHC (31.0-37.0) g/dL RDW (11.5-15.5) % Plt Count (150-450) k/uL MPV Neutrophils % % Lymphocytes % % Monocytes % % Eosinophils % % Basophils % % Neutrophils # (1.3-7.7) k/uL Lymphocytes # (1.0-4.8) k/uL Monocytes # (0-1.0) k/uL Eosinophils # (0-0.7) k/uL Basophils # (0-0.2) k/uL PT 11.1 (9.0-12.0) sec INR 1.1 (<1.2) APTT 22.4 (22.0-30.0) sec Sodium (137-145) mmol/L Potassium (3.5-5.1) mmol/L Chloride (98-107) mmol/L Carbon Dioxide (22-30) mmol/L Anion Gap mmol/L BUN (9-20) mg/dL Creatinine (0.66-1.25) mg/dL Est GFR (CKD-EPI)AfAm (>60 ml/min/1.73 sqM) Est GFR (CKD-EPI)NonAf (>60 ml/min/1.73 sqM) Glucose (74-99) mg/dL Plasma Lactic Acid Bhavik (0.7-2.0) mmol/L Calcium (8.4-10.2) mg/dL Magnesium (1.6-2.3) mg/dL NT-Pro-B Natriuret Pep 813 pg/mL Coronavirus (PCR) Not Detected (Not Detectd) Disposition Clinical Impression: Syncope, Weakness, Debility Disposition: ADMITTED IP TO THIS HOSP Condition: Fair Referrals: Mark Wells DO [Primary Care Provider] - 1-2 days
[2021-11-07 10:11] LABS: Basophils % (A) 0 %; Eosinophils # (A) 0.1 k/uL (0-0.7); Eosinophils % (A) 1 %; HCT 52.3 % (39.0-53.0); HGB 17.8 gm/dL (13.0-17.5); Lymphocytes # (A) 0.2 k/uL (1.0-4.8); Lymphocytes % (A) 3 %; MCH 31.6 pg (25.0-35.0); MCV 92.8 fL (80.0-100.0); Mean Platelet Volume 7.5; Monocytes # (A) 0.3 k/uL (0-1.0); Monocytes % (A) 4 %; Neutrophils # (A) 6.9 k/uL (1.3-7.7); Neutrophils % (A) 91 %; Platelet Count 164 k/uL (150-450); RBC 5.63 m/uL (4.30-5.90); RDW 13.1 % (11.5-15.5); WBC 7.6 k/uL (3.8-10.6)
--- NOTE | 2021-11-07 10:17 | XR ---
EXAMINATION TYPE: XR chest 1V portable DATE OF EXAM: 11/07/2021 COMPARISON: 11/05/2019 HISTORY: Congestion TECHNIQUE: Single frontal view of the chest is obtained. FINDINGS: There is no focal air space opacity, pleural effusion, or pneumothorax seen. The cardiac silhouette size is within normal limits. The osseous structures are intact. Postsurgical change wit h mild cardiomegaly correlate for mild COPD. Arthropathy of the shoulders with diffuse osteopenia. IMPRESSION: No acute process.
[2021-11-07 10:28] LABS: African American GFR (CKD) >90 (>60 ml/min/1.73 sqM); Anion Gap 8 mmol/L; Blood Urea Nitrogen 15 mg/dL (9-20); Calcium 9.5 mg/dL (8.4-10.2); Carbon Dioxide 25 mmol/L (22-30); Chloride 106 mmol/L (98-107); Glucose 89 mg/dL (74-99); Non-African American GFR(CKD) >90 (>60 ml/min/1.73 sqM); Sodium 139 mmol/L (137-145)
--- NOTE | 2021-11-07 10:30 | CT ---
EXAMINATION TYPE: CT brain bhaktiine wo con DATE OF EXAM: 11/07/2021 COMPARISON: CT brain November 05, 2019 HISTORY: Fall injury with headache and neck pain. CT DLP: 1429.6 mGycm. Automated Exposure Control for Dose Reduction was Utilized. TECHNIQUE: CT scan of the head and cervical spine are performed without contrast. FINDINGS: There is no acute intracranial hemorrhage or midline shift identified. Mild to moderate v entricular and sulcal prominence redemonstrated. Moderate to severe low-attenuation in the deep and periventricular white matter again seen. Suspect old infarct or prominent Virchow-Master space inferio r left basal ganglia image 32. No significant change from prior. Minimal mucosal thickening and depen dent fluid in the left maxillary sinus. No opacification and fluid in the left ethmoid sinuses. New d ependent fluid in the inferior left frontal sinus. Globes are intact bilaterally. Cervical spine is visualized in its entirety from C1 through upper thoracic levels and demonstrates d extroconvex scoliosis centered upper thoracic spine without evidence of acute fracture or dislocation . Prevertebral soft tissue appears within normal limits. The C1-C2 articulation is within normal li mits on the coronal images. Vertebral body heights and disc space heights are maintained. Spinal madina l is preserved. Partial visualization of calcified pleural plaques in the upper lungs. No pneumothora x is seen. Findings raise concern for prior asbestosis exposure. IMPRESSION: 1. There is no acute fracture or dislocation evident in the cervical spine. 2. No acute intracranial hemorrhage or midline shift is seen. New left sided acute on chronic paranas al sinus disease.
[2021-11-07 10:38] LABS: Potassium 5.2 mmol/L (3.5-5.1)
[2021-11-07] MEDS ORDERED: TAMSULOSIN 0.4 MG CAP.ER.24H PO STA (11:29)
[2021-11-07] MEDS ORDERED: SERTRALINE 100 MG TAB PO STA (11:30)
[2021-11-07] MEDS ORDERED: PANTOPRAZOLE 40 MG TABLET PO STA (11:31)
[2021-11-07] MEDS ORDERED: ASPIRIN 81 MG PO STA (11:32)
[2021-11-07] MEDS ORDERED: CLOPIDOGREL 75 MG TAB PO STA (11:32)
[2021-11-07] MEDS ORDERED: ISOSORBIDE MONONITRATE ER 30 MG TAB.ER.24H PO STA (11:32)
[2021-11-07] MEDS ORDERED: ONDANSETRON 4 MG/2 ML VIAL IVP STA (11:43)
[2021-11-07] MEDS ORDERED: AMPICILLIN-SULBACTAM 3 GM in SODIUM CHLORIDE 0.9% 100 ML IVPB STA (11:43)
[2021-11-07] MEDS ORDERED: SODIUM CHLORIDE 0.9% 500 ML 500 ML IV STA (11:44)
[2021-11-07 12:02] LABS: INR 1.1 (<1.2); Partial Thromboplastin Time 22.4 sec (22.0-30.0); Prothrombin Time 11.1 sec (9.0-12.0)
[2021-11-07] MEDS ORDERED: NALOXONE 0.4 MG/ML 1 ML VIAL IV PRN (12:14)
[2021-11-07] MEDS ORDERED: SODIUM CHLORIDE 0.9% 1,000 ML IV SCH (12:15)
[2021-11-07] MEDS ORDERED: LACTULOSE 20 GM/30 ML CUP PO PRN (17:59)
[2021-11-07] MEDS ORDERED: CALCIUM CARBONATE 500 MG CHEWABLE PO PRN (17:59)
[2021-11-07] MEDS: OLANZapine 2.5 MG TAB PO SCH (19:37)
[2021-11-07] MEDS: MEMANTINE 10 MG TAB PO SCH (19:37)
[2021-11-07] MEDS: lamoTRIgine 100 MG TAB PO SCH (19:37)
[2021-11-07] MEDS: TAMSULOSIN 0.4 MG CAP.ER.24H PO SCH (19:37)
[2021-11-07] MEDS: MELATONIN 3 MG TABLET PO PRN (19:48)
--- NOTE | 2021-11-07 22:21 | P.HPIM ---
History of Present Illness H&P Date: 11/07/21 Chief Complaint: Weak History of presenting complaint: pleasant 76-year-old patient of Dr. woo. Chronic stable medical conditions include: Coronary artery disease with a bypass, GERD, hyperlipidemia, history of colon cancer with surgery in 2004, colonic diverticulosis, hiatal hernia prior TIA. Patient presents 3 days of feeling rather weak. Decreased appetite. Bowels are okay. He is dizzy lightheaded. Patient didn't pass out. Wish for short period. Couldn't get up. Has had some fever and chills. Percent of cough for 3 days. Thick yellow sputum. Patient has received COVID-19 vaccine. Review of systems: GEN.: Fever chills tired, decreased appetite EYES: None HEENT: None NECK: None RESPIRATORY: As above CARDIOVASCULAR: None GASTROINTESTINAL: None GENITOURINARY: None MUSCULOSKELETAL: Some joint pains LYMPHATICS: None HEMATOLOGICAL: None PSYCHIATRY: None NEUROLOGICAL: As above Social history: . No alcohol history. Patient smoked less than a pack a day for about 20 years stopped about 40 years ago. Does use a cane. Family history: Blood disorder Physical examination: VITAL SIGNS: 99, 79, 20, 131/78, 91% on room air. Patient is not orthostatic GENERAL: BMI 27.6, laying in bed, awake, tired EYES: Pupils equal. Conjunctiva normal. HEENT: External appearance of nose and ears normal, oral cavity grossly normal. NECK: JVD not raised; masses not palpable. HEART: First and second heart sounds are normal; no edema. LUNGS: Respiratory rate normal; coarse breath sounds ABDOMEN: Soft, nontender, liver spleen not palpable, no masses palpable. PSYCH: Alert and oriented x3; mood and affect normal. NEUROLOGICAL: Cranial nerves grossly intact. Power sensation grossly intact. LYMPHATICS: No lymph nodes palpable in the axilla and neck INVESTIGATIONS, reviewed in the clinical context: White count 7.6 hemoglobin 17.8 platelets 164 potassium 5.2 sodium 139 BUN 15 creatinine 0.75 Troponin I 0.022 ProBNP 813 Coronavirus [PCR]: Not detected EKG tracing personally reviewed by me-normal sinus rhythm. Nonspecific ST-T wav e changes. Especially in the inferolateral leads. Chest x-ray film personally reviewed by me-some right basilar infiltrate Assessment and plan: -Right basal pneumonia. Suspect gram-negative organism. IV ceftriaxone. Sputum for Gram stain and culture. -Acute medical asthenia from pneumonia resulting in falls. IV fluids. Fall precaution. -Coronary artery disease with prior history of bypass Aspirin, Lipitor, Plavix, Lopressor -GERD Omeprazole 40 mg daily -Hyperlipidemia Lipitor 20 mg daily at bedtime -Colonic diverticulosis Follow clinically -Hiatal hernia -Mild cognitive impairment Namenda 10 mg daily at bedtime -Anxiety/depression Lamictal 100 mg daily at bedtime, Zoloft 1 mg by mouth daily, Zyprexa 2.5 mg by mouth daily at bedtime -BPH Flomax 0.4 mg twice a day B chronic 50 mg daily IV ceftriaxone. Check pro-calcitonin. Resume home medications. IV fluids. Discussed with the patient Fall precautions. Past Medical History Past Medical History: Coronary Artery Disease (CAD), Cancer, CVA/TIA, Eye Disorder, GERD/Reflux, Hyperlipidemia, Memory Impairment, Myocardial Infarction ([place]) Additional Past Medical History / Comment(s): DYSPHAGIA, CHRONIC DRY COUGH, HX COLON CANCER-2004 WITH SURGERY., DIVERTICULAR DISORDER, Hiatal Hernia, TIA'S , CATARACT RIGHT EYE., MILD DEMENTIA. , PROBLEMS WITH BALANCE- USES CANE. Last Myocardial Infarction Date:: 2009 History of Any Multi-Drug Resistant Organisms: None Reported Past Surgical History: Bowel Resection, Cholecystectomy, Coronary Bypass/CABG, Heart Catheterization, Hernia Repair Additional Past Surgical History / Comment(s): QUAD CABG (MPH 2009), Umbilical hernia repair, DEVIATED SEPTUM REPAIR/SPUR REMOVED from nose, Past Anesthesia/Blood Transfusion Reactions: Motion Sickness, Postoperative Nausea & Vomiting (PONV) Additional Past Anesthesia/Blood Transfusion Reaction / Comment(s): PONV X1. Claustrophobic Past Psychological History: Anxiety, Depression, PTSD Smoking Status: Former smoker Past Alcohol Use History: None Reported Additional Past Alcohol Use History / Comment(s): started smoking in his teens- quit 1970's, smoked 1/2-1 PPD Past Drug Use History: None Reported - Past Family History Son(s) Family Medical History: Cancer Father Family Medical History: Blood Disorder Additional Family Medical History / Comment(s): from a blood disorder Mother Family Medical History: Diabetes Mellitus Additional Family Medical History / Comment(s): age 53 -complications from dm Sister(s) Family Medical History: Diabetes Mellitus Medications and Allergies Home Medications Medication Instructions Recorded Confirmed Type Fluticasone Nasal [place] [Flonase 1 spray EA NOSTRIL DAILY 06/21/15 11/07/21 History Nasal [place]] Isosorbide Mononitrate ER [Imdur] 30 mg PO DAILY 10/09/15 11/07/21 History Memantine [Namenda] 10 mg PO HS #30 tab 08/11/18 11/07/21 Rx lamoTRIgine [LaMICtal] 100 mg PO HS #30 tab 08/11/18 11/07/21 Rx Cholecalciferol [Vitamin D3 (25 50 mcg PO DAILY 11/21/18 11/07/21 History Mcg = 1000 Iu)] Sertraline [Zoloft] 100 mg PO DAILY 12/17/18 11/07/21 History Tamsulosin HCl [Flomax] 0.4 mg PO BID 07/12/19 11/07/21 History Clopidogrel [Plavix] 75 mg PO DAILY #30 tab 11/09/19 11/07/21 Rx Ascorbic Acid [Vitamin C] 1,000 mg PO DAILY 11/07/21 11/07/21 History Aspirin EC [Ecotrin Low Dose] 81 mg PO DAILY 11/07/21 11/07/21 History Atorvastatin [Lipitor] 20 mg PO HS 11/07/21 11/07/21 History Cholestyramine/Aspartame 4 gm PO DAILY 11/07/21 11/07/21 History [Cholestyramine Light Packet] Melatonin 3 mg PO HS PRN 11/07/21 11/07/21 History Metoprolol Tartrate [Lopressor] 25 mg PO DAILY 11/07/21 11/07/21 History Mirabegron [Myrbetriq] 50 mg PO DAILY 11/07/21 11/07/21 History OLANZapine [ZyPREXA] 2.5 mg PO HS 11/07/21 11/07/21 History Omeprazole 40 mg PO DAILY 11/07/21 11/07/21 History Allergies Allergy/AdvReac Type Severity Reaction Status Date / Time No Known Allergies Allergy Verified 11/07/21 10:07 Physical Exam Vitals: Vital Signs Temp Pulse Pulse Pulse Pulse Pulse Resp 11/07/21 20:00 98.9 F 89 18 11/07/21 19:20 18 11/07/21 16:57 98.6 F 88 18 11/07/21 13:43 86 18 11/07/21 11:43 92 98 90 11/07/21 10:27 88 20 11/07/21 08:46 99 F 79 20 BP BP BP BP BP Pulse Ox 11/07/21 20:00 100/47 93 L 11/07/21 19:20 11/07/21 16:57 109/56 95 11/07/21 13:43 112/65 93 L 11/07/21 11:43 131/78 135/85 135/67 11/07/21 10:27 146/84 93 L 11/07/21 08:46 155/79 91 L Intake and Output 11/07/21 11/07/21 11/07/21 06:59 14:59 22:59 Other: Voiding Method Urinal Weight 89.811 kg 89.811 kg Results CBC & Chem 7: 11/07/21 09:50 11/07/21 09:50 Labs: Abnormal Lab Results - Last 24 Hours (Table) 11/07/21 11/07/21 Range/Units 09:50 09:50 Hgb 17.8 H (13.0-17.5) gm/dL Lymphocytes # 0.2 L (1.0-4.8) k/uL Potassium 5.2 H (3.5-5.1) mmol/L Thrombosis Risk Factor Assmnt - Choose All That Apply Any of the Below Risk Factors Present?: Yes Each Factor Represents 1 point: Obesity (BMI >25) Other Risk Factors: Yes Each Risk Factor Represents 2 Points: Age 61-74 years Other congenital or acquired thrombophilia - If yes, enter type in comment: No Thrombosis Risk Factor Assessment Total Risk Factor Score: 3 Thrombosis Risk Factor Assessment Level: Moderate Risk
[2021-11-07] MEDS: SODIUM CHLORIDE 0.9% 1,000 ML IV SCH (22:59)
[2021-11-08] MEDS: SODIUM CHLORIDE 0.9% 1,000 ML IV SCH ×2 (08:19→22:39)
[2021-11-08] MEDS: ASCORBIC ACID 500 MG TAB PO SCH (08:53)
[2021-11-08] MEDS: CHOLESTYRAMINE (WITH SUGAR) 4 GM PACKET PO SCH (08:53)
[2021-11-08] MEDS: TAMSULOSIN 0.4 MG CAP.ER.24H PO SCH ×2 (08:54→22:36)
[2021-11-08] MEDS: SERTRALINE 100 MG TAB PO SCH (08:54)
[2021-11-08] MEDS: ISOSORBIDE MONONITRATE ER 30 MG TAB.ER.24H PO SCH (08:54)
[2021-11-08] MEDS: PATIENT'S OWN (Mirabegron [Myrbetriq] 50 MG Tablet) PO SCH (08:54)
[2021-11-08] MEDS: METOPROLOL TARTRATE 25 MG TAB PO SCH (08:54)
[2021-11-08] MEDS: CHOLECALCIFEROL 25 MCG (1000 IU) TABLET PO SCH (08:54)
[2021-11-08] MEDS: ASPIRIN 81 MG PO SCH (08:54)
[2021-11-08] MEDS: PANTOPRAZOLE 40 MG TABLET PO SCH (08:54)
[2021-11-08] MEDS: CLOPIDOGREL 75 MG TAB PO SCH (08:54)
[2021-11-08] MEDS: IPRATROPIUM-ALBUTEROL 3 ML NEB INHALATION SCH ×4 (09:07→21:34)
--- NOTE | 2021-11-08 10:08 | P.CRDCN ---
History of Present Illness Consult date: 11/08/21 History of present illness: HISTORY OF PRESENT ILLNESS: This is a 76-year-old male with a past medical history significant for hypertension, hyperlipidemia, coronary artery disease, dementia, TIA, and coronary artery disease with CABG in 2008 with BELL to LAD, SVG to OM, SVG to circumflex, and SVG to PDA. Patient had a heart catheterization in 2011 which revealed SVG to circumflex occluded. Patient follows in the office with Dr. Pineda. We have been asked to see the patient in consultation for syncope. Patient examined at the bedside. Patient is somewhat of a poor historian. There is no family present. Patient states he presented to the hospital after sustaining a few falls at home over the past few days. Patient does not believe he lost consciousness. He states after he fell he was too weak to stand back up. He continues to feel weak this morning. He reports this morning he was laying in bed when he suddenly lost control of his bladder and urinated on himself. He denies chest pain or pressure. He denies shortness of breath. Denies dizziness or lightheadedness. EKG reveals sinus mechanism with ST-T wave changes, more pronounced from previous EKG Chest xray negative for acute process Laboratory data: WBC 7.6. Hemoglobin 17.8. Platelet count 164. Sodium 139. Potassium 5.2. BUN 15. Creatinine 0.75. Magnesium 2.0. Troponin negative 1. ProBNP 813. Current home cardiac medications include metoprolol tartrate 25 mg daily, Imdur 30 mg daily, Plavix 75 mg daily, Lipitor 20 mg daily, aspirin 81 mg daily Most recent echocardiogram obtained in October 2019 revealed ejection fraction 45-50%, mid to basal inferior lateral hypokinesis Patient underwent Lexiscan stress test in 2018 which was negative for acute isch emia REVIEW OF SYSTEMS: At the time of my exam: CONSTITUTIONAL: Denies fever or chills. HEENT: Denies blurred vision, vision changes, or eye pain. Denies hemoptysis CARDIOVASCULAR: Denies chest pain. Denies orthopnea. Denies PND. Denies palpitations RESPIRATORY: Denies shortness of breath. GASTROINTESTINAL: Denies abdominal pain. Denies nausea or vomiting. HEMATOLOGIC: Denies bleeding disorders. GENITOURINARY: Denies any blood in urine. SKIN: Denies pruitis. Denies rash. PHYSICAL EXAM: VITAL SIGNS: Reviewed. GENERAL: Well-developed in no acute distress. HEENT: Head is normocephalic. Pupils are equal, round. Sclerae anicteric. Mucous membranes of the mouth are moist. Neck supple. No JVD or thyromegaly LUNGS: Respirations even and unlabored. Lungs essentially clear to auscultation bilaterally. HEART: Regular rate and rhythm. S1 and S2 heard. ABDOMEN: Soft. Nondistended. Nontender. EXTREMITIES: Normal range of motion. No clubbing or cyanosis. Peripheral pulses intact. No lower extremity edema NEUROLOGIC: Awake and alert. Oriented x 3. ASSESSMENT: Generalized weakness Pre-syncope S/P fall Urinary incontinence Coronary artery disease with previous CABG x 3 Hypertension Hyperlipidemia TIA Dementia PLAN: Orthostatics checked and unremarkable Continue telemetry monitoring to assess for any arrhythmias Consult neurology for evaluation due to increased weakness and loss of bladder control this morning Obtain 2-D echo to assess cardiac structure and function Check additional troponin Further recommendations pending patient's course Nurse practitioner note has been reviewed by physician. Signing provider agrees with the documented findings, assessment, and plan of care. Past Medical History Past Medical History: Coronary Artery Disease (CAD), Cancer, CVA/TIA, Eye Disorder, GERD/Reflux, Hyperlipidemia, Memory Impairment, Myocardial Infarction ([place]) Additional Past Medical History / Comment(s): DYSPHAGIA, CHRONIC DRY COUGH, HX COLON CANCER-2004 WITH SURGERY., DIVERTICULAR DISORDER, Hiatal Hernia, TIA'S , CATARACT RIGHT EYE., MILD DEMENTIA. , PROBLEMS WITH BALANCE- USES CANE. Last Myocardial Infarction Date:: 2009 History of Any Multi-Drug Resistant Organisms: None Reported Past Surgical History: Bowel Resection, Cholecystectomy, Coronary Bypass/CABG, Heart Catheterization, Hernia Repair Additional Past Surgical History / Comment(s): QUAD CABG (MPH 2009), Umbilical hernia repair, DEVIATED SEPTUM REPAIR/SPUR REMOVED from nose, Past Anesthesia/Blood Transfusion Reactions: Motion Sickness, Postoperative Nausea & Vomiting (PONV) Additional Past Anesthesia/Blood Transfusion Reaction / Comment(s): PONV X1. Claustrophobic Past Psychological History: Anxiety, Depression, PTSD Smoking Status: Former smoker Past Alcohol Use History: None Reported Additional Past Alcohol Use History / Comment(s): started smoking in his teens- quit 1969's, smoked 1/2-1 PPD Past Drug Use History: None Reported - Past Family History Son(s) Family Medical History: Cancer Father Family Medical History: Blood Disorder Additional Family Medical History / Comment(s): from a blood disorder Mother Family Medical History: Diabetes Mellitus Additional Family Medical History / Comment(s): age 53 -complications from dm Sister(s) Family Medical History: Diabetes Mellitus Medications and Allergies Home Medications Medication Instructions Recorded Confirmed Type Fluticasone Nasal [place] [Flonase 1 spray EA NOSTRIL DAILY 06/21/15 11/07/21 History Nasal [place]] Isosorbide Mononitrate ER [Imdur] 30 mg PO DAILY 10/09/15 11/07/21 History Memantine [Namenda] 10 mg PO HS #30 tab 08/11/18 11/07/21 Rx lamoTRIgine [LaMICtal] 100 mg PO HS #30 tab 08/11/18 11/07/21 Rx Cholecalciferol [Vitamin D3 (25 50 mcg PO DAILY 11/21/18 11/07/21 History Mcg = 1000 Iu)] Sertraline [Zoloft] 100 mg PO DAILY 12/17/18 11/07/21 History Tamsulosin HCl [Flomax] 0.4 mg PO BID 07/12/19 11/07/21 History Clopidogrel [Plavix] 75 mg PO DAILY #30 tab 11/09/19 11/07/21 Rx Ascorbic Acid [Vitamin C] 1,000 mg PO DAILY 11/07/21 11/07/21 History Aspirin EC [Ecotrin Low Dose] 81 mg PO DAILY 11/07/21 11/07/21 History Atorvastatin [Lipitor] 20 mg PO HS 11/07/21 11/07/21 History Cholestyramine/Aspartame 4 gm PO DAILY 11/07/21 11/07/21 History [Cholestyramine Light Packet] Melatonin 3 mg PO HS PRN 11/07/21 11/07/21 History Metoprolol Tartrate [Lopressor] 25 mg PO DAILY 11/07/21 11/07/21 History Mirabegron [Myrbetriq] 50 mg PO DAILY 11/07/21 11/07/21 History OLANZapine [ZyPREXA] 2.5 mg PO HS 11/07/21 11/07/21 History Omeprazole 40 mg PO DAILY 11/07/21 11/07/21 History Allergies Allergy/AdvReac Type Severity Reaction Status Date / Time No Known Allergies Allergy Verified 11/07/21 10:07 Physical Exam Vitals: Vital Signs Temp Pulse Pulse Pulse Pulse Pulse Resp 11/08/21 07:00 98.7 F 76 16 11/08/21 02:00 98.9 F 75 18 11/07/21 20:00 98.9 F 89 18 11/07/21 19:20 18 11/07/21 16:57 98.6 F 88 18 11/07/21 13:43 86 18 11/07/21 11:43 92 98 90 11/07/21 10:27 88 20 BP BP BP BP BP Pulse Ox 11/08/21 07:00 110/63 95 11/08/21 02:00 98/47 93 L 11/07/21 20:00 100/47 93 L 11/07/21 19:20 11/07/21 16:57 109/56 95 11/07/21 13:43 112/65 93 L 11/07/21 11:43 131/78 135/85 135/67 11/07/21 10:27 146/84 93 L Intake and Output 11/07/21 11/08/21 11/08/21 22:59 06:59 14:59 Other: Voiding Method Urinal Urinal # Voids 2 Weight 89.811 kg Results 11/07/21 09:50 11/07/21 09:50 Cardiac Enzymes 11/07/21 Range/Units 13:22 Troponin I 0.022 (0.000-0.034) ng/mL Coagulation 11/07/21 Range/Units 11:15 PT 11.1 (9.0-12.0) sec APTT 22.4 (22.0-30.0) sec CBC 11/07/21 Range/Units 09:50 WBC 7.6 (3.8-10.6) k/uL RBC 5.63 (4.30-5.90) m/uL Hgb 17.8 H (13.0-17.5) gm/dL Hct 52.3 (39.0-53.0) % Plt Count 164 (150-450) k/uL Comprehensive Metabolic Panel 11/07/21 Range/Units 09:50 Sodium 139 (137-145) mmol/L Potassium 5.2 H (3.5-5.1) mmol/L Chloride 106 (98-107) mmol/L Carbon Dioxide 25 (22-30) mmol/L BUN 15 (9-20) mg/dL Creatinine 0.75 (0.66-1.25) mg/dL Glucose 89 (74-99) mg/dL Calcium 9.5 (8.4-10.2) mg/dL Current Medications Generic Name Dose Route Start Last Admin Trade Name Freq PRN Reason Stop Dose Admin Acetaminophen 650 mg 11/07/21 17:59 Acetaminophen Tab 325 Mg Tab PO Q6HR PRN Mild Pain or Fever > 100.5 Albuterol/Ipratropium 3 ml 11/08/21 08:00 11/08/21 09:07 Ipratropium-Albuterol 3 Ml Neb INHALATION Not Given RT-QID MARI Ascorbic Acid 1,000 mg 11/08/21 09:00 11/08/21 08:53 Ascorbic Acid 500 Mg Tab PO 1,000 mg DAILY MARI Administration Aspirin 81 mg 11/08/21 09:00 11/08/21 08:54 Aspirin 81 Mg PO 81 mg DAILY MARI Administration Calcium Carbonate/Glycine 1,000 mg 11/07/21 17:59 Calcium Carbonate 500 Mg Chewable PO Q4HR PRN Dyspepsia Cholecalciferol 50 mcg 11/08/21 09:00 11/08/21 08:54 Cholecalciferol 25 Mcg (1000 Iu) Tablet PO 50 mcg DAILY MARI Administration Cholestyramine Resin 4 gm 11/08/21 09:00 11/08/21 08:53 Cholestyramine (With Sugar) 4 Gm Packet PO 4 gm DAILY MARI Administration Clopidogrel Bisulfate 75 mg 11/08/21 09:00 11/08/21 08:54 Clopidogrel 75 Mg Tab PO 75 mg DAILY MARI Administration Ceftriaxone Sodium 2 gm/ 50 mls @ 100 mls/hr 11/07/21 22:30 11/07/21 22:56 Sodium Chloride IVPB 100 mls/hr Q12H MARI Administration Sodium Chloride 1,000 mls @ 100 mls/hr 11/07/21 22:30 11/07/21 22:59 Saline 0.9% IV Not Given .Q10H MARI Isosorbide Mononitrate 30 mg 11/08/21 09:00 11/08/21 08:54 Isosorbide Mononitrate Er 30 Mg Tab.Er.24h PO 30 mg DAILY MARI Administration Lactulose 20 gm 11/07/21 17:59 Lactulose 20 Gm/30 Ml Cup PO DAILY PRN Constipation Lamotrigine 100 mg 11/07/21 21:00 11/07/21 19:37 Lamotrigine 100 Mg Tab PO 100 mg HS MARI Administration Melatonin 3 mg 11/07/21 17:57 11/07/21 19:48 Melatonin 3 Mg Tablet PO 3 mg HS PRN Administration Insomnia Memantine 10 mg 11/07/21 21:00 11/07/21 19:37 Memantine 10 Mg Tab PO 10 mg HS MARI Administration Metoprolol Tartrate 25 mg 11/08/21 09:00 11/08/21 08:54 Metoprolol Tartrate 25 Mg Tab PO 25 mg DAILY MARI Administration Naloxone HCl 0.2 mg 11/07/21 12:14 Naloxone 0.4 Mg/Ml 1 Ml Vial IV Q2M PRN Opioid Reversal Patient's Own ( 50 mg 11/08/21 09:00 11/08/21 08:54 Mirabegron [ PO Not Given Myrbetriq] 50 Mg DAILY MARI Tablet) Olanzapine 2.5 mg 11/07/21 21:00 11/07/21 19:37 Olanzapine 2.5 Mg Tab PO 2.5 mg HS MARI Administration Pantoprazole Sodium 40 mg 11/08/21 09:00 11/08/21 08:54 Pantoprazole 40 Mg Tablet PO 40 mg DAILY MARI Administration Sertraline HCl 100 mg 11/08/21 09:00 11/08/21 08:54 Sertraline 100 Mg Tab PO 100 mg DAILY MARI Administration Tamsulosin HCl 0.4 mg 11/07/21 21:00 11/08/21 08:54 Tamsulosin 0.4 Mg Cap.Er.24h PO 0.4 mg BID MARI Administration Intake and Output 11/07/21 11/08/21 11/08/21 22:59 06:59 14:59 Other: Voiding Method Urinal Urinal # Voids 2 Weight 89.811 kg 11/07/21 09:50 11/07/21 09:50
[2021-11-08] MEDS ORDERED: AMINOPHYLLINE 500 MG/20 ML VIAL IV PRN (10:48)
[2021-11-08] MEDS ORDERED: CAFFEINE CITRATE 60 MG/3 ML VIAL IV PRN (10:48)
[2021-11-08] MEDS ORDERED: REGADENOSON 0.4 MG/5 ML SYRINGE IV PRN (10:48)
--- NOTE | 2021-11-08 11:00 | ECHOF ---
Referral Reason:LV fucntion MEASUREMENTS -------- HEIGHT: 162.6 cm WEIGHT: 89.8 kg BP: RVIDd: 3.3 cm (< 3.3) IVSd: 1.3 cm (0.6 - 1.1) LVIDd: 5.1 cm (3.9 - 5.3) LVPWd: 1.2 cm (0.6 - 1.1) IVSs: 1.8 cm LVIDs: 3.9 cm LVPWs: 1.3 cm LA Diam: 4.5 cm (2.7 - 3.8) LAESV Index (A-L): 57.11 ml/m Ao Diam: 3.4 cm (2.0 - 3.7) AV Cusp: 1.1 cm (1.5 - 2.6) LA Diam: 4.4 cm (2.7 - 3.8) MV EXCURSION: 19.176 mm (> 18.000) MV EF SLOPE: 56 mm/s (70 - 150) EPSS: 0.3 cm MV E Rene: 0.43 m/s MV DecT: 197 ms MV A Rene: 0.60 m/s MV E/A Ratio: 0.71 RAP: 5.00 mmHg FINDINGS -------- Undetermined rhythm. This was a technically adequate study. The left ventricular size is normal. There is mild concentric left ventricular hypertrophy. Overa ll left ventricular systolic function is mildly impaired with, an EF between 45 - 50 %. Inferior ba karla Hypokinesis Septal Hypokinesis The right ventricle is normal in size. LA is severely dilated >40 ml/m2 The right atrial size is normal. There is mild aortic valve sclerosis. There is no evidence of aortic regurgitation. The mitral valve leaflets are mildly thickened. Mild mitral regurgitation is present. Mild tricuspid regurgitation present. Right ventricular systolic pressure is normal at < 35 mmHg. There is no pulmonic regurgitation present. There is no pericardial effusion. CONCLUSIONS -------- 1. The left ventricular size is normal. 2. There is mild concentric left ventricular hypertrophy. 3. Overall left ventricular systolic function is mildly impaired with, an EF between 45 - 50 %. 4. Inferior basal Hypokinesis 5. Septal Hypokinesis 6. The right ventricle is normal in size. 7. LA is severely dilated >40 ml/m2 8. The right atrial size is normal. 9. There is mild aortic valve sclerosis. 10. The mitral valve leaflets are mildly thickened. 11. Mild mitral regurgitation is present. 12. Mild tricuspid regurgitation present. 13. There is no pericardial effusion. ECOLOGICAL TECHNICAL OFFICER: Aruna Quinones RDCS
[2021-11-08 11:16] VITALS: BMI 27.6
--- NOTE | 2021-11-08 14:04 | P.CNNES ---
History of Present Illness Consult date: 11/08/21 Requesting physician: Cristy Segundo Reason for Consult: weakness, fall, loss of bladder control History of Present Illness: Patient is a 76-year-old male came to the hospital by ambulance yesterday at 8:39 AM for recurrent falls. Patient states that he fell at home 3 times in the last couple days. He felt once the day prior, and twice yesterday before coming to the hospital. Each time it happened when he was walking, feels dizzy and then fell down, does not remember if he passed out. Patient states that he does get dizzy a lot and gets lightheadedness. He states that when he fell, he lost all function. He states that he had a sensation that he is going to fall. All these episodes have occurred while standing or up on his feet. Never passed out sitting or laying in the left. He was just walking other side of the bed when he went down. When he gets up from lying position, he gets dizzy. First to t juliette he was able to get up by himself, but the third time couldn't get up, required his to help him. He gets dizzy when rolling over in the bed, bending down, or sometimes with any activity. As per EMS flow sheet, when they arrived on the scene, fire department has already placed the patient in his recliner. Patient has mentioned that he was feeling dizzy just before he fell but denied hitting his head or losing consciousness. Patient was alert and oriented 4 at the time paramedics arri chante. He had only minor scrapes on the right side of his back and leg. Patient has history of quadruple bypass and is on blood thinners. Patient does have productive cough for several days but did not have a fever. Patient's blood pressure 149/110, pulse 81, respiration 18, saturation 93% sugar 113. Chest x- ray showed no acute process. Computed tomography scan of head shows no acute intracranial hemorrhage or midline shift. 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 CT of the cervical spine showed no acute fracture or dislocation evident in the cervical spine. EKG shows normal sinus rhythm, rightward axis. Cannot rule out inferior infarct. Patient is known to me from previous admission to the hospital from 11/05/2019. It was reported patient had history of TIA/CVA in April 2019. Patient was placed on aspirin 325 mg daily. Also on Lipitor 40 mg. patient had a negative MRI of the brain at this time with no acute process. Patient denies diabetes, does have hypertension. He was a light smoker, quit 40 years ago. Also uses drink at least moderately but stopped drinking 45 years ago. Patient states he has problems with balance going on for 3 years. He uses cane a lot. Uses walker when he goes out in the mall. He does not feel safe outside. He also complains of memory disturbance for 2 years and during control issues for last 1-1/2 years. Patient states that he gets confused, disorganized, does not know what he is doing sometimes. His has to take care of the bills. When he does any kind of work, and gets very tired. Also states gets confused very easily. Patient states that he has history of 3-4 mini strokes in the past, about 4-5 years ago. Patient complains of low back pain about 7/10 as well as neck pain 6/10. He complains of urinary urgency, uses depends. He often cannot make it to the bathroom. Sometimes he has bowel accident as well. Review of Systems Patient admits to having low back pain 7/10, neck pain 6/10. Patient has urine control problems. No fever or chills. No abdominal pain, nausea vomiting diarrhea. Patient has occasional bowel accidents. Denies any fever or chills. No headache or problem with the vision. He gets sometimes numbness and tingling and pain in the legs. Past Medical History Past Medical History: Coronary Artery Disease (CAD), Cancer, CVA/TIA, Eye Disorder, GERD/Reflux, Hyperlipidemia, Memory Impairment, Myocardial Infarction ([place]) Additional Past Medical History / Comment(s): DYSPHAGIA, CHRONIC DRY COUGH, HX COLON CANCER-2004 WITH SURGERY., DIVERTICULAR DISORDER, Hiatal Hernia, TIA'S , CATARACT RIGHT EYE., MILD DEMENTIA. , PROBLEMS WITH BALANCE- USES CANE. Last Myocardial Infarction Date:: 2009 History of Any Multi-Drug Resistant Organisms: None Reported Past Surgical History: Bowel Resection, Cholecystectomy, Coronary Bypass/CABG, Heart Catheterization, Hernia Repair Additional Past Surgical History / Comment(s): QUAD CABG (MPH 2009), Umbilical hernia repair, DEVIATED SEPTUM REPAIR/SPUR REMOVED from nose, Past Anesthesia/Blood Transfusion Reactions: Motion Sickness, Postoperative Nausea & Vomiting (PONV) Additional Past Anesthesia/Blood Transfusion Reaction / Comment(s): PONV X1. Claustrophobic Past Psychological History: Anxiety, Depression, PTSD Smoking Status: Former smoker Past Alcohol Use History: None Reported Additional Past Alcohol Use History / Comment(s): started smoking in his teens- quit 1969's, smoked 1/2-1 PPD Past Drug Use History: None Reported - Past Family History Son(s) Family Medical History: Cancer Father Family Medical History: Blood Disorder Additional Family Medical History / Comment(s): from a blood disorder Mother Family Medical History: Diabetes Mellitus Additional Family Medical History / Comment(s): age 53 -complications from dm Sister(s) Family Medical History: Diabetes Mellitus Medications and Allergies Home Medications Medication Instructions Recorded Confirmed Type Fluticasone Nasal [place] [Flonase 1 spray EA NOSTRIL DAILY 06/21/15 11/07/21 History Nasal [place]] Isosorbide Mononitrate ER [Imdur] 30 mg PO DAILY 10/09/15 11/07/21 History Memantine [Namenda] 10 mg PO HS #30 tab 08/11/18 11/07/21 Rx lamoTRIgine [LaMICtal] 100 mg PO HS #30 tab 08/11/18 11/07/21 Rx Cholecalciferol [Vitamin D3 (25 50 mcg PO DAILY 11/21/18 11/07/21 History Mcg = 1000 Iu)] Sertraline [Zoloft] 100 mg PO DAILY 12/17/18 11/07/21 History Tamsulosin HCl [Flomax] 0.4 mg PO BID 07/12/19 11/07/21 History Clopidogrel [Plavix] 75 mg PO DAILY #30 tab 11/09/19 11/07/21 Rx Ascorbic Acid [Vitamin C] 1,000 mg PO DAILY 11/07/21 11/07/21 History Aspirin EC [Ecotrin Low Dose] 81 mg PO DAILY 11/07/21 11/07/21 History Atorvastatin [Lipitor] 20 mg PO HS 11/07/21 11/07/21 History Cholestyramine/Aspartame 4 gm PO DAILY 11/07/21 11/07/21 History [Cholestyramine Light Packet] Melatonin 3 mg PO HS PRN 11/07/21 11/07/21 History Metoprolol Tartrate [Lopressor] 25 mg PO DAILY 11/07/21 11/07/21 History Mirabegron [Myrbetriq] 50 mg PO DAILY 11/07/21 11/07/21 History OLANZapine [ZyPREXA] 2.5 mg PO HS 11/07/21 11/07/21 History Omeprazole 40 mg PO DAILY 11/07/21 11/07/21 History Allergies Allergy/AdvReac Type Severity Reaction Status Date / Time No Known Allergies Allergy Verified 11/07/21 10:07 Physical Examination - Vital Signs Vital Signs: Vital Signs Temp Pulse Pulse Resp BP BP Pulse Ox 11/08/21 08:00 76 16 11/08/21 07:00 98.7 F 76 16 110/63 95 11/08/21 02:00 98.9 F 75 18 98/47 93 L 11/07/21 20:00 98.9 F 89 18 100/47 93 L 11/07/21 19:20 18 11/07/21 16:57 98.6 F 88 18 109/56 95 11/07/21 13:43 86 18 112/65 93 L Intake and Output 11/07/21 11/08/21 11/08/21 22:59 06:59 14:59 Other: Voiding Method Urinal Urinal Urinal # Voids 2 Weight 89.811 kg 89.811 kg Patient is an elderly male, very pleasant in no acute distress. Patient is alert awake oriented to time place and person. He knows it is October 2021 his rate of , and that he is in [facility] and name of the current president. Speech and language functions are normal. Patient has slightly nasal tone to his voice. Patient has slightly raspy voice. Attention, concentration and fund of knowledge is adequate. On cranial examination, pupils are round and reacting to light, visual ribera are full on confrontation, extraocular muscles are intact with no nystagmus. Face is symmetric, tongue protrudes to the midline. Palatal elevation and se nsation normal, hearing is very mildly decreased and shoulder shrug normal, facial sensation normal. On muscle strength testing, there is no pronator drift and the strength is normal in arms and legs distally and proximally. Deep tendon reflexes are 3 in the upper limbs, 3 at the knees, 1 at ankles and plantars are upgoing bilaterally. Sensory to touch is equal with no neglect. Cerebellar function showed no ataxia for [id number] testing. Patient is slightly tremulous for [id number] testing. No dysdiadochokinesia. Tone and bulk of muscles normal. Gait was checked. Patient was able to get up from the recliner with use of the hands. He appeared shaky. Patient does have magnetic shuffling type gait. On general examination, there is no carotid bruit or murmur, S1-S2 audible. Abdomen is soft nontender. Chest is clear. Peripheral pulses are present. Mild peripheral edema. Orthostatics were checked. Supine blood pressure 135/67, pulse rate 90; sitting blood pressure 131/78, pulse rate 92; standing blood pressure 135/85, pulse rate 98. Negative orthostatics. Results - Laboratory Findings CBC and BMP: 11/07/21 09:50 11/07/21 09:50 Abnormal Lab Findings: Abnormal Labs 11/07/21 11/07/21 11/08/21 09:50 09:50 08:49 Hgb 17.8 H Lymphocytes # 0.2 L Potassium 5.2 H Troponin I 0.100 H* Assessment and Plan Assessment: * 76-year-old male, admitted with recurrent falls from standing position. Patient has chronic intermittent dizziness, that gets worse with changing head or body position. Exact cause of falls remains uncertain. Perhaps some vestibular dysfunction (associated with paranasal sinusitis), rule out other structural abnormalities as below. Orthostatics checked were negative. * Abnormal CAT scan with evidence of enlarged ventricles. 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 Patient has clinical triad of gait imbalance, urinary control issues and some memory problems. * Spasticity, rule out spinal stenosis. * Left ethmoid and sphenoid sinusitis, may be contributing to dizziness. Plan: * Patient has presented with frequent falls. He also has history of urinary control issues. Patient also has some memory issues, and significant gait dysfunction, walks with magnetic gait. Computed tomography scan of the head revealed evidence of possible normal pressure hydrocephalus. I would suggest patient undergo neurosurgical consultation for further evaluation of possible NPH. This can be performed as an outpatient basis. * MRI of cervical spine, rule out spinal stenosis. * We will check B12, folate * Orthostatics were checked, negative for orthostatic hypotension. * Patient on Unasyn and ceftriaxone, which hopefully will help with left sphenoid and ethmoid sinusitis. * 2-D echo showed normal left-ventricular size. Mild concentric LVH. Left ventricular systolic function is mildly impaired with an EF between 45-50%. Inferior basal hypokinesis, septal hypokinesis. Left atrium is severely dilated. * Neurology will follow. Time with Patient: Greater than 30 (Complexity high)
--- NOTE | 2021-11-08 15:26 | P.PN ---
Progress Note - Text Progress Note Date: 11/08/21 Chief Complaint: Weak History of presenting complaint: pleasant 76-year-old patient of Dr. woo. Chronic stable medical conditions include: Coronary artery disease with a bypass, GERD, hyperlipidemia, history of colon cancer with surgery in 2004, colonic diverticulosis, hiatal hernia prior TIA. Patient presents 3 days of feeling rather weak. Decreased appetite. Bowels are okay. He is dizzy lightheaded. Patient didn't pass out. Wish for short period. Couldn't get up. Has had some fever and chills. Percent of cough for 3 days. Thick yellow sputum. Patient has received COVID-19 vaccine. Admitted with right basilar pneumonia. Acute medical asthenia. Started on IV ceftriaxone. November 08: Patient states that for some time spent having increasing pain in the lower extremity. Feels heavy. He is to walk quite a bit. Finding it more difficult. Urinary retention today. Some decrease in sputum output. Eating better. Neurology consulted. Review of systems: Was done for constitutional, cardiovascular, GI, pulmonary. relevant finding as above Active Medications Acetaminophen (Acetaminophen Tab 325 Mg Tab) 650 mg PO Q6HR PRN PRN Reason: Mild Pain or Fever > 100.5 Albuterol/Ipratropium (Ipratropium-Albuterol 3 Ml Neb) 3 ml INHALATION RT-QID [facility] Last Admin: 11/08/21 12:23 Dose: 3 ml Documented by: Ascorbic Acid (Ascorbic Acid 500 Mg Tab) 1,000 mg PO DAILY [facility] Last Admin: 11/08/21 08:53 Dose: 1,000 mg Documented by: Aspirin (Aspirin 81 Mg) 81 mg PO DAILY [facility] Last Admin: 11/08/21 08:54 Dose: 81 mg Documented by: Calcium Carbonate/Glycine (Calcium Carbonate 500 Mg Chewable) 1,000 mg PO Q4HR PRN PRN Reason: Dyspepsia Cholecalciferol (Cholecalciferol 25 Mcg (1000 Iu) Tablet) 50 mcg PO DAILY [facility] Last Admin: 11/08/21 08:54 Dose: 50 mcg Documented by: Cholestyramine Resin (Cholestyramine (With Sugar) 4 Gm Packet) 4 gm PO DAILY [facility] Last Admin: 11/08/21 08:53 Dose: 4 gm Documented by: Clopidogrel Bisulfate (Clopidogrel 75 Mg Tab) 75 mg PO DAILY [facility] Last Admin: 11/08/21 08:54 Dose: 75 mg Documented by: Ceftriaxone Sodium 2 gm/ (Sodium Chloride) 50 mls @ 100 mls/hr IVPB Q12H [facility] Last Admin: 11/08/21 11:40 Dose: 100 mls/hr Documented by: Sodium Chloride (Saline 0.9%) 1,000 mls @ 100 mls/hr IV .Q10H [facility] Last Admin: 11/07/21 22:59 Dose: Not Given Documented by: Isosorbide Mononitrate (Isosorbide Mononitrate Er 30 Mg Tab.Er.24h) 30 mg PO DAILY [facility] Last Admin: 11/08/21 08:54 Dose: 30 mg Documented by: Lactulose (Lactulose 20 Gm/30 Ml Cup) 20 gm PO DAILY PRN PRN Reason: Constipation Lamotrigine (Lamotrigine 100 Mg Tab) 100 mg PO HS [facility] Last Admin: 11/07/21 19:37 Dose: 100 mg Documented by: Melatonin (Melatonin 3 Mg Tablet) 3 mg PO HS PRN PRN Reason: Insomnia Last Admin: 11/07/21 19:48 Dose: 3 mg Documented by: Memantine (Memantine 10 Mg Tab) 10 mg PO HS [facility] Last Admin: 11/07/21 19:37 Dose: 10 mg Documented by: Metoprolol Tartrate (Metoprolol Tartrate 25 Mg Tab) 25 mg PO DAILY [facility] Last Admin: 11/08/21 08:54 Dose: 25 mg Documented by: Naloxone HCl (Naloxone 0.4 Mg/Ml 1 Ml Vial) 0.2 mg IV Q2M PRN PRN Reason: Opioid Reversal Patient's Own ( Mirabegron [ Myrbetriq] 50 Mg Tablet) 50 mg PO DAILY [facility] Last Admin: 11/08/21 08:54 Dose: Not Given Documented by: Olanzapine (Olanzapine 2.5 Mg Tab) 2.5 mg PO HS [facility] Last Admin: 11/07/21 19:37 Dose: 2.5 mg Documented by: Pantoprazole Sodium (Pantoprazole 40 Mg Tablet) 40 mg PO DAILY [facility] Last Admin: 11/08/21 08:54 Dose: 40 mg Documented by: Sertraline HCl (Sertraline 100 Mg Tab) 100 mg PO DAILY [facility] Last Admin: 11/08/21 08:54 Dose: 100 mg Documented by: Tamsulosin HCl (Tamsulosin 0.4 Mg Cap.Er.24h) 0.4 mg PO BID [facility] Last Admin: 11/08/21 08:54 Dose: 0.4 mg Documented by: Social history: . No alcohol history. Patient smoked less than a pack a day for about 20 years stopped about 40 years ago. Does use a cane. Family history: Blood disorder Physical examination: VITAL SIGNS: 98.7, 76, 16, 110 x 63, 95% room air GENERAL: Sitting up in a chair, awake, tired EYES: Pupils equal. Conjunctiva normal. HEENT: External appearance of nose and ears normal, oral cavity grossly normal. NECK: JVD not raised; masses not palpable. HEART: First and second heart sounds are normal; no edema. LUNGS: Respiratory rate normal; coarse breath sounds ABDOMEN: Soft, nontender, liver spleen not palpable, no masses palpable. PSYCH: Alert and oriented x3; mood and affect normal. NEUROLOGICAL: Cranial nerves grossly intact. Lower extremity: Increased reflexes bilaterally INVESTIGATIONS, reviewed in the clinical context: Pro-calcitonin 0.75 White count 7.6 hemoglobin 17.8 platelets 164 potassium 5.2 sodium 139 BUN 15 creatinine 0.75 Troponin I 0.022, 0.1, 0.098 ProBNP 813 Coronavirus [PCR]: Not detected EKG tracing personally reviewed by me-normal sinus rhythm. Nonspecific ST-T wave changes. Especially in the inferolateral leads. Chest x-ray film personally reviewed by me-some right basilar infiltrate Assessment and plan: -Right basal pneumonia. Suspect gram-negative organism. IV ceftriaxone. Sputum for Gram stain and culture. -Acute medical asthenia from pneumonia resulting in falls. IV fluids. Fall precaution. -Patient complains of pain in both lower extremity going on for some time. Sometimes numbness. Feels heavy. Having trouble walking. Neurology consulted. Cervical spine MRI ordered. We'll also ordered lumbar spine MRI. PTOT. -Coronary artery disease with prior history of bypass Aspirin, Lipitor, Plavix, Lopressor -GERD Omeprazole 40 mg daily -Hyperlipidemia Lipitor 20 mg daily at bedtime -Colonic diverticulosis Follow clinically -Hiatal hernia -Mild cognitive impairment Namenda 10 mg daily at bedtime -Anxiety/depression Lamictal 100 mg daily at bedtime, Zoloft 1 mg by mouth daily, Zyprexa 2.5 mg by mouth daily at bedtime -BPH Flomax 0.4 mg twice a day B chronic 50 mg daily IV ceftriaxone. Cutback IV fluids. Neurology consulted. MRI of the cervical spine and lumbar spine ordered.
[2021-11-08] MEDS: ACETAMINOPHEN TAB 325 MG TAB PO PRN (16:25)
[2021-11-08] MEDS: lamoTRIgine 100 MG TAB PO SCH (22:36)
[2021-11-08] MEDS: OLANZapine 2.5 MG TAB PO SCH (22:36)
[2021-11-08] MEDS: MEMANTINE 10 MG TAB PO SCH (22:36)
[2021-11-09] MEDS: MELATONIN 3 MG TABLET PO PRN ×2 (00:07→21:31)
[2021-11-09 01:35] LABS: Folate, Serum 13.6 ng/mL (4.40-31.00)
[2021-11-09] MEDS: ACETAMINOPHEN TAB 325 MG TAB PO PRN ×2 (02:29→20:15)
[2021-11-09] MEDS: IPRATROPIUM-ALBUTEROL 3 ML NEB INHALATION SCH ×4 (07:39→20:23)
[2021-11-09] MEDS: ASCORBIC ACID 500 MG TAB PO SCH (08:24)
[2021-11-09] MEDS: ASPIRIN 81 MG PO SCH (08:25)
[2021-11-09] MEDS: CHOLECALCIFEROL 25 MCG (1000 IU) TABLET PO SCH (08:25)
[2021-11-09] MEDS: PANTOPRAZOLE 40 MG TABLET PO SCH (08:25)
[2021-11-09] MEDS: CLOPIDOGREL 75 MG TAB PO SCH (08:25)
[2021-11-09] MEDS: TAMSULOSIN 0.4 MG CAP.ER.24H PO SCH ×2 (08:25→20:15)
[2021-11-09] MEDS: PATIENT'S OWN (Mirabegron [Myrbetriq] 50 MG Tablet) PO SCH (08:26)
[2021-11-09] MEDS: SERTRALINE 100 MG TAB PO SCH (08:26)
[2021-11-09] MEDS: CHOLESTYRAMINE (WITH SUGAR) 4 GM PACKET PO SCH (08:26)
[2021-11-09] MEDS: METOPROLOL TARTRATE 25 MG TAB PO SCH ×2 (08:27→08:35)
[2021-11-09] MEDS: ISOSORBIDE MONONITRATE ER 30 MG TAB.ER.24H PO SCH (08:35)
--- NOTE | 2021-11-09 09:57 | P.PN ---
Subjective Progress Note Date: 11/09/21 HISTORY OF PRESENT ILLNESS: This is a 76-year-old male with a past medical history significant for hypertension, hyperlipidemia, coronary artery disease, dementia, TIA, and coronary artery disease with CABG in 2008 with BELL to LAD, SVG to OM, SVG to circumflex, and SVG to PDA. Patient had a heart catheterization in 2011 which revealed SVG to circumflex occluded. Patient follows in the office with Dr. Pineda. We have been asked to see the patient in consultation for syncope. Patient examined at the bedside. Patient is somewhat of a poor historian. There is no family present. Patient states he presented to the hospital after sustaining a few falls at home over the past few days. Patient does not believe he lost consciousness. He states after he fell he was too weak to stand back up. He continues to feel weak this morning. He reports this morning he was laying in bed when he suddenly lost control of his bladder and urinated on himself. He denies chest pain or pressure. He denies shortness of breath. Denies dizziness or lightheadedness. EKG reveals sinus mechanism with ST-T wave changes, more pronounced from previous EKG Chest xray negative for acute process Laboratory data: WBC 7.6. Hemoglobin 17.8. Platelet count 164. Sodium 139. Potassium 5.2. BUN 15. Creatinine 0.75. Magnesium 2.0. Troponin negative 1. ProBNP 813. Current home cardiac medications include metoprolol tartrate 25 mg daily, Imdur 30 mg daily, Plavix 75 mg daily, Lipitor 20 mg daily, aspirin 81 mg daily Most recent echocardiogram obtained in October 2019 revealed ejection fraction 45-50%, mid to basal inferior lateral hypokinesis Patient underwent Lexiscan stress test in 2018 which was negative for acute ischemia 11/09/2021 Patient examined this morning at the bedside. Patient denies chest pain or pressure. He reports mild shortness of breath. Echocardiogram completed yesterday reveals ejection fraction 45-50%, inferior basal hypokinesis, septal hypokinesis, mild mitral regurgitation, and mild tricuspid regurgitation. Patient was found to have abnormal troponins yesterday of 0.100 and 0.098. PHYSICAL EXAM: VITAL SIGNS: Reviewed. GENERAL: Well-developed in no acute distress. HEENT: Head is normocephalic. Pupils are equal, round. Sclerae anicteric. Mucous membranes of the mouth are moist. Neck supple. No JVD or thyromegaly LUNGS: Respirations even and unlabored. Lungs essentially clear to auscultation bilaterally. HEART: Regular rate and rhythm. S1 and S2 heard. ABDOMEN: Soft. Nondistended. Nontender. EXTREMITIES: Normal range of motion. No clubbing or cyanosis. Peripheral pulses intact. No lower extremity edema NEUROLOGIC: Awake and alert. Oriented x 3. ASSESSMENT: Generalized weakness Pre-syncope Abnormal troponins S/P fall Urinary incontinence Coronary artery disease with previous CABG x 3 Hypertension Hyperlipidemia TIA Dementia PLAN: Orthostatics checked and unremarkable Continue telemetry monitoring to assess for any arrhythmias Neurology following Patient to undergo Chelo scan stress test today to assess for ischemia Further recommendations pending patient's course Nurse practitioner note has been reviewed by physician. Signing provider agrees with the documented findings, assessment, and plan of care. Objective - Vital Signs Vital signs: Vital Signs Temp 98.4 F 11/09/21 07:00 Pulse 75 11/09/21 07:00 Resp 16 11/09/21 07:00 BP 121/60 11/09/21 07:00 Pulse Ox 92 L 11/09/21 07:00 Intake & Output 11/08/21 11/09/21 11/09/21 18:59 06:59 18:59 Weight 89.811 kg Other: Voiding Method Urinal Urinal # Voids 2 3 - Labs CBC & Chem 7: 11/07/21 09:50 11/07/21 09:50 Labs: Abnormal Lab Results - Last 24 Hours (Table) 11/08/21 11/08/21 11/08/21 Range/Units 06:42 08:49 11:01 Troponin I 0.100 H* 0.098 H* (0.000-0.034) ng/mL Procalcitonin 0.75 H (0.02-0.09) ng/mL
--- NOTE | 2021-11-09 11:52 | NM ---
EXAMINATION TYPE: NM stress lexiscan cardiolite DATE OF EXAM: 11/09/2021 COMPARISON: NONE HISTORY: Chest pain. Abnormal components. TECHNIQUE: After the intravenous administration of 9.9 mCi Tc 99m Sestamibi - Cardiolite resting SPE CT images acquired 50 minutes post injection. The patient received 0.4mg Lexiscan, 24.8 mCi Tc 99m Sestamibi - Stress images obtained [address] injection FINDINGS: Review of stress and rest SPECT images demonstrates poor radiotracer uptake inferior left ventricular wall on stress and rest images with suggestion of some diminished uptake on stress images particular ly on the short axis views mid zone level. Cannot exclude acute ischemia at this level. Gated analysi s shows overall diminished ejection fraction of estimated 33-37%. Increased end diastolic volume note d is suggestive of old infarct. 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 Difficult to exclude new areas of ac sarah hanna-infarct ischemia on this study. Consider further investigation with direct catheter angiogra m based on clinical correlation.
--- NOTE | 2021-11-09 12:28 | MR ---
EXAMINATION TYPE: MR cspine/lspine wo con DATE OF EXAM: 11/09/2021 COMPARISON: CT cervical spine 2 days ago HISTORY: Frequent falls, spasticity, neck pain, poss stenosis TECHNIQUE: Multiplanar, multisequence imaging of the cervical and lumbar spine are performed without IV contrast. FINDINGS: C-spine: FINDINGS: Sagittal images of the cervical spine show the craniocervical junction to remain within nor mal limits. The cervical and upper thoracic spinal cord is normal in course, caliber, and signal. V ertebral alignment is stable and satisfactory. The vertebral body and intravertebral disk heights ar e normal. The bone marrow signal intensity is within normal limits. Axial images show some motion artifact degradation. No significant disc herniations or spinal canal e ffacement. Mild neural foraminal narrowing right C4-C5 and bilateral C5-C6 levels due to uncovertebra l facet degenerative changes. Partial visualization of susceptibility artifact from sternotomy wires incidentally noted. IMPRESSION: No significant spinal canal stenosis. L-spine: Sagittal images of the lumbar spine show vertebral body heights to appear satisfactory. Alignment is straightened. Multilevel disc desiccation. Moderate to severe disc space narrowing L4-L5 level with m oderate anterior spurring. Moderate disc space narrowing L5-S1 level. Heterogeneous Modic type II end plate changes posterior inferior L5 vertebra. The conus medullaris is normal in position and signal e nding inferior L1 level. There is incidental 7 mm Tarlov cyst posterior S2 level sagittal image 9. Axial images show T12-L1 and L1-L2 levels to appear within normal limits. Axial images at L2-L3 level show mild broad disc bulge minimally effaces the anterior thecal sac. Axial images at L3-L4 level appear within normal limits. Axial images at L4-L5 level show moderate broad disc bulge mildly effacing anterior thecal sac. Paten t bilateral neural foramina. Axial images at L5-S1 level show slight spondylolisthesis and left paracentral disc protrusion with s amber canal is preserved. There is mild facet arthropathy bilaterally. There is moderate bilateral in ferior neural foraminal narrowing IMPRESSION: Degenerative change most prominent at lumbosacral junction as detailed above.
--- NOTE | 2021-11-09 13:28 | EST ---
EXERCISE STRESS AGE: 76 SEX: M HT: 5'9" WT: 197 lbs. PROTOCOL: Lexiscan STAGE: NA DURATION OF EXERCISE: NA HEART RATE REST: 62 BLOOD PRESSURE REST: 105/63 MAXIMUM HEART RATE ACHIEVED: 67 MAXIMUM BLOOD PRESSURE: 105/63 85% MPHR: 124 100% MPHR: 146 METS: NA INDICATIONS: Elevated troponin. CLINICAL INFORMATION: Baseline EKG shows sinus rhythm, inferolateral ST-T wave changes and poor R-wave progression. Patient was given intravenous Lexiscan as per protocol, did not have chest pain, and the EKG changes are inconclusive secondary to baseline EKG abnormalities. CONCLUSIONS: 1. Inconclusive EKG part of the stress test due to baseline EKG abnormalities. 2. Cardiolite portion of the stress test will be reported separately. MMODL / IJN: [id number] /
--- NOTE | 2021-11-09 14:21 | P.PN ---
Progress Note - Text Progress Note Date: 11/09/21 Chief Complaint: Weak History of presenting complaint: pleasant 76-year-old patient of Dr. woo. Chronic stable medical conditions include: Coronary artery disease with a bypass, GERD, hyperlipidemia, history of colon cancer with surgery in 2004, colonic diverticulosis, hiatal hernia prior TIA. Patient presents 3 days of feeling rather weak. Decreased appetite. Bowels are okay. He is dizzy lightheaded. Patient didn't pass out. Wish for short period. Couldn't get up. Has had some fever and chills. Percent of cough for 3 days. Thick yellow sputum. Patient has received COVID-19 vaccine. Admitted with right basilar pneumonia. Acute medical asthenia. Started on IV ceftriaxone. November 08: Patient states that for some time spent having increasing pain in the lower extremity. Feels heavy. He is to walk quite a bit. Finding it more difficult. Urinary retention today. Some decrease in sputum output. Eating better. Neurology consulted. November 09: Patient had a MRI of the cervical and lumbar spine. Shows multilevel disease. Discussed with Dr. Lawrence from neurology. 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 We will get orthopedic spine to give opinion on the results of the MRI. Discussed with director of social work. Hopefully can patient be discharged to [facility] tomorrow. Oral intake fair. Decreased respiration symptoms. Review of systems: Was done for constitutional, cardiovascular, GI, pulmonary. relevant finding as above Active Medications Acetaminophen (Acetaminophen Tab 325 Mg Tab) 650 mg PO Q6HR PRN PRN Reason: Mild Pain or Fever > 100.5 Last Admin: 11/09/21 02:29 Dose: 650 mg Documented by: Albuterol/Ipratropium (Ipratropium-Albuterol 3 Ml Neb) 3 ml INHALATION RT-QID [facility] Last Admin: 11/09/21 11:10 Dose: Not Given Documented by: Ascorbic Acid (Ascorbic Acid 500 Mg Tab) 1,000 mg PO DAILY [facility] Last Admin: 11/09/21 08:24 Dose: 1,000 mg Documented by: Aspirin (Aspirin 81 Mg) 81 mg PO DAILY [facility] Last Admin: 11/09/21 08:25 Dose: 81 mg Documented by: Calcium Carbonate/Glycine (Calcium Carbonate 500 Mg Chewable) 1,000 mg PO Q4HR PRN PRN Reason: Dyspepsia Cholecalciferol (Cholecalciferol 25 Mcg (1000 Iu) Tablet) 50 mcg PO DAILY [facility] Last Admin: 11/09/21 08:25 Dose: 50 mcg Documented by: Cholestyramine Resin (Cholestyramine (With Sugar) 4 Gm Packet) 4 gm PO DAILY [facility] Last Admin: 11/09/21 08:26 Dose: 4 gm Documented by: Clopidogrel Bisulfate (Clopidogrel 75 Mg Tab) 75 mg PO DAILY [facility] Last Admin: 11/09/21 08:25 Dose: 75 mg Documented by: Ceftriaxone Sodium 2 gm/ (Sodium Chloride) 50 mls @ 100 mls/hr IVPB Q12H [facility] Last Admin: 11/09/21 12:57 Dose: 100 mls/hr Documented by: Sodium Chloride (Saline 0.9%) 1,000 mls @ 50 mls/hr IV .Q20H [facility] Last Admin: 11/08/21 22:39 Dose: 50 mls/hr Documented by: Isosorbide Mononitrate (Isosorbide Mononitrate Er 30 Mg Tab.Er.24h) 30 mg PO DAILY [facility] Last Admin: 11/09/21 08:35 Dose: 30 mg Documented by: Lactulose (Lactulose 20 Gm/30 Ml Cup) 20 gm PO DAILY PRN PRN Reason: Constipation Lamotrigine (Lamotrigine 100 Mg Tab) 100 mg PO HS [facility] Last Admin: 11/08/21 22:36 Dose: 100 mg Documented by: Melatonin (Melatonin 3 Mg Tablet) 3 mg PO HS PRN PRN Reason: Insomnia Last Admin: 11/09/21 00:07 Dose: 3 mg Documented by: Memantine (Memantine 10 Mg Tab) 10 mg PO HS [facility] Last Admin: 11/08/21 22:36 Dose: 10 mg Documented by: Metoprolol Tartrate (Metoprolol Tartrate 25 Mg Tab) 25 mg PO DAILY [facility] Last Admin: 11/09/21 08:35 Dose: 25 mg Documented by: Naloxone HCl (Naloxone 0.4 Mg/Ml 1 Ml Vial) 0.2 mg IV Q2M PRN PRN Reason: Opioid Reversal Patient's Own ( Mirabegron [ Myrbetriq] 50 Mg Tablet) 50 mg PO DAILY [facility] Last Admin: 11/09/21 08:26 Dose: Not Given Documented by: Olanzapine (Olanzapine 2.5 Mg Tab) 2.5 mg PO HS [facility] Last Admin: 11/08/21 22:36 Dose: 2.5 mg Documented by: Pantoprazole Sodium (Pantoprazole 40 Mg Tablet) 40 mg PO DAILY [facility] Last Admin: 11/09/21 08:25 Dose: 40 mg Documented by: Sertraline HCl (Sertraline 100 Mg Tab) 100 mg PO DAILY [facility] Last Admin: 11/09/21 08:26 Dose: 100 mg Documented by: Tamsulosin HCl (Tamsulosin 0.4 Mg Cap.Er.24h) 0.4 mg PO BID [facility] Last Admin: 11/09/21 08:25 Dose: 0.4 mg Documented by: Social history: . No alcohol history. Patient smoked less than a pack a day for about 20 years stopped about 40 years ago. Does use a cane. Family history: Blood disorder Physical examination: VITAL SIGNS: 97.6, 98, 18, 104/63, 96% room air GENERAL: Sitting up in bed, awake, comfortable EYES: Pupils equal. Conjunctiva normal. HEENT: External appearance of nose and ears normal, oral cavity grossly normal. NECK: JVD not raised; masses not palpable. HEART: First and second heart sounds are normal; no edema. LUNGS: Respiratory rate normal; coarse breath sounds ABDOMEN: Soft, nontender, liver spleen not palpable, no masses palpable. PSYCH: Alert and oriented x3; mood and affect normal. NEUROLOGICAL: Cranial nerves grossly intact. Lower extremity decreased power INVESTIGATIONS, reviewed in the clinical context: Pro-calcitonin 0.75 White count 7.6 hemoglobin 17.8 platelets 164 potassium 5.2 sodium 139 BUN 15 creatinine 0.75 Troponin I 0.022, 0.1, 0.098 ProBNP 813 Coronavirus [PCR]: Not detected EKG tracing personally reviewed by me-normal sinus rhythm. Nonspecific ST-T wave changes. Especially in the inferolateral leads. Chest x-ray film personally reviewed by me-some right basilar infiltrate Assessment and plan: -Right basal pneumonia. Suspect gram-negative organism.: Improving IV ceftriaxone. Sputum for Gram stain and culture. -Acute medical asthenia from pneumonia resulting in falls. IV fluids. Fall precaution. 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 Sometimes numbness. Feels heavy. Having trouble walking. Lumbar and cervical spine MRI showing multiple level DJD and some disc herniation. Seen by neurology. Consult orthopedic spine. -Coronary artery disease with prior history of bypass Aspirin, Lipitor, Plavix, Lopressor -GERD Omeprazole 40 mg daily -Hyperlipidemia Lipitor 20 mg daily at bedtime -Colonic diverticulosis Follow clinically -Hiatal hernia -Mild cognitive impairment Namenda 10 mg daily at bedtime -Anxiety/depression Lamictal 100 mg daily at bedtime, Zoloft 1 mg by mouth daily, Zyprexa 2.5 mg by mouth daily at bedtime -BPH Flomax 0.4 mg twice a day B chronic 50 mg daily IV ceftriaxone. Results discussed with neurology. Consult orthopedic spine. Outpatient follow-up with neurosurgery. Hopefully discharged to [facility] tomorrow. Discussed with director of social work. Total time spent today about 45 minutes with over 25 minutes of discussion.
[2021-11-09] MEDS: SODIUM CHLORIDE 0.9% 1,000 ML IV SCH (15:50)
--- NOTE | 2021-11-09 18:59 | P.PN ---
Subjective Progress Note Date: 11/09/21 Patient was seen for a follow-up. Patient states he feels slightly weak, slightly dizzy. Offers no new complaints. Objective - Vital Signs Vital signs: Vital Signs Temp 98.4 F 11/09/21 15:00 Pulse 75 11/09/21 15:00 Resp 16 11/09/21 15:00 BP 135/68 11/09/21 15:00 Pulse Ox 95 11/09/21 15:00 Intake & Output 11/08/21 11/09/21 11/09/21 18:59 06:59 18:59 Intake Total 240 Balance 240 Weight 89.811 kg 89.81 kg Intake: Oral 240 Other: Voiding Method Urinal Urinal Urinal # Voids 2 3 3 - Exam Detailed examination deferred. Mentation is normal. Tone is mildly increased in the arms. - Labs CBC & Chem 7: 11/07/21 09:50 11/07/21 09:50 Assessment and Plan Assessment: * 76-year-old male, admitted with recurrent falls from standing position. Patient has chronic intermittent dizziness, that gets worse with changing head or body position. Exact cause of falls remains uncertain. Perhaps some vestibular dysfunction (associated with paranasal sinusitis), rule out other structural abnormalities as below. Orthostatics checked were negative. * Abnormal CAT scan with evidence of enlarged ventricles. 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 Patient has clinical triad of gait imbalance, urinary control issues and some memory problems. * Spasticity, likely due to above. No evidence of cervical or lumbar spinal stenosis. * Left ethmoid and sphenoid sinusitis, may be contributing to dizziness. Plan: * Patient's frequent falls is most likely related to normal pressure hydrocephalus. Recommend patient follow up with neurosurgeon. Patient will follow up with Dr. Baugh, address and phone number [phone] was provided. * MRI of the cervical and lumbar spines are completely unremarkable. No evidence of spinal stenosis. * B12 435, folate 13.6. MMA pending. We will start B12 1000 g orally daily. * Orthostatics were checked, negative for orthostatic hypotension. * Patient on ceftriaxone, which hopefully will help with left sphenoid and ethmoid sinusitis. * 2-D echo showed normal left-ventricular size. Mild concentric LVH. Left ventricular systolic function is mildly impaired with an EF between 45-50%. Inferior basal hypokinesis, septal hypokinesis. Left atrium is severely dilated. * Neurologically patient is clear to follow-up with neurosurgeon as outpatient.
[2021-11-09] MEDS: CYANOCOBALAMIN 500 MCG TAB PO SCH (20:14)
[2021-11-09] MEDS: OLANZapine 2.5 MG TAB PO SCH (20:14)
[2021-11-09] MEDS: MEMANTINE 10 MG TAB PO SCH (20:14)
[2021-11-09] MEDS: lamoTRIgine 100 MG TAB PO SCH (20:15)
[2021-11-09] MEDS: CEFEPIME 2 GM in SODIUM CHLORIDE 0.9% 100 ML IVPB SCH (23:43)
[2021-11-10] MEDS: IPRATROPIUM-ALBUTEROL 3 ML NEB INHALATION SCH ×4 (07:31→20:47)
--- NOTE | 2021-11-10 07:43 | XR ---
EXAMINATION TYPE: XR chest 1V portable DATE OF EXAM: 11/10/2021 COMPARISON: 11/07/2021 HISTORY: Shortness of breath TECHNIQUE: Single frontal view of the chest is obtained. FINDINGS: The lungs are clear. Heart size is normal. The pulmonary vasculature is not congested. The re are median sternotomy wires degenerative changes of both shoulders. There is been no interval martines ge. IMPRESSION: No acute cardiopulmonary disease with no interval change.
[2021-11-10] MEDS: ASPIRIN 81 MG PO SCH (08:46)
[2021-11-10] MEDS: CHOLECALCIFEROL 25 MCG (1000 IU) TABLET PO SCH (08:46)
[2021-11-10] MEDS: CYANOCOBALAMIN 500 MCG TAB PO SCH (08:46)
[2021-11-10] MEDS: ASCORBIC ACID 500 MG TAB PO SCH (08:46)
[2021-11-10] MEDS: METOPROLOL TARTRATE 25 MG TAB PO SCH (08:47)
[2021-11-10] MEDS: ISOSORBIDE MONONITRATE ER 30 MG TAB.ER.24H PO SCH (08:47)
[2021-11-10] MEDS: SERTRALINE 100 MG TAB PO SCH (08:47)
[2021-11-10] MEDS: CHOLESTYRAMINE (WITH SUGAR) 4 GM PACKET PO SCH (08:47)
[2021-11-10] MEDS: PANTOPRAZOLE 40 MG TABLET PO SCH (08:47)
[2021-11-10] MEDS: CEFEPIME 2 GM in SODIUM CHLORIDE 0.9% 100 ML IVPB SCH ×2 (08:47→16:09)
[2021-11-10] MEDS: CLOPIDOGREL 75 MG TAB PO SCH (08:47)
[2021-11-10] MEDS: TAMSULOSIN 0.4 MG CAP.ER.24H PO SCH ×2 (08:47→20:19)
[2021-11-10] MEDS: PATIENT'S OWN (Mirabegron [Myrbetriq] 50 MG Tablet) PO SCH (08:47)
[2021-11-10] MEDS: ACETAMINOPHEN TAB 325 MG TAB PO PRN ×2 (09:14→21:23)
--- NOTE | 2021-11-10 10:21 | P.HPOR ---
History of Present Illness H&P Date: 11/10/21 Chief Complaint: Dizziness and multiple falls Patient is a very pleasant 76-year-old male who says that he has been having dizziness and multiple falls which have been increasing for him. He feels this started several years ago but has been getting a bit worse for him. He says that he has episodes when he walks or changes position that he feels dizzy and is unable to maintain his balance oftentimes has to sit back down. He says when he walks long distances his legs start to get heavy and tired radius stop walking. He says this can occur after about 10-15 minutes. He says is worse on the left side than the right side. He says he does not really have weakness at his arms or his legs. He denies any changes in bowel bladder function. Denies any chest pain shortness of breath. Denies any visual changes. Denies any nausea or vomiting. He denies any specific injury. He is not having any significant back pain. Review of Systems As stated per HPI. He does not feel weak in his lower extremity is but he feels his legs get heavy and tired when he walks more than about 15 minutes. Worse on the left than the right. Denies any upper extremity numbness tingling or pain. Denies any back pain. Denies any recent injury or trauma. He says his dizziness has been going on for the past several years. Past Medical History Past Medical History: Coronary Artery Disease (CAD), Cancer, CVA/TIA, Eye Disorder, GERD/Reflux, Hyperlipidemia, Memory Impairment, Myocardial Infarction ([place]) Additional Past Medical History / Comment(s): DYSPHAGIA, CHRONIC DRY COUGH, HX COLON CANCER-2004 WITH SURGERY., DIVERTICULAR DISORDER, Hiatal Hernia, TIA'S , CATARACT RIGHT EYE., MILD DEMENTIA. , PROBLEMS WITH BALANCE- USES CANE. Last Myocardial Infarction Date:: 2009 History of Any Multi-Drug Resistant Organisms: None Reported Past Surgical History: Bowel Resection, Cholecystectomy, Coronary Bypass/CABG, Heart Catheterization, Hernia Repair Additional Past Surgical History / Comment(s): QUAD CABG ([facility] 2009), Umbilical hernia repair, DEVIATED SEPTUM REPAIR/SPUR REMOVED from nose, Past Anesthesia/Blood Transfusion Reactions: Motion Sickness, Postoperative Nausea & Vomiting (PONV) Additional Past Anesthesia/Blood Transfusion Reaction / Comment(s): PONV X1. Claustrophobic Past Psychological History: Anxiety, Depression, PTSD Smoking Status: Former smoker Past Alcohol Use History: None Reported Additional Past Alcohol Use History / Comment(s): started smoking in his teens- quit 1969's, smoked 1/2-1 PPD Past Drug Use History: None Reported - Past Family History Son(s) Family Medical History: Cancer Father Family Medical History: Blood Disorder Additional Family Medical History / Comment(s): from a blood disorder Mother Family Medical History: Diabetes Mellitus Additional Family Medical History / Comment(s): age 53 -complications from dm Sister(s) Family Medical History: Diabetes Mellitus Medications and Allergies Home Medications Medication Instructions Recorded Confirmed Type Fluticasone Nasal [place] [Flonase 1 spray EA NOSTRIL DAILY 06/21/15 11/07/21 History Nasal [place]] Isosorbide Mononitrate ER [Imdur] 30 mg PO DAILY 10/09/15 11/07/21 History Memantine [Namenda] 10 mg PO HS #30 tab 08/11/18 11/07/21 Rx lamoTRIgine [LaMICtal] 100 mg PO HS #30 tab 08/11/18 11/07/21 Rx Cholecalciferol [Vitamin D3 (25 50 mcg PO DAILY 11/21/18 11/07/21 History Mcg = 1000 Iu)] Sertraline [Zoloft] 100 mg PO DAILY 12/17/18 11/07/21 History Tamsulosin HCl [Flomax] 0.4 mg PO BID 07/12/19 11/07/21 History Clopidogrel [Plavix] 75 mg PO DAILY #30 tab 11/09/19 11/07/21 Rx Ascorbic Acid [Vitamin C] 1,000 mg PO DAILY 11/07/21 11/07/21 History Aspirin EC [Ecotrin Low Dose] 81 mg PO DAILY 11/07/21 11/07/21 History Atorvastatin [Lipitor] 20 mg PO HS 11/07/21 11/07/21 History Cholestyramine/Aspartame 4 gm PO DAILY 11/07/21 11/07/21 History [Cholestyramine Light Packet] Melatonin 3 mg PO HS PRN 11/07/21 11/07/21 History Metoprolol Tartrate [Lopressor] 25 mg PO DAILY 11/07/21 11/07/21 History Mirabegron [Myrbetriq] 50 mg PO DAILY 11/07/21 11/07/21 History OLANZapine [ZyPREXA] 2.5 mg PO HS 11/07/21 11/07/21 History Omeprazole 40 mg PO DAILY 11/07/21 11/07/21 History Allergies Allergy/AdvReac Type Severity Reaction Status Date / Time No Known Allergies Allergy Verified 11/07/21 10:07 Physical Examination Osteopathic Statement: *. No significant issues noted on an osteopathic structural exam other than those noted in the History and Physical/Consult. - L Spine: dermatomal strength & reflexes bilateral Strength: hip flexion: 5/5 (His back is nontender to palpation and range of motion. His neck is nontender to palpation range motion. He has some spastic change in his bilateral upper and lower extremities but is able to move them freely. 5 out of 5 strength at bilateral upper extremities and lower strength) Strength: hip extension: 5/5 (5 out of 5 strength at the bilateral upper extremity strength throughout. I would have her strength with dorsi flexion plantar flexion and EHL hip flexion and knee extension. He has some spasm and hypertonicity as bilateral lower extremities. 3 out of 4 deep tendon reflexes globally..) Strength: knee flexion: 5/5 (He has 1-2 beats of clonus at his bilateral lower extremities. He has some hypertonicity and brisk reflexes.) Results - Labs Labs: H & H 11/07/21 Range/Units 09:50 Hgb 17.8 H (13.0-17.5) gm/dL Hct 52.3 (39.0-53.0) % Coagulation 11/07/21 Range/Units 11:15 INR 1.1 (<1.2) Result Diagrams: 11/07/21 09:50 11/07/21 09:50 - Diagnostic results Cervical MRI with contrast: report reviewed, image reviewed (MRIs of his cervical and lumbar spine reports and images are reviewed. Cervical spine is well maintained without any evidence of stenosis. Lumbar spine there is some disc degeneration at L4 5 with some bilateral foraminal stenosis. No si gnificant central stenosis.) CT scan - cervical: image reviewed (The CT of his head and neck show significant hydrocephalus and a large ventral) Lumbar MRI with contrast: report reviewed, image reviewed Assessment and Plan Assessment: Dizziness, chronic Hydrocephalus Multiple falls Degenerative disc disease L4 5 with some bilateral foraminal encroachment which seems appropriate for age but does not seem related specifically to the patient's falls and dizziness Plan: Dizziness, chronic Hydrocephalus Multiple falls Degenerative disc disease L4 5 with some bilateral foraminal encroachment which seems appropriate for age but does not seem related specifically to the patient's falls and dizziness I appreciate the neurology and medical evaluation. 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 He has enlarged ventricles on his head CT scan with normal-appearing cervical spine. He does not have any stenosis at his cervical spine and has moderate stenosis of bilateral foramen at L4 5 of his lumbar spine with degenerative disc disease. The changes of the lumbar spine didn't would not account for his dizziness but could be contributing some degree to some neurogenic claudication as he ambulates. I do not think that this is his primary issue and I think that he needs referral with neurosurgery in regards to his hydrocephalus and consideration for shunting. He apparently has discussed this with neurology already and has a potential referral for neurosurgery that I support and agree with. He can obtain this referral aperture facility he chooses and is discussing this with his to make a decision. I does not have any plans for spine surgical intervention at this point. Orthopedic spine standpoint I think it is best for him to have referral with neurosurgery in regards to hydrocephalus. Neurology has adjusted that it is okay with outpatient referral and I would agree with them.
[2021-11-10] MEDS: SODIUM CHLORIDE 0.9% 1,000 ML IV SCH (16:09)
--- NOTE | 2021-11-10 17:15 | P.PN ---
Progress Note - Text Progress Note Date: 11/10/21 Chief Complaint: Weak History of presenting complaint: pleasant 76-year-old patient of Dr. woo. Chronic stable medical conditions include: Coronary artery disease with a bypass, GERD, hyperlipidemia, history of colon cancer with surgery in 2004, colonic diverticulosis, hiatal hernia prior TIA. Patient presents 3 days of feeling rather weak. Decreased appetite. Bowels are okay. He is dizzy lightheaded. Patient didn't pass out. Wish for short period. Couldn't get up. Has had some fever and chills. Percent of cough for 3 days. Thick yellow sputum. Patient has received COVID-19 vaccine. Admitted with right basilar pneumonia. Acute medical asthenia. Started on IV ceftriaxone. November 08: Patient states that for some time spent having increasing pain in the lower extremity. Feels heavy. He is to walk quite a bit. Finding it more difficult. Urinary retention today. Some decrease in sputum output. Eating better. Neurology consulted. November 09: Patient had a MRI of the cervical and lumbar spine. Shows multilevel disease. Discussed with Dr. Lawrence from neurology. 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 We will get orthopedic spine to give opinion on the results of the MRI. Discussed with social work case manager. Hopefully can patient be discharged to [facility] tomorrow. Oral intake fair. Decreased respiration symptoms. November 10: Patient developed this fever of 101 last night. Pancultured. Ceftriaxone discontinued and started IV cefepime. Feeling warm and tired this morning. ID was consulted. Discharge has been held. Cough with sputum present. Review of systems: Was done for constitutional, cardiovascular, GI, pulmonary. relevant finding as above Active Medications Acetaminophen (Acetaminophen Tab 325 Mg Tab) 650 mg PO Q6HR PRN PRN Reason: Mild Pain or Fever > 100.5 Last Admin: 11/10/21 09:14 Dose: 650 mg Documented by: Albuterol/Ipratropium (Ipratropium-Albuterol 3 Ml Neb) 3 ml INHALATION RT-QID [facility] Last Admin: 11/10/21 15:42 Dose: Not Given Documented by: Ascorbic Acid (Ascorbic Acid 500 Mg Tab) 1,000 mg PO DAILY [facility] Last Admin: 11/10/21 08:46 Dose: 1,000 mg Documented by: Aspirin (Aspirin 81 Mg) 81 mg PO DAILY [facility] Last Admin: 11/10/21 08:46 Dose: 81 mg Documented by: Calcium Carbonate/Glycine (Calcium Carbonate 500 Mg Chewable) 1,000 mg PO Q4HR PRN PRN Reason: Dyspepsia Cholecalciferol (Cholecalciferol 25 Mcg (1000 Iu) Tablet) 50 mcg PO DAILY [facility] Last Admin: 11/10/21 08:46 Dose: 50 mcg Documented by: Cholestyramine Resin (Cholestyramine (With Sugar) 4 Gm Packet) 4 gm PO DAILY [facility] Last Admin: 11/10/21 08:47 Dose: 4 gm Documented by: Clopidogrel Bisulfate (Clopidogrel 75 Mg Tab) 75 mg PO DAILY [facility] Last Admin: 11/10/21 08:47 Dose: 75 mg Documented by: Cyanocobalamin (Cyanocobalamin 500 Mcg Tab) 1,000 mcg PO DAILY [facility] Last Admin: 11/10/21 08:46 Dose: 1,000 mcg Documented by: Sodium Chloride (Saline 0.9%) 1,000 mls @ 50 mls/hr IV .Q20H [facility] Last Admin: 11/10/21 16:09 Dose: 50 mls/hr Documented by: Cefepime HCl 2 gm/ Sodium (Chloride) 100 mls @ 25 mls/hr IVPB Q8H [facility] Last Admin: 11/10/21 16:09 Dose: 25 mls/hr Documented by: Isosorbide Mononitrate (Isosorbide Mononitrate Er 30 Mg Tab.Er.24h) 30 mg PO DAILY [facility] Last Admin: 11/10/21 08:47 Dose: 30 mg Documented by: Lactulose (Lactulose 20 Gm/30 Ml Cup) 20 gm PO DAILY PRN PRN Reason: Constipation Lamotrigine (Lamotrigine 100 Mg Tab) 100 mg PO HS [facility] Last Admin: 11/09/21 20:15 Dose: 100 mg Documented by: Melatonin (Melatonin 3 Mg Tablet) 3 mg PO HS PRN PRN Reason: Insomnia Last Admin: 11/09/21 21:31 Dose: 3 mg Documented by: Memantine (Memantine 10 Mg Tab) 10 mg PO HS [facility] Last Admin: 11/09/21 20:14 Dose: 10 mg Documented by: Metoprolol Tartrate (Metoprolol Tartrate 25 Mg Tab) 25 mg PO DAILY [facility] Last Admin: 11/10/21 08:47 Dose: 25 mg Documented by: Naloxone HCl (Naloxone 0.4 Mg/Ml 1 Ml Vial) 0.2 mg IV Q2M PRN PRN Reason: Opioid Reversal Patient's Own ( Mirabegron [ Myrbetriq] 50 Mg Tablet) 50 mg PO DAILY [facility] Last Admin: 11/10/21 08:47 Dose: Not Given Documented by: Olanzapine (Olanzapine 2.5 Mg Tab) 2.5 mg PO HS [facility] Last Admin: 11/09/21 20:14 Dose: 2.5 mg Documented by: Pantoprazole Sodium (Pantoprazole 40 Mg Tablet) 40 mg PO DAILY [facility] Last Admin: 11/10/21 08:47 Dose: 40 mg Documented by: Sertraline HCl (Sertraline 100 Mg Tab) 100 mg PO DAILY [facility] Last Admin: 11/10/21 08:47 Dose: 100 mg Documented by: Tamsulosin HCl (Tamsulosin 0.4 Mg Cap.Er.24h) 0.4 mg PO BID [facility] Last Admin: 11/10/21 08:47 Dose: 0.4 mg Documented by: Social history: . No alcohol history. Patient smoked less than a pack a day for about 20 years stopped about 40 years ago. Does use a cane. Family history: Blood disorder Physical examination: VITAL SIGNS: 98.1, 104, 16, 134/81, GENERAL: Sitting up in chair, awake, comfortable EYES: Pupils equal. Conjunctiva normal. HEENT: External appearance of nose and ears normal, oral cavity grossly normal. NECK: JVD not raised; masses not palpable. HEART: First and second heart sounds are normal; no edema. LUNGS: Respiratory rate normal; decreased breath sounds ABDOMEN: Soft, nontender, liver spleen not palpable, no masses palpable. PSYCH: Alert and oriented x3; mood and affect normal. NEUROLOGICAL: Cranial nerves grossly intact. Lower extremity decreased power INVESTIGATIONS, reviewed in the clinical context: Pro-calcitonin 0.75 White count 7.6 hemoglobin 17.8 platelets 164 potassium 5.2 sodium 139 BUN 15 creatinine 0.75 Troponin I 0.022, 0.1, 0.098 ProBNP 813 Coronavirus [PCR]: Not detected EKG tracing personally reviewed by me-normal sinus rhythm. Nonspecific ST-T wave changes. Especially in the inferolateral leads. Chest x-ray film personally reviewed by me-some right basilar infiltrate Assessment and plan: -Right basal pneumonia. Suspect gram-negative organism.: Slow to respond Patient spiked a fever last night. Ceftriaxone discontinued and changed order IV cefepime.. -Acute medical asthenia from pneumonia resulting in falls. IV fluids. Fall precaution. 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 Sometimes numbness. Feels heavy. Having trouble walking. Lumbar and cervical spine MRI showing multiple level DJD and some disc herniation. Seen by neurology. Seen by orthopedics. No further intervention. -Coronary artery disease with prior history of bypass Aspirin, Lipitor, Plavix, Lopressor -GERD Omeprazole 40 mg daily -Hyperlipidemia Lipitor 20 mg daily at bedtime -Colonic diverticulosis Follow clinically -Hiatal hernia -Mild cognitive impairment Namenda 10 mg daily at bedtime -Anxiety/depression Lamictal 100 mg daily at bedtime, Zoloft 1 mg by mouth daily, Zyprexa 2.5 mg by mouth daily at bedtime -BPH Flomax 0.4 mg twice a day B chronic 50 mg daily Patient is IV antibiotic changed over to cefepime. ID consulted. Discussed with patient.
[2021-11-10] MEDS: lamoTRIgine 100 MG TAB PO SCH (20:19)
[2021-11-10] MEDS: MEMANTINE 10 MG TAB PO SCH (20:19)
[2021-11-10] MEDS: OLANZapine 2.5 MG TAB PO SCH (20:19)
[2021-11-10] MEDS: MELATONIN 3 MG TABLET PO PRN (21:23)
[2021-11-11] MEDS: CEFEPIME 2 GM in SODIUM CHLORIDE 0.9% 100 ML IVPB SCH ×4 (00:54→23:34)
[2021-11-11] MEDS: SODIUM CHLORIDE 0.9% 1,000 ML IV SCH (05:00)
[2021-11-11 05:32] LABS: Appearance,Urine Clear (Clear); Bilirubin,Urine Negative (Negative); Blood,Urine Negative (Negative); Color,Urine Yellow; Glucose,Urine (UA) Negative (Negative); Ketones,Urine 1+ (Negative); Leukocyte Esterase,Urine Negative (Negative); Nitrite,Urine Negative (Negative); PH, Urine 5.5 (5.0-8.0); Protein,Urine Trace (Negative); Specific Gravity,Urine 1.031 (1.001-1.035); Urobilinogen,Urine <2.0 mg/dL (<2.0)
[2021-11-11 06:36] LABS: Basophils % (A) 1 %; Eosinophils % (A) 0 %; HCT 46.5 % (39.0-53.0); Lymphocytes % (A) 28 %; MCHC 32.3 g/dL (31.0-37.0); Monocytes # (A) 0.2 k/uL (0-1.0); Monocytes % (A) 6 %; Neutrophils # (A) 2.3 k/uL (1.3-7.7); Neutrophils % (A) 62 %; Platelet Count 121 k/uL (150-450); RBC 4.85 m/uL (4.30-5.90); RDW 14.2 % (11.5-15.5); WBC 3.7 k/uL (3.8-10.6)
[2021-11-11] MEDS: IPRATROPIUM-ALBUTEROL 3 ML NEB INHALATION SCH ×4 (07:33→19:23)
[2021-11-11 10:33] LABS: African American GFR (CKD) >90 (>60 ml/min/1.73 sqM); Anion Gap 11 mmol/L; Blood Urea Nitrogen 15 mg/dL (9-20); Calcium 8.3 mg/dL (8.4-10.2); Carbon Dioxide 20 mmol/L (22-30); Chloride 108 mmol/L (98-107); Glucose 93 mg/dL (74-99); Non-African American GFR(CKD) >90 (>60 ml/min/1.73 sqM); Potassium 3.9 mmol/L (3.5-5.1); Sodium 139 mmol/L (137-145)
[2021-11-11] MEDS: IOPAMIDOL CONTRAST (ORAL USE) VIAL PO PRN ×2 (11:12→11:54)
[2021-11-11] MEDS: CHOLECALCIFEROL 25 MCG (1000 IU) TABLET PO SCH (13:15)
[2021-11-11] MEDS: CHOLESTYRAMINE (WITH SUGAR) 4 GM PACKET PO SCH (13:16)
[2021-11-11] MEDS: SERTRALINE 100 MG TAB PO SCH (13:16)
[2021-11-11] MEDS: CYANOCOBALAMIN 500 MCG TAB PO SCH (13:16)
[2021-11-11] MEDS: ASPIRIN 81 MG PO SCH (13:16)
[2021-11-11] MEDS: TAMSULOSIN 0.4 MG CAP.ER.24H PO SCH ×2 (13:17→21:13)
[2021-11-11] MEDS: ISOSORBIDE MONONITRATE ER 30 MG TAB.ER.24H PO SCH (13:17)
[2021-11-11] MEDS: PATIENT'S OWN (Mirabegron [Myrbetriq] 50 MG Tablet) PO SCH (13:17)
[2021-11-11] MEDS: METOPROLOL TARTRATE 25 MG TAB PO SCH (13:17)
[2021-11-11] MEDS: ASCORBIC ACID 500 MG TAB PO SCH (13:17)
[2021-11-11] MEDS: CLOPIDOGREL 75 MG TAB PO SCH (13:17)
[2021-11-11] MEDS: PANTOPRAZOLE 40 MG TABLET PO SCH (13:17)
--- NOTE | 2021-11-11 13:36 | CT ---
EXAMINATION TYPE: CT abdomen pelvis w con CT DLP: 1174.9 mGycm, Automated exposure control for dose reduction was used. DATE OF EXAM: 11/11/2021 12:52 PM COMPARISON: 11/22/2018. CLINICAL INDICATION:Male, 76 years old with history of Fever , abd pain;, Cough, fever, abdominal anthony n TECHNIQUE: Standard CT of the abdomen and pelvis following the administration of 100 cc of Isovue 3 00 IV contrast material and oral contrast. Coronal and sagittal reformats were performed. FINDINGS: LOWER CHEST: Trace bilateral pleural effusions with atelectasis changes within the medial aspect of t he left lung base. ABDOMEN LIVER: Diffusely hypoattenuating parenchyma. GALLBLADDER AND BILE DUCTS: The gallbladder is surgically absent. PANCREAS: Unremarkable. SPLEEN: Small splenule is present. ADRENAL GLANDS: Unremarkable. KIDNEYS AND URETERS: No evidence of hydronephrosis or renal calculus. The ureters are unremarkable. Left 2Subcentimeter probable cyst. PELVIS BLADDER: Unremarkable REPRODUCTIVE: Prostate is enlarged in size measuring 5.6 cm in transverse dimension. ABDOMEN & PELVIS STOMACH AND BOWEL: Small hiatal hernia, duodenum is unremarkable No evidence of bowel obstruction. PERITONEUM: No evidence of pneumoperitoneum or free fluid. VASCULATURE: No evidence of aortic aneurysm. MUSCULOSKELETAL: Mild disc degeneration changes are present throughout the thoracolumbar spine. LYMPH NODES: No gross evidence for lymphadenopathy. SOFT TISSUE/ABDOMINAL WALL: Unremarkable IMPRESSION: 1. No evidence for acute process to explain patient's symptoms in the abdomen or pelvis. 2. Trace bilateral pleural effusions. 3. Prostatomegaly. 4. Hepatic steatosis 5. Hiatal hernia.
--- NOTE | 2021-11-11 16:20 | P.PN ---
Subjective Progress Note Date: 11/11/21 Patient was seen for a follow-up via telemedicine today on 11/11/2021. Patient is coughing a lot. He states he cannot sleep, has developed pneumonia. Patient is undergoing CT of abdomen. He also has hiatal hernia. No new neurological symptoms. Objective - Vital Signs Vital signs: Vital Signs Temp 98.1 F 11/11/21 07:00 Pulse 65 11/11/21 07:00 Resp 16 11/11/21 07:00 BP 126/65 11/11/21 07:00 Pulse Ox 96 11/11/21 07:00 Intake & Output 11/10/21 11/11/21 11/11/21 18:59 06:59 18:59 Intake Total 180 Output Total 100 Balance 180 -100 Intake: Oral 180 Output: Urine 100 Other: Voiding Method Urinal Urinal Urinal Incontinent Incontinent Incontinent # Voids 1 2 # Bowel Movements 1 - Exam Detailed examination deferred. Mentation is normal. Tone is mildly increased in the arms. - Labs CBC & Chem 7: 11/11/21 05:58 11/11/21 09:59 Labs: Abnormal Lab Results - Last 24 Hours (Table) 11/10/21 11/11/21 11/11/21 Range/Units 04:00 05:58 09:59 WBC 3.7 L (3.8-10.6) k/uL Plt Count 121 L (150-450) k/uL Chloride 108 H (98-107) mmol/L Carbon Dioxide 20 L (22-30) mmol/L Creatinine 0.55 L (0.66-1.25) mg/dL Calcium 8.3 L (8.4-10.2) mg/dL Urine Protein Trace H (Negative) Urine Ketones 1+ H (Negative) Microbiology - Last 24 Hours (Table) 11/09/21 22:30 Blood Culture - Preliminary Blood No Growth after 24 hours Assessment and Plan Assessment: * Normal pressure hydrocephalus. Patient has clinical triad of gait imbalance, urinary control issues and some memory problems. * Chronic dizziness, possibly from paranasal sinus disease. Orthostatics negative. * Spasticity, likely due to #1. No evidence of cervical or lumbar spinal stenosis. * Left ethmoid and sphenoid sinusitis, may be contributing to dizziness. Plan: * Patient's frequent falls is most likely related to normal pressure hydrocephalus. Recommend patient follow up with neurosurgeon. Patient will follow up with Dr. Baugh, address and phone number [phone] was provided. * MRI of the cervical and lumbar spines are completely unremarkable. No evidence of spinal stenosis. * B12 435, folate 13.6. MMA pending. We will start B12 1000 g orally daily. * Orthostatics were checked, negative for orthostatic hypotension. * Patient on ceftriaxone, which hopefully will help with left sphenoid and ethmoid sinusitis. * 2-D echo showed normal left-ventricular size. Mild concentric LVH. Left ventricular systolic function is mildly impaired with an EF between 45-50%. Inferior basal hypokinesis, septal hypokinesis. Left atrium is severely dilated. * Neurologically patient is clear to follow-up with neurosurgeon as outpatient. Neurology will sign off. Please reconsult if any concerns.
--- NOTE | 2021-11-11 16:56 | P.PN ---
Progress Note - Text Progress Note Date: 11/11/21 Chief Complaint: Weak History of presenting complaint: pleasant 76-year-old patient of Dr. woo. Chronic stable medical conditions include: Coronary artery disease with a bypass, GERD, hyperlipidemia, history of colon cancer with surgery in 2004, colonic diverticulosis, hiatal hernia prior TIA. Patient presents 3 days of feeling rather weak. Decreased appetite. Bowels are okay. He is dizzy lightheaded. Patient didn't pass out. Wish for short period. Couldn't get up. Has had some fever and chills. Percent of cough for 3 days. Thick yellow sputum. Patient has received COVID-19 vaccine. Admitted with right basilar pneumonia. Acute medical asthenia. Started on IV ceftriaxone. November 08: Patient states that for some time spent having increasing pain in the lower extremity. Feels heavy. He is to walk quite a bit. Finding it more difficult. Urinary retention today. Some decrease in sputum output. Eating better. Neurology consulted. November 09: Patient had a MRI of the cervical and lumbar spine. Shows multilevel disease. Discussed with Dr. Lawrence from neurology. 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 We will get orthopedic spine to give opinion on the results of the MRI. Discussed with high school social science teacher. Hopefully can patient be discharged to [facility] tomorrow. Oral intake fair. Decreased respiration symptoms. November 10: Patient developed this fever of 101 last night. Pancultured. Ceftriaxone discontinued and started IV cefepime. Feeling warm and tired this morning. ID was consulted. Discharge has been held. Cough with sputum present. November 11: No more fever. The patient feels a bit warm. Had a computed tomography scan abdomen and pelvis that was unremarkable. Oral intake.. Still bringing up some sputum. Review of systems: Was done for constitutional, cardiovascular, GI, pulmonary. relevant finding as above Active Medications Acetaminophen (Acetaminophen Tab 325 Mg Tab) 650 mg PO Q6HR PRN PRN Reason: Mild Pain or Fever > 100.5 Last Admin: 11/10/21 21:23 Dose: 650 mg Documented by: Albuterol/Ipratropium (Ipratropium-Albuterol 3 Ml Neb) 3 ml INHALATION RT-QID [facility] Last Admin: 11/11/21 15:43 Dose: Not Given Documented by: Ascorbic Acid (Ascorbic Acid 500 Mg Tab) 1,000 mg PO DAILY [facility] Last Admin: 11/11/21 13:17 Dose: 1,000 mg Documented by: Aspirin (Aspirin 81 Mg) 81 mg PO DAILY [facility] Last Admin: 11/11/21 13:16 Dose: 81 mg Documented by: Calcium Carbonate/Glycine (Calcium Carbonate 500 Mg Chewable) 1,000 mg PO Q4HR PRN PRN Reason: Dyspepsia Last Admin: 11/10/21 21:23 Dose: 1,000 mg Documented by: Cholecalciferol (Cholecalciferol 25 Mcg (1000 Iu) Tablet) 50 mcg PO DAILY [facility] Last Admin: 11/11/21 13:15 Dose: 50 mcg Documented by: Cholestyramine Resin (Cholestyramine (With Sugar) 4 Gm Packet) 4 gm PO DAILY [facility] Last Admin: 11/11/21 13:16 Dose: 4 gm Documented by: Clopidogrel Bisulfate (Clopidogrel 75 Mg Tab) 75 mg PO DAILY [facility] Last Admin: 11/11/21 13:17 Dose: 75 mg Documented by: Cyanocobalamin (Cyanocobalamin 500 Mcg Tab) 1,000 mcg PO DAILY [facility] Last Admin: 11/11/21 13:16 Dose: 1,000 mcg Documented by: Sodium Chloride (Saline 0.9%) 1,000 mls @ 50 mls/hr IV .Q20H [facility] Last Admin: 11/11/21 05:00 Dose: Not Given Documented by: Cefepime HCl 2 gm/ Sodium (Chloride) 100 mls @ 25 mls/hr IVPB Q8H [facility] Last Admin: 11/11/21 09:21 Dose: 25 mls/hr Documented by: Isosorbide Mononitrate (Isosorbide Mononitrate Er 30 Mg Tab.Er.24h) 30 mg PO DAILY [facility] Last Admin: 11/11/21 13:17 Dose: 30 mg Documented by: Lactulose (Lactulose 20 Gm/30 Ml Cup) 20 gm PO DAILY PRN PRN Reason: Constipation Lamotrigine (Lamotrigine 100 Mg Tab) 100 mg PO HS [facility] Last Admin: 11/10/21 20:19 Dose: 100 mg Documented by: Melatonin (Melatonin 3 Mg Tablet) 3 mg PO HS PRN PRN Reason: Insomnia Last Admin: 11/10/21 21:23 Dose: 3 mg Documented by: Memantine (Memantine 10 Mg Tab) 10 mg PO HS [facility] Last Admin: 11/10/21 20:19 Dose: 10 mg Documented by: Metoprolol Tartrate (Metoprolol Tartrate 25 Mg Tab) 25 mg PO DAILY [facility] Last Admin: 11/11/21 13:17 Dose: 25 mg Documented by: Naloxone HCl (Naloxone 0.4 Mg/Ml 1 Ml Vial) 0.2 mg IV Q2M PRN PRN Reason: Opioid Reversal Patient's Own ( Mirabegron [ Myrbetriq] 50 Mg Tablet) 50 mg PO DAILY [facility] Last Admin: 11/11/21 13:17 Dose: Not Given Documented by: Olanzapine (Olanzapine 2.5 Mg Tab) 2.5 mg PO HS [facility] Last Admin: 11/10/21 20:19 Dose: 2.5 mg Documented by: Pantoprazole Sodium (Pantoprazole 40 Mg Tablet) 40 mg PO DAILY [facility] Last Admin: 11/11/21 13:17 Dose: 40 mg Documented by: Sertraline HCl (Sertraline 100 Mg Tab) 100 mg PO DAILY [facility] Last Admin: 11/11/21 13:16 Dose: 100 mg Documented by: Tamsulosin HCl (Tamsulosin 0.4 Mg Cap.Er.24h) 0.4 mg PO BID [facility] Last Admin: 11/11/21 13:17 Dose: 0.4 mg Documented by: Social history: . No alcohol history. Patient smoked less than a pack a day for about 20 years stopped about 40 years ago. Does use a cane. Family history: Blood disorder Physical examination: VITAL SIGNS: 98.1, 66, 16, 114 x 51, 96% room air GENERAL: Sitting up in chair, awake, comfortable EYES: Pupils equal. Conjunctiva normal. HEENT: External appearance of nose and ears normal, oral cavity grossly normal. NECK: JVD not raised; masses not palpable. HEART: First and second heart sounds are normal; no edema. LUNGS: Respiratory rate normal; decreased breath sounds ABDOMEN: Soft, nontender, liver spleen not palpable, no masses palpable. PSYCH: Alert and oriented x3; mood and affect normal. NEUROLOGICAL: Cranial nerves grossly intact. Lower extremity decreased power INVESTIGATIONS, reviewed in the clinical context: November 11: White count 3.7 hemoglobin 15 platelets 121 pression 3.9 creatinine 0.55. Procalcitonin 0.1 Computed tomography scan abdomen and pelvis: No source of infection Pro-calcitonin 0.75 White count 7.6 hemoglobin 17.8 platelets 164 potassium 5.2 sodium 139 BUN 15 creatinine 0.75 Troponin I 0.022, 0.1, 0.098 ProBNP 813 Coronavirus [PCR]: Not detected EKG tracing personally reviewed by me-normal sinus rhythm. Nonspecific ST-T wave changes. Especially in the inferolateral leads. Chest x-ray film personally reviewed by me-some right basilar infiltrate Assessment and plan: -Right basal pneumonia. Suspect gram-negative organism.: Clinically responding Ceftriaxone discontinued and changed order IV cefepime.. -Acute medical asthenia from pneumonia resulting in falls. IV fluids. Fall precaution. 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 Sometimes numbness. Feels heavy. Having trouble walking. Lumbar and cervical spine MRI showing multiple level DJD and some disc herniation. Seen by neurology. Seen by orthopedics. No further intervention. -Coronary artery disease with prior history of bypass Aspirin, Lipitor, Plavix, Lopressor -GERD Omeprazole 40 mg daily -Hyperlipidemia Lipitor 20 mg daily at bedtime -Colonic diverticulosis Follow clinically -Hiatal hernia -Mild cognitive impairment Namenda 10 mg daily at bedtime -Anxiety/depression Lamictal 100 mg daily at bedtime, Zoloft 1 mg by mouth daily, Zyprexa 2.5 mg by mouth daily at bedtime -BPH Flomax 0.4 mg twice a day B chronic 50 mg daily IV cefepime. Computed tomography scan abdomen and pelvis unremarkable. Clinically doing better. Continue current medications.
--- NOTE | 2021-11-11 17:30 | PN ---
PROGRESS NOTE DATE OF SERVICE: 11/11/2021 REASON FOR FOLLOWUP: Fever. INTERVAL HISTORY: Patient is afebrile. No fever has been recorded in the last 24 hours. The patient is feeling better. Breathing comfortably. Currently on room air. No chest pain or shortness of breath. Occasional cough. Complained of some abdominal pain yesterday, however, no pain today. No diarrhea or urinary symptoms. PHYSICAL EXAMINATION: Blood pressure 126/65, pulse of 65, temperature 98.1. He is 96% on room air. General description is an elderly male up in the chair in no distress. Respiratory system: Unlabored breathing, decreased intensity of breath sounds. No wheeze. Heart S1, S2. Regular rate and rhythm. Abdomen: Soft, no tenderness. No guarding. No rigidity. LABS: Hemoglobin is 15, white count of 3.7, creatinine 0.55. Procalcitonin was elevated mildly. Urine is negative. CT of abdomen and pelvis came back negative. CT of the cervical and lumbar spine did not show any abnormality. DIAGNOSTIC IMPRESSION AND PLAN: Patient with an episode of fever. He was complaining of some abdominal pain and urinary symptoms. However, the workup has been negative so far. Urine was negative. CT of abdomen and pelvis did not show any acute abnormality. We will check an influenza swab. Continue with current empiric antibiotics while waiting for the culture to finalize and monitor his clinical course closely. MMODL / IJN: [id number] /
[2021-11-11] MEDS: OLANZapine 2.5 MG TAB PO SCH (21:13)
[2021-11-11] MEDS: OSELTAMIVIR 75 MG CAP PO SCH (21:13)
[2021-11-11] MEDS: MELATONIN 3 MG TABLET PO PRN (21:13)
[2021-11-11] MEDS: MEMANTINE 10 MG TAB PO SCH (21:13)
[2021-11-11] MEDS: lamoTRIgine 100 MG TAB PO SCH (21:13)
[2021-11-12] MEDS: SODIUM CHLORIDE 0.9% 1,000 ML IV SCH ×2 (02:29→22:07)
[2021-11-12] MEDS: CEFEPIME 2 GM in SODIUM CHLORIDE 0.9% 100 ML IVPB SCH ×3 (07:25→22:07)
[2021-11-12] MEDS: CHOLECALCIFEROL 25 MCG (1000 IU) TABLET PO SCH (07:26)
[2021-11-12] MEDS: ASCORBIC ACID 500 MG TAB PO SCH (07:26)
[2021-11-12] MEDS: CHOLESTYRAMINE (WITH SUGAR) 4 GM PACKET PO SCH (07:26)
[2021-11-12] MEDS: CYANOCOBALAMIN 500 MCG TAB PO SCH (07:26)
[2021-11-12] MEDS: SERTRALINE 100 MG TAB PO SCH (07:27)
[2021-11-12] MEDS: TAMSULOSIN 0.4 MG CAP.ER.24H PO SCH ×2 (07:27→20:54)
[2021-11-12] MEDS: CLOPIDOGREL 75 MG TAB PO SCH (07:27)
[2021-11-12] MEDS: ASPIRIN 81 MG PO SCH (07:27)
[2021-11-12] MEDS: ISOSORBIDE MONONITRATE ER 30 MG TAB.ER.24H PO SCH (07:27)
[2021-11-12] MEDS: PANTOPRAZOLE 40 MG TABLET PO SCH (07:27)
[2021-11-12] MEDS: OSELTAMIVIR 75 MG CAP PO SCH ×2 (07:28→20:54)
[2021-11-12] MEDS: PATIENT'S OWN (Mirabegron [Myrbetriq] 50 MG Tablet) PO SCH (07:28)
[2021-11-12] MEDS: METOPROLOL TARTRATE 25 MG TAB PO SCH (07:28)
[2021-11-12] MEDS: IPRATROPIUM-ALBUTEROL 3 ML NEB INHALATION SCH ×4 (08:09→19:25)
[2021-11-12] MEDS: MEMANTINE 10 MG TAB PO SCH (20:54)
[2021-11-12] MEDS: OLANZapine 2.5 MG TAB PO SCH (20:54)
[2021-11-12] MEDS: lamoTRIgine 100 MG TAB PO SCH (20:54)
--- NOTE | 2021-11-12 23:28 | PN ---
PROGRESS NOTE DATE OF SERVICE: 11/12/2021. REASON FOR FOLLOWUP: Fever secondary to acute influenza A. INTERVAL HISTORY: The patient's overall has improved. The patient is feeling slightly better, breathing comfortably. The patient's cough has decreased intensity. The patient denies having any chest pain. No worsening cough or sputum production. No abdominal pain. No diarrhea. PHYSICAL EXAMINATION: Blood pressure 128/70 with a pulse of 74, temperature 97.6, he is 98% on 2 L nasal cannula. General description is an elderly male up in the chair in no distress. Respiratory system: Unlabored breathing, coarse breath sounds bilaterally. No wheeze. Heart S1, S2. Regular rate and rhythm. Abdomen soft, no tenderness. LABS: Culture remains to be negative. DIAGNOSTIC IMPRESSION AND PLAN: Patient with fever, cough with evidence of positive influenza A on the PCR. Patient to continue with Tamiflu. With no evidence of any bacterial infection, cefepime will be discontinued. Continue supportive care. MMODL / IJN: [id number] /
--- NOTE | 2021-11-13 01:36 | P.PN ---
Subjective Progress Note Date: 11/12/21 History of presenting complaint: pleasant 76-year-old patient of Dr. woo. Chronic stable medical conditions include: Coronary artery disease with a bypass, GERD, hyperlipidemia, history of colon cancer with surgery in 2004, colonic diverticulosis, hiatal hernia prior TIA. Patient presents 3 days of feeling rather weak. Decreased appetite. Bowels are okay. He is dizzy lightheaded. Patient didn't pass out. Wish for short period. Couldn't get up. Has had some fever and chills. Percent of cough for 3 days. Thick yellow sputum. Patient has received COVID-19 vaccine. Admitted with right basilar pneumonia. Acute medical asthenia. Started on IV ceftriaxone. November 08: Patient states that for some time spent having increasing pain in the lower extremity. Feels heavy. He is to walk quite a bit. Finding it more difficult. Urinary retention today. Some decrease in sputum output. Eating better. Neurology consulted. November 09: Patient had a MRI of the cervical and lumbar spine. Shows multilevel disease. Discussed with Dr. Lawrence from neurology. 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 We will get orthopedic spine to give opinion on the results of the MRI. Discussed with social economist. Hopefully can patient be discharged to [facility] tomorrow. Oral intake fair. Decreased respiration symptoms. November 10: Patient developed this fever of 101 last night. Pancultured. Ceftriaxone discontinued and started IV cefepime. Feeling warm and tired this morning. ID was consulted. Discharge has been held. Cough with sputum present. November 11: No more fever. The patient feels a bit warm. Had a computed tomography scan abdomen and pelvis that was unremarkable. Oral intake.. Still bringing up some sputum. 11/12/2021 Patient is seen this morning and feeling better although generally weak. Patient has been afebrile for 24 hours. ID following and patient has been started on Tamiflu for positive influenza A. IV antibiotics discontinued. Patient was evaluated by neurology and medically stable. Will observe overnight for any worsening symptoms and monitor closely. Anticipate discharge to [facility]CF in 24 hours. Review of systems: Was done for constitutional, cardiovascular, GI, pulmonary. relevant finding as above Active Medications Acetaminophen (Acetaminophen Tab 325 Mg Tab) 650 mg PO Q6HR PRN PRN Reason: Mild Pain or Fever > 100.5 Last Admin: 11/10/21 21:23 Dose: 650 mg Documented by: Albuterol/Ipratropium (Ipratropium-Albuterol 3 Ml Neb) 3 ml INHALATION RT-QID [facility] Last Admin: 11/12/21 19:25 Dose: Not Given Documented by: Ascorbic Acid (Ascorbic Acid 500 Mg Tab) 1,000 mg PO DAILY [facility] Last Admin: 11/12/21 07:26 Dose: 1,000 mg Documented by: Aspirin (Aspirin 81 Mg) 81 mg PO DAILY [facility] Last Admin: 11/12/21 07:27 Dose: 81 mg Documented by: Calcium Carbonate/Glycine (Calcium Carbonate 500 Mg Chewable) 1,000 mg PO Q4HR PRN PRN Reason: Dyspepsia Last Admin: 11/10/21 21:23 Dose: 1,000 mg Documented by: Cholecalciferol (Cholecalciferol 25 Mcg (1000 Iu) Tablet) 50 mcg PO DAILY [facility] Last Admin: 11/12/21 07:26 Dose: 50 mcg Documented by: Cholestyramine Resin (Cholestyramine (With Sugar) 4 Gm Packet) 4 gm PO DAILY [facility] Last Admin: 11/12/21 07:26 Dose: 4 gm Documented by: Clopidogrel Bisulfate (Clopidogrel 75 Mg Tab) 75 mg PO DAILY [facility] Last Admin: 11/12/21 07:27 Dose: 75 mg Documented by: Cyanocobalamin (Cyanocobalamin 500 Mcg Tab) 1,000 mcg PO DAILY [facility] Last Admin: 11/12/21 07:26 Dose: 1,000 mcg Documented by: Sodium Chloride (Saline 0.9%) 1,000 mls @ 50 mls/hr IV .Q20H [facility] Last Admin: 11/12/21 22:07 Dose: 50 mls/hr Documented by: Isosorbide Mononitrate (Isosorbide Mononitrate Er 30 Mg Tab.Er.24h) 30 mg PO DAILY [facility] Last Admin: 11/12/21 07:27 Dose: 30 mg Documented by: Lactulose (Lactulose 20 Gm/30 Ml Cup) 20 gm PO DAILY PRN PRN Reason: Constipation Lamotrigine (Lamotrigine 100 Mg Tab) 100 mg PO HS [facility] Last Admin: 11/12/21 20:54 Dose: 100 mg Documented by: Melatonin (Melatonin 3 Mg Tablet) 3 mg PO HS PRN PRN Reason: Insomnia Last Admin: 11/11/21 21:13 Dose: 3 mg Documented by: Memantine (Memantine 10 Mg Tab) 10 mg PO HS [facility] Last Admin: 11/12/21 20:54 Dose: 10 mg Documented by: Metoprolol Tartrate (Metoprolol Tartrate 25 Mg Tab) 25 mg PO DAILY [facility] Last Admin: 11/12/21 07:28 Dose: 25 mg Documented by: Naloxone HCl (Naloxone 0.4 Mg/Ml 1 Ml Vial) 0.2 mg IV Q2M PRN PRN Reason: Opioid Reversal Patient's Own ( Mirabegron [ Myrbetriq] 50 Mg Tablet) 50 mg PO DAILY [facility] Last Admin: 11/12/21 07:28 Dose: Not Given Documented by: Olanzapine (Olanzapine 2.5 Mg Tab) 2.5 mg PO [facility] Last Admin: 11/12/21 20:54 Dose: 2.5 mg Documented by: Oseltamivir Phosphate (Oseltamivir 75 Mg Cap) 75 mg PO Q12HR [facility] Stop: 11/16/21 09:01 Last Admin: 11/12/21 20:54 Dose: 75 mg Documented by: Pantoprazole Sodium (Pantoprazole 40 Mg Tablet) 40 mg PO DAILY [facility] Last Admin: 11/12/21 07:27 Dose: 40 mg Documented by: Sertraline HCl (Sertraline 100 Mg Tab) 100 mg PO DAILY [facility] Last Admin: 11/12/21 07:27 Dose: 100 mg Documented by: Tamsulosin HCl (Tamsulosin 0.4 Mg Cap.Er.24h) 0.4 mg PO BID [facility] Last Admin: 11/12/21 20:54 Dose: 0.4 mg Documented by: Physical examination: GENERAL: Sitting up in chair, awake, no acute distress, generalized malaise noted EYES: Pupils equal. Conjunctiva normal. HEENT: External appearance of nose and ears normal, oral cavity grossly normal. NECK: JVD not raised; masses not palpable. HEART: First and second heart sounds are normal; no edema. LUNGS: Respiratory rate normal; decreased breath sounds ABDOMEN: Soft, nontender, liver spleen not palpable, no masses palpable. PSYCH: Alert and oriented x3; mood and affect normal. NEUROLOGICAL: Cranial nerves grossly intact. diffusely weak Assessment and plan: -Right basal pneumonia. Suspect gram-negative organism. Was continued on IV antibiotics and ID following and started on tamiflu -Influenza A -gait dysfunctions with frequent fall. -mild hyerocephalus, probable normal pressure hydrocephalus bilateral lower extremity pain and weakness -multilevel disc degenerative joint disease -Coronary artery disease with CABG -GERD -hyperlipidemia -colonic diverticulosis history -Mild cognitive impairment -Anxiety/depression -BPH -GI prophylaxis -DVt prophylaxis -Full code Plan: Recommend t continue with current medications and IV hydration. Encouraged oral intake and increased activity as tolerated. Patient is being followed by ID as well and influenza A was positive and was continued on abx and Tamiflu. Patient is afebrile for over 24 hours and recommend close observation overnight with possible discharge to [facility] on discharge. Patient is a resident of [facility]. Anticipate discharge in 24 hours. Objective - Vital Signs Vital signs: Vital Signs Temp 97.5 F L 11/12/21 07:00 Pulse 63 11/12/21 07:00 Resp 20 11/12/21 07:00 BP 114/49 11/12/21 07:00 Pulse Ox 95 11/12/21 07:00 Intake & Output 11/11/21 11/12/21 11/12/21 18:59 06:59 18:59 Intake Total 118 Output Total 100 100 Balance 18 -100 Intake: Oral 118 Output: Urine 100 100 Other: Voiding Method Urinal Urinal Urinal Incontinent Incontinent Incontinent # Voids 1 2 - Labs CBC & Chem 7: 11/11/21 05:58 11/11/21 09:59 Labs: Abnormal Lab Results - Last 24 Hours (Table) 11/11/21 11/11/21 11/11/21 Range/Units 05:58 09:59 17:45 Chloride 108 H (98-107) mmol/L Carbon Dioxide 20 L (22-30) mmol/L Creatinine 0.55 L (0.66-1.25) mg/dL Calcium 8.3 L (8.4-10.2) mg/dL Procalcitonin 0.19 H (0.02-0.09) ng/mL Influenza Type A RNA Detected H (Not Detectd) Microbiology - Last 24 Hours (Table) 11/09/21 22:30 Blood Culture - Preliminary Blood No Growth after 48 hours
[2021-11-13] MEDS: IPRATROPIUM-ALBUTEROL 3 ML NEB INHALATION SCH ×3 (08:28→15:45)
[2021-11-13] MEDS: ASCORBIC ACID 500 MG TAB PO SCH (08:48)
[2021-11-13] MEDS: ISOSORBIDE MONONITRATE ER 30 MG TAB.ER.24H PO SCH (08:49)
[2021-11-13] MEDS: CLOPIDOGREL 75 MG TAB PO SCH (08:49)
[2021-11-13] MEDS: SERTRALINE 100 MG TAB PO SCH (08:49)
[2021-11-13] MEDS: CYANOCOBALAMIN 500 MCG TAB PO SCH (08:49)
[2021-11-13] MEDS: CHOLECALCIFEROL 25 MCG (1000 IU) TABLET PO SCH (08:49)
[2021-11-13] MEDS: PATIENT'S OWN (Mirabegron [Myrbetriq] 50 MG Tablet) PO SCH (08:49)
[2021-11-13] MEDS: OSELTAMIVIR 75 MG CAP PO SCH (08:49)
[2021-11-13] MEDS: ASPIRIN 81 MG PO SCH (08:49)
[2021-11-13] MEDS: METOPROLOL TARTRATE 25 MG TAB PO SCH (08:49)
[2021-11-13] MEDS: PANTOPRAZOLE 40 MG TABLET PO SCH (08:49)
[2021-11-13] MEDS: TAMSULOSIN 0.4 MG CAP.ER.24H PO SCH (08:49)
[2021-11-13] MEDS: CHOLESTYRAMINE (WITH SUGAR) 4 GM PACKET PO SCH (08:50)
--- NOTE | 2021-11-13 12:54 | P.DS ---
Providers Date of admission: 11/12/21 07:34 Expected date of discharge: 11/13/21 Attending physician: Rojas Bowens Consults: 11/08/21 09:41 Consult Physician Routine Consulting Provider: Kelly Avendano Consult Reason/Comments: weakness, fall, loss of bladder control Do you want consulting provider notified?: Yes 11/09/21 14:14 Consult Physician Routine Consulting Provider: Bakari Oswald Consult Reason/Comments: LE weakness/abnormal MRI Do you want consulting provider notified?: Yes 11/10/21 12:24 Consult Physician Routine Consulting Provider: Radha Mancini Consult Reason/Comments: Fever Do you want consulting provider notified?: Yes Primary care physician: Mark Wells [facility] Course: Final diagnosis -Possible Right basal pneumonia. Suspect gram-negative organism. -Influenza A -gait dysfunctions with frequent fall. -mild hyerocephalus, probable normal pressure hydrocephalus -bilateral lower extremity pain and weakness -multilevel disc degenerative joint disease -Coronary artery disease with CABG -GERD -hyperlipidemia -colonic diverticulosis history -Mild cognitive impairment -Anxiety/depression -BPH -GI prophylaxis -DVt prophylaxis -Full code Discharge disposition Patient is being discharged in a stable condition with guarded prognosis to [facility]. Patient will follow-up with Dr. Wells upon discharge. Patient will continue with a short course of Tamiflu 75 mg twice daily for the next 5 days and then may discontinue. Patient will also need outpatient neurosurgery follow-up. Total time taken is greater than 35 minutes. Hospital course This is 76-year-old male who was recently admitted with analyzed weakness with some dizziness and lightheadedness along with some associated fevers and chills and was being closely monitored. Infectious disease was following. Patient was found to have influenza A and is started on Tamiflu and will continue Tamiflu 75 mg twice daily for the next 5 days and then may discontinue. IV antibiotic therapy was discontinued. Patient was also seen and evaluated by neurology recommending neurosurgery follow-up in the outpatient setting as discussed. Currently no reports of chest pain, shortness of breath, or palpitations. Patient is afebrile. No reports of nausea or vomiting and patient is tolerating diet. Patient will be discharged to [facility] today.. Guarded prognosis. Physical examination: GENERAL: Sitting up in chair, awake, no acute distress, generalized malaise noted EYES: Pupils equal. Conjunctiva normal. HEENT: External appearance of nose and ears normal, oral cavity grossly normal. NECK: JVD not raised; masses not palpable. HEART: First and second heart sounds are normal; no edema. LUNGS: Respiratory rate normal; diminished breath sounds with no wheezing or rhonchi noted ABDOMEN: Soft, nontender, bowel sounds noted, no tenderness noted on palpation, no guarding or rigidity noted PSYCH: Alert and oriented x3; mood and affect normal. NEUROLOGICAL: Cranial nerves grossly intact. diffusely weak Please refer to medication reconciliation sheet for a list of medications. Patient Condition at Discharge: Fair Plan - Discharge Summary Discharge Rx Participant: No New Discharge Prescriptions: New Lactulose [Cephulac] 20 gm PO DAILY PRN ml PRN Reason: Constipation Ipratropium-Albuterol Nebulize [Duoneb 0.5 mg-3 mg/3 ml Soln] 3 ml INHALATION RT-QID ml Acetaminophen Tab [Tylenol] 650 mg PO Q6HR PRN tab PRN Reason: Mild Pain Or Fever > 100.5 Oseltamivir [Tamiflu] 75 mg PO Q12HR 5 Days #10 cap Calcium Carbonate [Tums] 1,000 mg PO Q4HR PRN tab PRN Reason: Dyspepsia Cyanocobalamin [Vitamin B-12] 1,000 mcg PO DAILY tab Continue Fluticasone Nasal [place] [Flonase Nasal [place]] 1 spray EA NOSTRIL DAILY Isosorbide Mononitrate ER [Imdur] 30 mg PO DAILY lamoTRIgine [LaMICtal] 100 mg PO HS #30 tab Memantine [Namenda] 10 mg PO HS #30 tab Cholecalciferol [Vitamin D3 (25 Mcg = 1000 Iu)] 50 mcg PO DAILY Sertraline [Zoloft] 100 mg PO DAILY Tamsulosin HCl [Flomax] 0.4 mg PO BID Clopidogrel [Plavix] 75 mg PO DAILY #30 tab Mirabegron [Myrbetriq] 50 mg PO DAILY Ascorbic Acid [Vitamin C] 1,000 mg PO DAILY OLANZapine [ZyPREXA] 2.5 mg PO HS Atorvastatin [Lipitor] 20 mg PO HS Aspirin EC [Ecotrin Low Dose] 81 mg PO DAILY Cholestyramine/Aspartame [Cholestyramine Light Packet] 4 gm PO DAILY Omeprazole 40 mg PO DAILY Melatonin 3 mg PO HS PRN PRN Reason: Insomnia Metoprolol Tartrate [Lopressor] 25 mg PO DAILY Discharge Medication List Fluticasone Nasal [place] [Flonase Nasal [place]] 1 spray EA NOSTRIL DAILY 06/21/15 [History] Isosorbide Mononitrate ER [Imdur] 30 mg PO DAILY 10/09/15 [History] Memantine [Namenda] 10 mg PO HS #30 tab 08/11/18 [Rx] lamoTRIgine [LaMICtal] 100 mg PO HS #30 tab 08/11/18 [Rx] Cholecalciferol [Vitamin D3 (25 Mcg = 1000 Iu)] 50 mcg PO DAILY 11/21/18 [History] Sertraline [Zoloft] 100 mg PO DAILY 12/17/18 [History] Tamsulosin HCl [Flomax] 0.4 mg PO BID 07/12/19 [History] Clopidogrel [Plavix] 75 mg PO DAILY #30 tab 11/09/19 [Rx] Ascorbic Acid [Vitamin C] 1,000 mg PO DAILY 11/07/21 [History] Aspirin EC [Ecotrin Low Dose] 81 mg PO DAILY 11/07/21 [History] Atorvastatin [Lipitor] 20 mg PO HS 11/07/21 [History] Cholestyramine/Aspartame [Cholestyramine Light Packet] 4 gm PO DAILY 11/07/21 [History] Melatonin 3 mg PO HS PRN 11/07/21 [History] Metoprolol Tartrate [Lopressor] 25 mg PO DAILY 11/07/21 [History] Mirabegron [Myrbetriq] 50 mg PO DAILY 11/07/21 [History] OLANZapine [ZyPREXA] 2.5 mg PO HS 11/07/21 [History] Omeprazole 40 mg PO DAILY 11/07/21 [History] Acetaminophen Tab [Tylenol] 650 mg PO Q6HR PRN tab 11/13/21 [Rx] Calcium Carbonate [Tums] 1,000 mg PO Q4HR PRN tab 11/13/21 [Rx] Cyanocobalamin [Vitamin B-12] 1,000 mcg PO DAILY tab 11/13/21 [Rx] Ipratropium-Albuterol Nebulize [Duoneb 0.5 mg-3 mg/3 ml Soln] 3 ml INHALATION RT-QID ml 11/13/21 [Rx] Lactulose [Cephulac] 20 gm PO DAILY PRN ml 11/13/21 [Rx] Oseltamivir [Tamiflu] 75 mg PO Q12HR 5 Days #10 cap 11/13/21 [Rx] Follow up Appointment(s)/Referral(s): Mark Wells DO [Primary Care Provider] - 1-2 days JIGAR NEWTON DO [REFERRING] - 1 Week Activity/Diet/Wound Care/Special Instructions: The patient has been recommended to follow up with neurosurgery on outpatient basis and I think that is appropriate. He can follow-up with Dr. Parks. Who is a neurosurgeon at [place] with [employer] or he states that he has been given a referral for [facility] neurosurgery which would also be appropriate. Patient is returning to [facility] Activity as tolerated Continue taking Tamiflu twice daily for the next 5 days and then may discontinue Continue with Tylenol as needed Encourage fluids and rest Continue heart healthy diet Discharge Disposition: TRANSFER TO SNF/ECF
--- NOTE | 2021-11-13 13:26 | PN ---
PROGRESS NOTE DATE OF SERVICE: November 13, 2021. REASON FOR FOLLOWUP: acute influenza. INTERVAL HISTORY: The patient is afebrile. The patient is breathing slightly comfortably. The patient continues to have a cough with occasional sputum which is clear. Denies any chest pain. No abdominal pain. No diarrhea. PHYSICAL EXAMINATION: Blood pressure 135/76, pulse of 52, temperature 98.2. He is 95% on room air. General description is an elderly male up in the bed in no distress. Respiratory system: Unlabored breathing, coarse breath sounds in the bases. Heart S1, S2. Regular rate and rhythm. Abdomen soft, no tenderness. LABS: No new labs have been obtained today. DIAGNOSTIC IMPRESSION AND PLAN: Patient with fever acute influenza. Plan is for a total of five-day course of Tamiflu. No need for antibiotic on discharge. Continue supportive care. MMODL / IJN: [id number] /
[2021-11-13 14:30] VITALS: BP 120/67; PULSE 56; RESP 20; TEMP 97.8
== END 2021-11-13 16:34 | DRG 194 ==
LOC: EC 08:39 → 6NMEDSUR 12:14 → OBSVTOIN 11-12 07:34
PROVIDERS: ADMIT Hospitalist; ATTEND Hospitalist
DX: J09.X2 Influenza due to identified novel influenza A virus with other respiratory manifestations (principal); G91.2 (Idiopathic) normal pressure hydrocephalus; R55 Syncope and collapse; J15.6 Pneumonia due to other Gram-negative bacteria; E78.5 Hyperlipidemia, unspecified; F03.90 Unspecified dementia, unspecified severity, without behavioral disturbance, psychotic disturbance, mood disturbance, and anxiety; F32.A Depression, unspecified; F40.240 Claustrophobia; F43.10 Post-traumatic stress disorder, unspecified; I11.0 Hypertensive heart disease with heart failure; I25.10 Atherosclerotic heart disease of native coronary artery without angina pectoris; I25.2 Old myocardial infarction; I50.9 Heart failure, unspecified; J32.2 Chronic ethmoidal sinusitis; J32.3 Chronic sphenoidal sinusitis; K21.9 Gastro-esophageal reflux disease without esophagitis; K44.9 Diaphragmatic hernia without obstruction or gangrene; R53.1 Weakness; K57.30 Diverticulosis of large intestine without perforation or abscess without bleeding; R53.81 Other malaise; M19.90 Unspecified osteoarthritis, unspecified site; I08.3 Combined rheumatic disorders of mitral, aortic and tricuspid valves; M48.061 Spinal stenosis, lumbar region without neurogenic claudication; M51.26 Other intervertebral disc displacement, lumbar region; M51.36 Other intervertebral disc degeneration, lumbar region; N40.1 Benign prostatic hyperplasia with lower urinary tract symptoms; R29.6 Repeated falls; R33.8 Other retention of urine; W19.XXXA Unspecified fall, initial encounter; Y92.009 Unspecified place in unspecified non-institutional (private) residence as the place of occurrence of the external cause; Z79.02 Long term (current) use of antithrombotics/antiplatelets; Z79.82 Long term (current) use of aspirin; Z79.899 Other long term (current) drug therapy; Z85.038 Personal history of other malignant neoplasm of large intestine; Z86.73 Personal history of transient ischemic attack (TIA), and cerebral infarction without residual deficits; Z87.891 Personal history of nicotine dependence; Z95.1 Presence of aortocoronary bypass graft; Z87.19 Personal history of other diseases of the digestive system
CPT/HCPCS: 36415; 70450; 71045; 72125; 72141; 72148; 74177; 78452; 80048; 81003; 82607; 82746; 83605; 83735; 83880; 83921; 84145; 84484; 85025; 85610; 85730; 87040; 87502; 87635; 93005; 93017; 93306; 94640; 96374; 99285

== ENCOUNTER 2022-05-18 11:03 | Emergency (ER) | payer MEDICARE, OTHER ==
--- NOTE | 2022-05-18 11:57 | ED ---
Extremity Problem HPI - General Chief complaint: Extremity Problem,Nontraumatic Stated complaint: Poss blood clot/fall Time Seen by Provider: 05/18/22 11:55 Source: patient, RN notes reviewed Mode of arrival: ambulatory Limitations: no limitations - History of Present Illness Initial comments: Patient is a 77-year-old male presents emergency room at the direction of urgent care for evaluation of swelling tenderness and redness to his left low er extremity. He reports that he tripped and fell 3 days ago during the night and since that time he has no some increase in redness and swelling. He does report that he has chronic lower extremity swelling but that his left leg is more swollen than normal. There is tenderness over the erythemic portion but he denies any warmth. He states the swelling is fluctuating some but has been fairly persistent over the last few days. He does have a past medical history significant for coronary artery disease with quadruple bypass, he is on aspirin and Plavix; he has not on any diuretics for heart failure. He also has a past medical history of diabetes, hypertension CVA with mild memory impairment and mild dysphaGia and hyperlipidemia along with BPH. He denies any previous DVT or PE. He denies any shortness of breath, chest pain, cough, diaphoresis, headaches or dizziness. He denies any other complaints or concerns at this time. - Related Data Home Medications Medication Instructions Recorded Confirmed Fluticasone Nasal Roy [Flonase 1 spray EA NOSTRIL DAILY 06/21/15 11/07/21 Nasal Roy] Isosorbide Mononitrate ER [Imdur] 30 mg PO DAILY 10/09/15 11/07/21 Cholecalciferol [Vitamin D3 (25 50 mcg PO DAILY 11/21/18 11/07/21 Mcg = 1000 Iu)] Sertraline [Zoloft] 100 mg PO DAILY 12/17/18 11/07/21 Tamsulosin HCl [Flomax] 0.4 mg PO BID 07/12/19 11/07/21 Ascorbic Acid [Vitamin C] 1,000 mg PO DAILY 11/07/21 11/07/21 Aspirin EC [Ecotrin Low Dose] 81 mg PO DAILY 11/07/21 11/07/21 Atorvastatin [Lipitor] 20 mg PO HS 11/07/21 11/07/21 Cholestyramine/Aspartame 4 gm PO DAILY 11/07/21 11/07/21 [Cholestyramine Light Packet] Melatonin 3 mg PO HS PRN 11/07/21 11/07/21 Metoprolol Tartrate [Lopressor] 25 mg PO DAILY 11/07/21 11/07/21 Mirabegron [Myrbetriq] 50 mg PO DAILY 11/07/21 11/07/21 OLANZapine [ZyPREXA] 2.5 mg PO HS 11/07/21 11/07/21 Omeprazole 40 mg PO DAILY 11/07/21 11/07/21 Previous Rx's Medication Instructions Recorded Memantine [Namenda] 10 mg PO HS #30 tab 08/11/18 lamoTRIgine [LaMICtal] 100 mg PO HS #30 tab 08/11/18 Clopidogrel [Plavix] 75 mg PO DAILY #30 tab 11/09/19 Acetaminophen Tab [Tylenol] 650 mg PO Q6HR PRN tab 11/13/21 Calcium Carbonate [Tums] 1,000 mg PO Q4HR PRN tab 11/13/21 Cyanocobalamin [Vitamin B-12] 1,000 mcg PO DAILY tab 11/13/21 Ipratropium-Albuterol Nebulize 3 ml INHALATION RT-QID ml 11/13/21 [Duoneb 0.5 mg-3 mg/3 ml Soln] Lactulose [Cephulac] 20 gm PO DAILY PRN ml 11/13/21 Oseltamivir [Tamiflu] 75 mg PO Q12HR 5 Days #10 cap 11/13/21 Furosemide [Lasix] 40 mg PO DAILY 5 Days #5 tablet 05/18/22 Allergies Allergy/AdvReac Type Severity Reaction Status Date / Time No Known Allergies Allergy Verified 11/07/21 10:07 Review of Systems ROS Statement: Those systems with pertinent positive or pertinent negative responses have been documented in the HPI. ROS Other: All systems not noted in ROS Statement are negative. Past Medical History Past Medical History: Coronary Artery Disease (CAD), Cancer, CVA/TIA, Eye Disorder, GERD/Reflux, Hyperlipidemia, Memory Impairment, Myocardial Infarction ([place]) Additional Past Medical History / Comment(s): DYSPHAGIA, CHRONIC DRY COUGH, HX COLON CANCER-2004 WITH SURGERY., DIVERTICULAR DISORDER, Hiatal Hernia, TIA'S , CATARACT RIGHT EYE., MILD DEMENTIA. , PROBLEMS WITH BALANCE- USES CANE. Last Myocardial Infarction Date:: 2009 History of Any Multi-Drug Resistant Organisms: None Reported Past Surgical History: Bowel Resection, Cholecystectomy, Coronary Bypass/CABG, Heart Catheterization, Hernia Repair Additional Past Surgical History / Comment(s): QUAD CABG (MPH 2009), Umbilical hernia repair, DEVIATED SEPTUM REPAIR/SPUR REMOVED from nose, Past Anesthesia/Blood Transfusion Reactions: Motion Sickness, Postoperative Nausea & Vomiting (PONV) Additional Past Anesthesia/Blood Transfusion Reaction / Comment(s): PONV X1. Claustrophobic Past Psychological History: Anxiety, Depression, PTSD Smoking Status: Former smoker Past Alcohol Use History: None Reported Past Drug Use History: None Reported - Past Family History Son(s) Family Medical History: Cancer Father Family Medical History: Blood Disorder Additional Family Medical History / Comment(s): from a blood disorder Mother Family Medical History: Diabetes Mellitus Additional Family Medical History / Comment(s): age 53 -complications from dm Sister(s) Family Medical History: Diabetes Mellitus General Exam Limitations: no limitations General appearance: alert, in no apparent distress Head exam: Present: atraumatic Eye exam: Present: normal appearance, PERRL, EOMI. Absent: scleral icterus, conjunctival injection, periorbital swelling ENT exam: Present: normal exam Neck exam: Present: normal inspection Respiratory exam: Present: normal lung sounds bilaterally. Absent: respiratory distress, wheezes, rales, rhonchi, stridor Cardiovascular Exam: Present: regular rate, normal rhythm, normal heart sounds. Absent: systolic murmur, diastolic murmur, rubs, gallop, clicks GI/Abdominal exam: Present: soft, normal bowel sounds. Absent: distended, tend erness, guarding, rebound, rigid Extremities exam: Present: pedal edema Left Lower Leg exam: Present: tenderness, swelling, erythema Ankle exam: Present: normal inspection, swelling Foot/Toe exam: Present: normal inspection, swelling Neurological exam: Present: alert, oriented X3, CN II-XII intact Psychiatric exam: Present: normal affect, normal mood Skin exam: Present: other (Erythremia left lower leg primarily to the anterior portion but slightly circumferential small abrasion noted to left anterior leg without evidence of infection healing well. Dry scaling patch lateral lower leg consistent with old vascular healed wound.) Course Vital Signs 05/18/22 11:14 Temperature 97.8 F Pulse Rate 56 L Respiratory 16 Rate Blood Pressure 128/68 O2 Sat by Pulse 97 Oximetry Medical Decision Making - Medical Decision Making Ultrasound of lower extremity negative for DVT. Given trauma will check x-ray to rule out fracture. Suspect vascular insufficiency. Will check CBC and BMP. 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 Labs unremarkable. X-ray tib-fib negative for fracture or dislocation. Will discharge home on oral Lasix and advised to follow-up with primary care provider. Case discussed with Dr. Euceda. - Lab Data Result diagrams: 05/18/22 12:18 05/18/22 12:18 Lab Results 05/18/22 05/18/22 Range/Units 12:18 12:18 WBC 5.0 (3.8-10.6) k/uL RBC 4.79 (4.30-5.90) m/uL Hgb 14.5 (13.0-17.5) gm/dL Hct 44.2 (39.0-53.0) % MCV 92.4 (80.0-100.0) fL MCH 30.3 (25.0-35.0) pg MCHC 32.8 (31.0-37.0) g/dL RDW 13.9 (11.5-15.5) % Plt Count 201 (150-450) k/uL MPV 7.2 Sodium 139 (137-145) mmol/L Potassium 4.8 (3.5-5.1) mmol/L Chloride 109 H (98-107) mmol/L Carbon Dioxide 23 (22-30) mmol/L Anion Gap 7 mmol/L BUN 18 (9-20) mg/dL Creatinine 0.66 (0.66-1.25) mg/dL Est GFR (CKD-EPI)AfAm >90 (>60 ml/min/1.73 sqM) Est GFR (CKD-EPI)NonAf >90 (>60 ml/min/1.73 sqM) Glucose 103 H (74-99) mg/dL Calcium 9.0 (8.4-10.2) mg/dL - Radiology Data Radiology results: report reviewed, image reviewed Ultrasound of left lower extremity negative for DVT. X-ray tib-fib left negative for acute fractures or dislocation. Disposition Clinical Impression: Edema of lower extremity Disposition: HOME SELF-CARE Condition: Fair Instructions (If sedation given, give patient instructions): Leg Edema (ED) Additional Instructions: Please complete course of Lasix. Follow-up with her primary care provider. Elevate lower extremity when possible. Please follow a low-salt diet. Please return to the Emergency Department if symptoms worsen or any other concerns. Prescriptions: Furosemide [Lasix] 40 mg PO DAILY 5 Days #5 tablet Is patient prescribed a controlled substance at d/c from ED?: No Referrals: Mark eWlls DO [Primary Care Provider] - 1-2 days Time of Disposition: 13:57
--- NOTE | 2022-05-18 12:11 | US ---
EXAMINATION TYPE: US venous doppler duplex LE LT DATE OF EXAM: 05/18/2022 11:51 AM COMPARISON: NONE CLINICAL HISTORY: Rule out DVT. lt leg pain patient fell x 5 days ago SIDE PERFORMED: Left TECHNIQUE: The lower extremity deep venous system is examined utilizing real time linear array sonog anjali with graded compression, doppler sonography and color-flow sonography. VESSELS IMAGED: Common Femoral Vein Deep Femoral Vein Greater Saphenous Vein * Femoral Vein Popliteal Vein Small Saphenous Vein * Proximal Calf Veins (* superficial vessels) Left Leg: Negative for DVT IMPRESSION: No evidence of DVT
--- NOTE | 2022-05-18 12:55 | XR ---
EXAMINATION TYPE: XR tibia fibula LT DATE OF EXAM: 05/18/2022 CLINICAL HISTORY: pain TECHNIQUE: AP and lateral images of the left tibia and fibula are obtained. COMPARISON: None. FINDINGS: There is no acute fracture/dislocation evident. The joint spaces appear within normal jeffery its. The overlying soft tissue appears unremarkable. IMPRESSION: There is no acute fracture or dislocation seen. ICD 10 NO FRACTURE, INITIAL EVALUATION
[2022-05-18 12:58] LABS: African American GFR (CKD) >90 (>60 ml/min/1.73 sqM); Anion Gap 7 mmol/L; Blood Urea Nitrogen 18 mg/dL (9-20); Carbon Dioxide 23 mmol/L (22-30); Chloride 109 mmol/L (98-107); Glucose 103 mg/dL (74-99); Non-African American GFR(CKD) >90 (>60 ml/min/1.73 sqM); Potassium 4.8 mmol/L (3.5-5.1); Sodium 139 mmol/L (137-145)
[2022-05-18 13:01] LABS: HCT 44.2 % (39.0-53.0); HGB 14.5 gm/dL (13.0-17.5); MCH 30.3 pg (25.0-35.0); MCHC 32.8 g/dL (31.0-37.0); MCV 92.4 fL (80.0-100.0); Mean Platelet Volume 7.2; Platelet Count 201 k/uL (150-450); RBC 4.79 m/uL (4.30-5.90); RDW 13.9 % (11.5-15.5)
[2022-05-18 14:52] VITALS: BP 129/70; PULSE 60; RESP 18; TEMP 98
== END 2022-05-18 14:30 | disposition home or self-care (01) ==
LOC: EC 11:03
DX: R60.0 Localized edema (principal); S80.812A Abrasion, left lower leg, initial encounter; I25.10 Atherosclerotic heart disease of native coronary artery without angina pectoris; I25.2 Old myocardial infarction; K21.9 Gastro-esophageal reflux disease without esophagitis; E78.5 Hyperlipidemia, unspecified; F32.A Depression, unspecified; F41.9 Anxiety disorder, unspecified; Z87.891 Personal history of nicotine dependence; Z86.73 Personal history of transient ischemic attack (TIA), and cerebral infarction without residual deficits; Z95.5 Presence of coronary angioplasty implant and graft; Z79.82 Long term (current) use of aspirin; Z79.899 Other long term (current) drug therapy; W01.0XXA Fall on same level from slipping, tripping and stumbling without subsequent striking against object, initial encounter
CPT/HCPCS: 36415; 80048; 85027; 99284

== ENCOUNTER → 2022-08-13 | Day surgery (SDC) | payer MEDICARE, OTHER ==
[~2022-08-13] MED LIST changes: +ALPRAZolam 0.25 MG TAB PO PRN; +ALPRAZolam 0.5 MG TAB PO PRN; +ASPIRIN 325 MG TAB PO STA; +ASPIRIN 81 MG PO SCH; +ATORVASTATIN 40 MG TAB PO SCH; +ATORVASTATIN 80 MG TAB PO STA; +ATROPINE SULFATE 0.1 MG/ML 10ML SYRINGE IV PRN; +CLOPIDOGREL 75 MG TAB PO SCH; +HEPARIN SODIUM 1,000 UN/ML (10ML VL) ONE; +HEPARIN SODIUM,PORCINE 10,000 UNIT in SODIUM CHLORIDE 0.9% 1,000 ML IRRIGATION PRN; +HEPARIN SODIUM,PORCINE 2,500 UNIT in SODIUM CHLORIDE 0.9% 250 ML IRRIGATION PRN; +IOPAMIDOL-370 100ML BTL INJ ONE; +IOPAMIDOL-370 125ML BTL INJ ONE; +ISOSORBIDE MONONITRATE ER 30 MG TAB.ER.24H PO SCH; +ISOSORBIDE MONONITRATE ER 30 MG TAB.ER.24H PO STA; -LACTATED RINGERS 1,000 ML IV SCH; -LIDOCAINE 1% 20 ML VIAL (10MG/ML) FOR IV START INTRADERMA PRN; -LIDOCAINE 1% INJ 10MG/ML (20 ML MDV) ONE; +LIDOCAINE 1% INJ 10MG/ML (30 ML VIAL-PF) SQ ONE; +MAG HYDROX/AL HYDROX/SIMETH 30 ML CUP PO PRN; +MIDAZOLAM 2 MG/2 ML VIAL IV ONE; +NITROGLYCERIN SL TABS 0.4 MG TAB SUBLINGUAL PRN; -PROPOFOL 10 MG/ML 20 ML VIAL IV ONE; +RX INFO: IV CONTRAST WAS GIVEN 1 EACH MISC MISCELLANE PRN; +SODIUM CHLORIDE 0.9% 1,000 ML IV ONE; +SODIUM CHLORIDE 0.9% 1,000 ML in EMPTY BAG 1 BAG IV SCH; +VERAPAMIL 2.5 MG/ML 2 ML AMP ONE; +VERAPAMIL SYRINGE (5 MG/10 ML) INTRAARTER ONE; +ZOLPIDEM 5 MG TAB PO PRN; +fentaNYL (PF) 50 MCG/ML 2 ML AMP IV ONE; +fentaNYL (PF) 50 MCG/ML 2 ML AMP ONE
[2022-08-13 11:14] LABS: Basophils % (A) 0 %; Eosinophils # (A) 0.1 k/uL (0-0.7); Eosinophils % (A) 2 %; HCT 50.4 % (39.0-53.0); Lymphocytes # (A) 0.9 k/uL (1.0-4.8); Lymphocytes % (A) 21 %; MCHC 33.7 g/dL (31.0-37.0); Mean Platelet Volume 7.5; Monocytes # (A) 0.3 k/uL (0-1.0); Monocytes % (A) 7 %; Neutrophils % (A) 67 %; Platelet Count 177 k/uL (150-450); RBC 5.48 m/uL (4.30-5.90); RDW 13.8 % (11.5-15.5); WBC 4.5 k/uL (3.8-10.6)
[2022-08-13 11:15] VITALS: RESP 16; TEMP 98.1
[2022-08-13 11:25] LABS: African American GFR (CKD) >90 (>60 ml/min/1.73 sqM); Anion Gap 13 mmol/L; Blood Urea Nitrogen 17 mg/dL (9-20); Calcium 9.1 mg/dL (8.4-10.2); Carbon Dioxide 20 mmol/L (22-30); Chloride 107 mmol/L (98-107); Glucose 90 mg/dL (74-99); Non-African American GFR(CKD) >90 (>60 ml/min/1.73 sqM); Potassium 4.7 mmol/L (3.5-5.1); Sodium 140 mmol/L (137-145)
[2022-08-13] MEDS: HEPARIN SODIUM 1,000 UN/ML (10ML VL) IV ONE ×3 (12:33→13:14)
[2022-08-13 17:22] VITALS: BP 105/63; PULSE 55
--- NOTE | 2022-08-13 21:40 | P.PRCINT ---
Percutaneous Coronary Int. - Percutaneous Coronary Intervention Percutaneous Coronary Intervention: PROCEDURES PERFORMED: Left heart catheterization, bilateral coronary angiography, SVG to PDA angiography, BELL to LAD angiography, aortic root angiography, PCI circumflex with a 3.0 x 23mm Xience LADI INDICATION: Abnormal stress test, MEDINA CONSENT:I have discussed the risks, benefits and alternative therapies for the above-mentioned procedure and for both sedation/analgesia as well as necessary blood product administration, if indicated, as they pertain to this patient. The patient has indicated understanding and acceptance of the risks and procedures discussed. PROCEDURE: After the risks, benefits and alternatives of the above mentioned procedure explained in detail with the patient, informed consent was obtained. Patient was taken to the catheterization lab and prepped and draped in usual fashion. 1% lidocaine was used to anesthetize the left radial artery. A 6- Kenyan sheath was placed in the left radial artery using modified Seldinger technique. Left coronary angiography was performed with a 5-Kenyan JL 4.0 catheter and right coronary angiography was performed with a 5-Kenyan JR4 catheter in various views. SVG to PDA angiography was performed with a FR4 catheter. BELL to LAD angiography was performed with a 6FR OLYA catheter. A 5- Kenyan FR5 catheter was inserted into the left ventricle and pressure measurements were obtained. Aortic root angiography was performed with a 6Fr pigtail catheter in the WHITAKER projection which showed no remaining SVG grafts. The decision was made to perform PCI of the circumflex. Heparin was given. A 6-Kenyan CLS 3.0 guide was used to engage left main. A 0.014 BMW wire was advanced into the distal circumflex. Pre dilation was performed with a 2.5 x 8mm balloon. The distal circumflex was wired with a 0.014 whisper wire which was able to more easily make the bend. Next a 3.0 x 23mm Xience LADI was deployed at the mid circumflex. Pre intervention there was KANIKA 3 flow and 95% stenosis and post intervention there was 0% stenosis and KANIKA 3 flow. The left radial sheath was removed and a TR band was placed with hemostasis achieved. The patient tolerated the procedure well. Patient was transported back to the post catheterization holding area in stable condition. Conscious Sedation: Patient was monitored under the direct supervision of vision of myself for conscious sedation using Versed and fentanyl for a total duration of 60 minutes HEMODYNAMICS: Ao: 127/81 LV: 124/0, LVEDP 3 SELECTIVE CORONARY ARTERIOGRAPHY: LEFT MAIN: The left main is a large caliber vessel which bifurcates into the LAD and circumflex. There is a distal left main 30-40% left main stenosis. LEFT ANTERIOR DESCENDING CORONARY ARTERY: LAD is a large caliber vessel which wraps around to the apex. There is a proximal LAD mild 10-20% stenosis and immediately after a moderate caliber diagonal branch there is a 100% mid LAD stenosis. LEFT CIRCUMFLEX CORONARY ARTERY: Left circumflex is a moderate caliber vessel with proximal/ ostial circumflex 50% stenosis. The mid to distal circumflex has a 95% stenosis. There are left to right collaterals. RIGHT CORONARY ARTERY: The right coronary artery is a moderate to large caliber vessel which gives off a PDA and PLV branch and is the dominant vessel. There is diffuse long 80-90% proximal and mid RCA stenosis with a 100% mid RCA stenosis. BELL to LAD: widely patent. There are left to right collaterals to the RCA SVG to PDA: occluded SVG to OM1: occluded SVG to OM2: occluded Aortic angiorgaphy: no dissection or aneurysm, no patent SVG grafts FINAL IMPRESSION: 1. [place] CAD as described above including 30-40% left main, 100% mid LAD, 50% ostial circumflex, 95% small caliber OM1, 95% mid circumflex into OM2, 100% mid RCA stenosis. 2. Patent BELL to LAD and occluded SVG to OM1, SVG to OM2 and SVG to PDA with left to right collaterals 3. S/p PCI circumflex with a 3.0 x 23mm Xience LADI 4. Low normal left sided filling pressures PLAN: 1. Aggressive risk factor modification per most recent ACC/AHA guidelines. 2. Continue dual antiplatelets for 12 months with aspirin and Plavix 3. 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 Likely treat OM1 stenosis medically which is small caliber.
== END ==
LOC: CATHCVL 10:21
PROVIDERS: ATTEND Internal Medicine
DX: I25.10 Atherosclerotic heart disease of native coronary artery without angina pectoris (principal); I25.810 Atherosclerosis of coronary artery bypass graft(s) without angina pectoris; I25.82 Chronic total occlusion of coronary artery; I10 Essential (primary) hypertension; I25.2 Old myocardial infarction; E78.5 Hyperlipidemia, unspecified; F43.10 Post-traumatic stress disorder, unspecified; I25.5 Ischemic cardiomyopathy; K44.9 Diaphragmatic hernia without obstruction or gangrene; R35.0 Frequency of micturition; F03.90 Unspecified dementia, unspecified severity, without behavioral disturbance, psychotic disturbance, mood disturbance, and anxiety; M79.652 Pain in left thigh; M79.651 Pain in right thigh; Z79.02 Long term (current) use of antithrombotics/antiplatelets; Z79.82 Long term (current) use of aspirin; Z79.899 Other long term (current) drug therapy
CPT/HCPCS: 93459; 80048; 85025; 87635; C1769 ×4; C9600; C1887; C1894; C1725; J2250; J2001; J3010; J1644; Q9967 ×2

== ENCOUNTER 2022-08-28 09:51 | Emergency (ER) | payer MEDICARE, OTHER ==
[2022-08-28] MEDS ORDERED: HYDROcodone/APAP 5-325MG 1 EACH TAB PO STA ×2 (12:14→14:02)
--- NOTE | 2022-08-28 13:07 | US ---
EXAMINATION TYPE: US venous doppler duplex LE LT DATE OF EXAM: 08/28/2022 12:56 PM COMPARISON: US CLINICAL HISTORY: pain, swelling. Left leg pain and swelling/ no known prior DVT SIDE PERFORMED: Left TECHNIQUE: The lower extremity deep venous system is examined utilizing real time linear array sonog anjali with graded compression, doppler sonography and color-flow sonography. VESSELS IMAGED: Common Femoral Vein Deep Femoral Vein Greater Saphenous Vein * Femoral Vein Popliteal Vein Small Saphenous Vein * Proximal Calf Veins (* superficial vessels) Left Leg: Negative for DVT Grayscale, color doppler, spectral doppler imaging performed of the deep veins of the lower extremiti es. There is normal flow, compressibility, vascular waveforms. IMPRESSION: Negative for DVT
[2022-08-28 13:10] VITALS: RESP 17
[2022-08-28] MEDS ORDERED: ACET/COD 300 MG/30 MG STARTER PACK 6 TAB BTL PO STA (13:57)
--- NOTE | 2022-08-28 13:57 | ED ---
Extremity Problem HPI - General Chief complaint: Extremity Problem,Nontraumatic Stated complaint: leg swelling Time Seen by Provider: 08/28/22 11:53 Source: patient, RN notes reviewed Mode of arrival: wheelchair Limitations: no limitations - History of Present Illness Initial comments: This is a 77-year-old male presents emergency dept with chief complaint of left leg pain, swelling. He states she's been dealing with swelling for the last few weeks but states has worsened to the point is very painful today. 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 Patient states pain has brought him in today. Denies any chest pain or shortness breath denies any trauma. No discoloration denies fevers or chills. Denies any associated weakness or paresthesias. - Related Data Home Medications Medication Instructions Recorded Confirmed Fluticasone Nasal [place] [Flonase 1 spray EA NOSTRIL DAILY 06/21/15 08/28/22 Nasal [place]] Isosorbide Mononitrate ER [Imdur] 30 mg PO DAILY 10/09/15 08/28/22 Sertraline [Zoloft] 100 mg PO DAILY 12/17/18 08/28/22 Tamsulosin HCl [Flomax] 0.4 mg PO BID 07/12/19 08/28/22 Aspirin EC [Ecotrin Low Dose] 81 mg PO DAILY 11/07/21 08/28/22 Atorvastatin [Lipitor] 20 mg PO DAILY 11/07/21 08/28/22 Melatonin 3 mg PO HS PRN 11/07/21 08/28/22 Metoprolol Tartrate [Lopressor] 25 mg PO HS 11/07/21 08/28/22 OLANZapine [ZyPREXA] 2.5 mg PO HS 11/07/21 08/28/22 Omeprazole 40 mg PO DAILY 11/07/21 08/28/22 Clopidogrel [Plavix] 75 mg PO DAILY 08/12/22 08/28/22 Cholecalciferol [Vitamin D3 (25 50 mcg PO DAILY 08/28/22 08/28/22 Mcg = 1000 Iu)] Cholestyramine (with Sugar) 4 gm PO DAILY 08/28/22 08/28/22 [Cholestyramine Packet] Previous Rx's Medication Instructions Recorded Memantine [Namenda] 10 mg PO HS #30 tab 08/11/18 lamoTRIgine [LaMICtal] 100 mg PO HS #30 tab 08/11/18 Allergies Allergy/AdvReac Type Severity Reaction Status Date / Time No Known Allergies Allergy Verified 08/28/22 12:48 Review of Systems ROS Statement: Those systems with pertinent positive or pertinent negative responses have been documented in the HPI. ROS Other: All systems not noted in ROS Statement are negative. Past Medical History Past Medical History: Coronary Artery Disease (CAD), Cancer, CVA/TIA, Eye Disorder, GERD/Reflux, Hyperlipidemia, Memory Impairment, Myocardial Infarction ([place]), Pneumonia, Prostate Disorder Additional Past Medical History / Comment(s): DYSPHAGIA, CHRONIC DRY COUGH, HX COLON CANCER-2004 WITH SURGERY., DIVERTICULAR DISORDER, Hiatal Hernia, TIA'S , CATARACT RIGHT EYE., MILD DEMENTIA. , PROBLEMS WITH BALANCE- USES CANE. HAVING PAINS IN BILAT LEGS AND FATIGUE Last Myocardial Infarction Date:: UNKNOWN History of Any Multi-Drug Resistant Organisms: None Reported Past Surgical History: Bowel Resection, Cholecystectomy, Coronary Bypass/CABG, Heart Catheterization, Hernia Repair Additional Past Surgical History / Comment(s): QUAD CABG ([facility] 2009), Umbilical hernia repair, DEVIATED SEPTUM REPAIR/SPUR REMOVED from nose, Past Anesthesia/Blood Transfusion Reactions: Motion Sickness, Postoperative Nausea & Vomiting (PONV) Additional Past Anesthesia/Blood Transfusion Reaction / Comment(s): PONV X1. Claustrophobic Past Psychological History: Anxiety, Depression, PTSD Smoking Status: Former smoker Past Alcohol Use History: None Reported Past Drug Use History: None Reported - Past Family History Son(s) Family Medical History: Cancer Father Family Medical History: Blood Disorder Additional Family Medical History / Comment(s): from a blood disorder Mother Family Medical History: Diabetes Mellitus Additional Family Medical History / Comment(s): age 53 -complications from dm Sister(s) Family Medical History: Diabetes Mellitus General Exam Limitations: no limitations General appearance: alert, in no apparent distress Head exam: Present: atraumatic, normocephalic, normal inspection Eye exam: Present: normal appearance, PERRL, EOMI. Absent: scleral icterus, conjunctival injection, periorbital swelling Neck exam: Present: normal inspection. Absent: tenderness, meningismus, lymphad enopathy Respiratory exam: Present: normal lung sounds bilaterally. Absent: respiratory distress, wheezes, rales, rhonchi, stridor Cardiovascular Exam: Present: regular rate, normal rhythm, normal heart sounds. Absent: systolic murmur, diastolic murmur, rubs, gallop, clicks Extremities exam: Present: other (Left lower extremity there is notable swelling, mild tenderness pulses are strong and equal bilaterally, no increase in warmth) Course Vital Signs 08/28/22 08/28/22 08/28/22 10:07 12:29 13:09 Temperature 97.5 F L 97.0 F L Pulse Rate 59 L 60 56 L Respiratory 16 16 17 Rate Blood Pressure 117/78 137/87 133/79 O2 Sat by Pulse 97 96 94 L Oximetry Medical Decision Making - Medical Decision Making Alternatives negative. Patient's been having worsening left leg swelling. Patient will follow-up with vascular. Return parameters discussed. Disposition Clinical Impression: Left leg pain, Left leg swelling Disposition: HOME SELF-CARE Condition: Stable Instructions (If sedation given, give patient instructions): Leg Pain (ED) Additional Instructions: Please return to the Emergency Department if symptoms worsen or any other concerns. Is patient prescribed a controlled substance at d/c from ED?: No Referrals: Mark Wells DO [Primary Care Provider] - 1-2 days Tali Gibson DO [STAFF PHYSICIAN] - 1-2 days Time of Disposition: 13:57
[2022-08-28 14:29] VITALS: BP 153/88; PULSE 60; TEMP 97.6
== END 2022-08-28 14:32 | disposition home or self-care (01) ==
LOC: EC 09:51
DX: M79.605 Pain in left leg (principal); M79.89 Other specified soft tissue disorders; K21.9 Gastro-esophageal reflux disease without esophagitis; E78.5 Hyperlipidemia, unspecified; Z86.73 Personal history of transient ischemic attack (TIA), and cerebral infarction without residual deficits; Z86.79 Personal history of other diseases of the circulatory system; Z85.038 Personal history of other malignant neoplasm of large intestine; Z95.1 Presence of aortocoronary bypass graft; Z85.9 Personal history of malignant neoplasm, unspecified; Z87.891 Personal history of nicotine dependence; Z79.02 Long term (current) use of antithrombotics/antiplatelets; Z79.82 Long term (current) use of aspirin
CPT/HCPCS: 99283

== ENCOUNTER 2022-09-25 09:43 | Day surgery (SDC) | payer MEDICARE, OTHER ==
[2022-09-24 11:19] VITALS: BMI 28.5
[~2022-09-25 09:43] MED LIST changes: -ASPIRIN 81 MG PO SCH; -ATORVASTATIN 40 MG TAB PO SCH; -ATROPINE SULFATE 0.1 MG/ML 10ML SYRINGE IV PRN; -CLOPIDOGREL 75 MG TAB PO SCH; -HEPARIN SODIUM 1,000 UN/ML (10ML VL) ONE; -IOPAMIDOL-370 100ML BTL INJ ONE; -IOPAMIDOL-370 125ML BTL INJ ONE; -ISOSORBIDE MONONITRATE ER 30 MG TAB.ER.24H PO SCH; -ISOSORBIDE MONONITRATE ER 30 MG TAB.ER.24H PO STA; -LIDOCAINE 1% INJ 10MG/ML (30 ML VIAL-PF) SQ ONE; -MAG HYDROX/AL HYDROX/SIMETH 30 ML CUP PO PRN; -MIDAZOLAM 2 MG/2 ML VIAL IV ONE; -RX INFO: IV CONTRAST WAS GIVEN 1 EACH MISC MISCELLANE PRN; -SODIUM CHLORIDE 0.9% 1,000 ML IV ONE; -VERAPAMIL 2.5 MG/ML 2 ML AMP ONE; -VERAPAMIL SYRINGE (5 MG/10 ML) INTRAARTER ONE; -ZOLPIDEM 5 MG TAB PO PRN; -fentaNYL (PF) 50 MCG/ML 2 ML AMP IV ONE; -fentaNYL (PF) 50 MCG/ML 2 ML AMP ONE
[2022-09-25] MEDS ORDERED: SODIUM CHLORIDE 0.9% 1,000 ML IV ONE (10:13)
[2022-09-25] MEDS ORDERED: ISOSORBIDE MONONITRATE ER 30 MG TAB.ER.24H PO STA (10:17)
[2022-09-25] MEDS ORDERED: VERAPAMIL 2.5 MG/ML 2 ML AMP ONE (12:01)
[2022-09-25] MEDS ORDERED: HEPARIN SODIUM 1,000 UN/ML (10ML VL) ONE (12:01)
[2022-09-25] MEDS ORDERED: MIDAZOLAM 2 MG/2 ML VIAL IVP ONE ×2 (12:38→14:02)
[2022-09-25] MEDS ORDERED: fentaNYL (PF) 50 MCG/1 ML VIAL IVP ONE ×2 (12:38)
[2022-09-25] MEDS ORDERED: LIDOCAINE 1% INJ 10MG/ML (30 ML VIAL-PF) SQ ONE ×2 (12:39→12:45)
[2022-09-25] MEDS ORDERED: VERAPAMIL SYRINGE (5 MG/10 ML) IVP ONE (12:40)
[2022-09-25] MEDS: HEPARIN SODIUM 1,000 UN/ML (10ML VL) IVP ONE ×3 (12:45→13:06)
[2022-09-25] MEDS ORDERED: IOPAMIDOL-370 100ML BTL INJ ONE ×4 (13:37→14:23)
[2022-09-25] MEDS ORDERED: MELATONIN 3 MG TABLET PO PRN (14:50)
[2022-09-25] MEDS ORDERED: ZOLPIDEM 5 MG TAB PO PRN (14:52)
[2022-09-25] MEDS ORDERED: RX INFO: IV CONTRAST WAS GIVEN 1 EACH MISC MISCELLANE PRN (14:52)
[2022-09-25] MEDS ORDERED: MAG HYDROX/AL HYDROX/SIMETH 30 ML CUP PO PRN (14:52)
[2022-09-25] MEDS ORDERED: ATROPINE SULFATE 0.1 MG/ML 10ML SYRINGE IV PRN (14:52)
--- NOTE | 2022-09-25 15:11 | P.PRCINT ---
Percutaneous Coronary Int. - Percutaneous Coronary Intervention Percutaneous Coronary Intervention: PROCEDURES PERFORMED: Right coronary angiography, BELL to LAD angiography, PHOTO MASK PATTERN GENERATOR PCI of proximal to distal RCA with overlapping 3.5 x 18, 3.25 x 33mm, 3.25 x 38mm, 3.0 x 38mm Xience LADI INDICATION: Abnormal stress test, MEDINA, CAD with prior CABG and PHOTO MASK PATTERN GENERATOR RCA CONSENT:I have discussed the risks, benefits and alternative therapies for the above-mentioned procedure and for both sedation/analgesia as well as necessary blood product administration, if indicated, as they pertain to this patient. The patient has indicated understanding and acceptance of the risks and procedures discussed. PROCEDURE: After the risks, benefits and alternatives of the above mentioned procedure explained in detail with the patient, informed consent was obtained. Patient was taken to the catheterization lab and prepped and draped in usual fashion. 1% lidocaine was used to anesthetize the left radial artery. A 6- [place] sheath was placed in the left radial artery using modified Seldinger technique. A 6Fr sheath was placed in the right femoral artery using modified Seldinger technique. Heparin was given. Using a 6Fr AL 0.75 guide in the RCA and a 6Fr BELL to LAD guide in the BELL to LAD, dual angiography was performed which showed diffuse disease with relatively short PHOTO MASK PATTERN GENERATOR segment. Using a guideliner, a corsair microcatheter and initially a 0.014 whisper wire, the corsair was advanced just distal to the marginal branch. Next. the short PHOTO MASK PATTERN GENERATOR segment was able to be wired with a 0.014 Fielder XTA. Predilation was performed with a 1.5 balloon then with a 2.5 and 3.0 NC balloon. IVUS catheter was used however difficult to advance past the proximal segment. This showed reference vessel 3.75-4.0. Next 3.0 x 38mm Xience LADI was deployed distally into the PLV and with small segement of jailing the PDA however no impingement on the PDA. Next overlapping 3.25 x 38mm, 3.25 x 33mm and 3.5 x 15mm Xience LADI were deployed in the mid back to the proximal ostial RCA. IVUS showed mildly underexpanded stent and therefore post dilated with a 4.0 NC balloon. Final angiograms were performed. Preintervention there was 100% RCA stenosis with KANIKA 0 flow and post intervention there was <10% stenosis with KANIKA 3 flow. The left radial sheath was removed and a TR band was placed with hemostasis achieved. The patient tolerated the procedure well. Patient was transported back to the post catheterization holding area in stable condition. Conscious Sedation: Patient was monitored under the direct supervision of vision of myself for conscious sedation using Versed and fentanyl for a total duration of 110 minutes HEMODYNAMICS: Ao: 131/71 SELECTIVE CORONARY ARTERIOGRAPHY: LEFT MAIN: Not imaged LEFT ANTERIOR DESCENDING CORONARY ARTERY: Not imaged LEFT CIRCUMFLEX CORONARY ARTERY: Not imaged RIGHT CORONARY ARTERY: The right coronary artery is a moderate to large caliber vessel which gives off a PDA and PLV branch and is the dominant vessel. There is diffuse long 80-90% proximal and mid RCA stenosis with a 100% mid RCA stenosis. BELL to LAD: widely patent. There are left to right collaterals to the RCA SVG to PDA: Not imaged however know to be occluded SVG to OM1: Not imaged however know to be occluded SVG to OM2: Not imaged however know to be occluded FINAL IMPRESSION: 1. PHOTO MASK PATTERN GENERATOR RCA s/p PCI of proximal to distal RCA with overlapping 3.5 x 18, 3.25 x 33mm, 3.25 x 38mm, 3.0 x 38mm Xience LADI PLAN: 1. Aggressive risk factor modification per most recent ACC/AHA guidelines. 2. Continue dual antiplatelets for 12 months with aspirin and Plavix
[2022-09-25] MEDS: TAMSULOSIN 0.4 MG CAP.ER.24H PO SCH (20:05)
[2022-09-25] MEDS ORDERED: MEMANTINE 10 MG TAB PO SCH (21:00)
[2022-09-25] MEDS ORDERED: lamoTRIgine 100 MG TAB PO SCH (21:00)
[2022-09-25] MEDS ORDERED: METOPROLOL TARTRATE 25 MG TAB PO SCH (21:00)
[2022-09-25] MEDS ORDERED: OLANZapine 2.5 MG TAB PO SCH (21:00)
[2022-09-26] MEDS ORDERED: ACETAMINOPHEN TAB 325 MG TAB PO PRN (00:14)
[2022-09-26] MEDS ORDERED: PANTOPRAZOLE 40 MG TABLET PO SCH (07:30)
[2022-09-26 07:46] LABS: Basophils % (A) 1 %; Eosinophils # (A) 0.2 k/uL (0-0.7); Eosinophils % (A) 4 %; HCT 45.6 % (39.0-53.0); Lymphocytes # (A) 1.1 k/uL (1.0-4.8); Lymphocytes % (A) 22 %; MCH 30.3 pg (25.0-35.0); MCHC 32.9 g/dL (31.0-37.0); MCV 92.1 fL (80.0-100.0); Monocytes # (A) 0.5 k/uL (0-1.0); Monocytes % (A) 10 %; Neutrophils % (A) 61 %; Platelet Count 142 k/uL (150-450); RBC 4.96 m/uL (4.30-5.90); RDW 13.2 % (11.5-15.5); WBC 4.9 k/uL (3.8-10.6)
[2022-09-26 08:23] LABS: African American GFR (CKD) >90 (>60 ml/min/1.73 sqM); Anion Gap 11 mmol/L; Blood Urea Nitrogen 16 mg/dL (9-20); Calcium 8.3 mg/dL (8.4-10.2); Carbon Dioxide 20 mmol/L (22-30); Chloride 108 mmol/L (98-107); Glucose 81 mg/dL (74-99); Non-African American GFR(CKD) >90 (>60 ml/min/1.73 sqM); Sodium 139 mmol/L (137-145)
[2022-09-26 08:30] LABS: Potassium 4.6 mmol/L (3.5-5.1)
[2022-09-26] MEDS ORDERED: SERTRALINE 100 MG TAB PO SCH (09:00)
[2022-09-26] MEDS ORDERED: ISOSORBIDE MONONITRATE ER 30 MG TAB.ER.24H PO SCH (09:00)
[2022-09-26] MEDS ORDERED: FLUTICASONE 50MCG/SPRAY NASAL 16GM EA NOSTRIL SCH (09:00)
[2022-09-26] MEDS ORDERED: CLOPIDOGREL 75 MG TAB PO SCH (09:00)
[2022-09-26] MEDS ORDERED: ATORVASTATIN 40 MG TAB PO SCH (09:00)
[2022-09-26] MEDS ORDERED: ATORVASTATIN 20 MG TAB PO SCH (09:00)
[2022-09-26] MEDS ORDERED: ASPIRIN 81 MG PO SCH (09:00)
[2022-09-26] MEDS ORDERED: ASCORBIC ACID 500 MG TAB PO SCH (09:00)
[2022-09-26] MEDS ORDERED: CHOLECALCIFEROL 25 MCG (1000 IU) TABLET PO SCH (09:00)
[2022-09-26] MEDS ORDERED: CHOLESTYRAMINE (WITH SUGAR) 4 GM PACKET PO SCH (09:00)
[2022-09-26] MEDS: TAMSULOSIN 0.4 MG CAP.ER.24H PO SCH (09:18)
--- NOTE | 2022-09-26 11:19 | P.DS ---
Providers Attending physician: Cheryle Connell Consults: 09/25/22 14:52 Consult Physician Routine Consulting Provider: [facility] Consult Reason/Comments: Post Interventional Patient Do you want consulting provider notified?: Already Contacted Primary care physician: Mark Chelsea Hospital Course: This is a 77-year-old male who underwent cardiac cath with Dr. Pineda. 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 Patient examined this morning at the bedside. Left radial site with pulse present. Right femoral site with pulse present and no hematoma noted. Patient denies any chest pain or pressure. Denies short of breath. Vital signs are stable. He was deemed stable for discharge home today from a cardiac standpoint. 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 Signing provider agrees with the documented findings, assessment, and plan of care. Plan - Discharge Summary Discharge Rx Participant: No New Discharge Prescriptions: No Action Fluticasone Nasal [place] [Flonase Nasal [place]] 1 spray EA NOSTRIL DAILY Isosorbide Mononitrate ER [Imdur] 30 mg PO DAILY lamoTRIgine [LaMICtal] 100 mg PO HS #30 tab Memantine [Namenda] 10 mg PO HS #30 tab Sertraline [Zoloft] 100 mg PO DAILY Tamsulosin HCl [Flomax] 0.4 mg PO BID OLANZapine [ZyPREXA] 2.5 mg PO HS Atorvastatin [Lipitor] 20 mg PO DAILY Aspirin EC [Ecotrin Low Dose] 81 mg PO DAILY Cholecalciferol [Vitamin D3 (25 Mcg = 1000 Iu)] 50 mcg PO DAILY Ascorbic Acid [Vitamin C] 564 mg PO DAILY Omeprazole 40 mg PO DAILY Melatonin 3 mg PO HS PRN PRN Reason: Insomnia Metoprolol Tartrate [Lopressor] 25 mg PO HS Clopidogrel [Plavix] 75 mg PO DAILY Cholestyramine (with Sugar) [Cholestyramine Packet] 4 gm PO DAILY Discharge Medication List Fluticasone Nasal [place] [Flonase Nasal [place]] 1 spray EA NOSTRIL DAILY 06/21/15 [History] Isosorbide Mononitrate ER [Imdur] 30 mg PO DAILY 10/09/15 [History] Memantine [Namenda] 10 mg PO HS #30 tab 08/11/18 [Rx] lamoTRIgine [LaMICtal] 100 mg PO HS #30 tab 08/11/18 [Rx] Sertraline [Zoloft] 100 mg PO DAILY 12/17/18 [History] Tamsulosin HCl [Flomax] 0.4 mg PO BID 07/12/19 [History] Aspirin EC [Ecotrin Low Dose] 81 mg PO DAILY 11/07/21 [History] Atorvastatin [Lipitor] 20 mg PO DAILY 11/07/21 [History] Melatonin 3 mg PO HS PRN 11/07/21 [History] Metoprolol Tartrate [Lopressor] 25 mg PO HS 11/07/21 [History] OLANZapine [ZyPREXA] 2.5 mg PO HS 11/07/21 [History] Omeprazole 40 mg PO DAILY 11/07/21 [History] Clopidogrel [Plavix] 75 mg PO DAILY 08/12/22 [History] Cholecalciferol [Vitamin D3 (25 Mcg = 1000 Iu)] 50 mcg PO DAILY 08/28/22 [History] Cholestyramine (with Sugar) [Cholestyramine Packet] 4 gm PO DAILY 08/28/22 [History] Ascorbic Acid [Vitamin C] 564 mg PO DAILY 09/24/22 [History] Follow up Appointment(s)/Referral(s): Cheryle Connell MD [STAFF PHYSICIAN] - 1 Week (APPOINTMENT MADE ON September @ 1:45PM ) Patient Instructions/Handouts: *Sur[facility] - After Heart Catheterization - Adult Caregiver Instructions, Moderate Sedation (DC), Coronary Intravascular Stent Placement (DC) Activity/Diet/Wound Care/Special Instructions: *NO LIFTING, PUSHING, OR PULLING ANYTHING OVER 5 POUNDS FOR 5 DAYS *NO DRIVING FOR 3 DAYS *YOU CAN SHOWER TOMORROW BUT DO NOT SUBMERSE YOUR PUNCTURE SITE IN WATER FOR A FEW DAYS TO PREVENT INFECTION - SO NO TUB BATHS, POOLS, HOT TUBS...ETC *ANY SIGNS OF BLEEDING (HARDNESS, SWELLING, OR EXCESSIVE BRUISING) HOLD DIRECT PRESSURE ON YOUR PUNCTURE SITE AND COME TO THE NEAREST EMERGENCY ROOM TO GET YOUR PUNCTURE SITE LOOKED AT - DO NOT DRIVE YOURSELF!
[2022-09-26 13:09] VITALS: BP 135/77; PULSE 54; RESP 18; TEMP 98.3
== END 2022-09-26 13:27 | disposition home or self-care (01) ==
LOC: CATHCVL 09:43 → 3SCARD 14:23 → CATHCVL 09-26 13:27
PROVIDERS: ATTEND Internal Medicine Interventional Cardiology
DX: I25.10 Atherosclerotic heart disease of native coronary artery without angina pectoris (principal); Z95.5 Presence of coronary angioplasty implant and graft; Z79.82 Long term (current) use of aspirin
CPT/HCPCS: 80048; 85025; C9607; C1769 ×5; C1760; C1894 ×3; C1887 ×2; C1725 ×3; C1753; C1874 ×4; C1751; J2250; J2001; J1644; Q9967; J3010

== ENCOUNTER 2023-04-17 09:55 | Emergency (ER) | payer MEDICARE, OTHER ==
[2023-04-17 10:28] VITALS: TEMP 97.7
[2023-04-17] MEDS ORDERED: SODIUM CHLORIDE 0.9% 1,000 ML IV STA (10:48)
--- NOTE | 2023-04-17 10:55 | ED ---
Abdominal Pain HPI - General Chief Complaint: Abdominal Pain Stated Complaint: incontinence Time Seen by Provider: 04/17/23 10:30 Source: patient, RN notes reviewed Mode of arrival: ambulatory Limitations: no limitations - History of Present Illness Initial Comments: This is a 78-year-old male who presents to the emergency department for abdominal pain and fecal incontinence. Patient states over the last 1.5 months, he has really struggled to make it to the bathroom. This happens several times a day. He does still feel the sensation of an upcoming bowel movement. Reports a history of ulcerative colitis with bowel resection and colon cancer. He was told that he is supposed to be following a specific diet because of this, however he has not done so in the last 4 years. He notes that his stool is very foul-smelling as well. He does have bladder incontinence, but states that this has been going on for much longer and he has tried various medications with urology with no improvement. He does have minor lower abdominal cramping but denies any nausea/vomiting. Denies any fevers, chills, sore throat, cough, dyspnea, chest pain, palpitations, nausea, vomiting, back pain, or headaches. - Related Data Home Medications Medication Instructions Recorded Confirmed Fluticasone Nasal [place] [Flonase 1 spr EA NOSTRIL DAILY 06/21/15 04/17/23 Nasal [place]] Isosorbide Mononitrate ER [Imdur] 30 mg PO DAILY 10/09/15 04/17/23 Sertraline [Zoloft] 100 mg PO DAILY 12/17/18 04/17/23 Tamsulosin HCl [Flomax] 0.4 mg PO BID 07/12/19 04/17/23 Aspirin EC [Ecotrin Low Dose] 81 mg PO DAILY 11/07/21 04/17/23 Atorvastatin [Lipitor] 20 mg PO DAILY 11/07/21 04/17/23 Melatonin 3 mg PO HS PRN 11/07/21 04/17/23 Metoprolol Tartrate [Lopressor] 25 mg PO HS 11/07/21 04/17/23 OLANZapine [ZyPREXA] 2.5 mg PO HS 11/07/21 04/17/23 Omeprazole 40 mg PO DAILY 11/07/21 04/17/23 Clopidogrel [Plavix] 75 mg PO DAILY 08/12/22 04/17/23 Cholecalciferol [Vitamin D3 (25 50 mcg PO DAILY 08/28/22 04/17/23 Mcg = 1000 Iu)] Ascorbic Acid [Vitamin C] 500 mg PO DAILY 09/24/22 04/17/23 Previous Rx's Medication Instructions Recorded Memantine [Namenda] 10 mg PO HS #30 tab 08/11/18 lamoTRIgine [LaMICtal] 100 mg PO HS #30 tab 08/11/18 Loperamide [Imodium] 2 mg PO DIRECTED PRN #15 capsule 04/17/23 Allergies Allergy/AdvReac Type Severity Reaction Status Date / Time No Known Allergies Allergy Verified 04/17/23 12:05 Review of Systems ROS Statement: Those systems with pertinent positive or pertinent negative responses have been documented in the HPI. ROS Other: All systems not noted in ROS Statement are negative. Past Medical History Past Medical History: Coronary Artery Disease (CAD), Cancer, CVA/TIA, Eye Disorder, GERD/Reflux, Hyperlipidemia, Memory Impairment, Myocardial Infarction ([place]), Pneumonia, Prostate Disorder Additional Past Medical History / Comment(s): DYSPHAGIA, CHRONIC DRY COUGH, HX COLON CANCER-2004 WITH SURGERY., DIVERTICULAR DISORDER, Hiatal Hernia, TIA'S , CATARACT RIGHT EYE, PROBLEMS WITH BALANCE- USES CANE. HAVING PAINS IN BILAT LEGS AND FATIGUE,forgetfulness,enlarged prostate Last Myocardial Infarction Date:: UNKNOWN History of Any Multi-Drug Resistant Organisms: None Reported Past Surgical History: Bowel Resection, Cholecystectomy, Coronary Bypass/CABG, Heart Catheterization, Heart Catheterization With Stent, Hernia Repair Additional Past Surgical History / Comment(s): QUAD CABG ([facility] 2009), Umbilical hernia repair, DEVIATED SEPTUM REPAIR/SPUR REMOVED from nose, Past Anesthesia/Blood Transfusion Reactions: Motion Sickness, Postoperative Nausea & Vomiting (PONV) Additional Past Anesthesia/Blood Transfusion Reaction / Comment(s): PONV X1. Claustrophobic Date of Last Stent Placement:: 08-13-22 Past Psychological History: Anxiety, Depression, PTSD Smoking Status: Former smoker Past Alcohol Use History: None Reported Past Drug Use History: None Reported - Past Family History Son(s) Family Medical History: Cancer Father Family Medical History: Blood Disorder Additional Family Medical History / Comment(s): from a blood disorder Mother Family Medical History: Diabetes Mellitus Additional Family Medical History / Comment(s): age 53 -complications from dm Sister(s) Family Medical History: Diabetes Mellitus General Exam Limitations: no limitations General appearance: alert, in no apparent distress Head exam: Present: atraumatic, normocephalic, normal inspection Respiratory exam: Present: normal lung sounds bilaterally. Absent: respiratory distress, wheezes, rales, rhonchi, stridor Cardiovascular Exam: Present: regular rate, normal rhythm, normal heart sounds. Absent: systolic murmur, diastolic murmur, rubs, gallop, clicks GI/Abdominal exam: Present: soft, tenderness (Lower abdominal), hypoactive bowel sounds. Absent: distended Rectal exam: Present: normal inspection, decreased rectal tone. Absent: tenderness Neurological exam: Present: alert, oriented X3, CN II-XII intact Psychiatric exam: Present: normal affect, normal mood Skin exam: Present: warm, dry, intact, normal color. Absent: rash Course Vital Signs 04/17/23 04/17/23 04/17/23 10:20 12:29 14:15 Temperature 97.7 F Pulse Rate 59 L 55 L 56 L Respiratory 18 20 Rate Blood Pressure 106/66 129/78 128/81 O2 Sat by Pulse 96 96 96 Oximetry Medical Decision Making - Medical Decision Making This is a 78-year-old male who presents to the emergency department for abdominal pain and bowel incontinence. Was pt. sent in by a medical professional or institution? @ -No Did you speak to anyone other than the patient for history? @ -His Did you review nursing and triage notes? @ -Yes, and I agree, it is accurate with regards to the patient's symptoms. Were old charts reviewed? @ -No Differential Diagnosis? @ -Differential Bowel Incontinence: Ulcerative colitis, cauda equina syndrome, diabetes mellitus, multiple sclerosis, neurological issue, sphincter dysfunction, this is not meant to be an all-inclusive list. EKG interpreted by me (3pts min.)? @ -Not obtained X-rays interpreted by me (1pt min.)? @ -Not obtained CT interpreted by me (1pt min.)? @ -Computed tomography scan of the abdomen and pelvis obtained. My interpretation identifies no evidence of bowel wall thickening or free air. U/S interpreted by me (1pt. min.)? @ -Not obtained What testing was considered but not performed? (CT, X-rays, U/S, labs)? Why? @ -None What meds were considered but not given? Why? @ -None Did you discuss the management of the patient with other professionals? @ -Yes, Dr. Wells, his PCP, who advised outpatient follow-up. Did you reconcile home meds? @ -No Was smoking cessation discussed for >3mins.? @ -No Was critical care preformed (if so, how long)? @ -No Were there social determinants of health that impacted care today? How? (Homelessness, low income, unemployed, alcoholism, drug addiction, transportation, low edu. Level, literacy, decrease access to med. care, retirement, rehab)? @ -No Was there de-escalation of care discussed even if they declined? (Discuss DNR or withdrawal of care, Hospice)? @ -No What co-morbidities impacted this encounter? (DM, HTN, Smoking, COPD, CAD, Cancer, CVA, Hep., AIDS, mental health diagnosis, sleep apnea, morbid obesity)? @ -Ulcerative colitis, hx of colon cancer Was patient admitted / discharged? @ -Discharged. Lab work obtained and found to be nonactionable. Computed tomography scan of the abdomen and pelvis reveals no acute findings. On exam, the patient does have very poor sphincter tone. Perianal sensation is intact. Patient has no back pain or saddle anesthesia to suggest a cauda equina synd susana. The computed tomography scan did comment on the lumbar spine and only noted degenerative changes. I spoke with Dr. Wells, the patient's PCP. He advised having the patient follow up outpatient with him in the office. They will reach out to the patient to get him scheduled for a sooner follow-up appointment. Prescription for Imodium provided with dosing instructions reviewed to see if that helps with this issue. Advised to stop taking this if it causes constipation. Undiagnosed new problem with uncertain prognosis? @ -None Drug Therapy requiring intensive monitoring for toxicity (Heparin, Nitro, Insulin, Cardizem)? @ -None Were any procedures done? @ -None Diagnosis/symptom? @ -Bowel incontinence Acute, or Chronic, or Acute on Chronic? @ -Acute Uncomplicated (without systemic symptoms) or Complicated (systemic symptoms)? @ -Uncomplicated Side effects of treatment? @ -None Exacerbation, Progression, or Severe Exacerbation] @ -Not applicable Poses a threat to life or bodily function? @ -This is impacting his life socially due to the embarrassment associated with bowel incontinence. Return precautions reviewed in depth, the patient is instructed to return to the emergency department with any new, worsening, or concerning symptoms. Patient verbalized understanding. This case was discussed in detail with the attending ED physician, Dr. Bangura. Presentation, findings, and treatment plan discussed in detail as well. - Lab Data Result diagrams: 04/17/23 11:05 04/17/23 11:05 Lab Results 04/17/23 04/17/23 04/17/23 Range/Units 11:05 11:05 11:05 WBC 5.1 (3.8-10.6) k/uL RBC 5.49 (4.30-5.90) m/uL Hgb 16.5 (13.0-17.5) gm/dL Hct 50.2 (39.0-53.0) % MCV 91.4 (80.0-100.0) fL MCH 30.1 (25.0-35.0) pg MCHC 32.9 (31.0-37.0) g/dL RDW 13.6 (11.5-15.5) % Plt Count 175 (150-450) k/uL MPV 7.4 Neutrophils % 70 % Lymphocytes % 19 % Monocytes % 6 % Eosinophils % 2 % Basophils % 0 % Neutrophils # 3.5 (1.3-7.7) k/uL Lymphocytes # 1.0 (1.0-4.8) k/uL Monocytes # 0.3 (0-1.0) k/uL Eosinophils # 0.1 (0-0.7) k/uL Basophils # 0.0 (0-0.2) k/uL Sodium 142 (137-145) mmol/L Potassium 4.5 (3.5-5.1) mmol/L Chloride 108 H (98-107) mmol/L Carbon Dioxide 27 (22-30) mmol/L Anion Gap 7 mmol/L BUN 17 (9-20) mg/dL Creatinine 0.67 (0.66-1.25) mg/dL Est GFR (CKD-EPI)AfAm >90 (>60 ml/min/1.73 sqM) Est GFR (CKD-EPI)NonAf >90 (>60 ml/min/1.73 sqM) Glucose 89 (74-99) mg/dL Plasma Lactic Acid Bhavik (0.7-2.0) mmol/L Calcium 9.0 (8.4-10.2) mg/dL Total Bilirubin 0.6 (0.2-1.3) mg/dL AST 27 (17-59) U/L ALT 26 (4-49) U/L Alkaline Phosphatase 114 (38-126) U/L C-Reactive Protein <0.5 (<1.0) mg/dL Total Protein 6.7 (6.3-8.2) g/dL Albumin 4.2 (3.5-5.0) g/dL Amylase 50 (30-110) U/L Lipase 92 (23-300) U/L TSH 0.870 (0.465-4.680) mIU/L Urine Color Yellow Urine Appearance Clear (Clear) Urine pH 7.0 (5.0-8.0) Ur Specific [place] 1.028 (1.001-1.035) Urine Protein Negative (Negative) Urine Glucose (UA) Negative (Negative) Urine Ketones Negative (Negative) Urine Blood Negative (Negative) Urine Nitrite Negative (Negative) Urine Bilirubin Negative (Negative) Urine Urobilinogen <2.0 (<2.0) mg/dL Ur Leukocyte Esterase Negative (Negative) 04/17/23 Range/Units 11:05 WBC (3.8-10.6) k/uL RBC (4.30-5.90) m/uL Hgb (13.0-17.5) gm/dL Hct (39.0-53.0) % MCV (80.0-100.0) fL MCH (25.0-35.0) pg MCHC (31.0-37.0) g/dL RDW (11.5-15.5) % Plt Count (150-450) k/uL MPV Neutrophils % % Lymphocytes % % Monocytes % % Eosinophils % % Basophils % % Neutrophils # (1.3-7.7) k/uL Lymphocytes # (1.0-4.8) k/uL Monocytes # (0-1.0) k/uL Eosinophils # (0-0.7) k/uL Basophils # (0-0.2) k/uL Sodium (137-145) mmol/L Potassium (3.5-5.1) mmol/L Chloride (98-107) mmol/L Carbon Dioxide (22-30) mmol/L Anion Gap mmol/L BUN (9-20) mg/dL Creatinine (0.66-1.25) mg/dL Est GFR (CKD-EPI)AfAm (>60 ml/min/1.73 sqM) Est GFR (CKD-EPI)NonAf (>60 ml/min/1.73 sqM) Glucose (74-99) mg/dL Plasma Lactic Acid Bhavik 1.3 (0.7-2.0) mmol/L Calcium (8.4-10.2) mg/dL Total Bilirubin (0.2-1.3) mg/dL AST (17-59) U/L ALT (4-49) U/L Alkaline Phosphatase (38-126) U/L C-Reactive Protein (<1.0) mg/dL Total Protein (6.3-8.2) g/dL Albumin (3.5-5.0) g/dL Amylase (30-110) U/L Lipase (23-300) U/L TSH (0.465-4.680) mIU/L Urine Color Urine Appearance (Clear) Urine pH (5.0-8.0) Ur Specific [place] (1.001-1.035) Urine Protein (Negative) Urine Glucose (UA) (Negative) Urine Ketones (Negative) Urine Blood (Negative) Urine Nitrite (Negative) Urine Bilirubin (Negative) Urine Urobilinogen (<2.0) mg/dL Ur Leukocyte Esterase (Negative) - Radiology Data Radiology results: report reviewed, image reviewed Disposition Clinical Impression: Bowel incontinence Disposition: HOME SELF-CARE Additional Instructions: Return to the emergency department with any new, worsening, or concerning symptoms. Try taking the loperamide as prescribed below to see if that helps with the bowel incontinence. If you find that this makes you constipated, you can stop using it. Follow up with your primary care provider in 1-2 days. Prescriptions: Loperamide [Imodium] 2 mg PO DIRECTED PRN #15 capsule PRN Reason: Diarrhea Is patient prescribed a controlled substance at d/c from ED?: No Referrals: Mark Wells DO [Primary Care Provider] - 1-2 days
[2023-04-17 11:20] LABS: Basophils % (A) 0 %; Eosinophils # (A) 0.1 k/uL (0-0.7); Eosinophils % (A) 2 %; HCT 50.2 % (39.0-53.0); HGB 16.5 gm/dL (13.0-17.5); Lymphocytes % (A) 19 %; MCH 30.1 pg (25.0-35.0); MCHC 32.9 g/dL (31.0-37.0); MCV 91.4 fL (80.0-100.0); Mean Platelet Volume 7.4; Monocytes # (A) 0.3 k/uL (0-1.0); Monocytes % (A) 6 %; Neutrophils # (A) 3.5 k/uL (1.3-7.7); Neutrophils % (A) 70 %; Platelet Count 175 k/uL (150-450); RBC 5.49 m/uL (4.30-5.90); RDW 13.6 % (11.5-15.5); WBC 5.1 k/uL (3.8-10.6)
[2023-04-17 11:53] LABS: ALT 26 U/L (4-49); AST 27 U/L (17-59); African American GFR (CKD) >90 (>60 ml/min/1.73 sqM); Albumin 4.2 g/dL (3.5-5.0); Alkaline Phosphatase 114 U/L (38-126); Amylase 50 U/L (30-110); Anion Gap 7 mmol/L; Blood Urea Nitrogen 17 mg/dL (9-20); Carbon Dioxide 27 mmol/L (22-30); Chloride 108 mmol/L (98-107); Glucose 89 mg/dL (74-99); Lipase 92 U/L (23-300); Non-African American GFR(CKD) >90 (>60 ml/min/1.73 sqM); Potassium 4.5 mmol/L (3.5-5.1); Sodium 142 mmol/L (137-145); Total Bilirubin 0.6 mg/dL (0.2-1.3); Total Protein 6.7 g/dL (6.3-8.2)
[2023-04-17 12:05] LABS: C Reactive Protein <0.5 mg/dL (<1.0)
--- NOTE | 2023-04-17 12:32 | CT ---
EXAMINATION TYPE: CT abdomen pelvis w con CT DLP: 1280.3 mGycm, Automated exposure control for dose reduction was used. DATE OF EXAM: 04/17/2023 12:16 PM COMPARISON: CT abdomen pelvis most recent from 11/11/2021 CLINICAL INDICATION:Male, 78 years old with history of abdominal pain, bowel incontinence; abdominal pain, bowel incontinence TECHNIQUE: Axial CT of the abdomen and pelvis. Sagittal and coronal reformats were created on a VTM workstation. Contrast used:100 ml mL of Isovue 300 with IV Contrast, Oral contrast used: without Oral Contrast FINDINGS: LOWER CHEST: Cardiomegaly. Coronary artery atherosclerosis. ABDOMEN LIVER: Low-attenuation to the liver. GALLBLADDER AND BILE DUCTS: The gallbladder surgically absent. PANCREAS: Unremarkable. SPLEEN: Unremarkable. ADRENAL GLANDS: Unremarkable. KIDNEYS AND URETERS: No evidence of hydronephrosis or renal calculus. The ureters are unremarkable. PELVIS BLADDER: Unremarkable REPRODUCTIVE: Unremarkable. ABDOMEN & PELVIS STOMACH AND BOWEL: No evidence of bowel obstruction. Postsurgical changes to the rectum. There is mod erate amount stool within the rectum and sigmoid colon. Few scattered colonic diverticula present. Th e appendix not definitively visualized. Small hiatal hernia present. PERITONEUM/RETROPERITONEUM: No evidence of pneumoperitoneum or free fluid. VASCULATURE: No evidence of aortic aneurysm. Atherosclerosis of the arterial vasculature. MUSCULOSKELETAL: No acute osseous abnormalities, multilevel disc degeneration changes throughout the spine. LYMPH NODES: No gross evidence for lymphadenopathy. SOFT TISSUE/ABDOMINAL WALL: Bilateral fat-containing inguinal hernias. IMPRESSION: 1. Postsurgical changes to the rectum. No evidence for acute abdominal process. 2. Cardiomegaly. 3. Prostatomegaly. 4. Hepatic steatosis. 5. Small hiatal hernia.
[2023-04-17 12:46] LABS: Appearance,Urine Clear (Clear); Bilirubin,Urine Negative (Negative); Blood,Urine Negative (Negative); Color,Urine Yellow; Glucose,Urine (UA) Negative (Negative); Ketones,Urine Negative (Negative); Leukocyte Esterase,Urine Negative (Negative); Nitrite,Urine Negative (Negative); Protein,Urine Negative (Negative); Specific Gravity,Urine 1.028 (1.001-1.035); Urobilinogen,Urine <2.0 mg/dL (<2.0)
[2023-04-17 14:16] VITALS: BP 128/81; PULSE 56; RESP 20
== END 2023-04-17 14:16 | disposition home or self-care (01) ==
LOC: EC 09:55
DX: R15.9 Full incontinence of feces (principal); I25.10 Atherosclerotic heart disease of native coronary artery without angina pectoris; K21.9 Gastro-esophageal reflux disease without esophagitis; E78.5 Hyperlipidemia, unspecified; I25.2 Old myocardial infarction; Z86.73 Personal history of transient ischemic attack (TIA), and cerebral infarction without residual deficits; F32.A Depression, unspecified; F41.9 Anxiety disorder, unspecified; Z87.891 Personal history of nicotine dependence; Z79.82 Long term (current) use of aspirin; Z79.02 Long term (current) use of antithrombotics/antiplatelets; Z79.899 Other long term (current) drug therapy
CPT/HCPCS: 36415; 80053; 84443; 82150; 83605; 83690; 85025; 86140; 81003; 74177; 99284; 96360; Q9967

== ENCOUNTER 2023-08-28 20:16 | Observation (INO) | payer MEDICARE, OTHER ==
[2023-08-28] MEDS ORDERED: SODIUM CHLORIDE 0.9% 1,000 ML IV STA (22:31)
--- NOTE | 2023-08-28 22:33 | ED ---
Weakness HPI - General Chief complaint: Weakness Stated complaint: Weakness Time Seen by Provider: 08/28/23 21:13 Source: patient, RN notes reviewed, old records reviewed Mode of arrival: EMS Limitations: physical limitation - History of Present Illness Initial comments: This is a 78-year-old male to the emergency room today for evaluation. Patient is coming in for weakness. Patient states symptoms for about a month family noticed significant worsening symptoms since yesterday patient is having difficulty doing normal ambulation walking doing any activities of daily living. Patient has no significant similar history in the past occasional headaches currently. Denies chest pain or shortness of breath and no trauma. No back pain. Patient did recently see his urologist due to difficulty with urination and does have significant hot flashes and cold flashes. MD Complaint: generalized weakness, lack of energy, difficulty walking -: days(s) Location: generalized, LLE, RLE Severity: moderate Severity scale (1-10): 7 Consistency: constant, intermittent Improves with: none Worsens with: none Context: history of similar Associated Symptoms: fever/chills, headaches - Related Data Home Medications Medication Instructions Recorded Confirmed Fluticasone Nasal [place] [Flonase 1 spr EA NOSTRIL DAILY 06/21/15 08/29/23 Nasal [place]] Isosorbide Mononitrate ER [Imdur] 30 mg PO DAILY 10/09/15 08/29/23 Sertraline [Zoloft] 100 mg PO DAILY 12/17/18 08/29/23 Tamsulosin HCl [Flomax] 0.4 mg PO BID 07/12/19 08/29/23 Aspirin EC [Ecotrin Low Dose] 81 mg PO DAILY 11/07/21 08/29/23 Atorvastatin [Lipitor] 20 mg PO HS 11/07/21 08/29/23 Melatonin 6 mg PO HS PRN 11/07/21 08/29/23 Metoprolol Tartrate [Lopressor] 25 mg PO HS 11/07/21 08/29/23 OLANZapine [ZyPREXA] 2.5 mg PO HS 11/07/21 08/29/23 Omeprazole 40 mg PO DAILY 11/07/21 08/29/23 Clopidogrel [Plavix] 75 mg PO DAILY 08/12/22 08/29/23 Cholecalciferol [Vitamin D3 (25 50 mcg PO DAILY 08/28/22 08/29/23 Mcg = 1000 Iu)] Memantine [Namenda] 10 mg PO BID 08/29/23 08/29/23 Mirabegron [Myrbetriq] 50 mg PO HS 08/29/23 08/29/23 Previous Rx's Medication Instructions Recorded lamoTRIgine [LaMICtal] 100 mg PO HS #30 tab 08/11/18 Allergies Allergy/AdvReac Type Severity Reaction Status Date / Time No Known Allergies Allergy Verified 08/29/23 08:23 Review of Systems ROS Statement: Those systems with pertinent positive or pertinent negative responses have been documented in the HPI. ROS Other: All systems not noted in ROS Statement are negative. Past Medical History Past Medical History: Coronary Artery Disease (CAD), Cancer, CVA/TIA, Eye Disorder, GERD/Reflux, Hyperlipidemia, Memory Impairment, Myocardial Infarction (MA), Pneumonia, Prostate Disorder Additional Past Medical History / Comment(s): DYSPHAGIA, CHRONIC DRY COUGH, HX COLON CANCER-2004 WITH SURGERY., DIVERTICULAR DISORDER, Hiatal Hernia, TIA'S , CATARACT RIGHT EYE, PROBLEMS WITH BALANCE- USES CANE. HAVING PAINS IN BILAT LEGS AND FATIGUE,forgetfulness,enlarged prostate Last Myocardial Infarction Date:: UNKNOWN History of Any Multi-Drug Resistant Organisms: None Reported Past Surgical History: Bowel Resection, Cholecystectomy, Coronary Bypass/CABG, Heart Catheterization, Heart Catheterization With Stent, Hernia Repair Additional Past Surgical History / Comment(s): QUAD CABG (MPH 2009), Umbilical hernia repair, DEVIATED SEPTUM REPAIR/SPUR REMOVED from nose, Past Anesthesia/Blood Transfusion Reactions: Motion Sickness, Postoperative Nausea & Vomiting (PONV) Additional Past Anesthesia/Blood Transfusion Reaction / Comment(s): PONV X1. Claustrophobic Date of Last Stent Placement:: 08-13-22 Past Psychological History: Anxiety, Depression, PTSD Smoking Status: Former smoker Past Alcohol Use History: None Reported Past Drug Use History: None Reported - Past Family History Son(s) Family Medical History: Cancer Father Family Medical History: Blood Disorder Additional Family Medical History / Comment(s): from a blood disorder Mother Family Medical History: Diabetes Mellitus Additional Family Medical History / Comment(s): age 53 -complications from dm Sister(s) Family Medical History: Diabetes Mellitus General Exam Limitations: physical limitation General appearance: alert, in no apparent distress Head exam: Present: atraumatic, normocephalic, normal inspection Eye exam: Present: normal appearance, PERRL, EOMI. Absent: scleral icterus, conjunctival injection, periorbital swelling ENT exam: Present: normal exam, mucous membranes moist Neck exam: Present: normal inspection. Absent: tenderness, meningismus, lymphadenopathy Respiratory exam: Present: normal lung sounds bilaterally. Absent: respiratory distress, wheezes, rales, rhonchi, stridor Cardiovascular Exam: Present: regular rate, normal rhythm, normal heart sounds. Absent: systolic murmur, diastolic murmur, rubs, gallop, clicks GI/Abdominal exam: Present: soft, normal bowel sounds. Absent: distended, te nderness, guarding, rebound, rigid Extremities exam: Present: normal inspection, full ROM, normal capillary refill. Absent: tenderness, pedal edema, joint swelling, calf tenderness Back exam: Present: normal inspection Neurological exam: Present: alert, oriented X3, CN II-XII intact Psychiatric exam: Present: normal affect, normal mood Skin exam: Present: warm, dry, intact, normal color. Absent: rash Course Vital Signs 08/29/23 08/29/23 08/29/23 00:09 02:29 02:37 Temperature 100.1 F H 98.3 F 98.3 F Pulse Rate 66 65 65 Respiratory 18 18 18 Rate Blood Pressure 145/74 115/81 115/81 O2 Sat by Pulse 95 92 L 92 L Oximetry - Reevaluation(s) Reevaluation #1: 08/28/23 22:47 Medical records reviewed Reevaluation #2: 08/29/23 00:55 Patient has no real change in symptoms here in the ER Reevaluation #3: 08/29/23 00:55 Patient informed results questions answered Reevaluation #4: 08/28/23 22:47 Was pt. sent in by a medical professional or institution (, PA, GLASSWARE FINISHER, urgent care, hospital, or intermediate...) When possible be specific @ -no Did you speak to anyone other than the patient for history (EMS, parent, family, police, friend...)? What history was obtained from this source @ -no Did you review nursing and triage notes (agree or disagree)? Why? @ -agree Are old charts reviewed (outside hosp., previous admission, EMS record, old EKG, old radiological studies, urgent care reports/EKG's, intermediate records)? Report findings @ -yes Differential Diagnosis (chest pain, altered mental status, abdominal pain women, abdominal pain men, vaginal bleeding, weakness, fever, dyspnea, syncope, headache, dizziness, GI bleed, back pain, seizure, CVA, palpatations, mental health, musculoskeletal)? @ -prior EKG interpreted by me (3pts min.). @ -yes X-rays interpreted by me (1pt min.). @ -yes CT interpreted by me (1pt min.). @ -no U/S interpreted by me (1pt. min.). @ -no What testing was considered but not performed or refused? (CT, X-rays, U/S, labs)? Why? @ -none What meds were considered but not given or refused? Why? @ -none Did you discuss the management of the patient with other professionals (professionals i.e. , PA, GLASSWARE FINISHER, lab, RT, psych nurse, social work coordinator, hopper feeder, teacher, credit review officer, telehealth case manager)? Give summary @ -no Was smoking cessation discussed for >3mins.? @ -no Was critical care preformed (if so, how long)? @ -no Were there social determinants of health that impacted care today? How? (Homelessness, low income, unemployed, alcoholism, drug addiction, transportation, low edu. Level, literacy, decrease access to med. care, senior living, rehab)? @ -none Was there de-escalation of care discussed even if they declined (Discuss DNR or withdrawal of care, Hospice)? DNR status @ -no What co-morbidities impacted this encounter? (DM, HTN, Smoking, COPD, CAD, Cancer, CVA, ARF, Chemo, Hep., AIDS, mental health diagnosis, sleep apnea, m orbid obesity)? @ -none Was patient admitted / discharged? Hospital course, mention meds given and route, prescriptions, significant lab abnormalities, going to OR and other pertinent info. @ - 78 male to the emergency department for evaluation of debility and weakness does have fever. Patient be admitted for evaluation of fever, he PT/OT and psychiatric evaluation, patient does have coronavirus Admitted Undiagnosed new problem with uncertain prognosis? @ -no Drug Therapy requiring intensive monitoring for toxicity (Heparin, Nitro, Insulin, Cardizem)? @ -no Were any procedures done? @ -no Diagnosis/symptom? @ -Fever, coronavirus, debility Acute, or Chronic, or Acute on Chronic? @ -Acute Uncomplicated (without systemic symptoms) or Complicated (systemic symptoms)? @ -Complicated Side effects of treatment? @ -no Exacerbation, Progression, or Severe Exacerbation? @ -exacerbation Poses a threat to life or bodily function? How? (Chest pain, USA, MA, pneumonia, PE, COPD, DKA, ARF, appy, cholecystitis, CVA, Diverticulitis, Homicidal, Suicidal, threat to staff... and all critical care pts) @ -yes with sepsis, coronavirus infection debility Reevaluation #5: 08/28/23 22:47 Differential Weakness: Hypoglycemia, shock, sepsis, hyponatremia, anemia, infection, MA, ETOH, adverse medicine reaction, overdose, stroke, this is not meant to be an all-inclusive list. - Consultations Consultation #1: Spoke with [facility] were agrees to admit this patient EKG Findings - EKG Comments: EKG Findings:: EKG is sinus 68 FL 165 QRS 98 QTc 45 - EKG Results: EKG: interpreted by SERGEI Medical Decision Making - Medical Decision Making 78 male to the emergency department for evaluation of debility and weakness does have fever. Patient be admitted for evaluation of fever, he PT/OT and psychiatric evaluation, patient does have coronavirus - Lab Data Result diagrams: 08/31/23 07:47 08/31/23 07:47 Lab Results 08/28/23 08/28/23 08/28/23 Range/Units 22:53 22:53 22:53 WBC 9.5 (3.8-10.6) k/uL RBC 5.23 (4.30-5.90) m/uL Hgb 16.1 (13.0-17.5) gm/dL Hct 48.2 (39.0-53.0) % MCV 92.1 (80.0-100.0) fL MCH 30.7 (25.0-35.0) pg MCHC 33.4 (31.0-37.0) g/dL RDW 13.7 (11.5-15.5) % Plt Count 162 (150-450) k/uL MPV 7.6 Neutrophils % 84 % Lymphocytes % 8 % Monocytes % 4 % Eosinophils % 2 % Basophils % 0 % Neutrophils # 8.1 H (1.3-7.7) k/uL Lymphocytes # 0.8 L (1.0-4.8) k/uL Monocytes # 0.4 (0-1.0) k/uL Eosinophils # 0.2 (0-0.7) k/uL Basophils # 0.0 (0-0.2) k/uL PT 10.3 (9.0-12.0) sec INR 1.0 (<1.2) APTT 22.6 (22.0-30.0) sec Sodium 138 (137-145) mmol/L Potassium 4.3 (3.5-5.1) mmol/L Chloride 106 (98-107) mmol/L Carbon Dioxide 20 L (22-30) mmol/L Anion Gap 12 mmol/L BUN 17 (9-20) mg/dL Creatinine 0.60 L (0.66-1.25) mg/dL Est GFR (CKD-EPI)AfAm >90 (>60 ml/min/1.73 sqM) Est GFR (CKD-EPI)NonAf >90 (>60 ml/min/1.73 sqM) Glucose 94 (74-99) mg/dL Plasma Lactic Acid Bhavik (0.7-2.0) mmol/L Calcium 9.2 (8.4-10.2) mg/dL Phosphorus 3.3 (2.5-4.5) mg/dL Magnesium 1.9 (1.6-2.3) mg/dL Total Bilirubin 0.6 (0.2-1.3) mg/dL AST 32 (17-59) U/L ALT 25 (4-49) U/L Alkaline Phosphatase 126 (38-126) U/L Troponin I (0.000-0.034) ng/mL NT-Pro-B Natriuret Pep 431 pg/mL Total Protein 6.9 (6.3-8.2) g/dL Albumin 4.2 (3.5-5.0) g/dL Lamotrigine (2.0-15.0) ug/mL 08/28/23 08/28/23 08/28/23 Range/Units 22:53 22:53 23:19 WBC (3.8-10.6) k/uL RBC (4.30-5.90) m/uL Hgb (13.0-17.5) gm/dL Hct (39.0-53.0) % MCV (80.0-100.0) fL MCH (25.0-35.0) pg MCHC (31.0-37.0) g/dL RDW (11.5-15.5) % Plt Count (150-450) k/uL MPV Neutrophils % % Lymphocytes % % Monocytes % % Eosinophils % % Basophils % % Neutrophils # (1.3-7.7) k/uL Lymphocytes # (1.0-4.8) k/uL Monocytes # (0-1.0) k/uL Eosinophils # (0-0.7) k/uL Basophils # (0-0.2) k/uL PT (9.0-12.0) sec INR (<1.2) APTT (22.0-30.0) sec Sodium (137-145) mmol/L Potassium (3.5-5.1) mmol/L Chloride (98-107) mmol/L Carbon Dioxide (22-30) mmol/L Anion Gap mmol/L BUN (9-20) mg/dL Creatinine (0.66-1.25) mg/dL Est GFR (CKD-EPI)AfAm (>60 ml/min/1.73 sqM) Est GFR (CKD-EPI)NonAf (>60 ml/min/1.73 sqM) Glucose (74-99) mg/dL Plasma Lactic Acid Bhavik 1.6 (0.7-2.0) mmol/L Calcium (8.4-10.2) mg/dL Phosphorus (2.5-4.5) mg/dL Magnesium (1.6-2.3) mg/dL Total Bilirubin (0.2-1.3) mg/dL AST (17-59) U/L ALT (4-49) U/L Alkaline Phosphatase (38-126) U/L Troponin I 0.017 (0.000-0.034) ng/mL NT-Pro-B Natriuret Pep pg/mL Total Protein (6.3-8.2) g/dL Albumin (3.5-5.0) g/dL Lamotrigine 2.4 (2.0-15.0) ug/mL - EKG Data -: EKG Interpreted by Me - Radiology Data Radiology results: report reviewed (X-ray CT brain negative for acute disease), image reviewed Disposition Clinical Impression: Leg weakness, bilateral, Suicidal ideation, Mood disorder, Weakness, Dehydration, Hyponatremia, Debility, Fever, Coronavirus infection Disposition: ADMITTED IP TO THIS HOSP Condition: Fair Is patient prescribed a controlled substance at d/c from ED?: No Time of Disposition: 00:50
[2023-08-28 23:10] LABS: Basophils % (A) 0 %; Eosinophils # (A) 0.2 k/uL (0-0.7); Eosinophils % (A) 2 %; HCT 48.2 % (39.0-53.0); HGB 16.1 gm/dL (13.0-17.5); Lymphocytes # (A) 0.8 k/uL (1.0-4.8); Lymphocytes % (A) 8 %; MCH 30.7 pg (25.0-35.0); MCHC 33.4 g/dL (31.0-37.0); MCV 92.1 fL (80.0-100.0); Mean Platelet Volume 7.6; Monocytes # (A) 0.4 k/uL (0-1.0); Monocytes % (A) 4 %; Neutrophils # (A) 8.1 k/uL (1.3-7.7); Neutrophils % (A) 84 %; Platelet Count 162 k/uL (150-450); RBC 5.23 m/uL (4.30-5.90); RDW 13.7 % (11.5-15.5); WBC 9.5 k/uL (3.8-10.6)
[2023-08-28 23:27] LABS: Partial Thromboplastin Time 22.6 sec (22.0-30.0); Prothrombin Time 10.3 sec (9.0-12.0)
[2023-08-28 23:30] LABS: ALT 25 U/L (4-49); African American GFR (CKD) >90 (>60 ml/min/1.73 sqM); Albumin 4.2 g/dL (3.5-5.0); Anion Gap 12 mmol/L; Blood Urea Nitrogen 17 mg/dL (9-20); Calcium 9.2 mg/dL (8.4-10.2); Carbon Dioxide 20 mmol/L (22-30); Chloride 106 mmol/L (98-107); Glucose 94 mg/dL (74-99); Non-African American GFR(CKD) >90 (>60 ml/min/1.73 sqM); Sodium 138 mmol/L (137-145); Total Bilirubin 0.6 mg/dL (0.2-1.3); Total Protein 6.9 g/dL (6.3-8.2)
[2023-08-28 23:36] LABS: AST 32 U/L (17-59); Alkaline Phosphatase 126 U/L (38-126); Magnesium 1.9 mg/dL (1.6-2.3); Phosphorus 3.3 mg/dL (2.5-4.5); Potassium 4.3 mmol/L (3.5-5.1)
[2023-08-28 23:38] LABS: NT-Pro-B-Type Natriuretic Pept 431 pg/mL
--- NOTE | 2023-08-28 23:47 | CT ---
EXAM: CT Head Without Intravenous Contrast CLINICAL HISTORY: ITS.REASON CT Reason: weakness TECHNIQUE: Axial computed tomography images of the head/brain without intravenous contrast. CTDI is 49.1 mGy and DLP is 1261.4 mGy-cm. This CT exam was performed using one or more of the following dose reduction techniques: automated exposure control, adjustment of the mA and/or kV according to patient size, and/or use of iterative reconstruction technique. COMPARISON: No relevant prior studies available. FINDINGS: No acute intracranial hemorrhage. No midline shift or mass effect. The territorial fitzgerald-white matter differentiation is maintained throughout. Age-related cerebral volume loss. Periventricular and subcortical white matter hypoattenuation, consistent with chronic microangiopathy. The visualized orbits appear grossly unremarkable. The calvarium is intact. The visualized paranasal sinuses and mastoid air cells are grossly clear. IMPRESSION: No acute intracranial hemorrhage, midline shift, or mass effect.
--- NOTE | 2023-08-29 00:29 | XR ---
EXAM: XR Chest, 1 View CLINICAL HISTORY: ITS.REASON XR Reason: ams TECHNIQUE: Frontal view of the chest. COMPARISON: No relevant prior studies available. FINDINGS: Lungs: Unremarkable. No consolidation. Pleural space: Unremarkable. No pneumothorax. Heart: Cardiomegaly. Mediastinum: Unremarkable. Bones/joints: Sternotomy wires. Vasculature: Calcified aorta. IMPRESSION: No acute findings in the chest.
[2023-08-29] MEDS ORDERED: MORPHINE SULFATE 4 MG/ML SYRINGE IV PRN (00:50)
[2023-08-29] MEDS ORDERED: NALOXONE 0.4 MG/ML 1 ML VIAL IV PRN (00:50)
[2023-08-29] MEDS ORDERED: ONDANSETRON 4 MG/2 ML VIAL IVP PRN (00:50)
[2023-08-29] MEDS ORDERED: IBUPROFEN 800 MG TAB PO STA (00:53)
[2023-08-29] MEDS ORDERED: ACETAMINOPHEN TAB 500 MG TAB PO STA (00:53)
[2023-08-29] MEDS: SODIUM CHLORIDE 0.9% 1,000 ML IV SCH ×2 (01:15→14:39)
[2023-08-29] MEDS ORDERED: MELATONIN 3 MG TABLET PO PRN (13:16)
[2023-08-29] MEDS: CHOLECALCIFEROL 25 MCG (1000 IU) TABLET PO SCH (14:32)
[2023-08-29] MEDS: ASPIRIN 81 MG PO SCH (14:32)
[2023-08-29] MEDS: ENOXAPARIN 40 MG/0.4 ML SYRINGE SQ SCH (14:32)
[2023-08-29] MEDS: ISOSORBIDE MONONITRATE ER 30 MG TAB.ER.24H PO SCH (14:32)
[2023-08-29] MEDS: TAMSULOSIN 0.4 MG CAP.ER.24H PO SCH ×2 (14:32→20:15)
[2023-08-29] MEDS: CLOPIDOGREL 75 MG TAB PO SCH (14:32)
[2023-08-29] MEDS: SERTRALINE 100 MG TAB PO SCH (14:32)
[2023-08-29] MEDS: PANTOPRAZOLE 40 MG TABLET PO SCH (14:32)
[2023-08-29] MEDS: MEMANTINE 10 MG TAB PO SCH ×2 (14:32→20:14)
--- NOTE | 2023-08-29 14:34 | HP ---
HISTORY AND PHYSICAL Combined History and Physical and Discharge Summary CHIEF COMPLAINT: Weakness and sweating. HISTORY OF PRESENT ILLNESS: This is a 78-year-old gentleman with a past medical history of multiple medical problems including CAD and hyperlipidemia, was complaining of significant weakness and also profuse sweating. The patient came to [facility], COVID-19 was positive and the patient is able to ambulate and able to take diet properly. The patient will be closely monitored at this time. Basic labs are negative. There is no history of any fever, rigors, or chills. No history of cough at this time. PAST MEDICAL HISTORY: Reviewed include CAD, rest of the history and rest of the chart is also reviewed. HOME MEDICATIONS: Reviewed include Lamictal. Dose and rest of medications reviewed. ALLERGIES: None. FAMILY HISTORY: History of blood disorder. SOCIAL HISTORY: Previous history of smoking. REVIEW OF SYSTEMS: A 14-point review is negative except as mentioned earlier. PHYSICAL EXAMINATION: VITAL SIGNS: Pulse is 63, blood pressure 170/64, respirations 16. HEENT: Conjunctivae normal. NECK: No jugular venous distention. CARDIOVASCULAR: S1, S2 muffled. RESPIRATIONS: Breath sounds diminished at the bases. No rhonchi, no crackles. ABDOMEN: Soft, nontender. LEGS: No edema, no swelling. NERVOUS SYSTEM: No focal deficit. SKIN: No ulcer, rash, bleeding. JOINTS: No active deforming arthropathy. LABORATORY DATA: Reviewed. COVID-19 is positive. Chest x-ray, which I reviewed personally showed no acute abnormality. ASSESSMENT: 1. Weakness, possibly secondary to acute COVID-19 infection. 2. History of CAD. 3. History of CVA. 4. Hyperlipidemia. 5. History of myocardial infarction. 6. Multiple medical issues. RECOMMENDATIONS: This is a 78-year-old gentleman who has presented with weakness and COVID. He is medically stable at this time. The patient is able to perform activities of daily living without any limitations. The patient is keen on going home. Also at this time, I would recommend the patient to be discharged on same home medications. Also recommended the patient to be started on small dose of zinc and multivitamins and follow up with primary physician with followup labs, otherwise pulse ox and CT scan of the brain, which I reviewed, also was within normal limits. MMODL / IJN: [id number] /
[2023-08-29] MEDS: ZINC SULFATE 220 MG CAP PO SCH (14:39)
[2023-08-29] MEDS: FLUTICASONE 50MCG/SPRAY NASAL 16GM EA NOSTRIL SCH (14:44)
[2023-08-29] MEDS: ACETAMINOPHEN TAB 325 MG TAB PO PRN (15:30)
[2023-08-29] MEDS: OLANZapine 2.5 MG TAB PO SCH (20:14)
[2023-08-29] MEDS: lamoTRIgine 100 MG TAB PO SCH (20:14)
[2023-08-29] MEDS: METOPROLOL TARTRATE 25 MG TAB PO SCH (20:14)
[2023-08-29] MEDS: ATORVASTATIN 20 MG TAB PO SCH (20:14)
[2023-08-29] MEDS: guaiFENesin SYRUP 100MG/5ML 200 MG/10 ML CUP PO PRN (20:15)
[2023-08-29] MEDS: PATIENT'S OWN (Mirabegron [Myrbetriq] 50 MG Tab.Er.24h) PO SCH (20:27)
[2023-08-30] MEDS: SODIUM CHLORIDE 0.9% 1,000 ML IV SCH ×2 (04:28→17:22)
[2023-08-30 07:59] LABS: Basophils % (A) 0 %; Eosinophils # (A) 0.1 k/uL (0-0.7); Eosinophils % (A) 2 %; HCT 41.7 % (39.0-53.0); HGB 13.8 gm/dL (13.0-17.5); Lymphocytes # (A) 0.9 k/uL (1.0-4.8); Lymphocytes % (A) 15 %; MCH 31.2 pg (25.0-35.0); MCHC 33.1 g/dL (31.0-37.0); MCV 94.3 fL (80.0-100.0); Mean Platelet Volume 7.9; Monocytes # (A) 0.5 k/uL (0-1.0); Monocytes % (A) 8 %; Neutrophils # (A) 4.4 k/uL (1.3-7.7); Neutrophils % (A) 73 %; Platelet Count 125 k/uL (150-450); RBC 4.42 m/uL (4.30-5.90); RDW 13.8 % (11.5-15.5); WBC 6.1 k/uL (3.8-10.6)
[2023-08-30 08:10] LABS: ALT 21 U/L (4-49); AST 24 U/L (17-59); African American GFR (CKD) >90 (>60 ml/min/1.73 sqM); Albumin/Globulin Ratio 1.4; Alkaline Phosphatase 90 U/L (38-126); Anion Gap 7 mmol/L; Blood Urea Nitrogen 14 mg/dL (9-20); Calcium 8.1 mg/dL (8.4-10.2); Carbon Dioxide 21 mmol/L (22-30); Chloride 111 mmol/L (98-107); Globulin 2.2 g/dL; Glucose 87 mg/dL (74-99); Magnesium 1.9 mg/dL (1.6-2.3); Non-African American GFR(CKD) >90 (>60 ml/min/1.73 sqM); Phosphorus 3.3 mg/dL (2.5-4.5); Potassium 3.7 mmol/L (3.5-5.1); Sodium 139 mmol/L (137-145); Total Bilirubin 0.3 mg/dL (0.2-1.3); Total Protein 5.2 g/dL (6.3-8.2)
[2023-08-30] MEDS: ENOXAPARIN 40 MG/0.4 ML SYRINGE SQ SCH (08:53)
[2023-08-30] MEDS: ZINC SULFATE 220 MG CAP PO SCH (08:53)
[2023-08-30] MEDS: TAMSULOSIN 0.4 MG CAP.ER.24H PO SCH ×2 (08:53→20:08)
[2023-08-30] MEDS: CLOPIDOGREL 75 MG TAB PO SCH (08:53)
[2023-08-30] MEDS: ISOSORBIDE MONONITRATE ER 30 MG TAB.ER.24H PO SCH (08:53)
[2023-08-30] MEDS: CHOLECALCIFEROL 25 MCG (1000 IU) TABLET PO SCH (08:53)
[2023-08-30] MEDS: PANTOPRAZOLE 40 MG TABLET PO SCH (08:53)
[2023-08-30] MEDS: ASPIRIN 81 MG PO SCH (08:53)
[2023-08-30] MEDS: FLUTICASONE 50MCG/SPRAY NASAL 16GM EA NOSTRIL SCH (08:53)
[2023-08-30] MEDS: SERTRALINE 100 MG TAB PO SCH (08:53)
[2023-08-30] MEDS: MEMANTINE 10 MG TAB PO SCH ×2 (08:53→20:09)
[2023-08-30] MEDS: guaiFENesin SYRUP 100MG/5ML 200 MG/10 ML CUP PO PRN (11:09)
[2023-08-30] MEDS ORDERED: SERTRALINE 50 MG TAB PO STA (11:40)
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
[2023-08-30] MEDS: lamoTRIgine 100 MG TAB PO SCH (20:08)
[2023-08-30] MEDS: OLANZapine 2.5 MG TAB PO SCH (20:08)
[2023-08-30] MEDS: ATORVASTATIN 20 MG TAB PO SCH (20:09)
[2023-08-30] MEDS: METOPROLOL TARTRATE 25 MG TAB PO SCH (20:09)
[2023-08-30] MEDS: ACETAMINOPHEN TAB 325 MG TAB PO PRN (20:09)
[2023-08-30] MEDS: PATIENT'S OWN (Mirabegron [Myrbetriq] 50 MG Tab.Er.24h) PO SCH (20:25)
--- NOTE | 2023-08-30 23:32 | PN ---
PROGRESS NOTE SUBJECTIVE: This is a 78-year-old gentleman, who was admitted with weakness possibly secondary to COVID-19 infection, is being closely monitored. PT, OT evaluating the patient. Psychiatry has seen the patient. The patient had major depression. OBJECTIVE: VITAL SIGNS: Pulse is 68, blood pressure 125/62, respirations 19. CHEST: Clear to auscultation. CARDIOVASCULAR: S1, S2. ABDOMEN: Soft. NERVOUS SYSTEM: Nonfocal. LABORATORY DATA: Reviewed. ASSESSMENT: 1. Weakness possibly secondary to acute COVID-19 infection. 2. Severe depression. 3. History of coronary artery disease. 4. History of cerebrovascular accident. 5. Hyperlipidemia. 6. History of myocardial infarction. 7. Multiple medical issues. RECOMMENDATIONS AND DISCUSSION: I recommend to continue current management and continue symptomatic treatment. Otherwise, psychiatric input appreciated. Continue the rest of medications including zinc and Lovenox. Closely monitor. PT, OT evaluation, possible ECF rehab. Further recommendations to follow. MMANDRZEJL / IJN: [id number] /
[2023-08-31] MEDS: SODIUM CHLORIDE 0.9% 1,000 ML IV SCH ×2 (06:03→20:10)
[2023-08-31 08:06] LABS: Basophils % (A) 0 %; Eosinophils # (A) 0.1 k/uL (0-0.7); Eosinophils % (A) 3 %; HCT 43.7 % (39.0-53.0); HGB 14.6 gm/dL (13.0-17.5); Lymphocytes # (A) 0.7 k/uL (1.0-4.8); Lymphocytes % (A) 15 %; MCH 31.2 pg (25.0-35.0); MCHC 33.4 g/dL (31.0-37.0); MCV 93.3 fL (80.0-100.0); Mean Platelet Volume 7.8; Monocytes # (A) 0.4 k/uL (0-1.0); Monocytes % (A) 9 %; Neutrophils # (A) 3.3 k/uL (1.3-7.7); Neutrophils % (A) 69 %; Platelet Count 125 k/uL (150-450); RBC 4.68 m/uL (4.30-5.90); RDW 13.8 % (11.5-15.5); WBC 4.7 k/uL (3.8-10.6)
[2023-08-31 08:23] LABS: African American GFR (CKD) >90 (>60 ml/min/1.73 sqM); Anion Gap 6 mmol/L; Blood Urea Nitrogen 12 mg/dL (9-20); Calcium 8.3 mg/dL (8.4-10.2); Carbon Dioxide 24 mmol/L (22-30); Chloride 110 mmol/L (98-107); Glucose 90 mg/dL (74-99); Non-African American GFR(CKD) >90 (>60 ml/min/1.73 sqM); Potassium 3.9 mmol/L (3.5-5.1); Sodium 140 mmol/L (137-145)
[2023-08-31] MEDS: ZINC SULFATE 220 MG CAP PO SCH (08:30)
[2023-08-31] MEDS: ASPIRIN 81 MG PO SCH (08:30)
[2023-08-31] MEDS: SERTRALINE 50 MG TAB PO SCH (08:30)
[2023-08-31] MEDS: ISOSORBIDE MONONITRATE ER 30 MG TAB.ER.24H PO SCH (08:30)
[2023-08-31] MEDS: PANTOPRAZOLE 40 MG TABLET PO SCH (08:30)
[2023-08-31] MEDS: CHOLECALCIFEROL 25 MCG (1000 IU) TABLET PO SCH (08:30)
[2023-08-31] MEDS: CLOPIDOGREL 75 MG TAB PO SCH (08:30)
[2023-08-31] MEDS: MEMANTINE 10 MG TAB PO SCH ×2 (08:30→20:09)
[2023-08-31] MEDS: ENOXAPARIN 40 MG/0.4 ML SYRINGE SQ SCH (08:31)
[2023-08-31] MEDS: TAMSULOSIN 0.4 MG CAP.ER.24H PO SCH ×2 (08:31→20:10)
[2023-08-31] MEDS: FLUTICASONE 50MCG/SPRAY NASAL 16GM EA NOSTRIL SCH (08:31)
--- NOTE | 2023-08-31 11:39 | XR ---
EXAMINATION TYPE: XR chest 1V portable DATE OF EXAM: 08/31/2023 11:33 AM CLINICAL INDICATION:Male, 78 years old with history of sob COMPARISON: Chest radiographs from 08/28/2023 TECHNIQUE: XR chest 1V portable Frontal view of the chest. FINDINGS: Lungs/Pleura: There is flattening of the diaphragm with increased lucency of the lungs. No evidence o f pneumothorax, pleural effusion or focal consolidation. Pulmonary vascularity: Unremarkable. Heart/mediastinum: Cardiomediastinal silhouette is enlarged and stable. Musculoskeletal: No acute osseous pathology. IMPRESSION: 1. No acute cardiopulmonary disease process. 2. COPD changes.
[2023-08-31] MEDS: ALBUTEROL HFA INHALER INHALATION SCH ×2 (11:57→21:26)
--- NOTE | 2023-08-31 12:53 | PN ---
PROGRESS NOTE DATE OF SERVICE: 08/31/2023 SUBJECTIVE: This is a 78-year-old gentleman, who was admitted with acute COVID-19 infection with weakness also. The patient also complains of cough with yellowish sputum at this time. Psychiatrist evaluated the patient and ECF rehab is also being considered. No chest pain or palpitation. OBJECTIVE: VITAL SIGNS: Pulse is 70, blood pressure N respirations 18. CHEST: A few scattered rhonchi. ABDOMEN: Soft. NERVOUS SYSTEM: Nonfocal. LABORATORY DATA: Reviewed. ASSESSMENT: 1. Weakness, possibly secondary to acute COVID-19 infection. 2. Possible acute purulent tracheobronchitis. 3. Severe depression. 4. History of coronary artery disease. 5. History of cerebrovascular accident. 6. Hyperlipidemia. 7. Multiple medical issues. RECOMMENDATIONS AND DISCUSSION: This 78-year-old gentleman presented with multiple complex medical issues. We will monitor the patient closely. I would recommend a course of antibiotics. D- dimer; if it is positive, CT angio of chest. Otherwise, Infectious Disease evaluation. Prognosis is guarded. Further recommendations to follow. See orders. MMODL / IJN: [id number] / MTDD
[2023-08-31] MEDS: AMOXIC-POT CLAV 875-125MG 1 EACH TAB PO SCH ×2 (17:42→20:10)
[2023-08-31] MEDS: METOPROLOL TARTRATE 25 MG TAB PO SCH (20:09)
[2023-08-31] MEDS: OLANZapine 2.5 MG TAB PO SCH (20:10)
[2023-08-31] MEDS: PATIENT'S OWN (Mirabegron [Myrbetriq] 50 MG Tab.Er.24h) PO SCH (20:10)
[2023-08-31] MEDS: ATORVASTATIN 20 MG TAB PO SCH (20:10)
[2023-08-31] MEDS: lamoTRIgine 100 MG TAB PO SCH (20:10)
[2023-08-31] MEDS: guaiFENesin SYRUP 100MG/5ML 200 MG/10 ML CUP PO PRN (20:15)
--- NOTE | 2023-08-31 23:21 | P.CONS ---
History of Present Illness - Reason for Consult Consult date: 08/31/23 covid, bacterial infection Requesting physician: Yoly Elam - Chief Complaint Weakness and shortness of breath x few days - History of Present Illness Patient is a 78-year-old male with a past medical history significant for coronary artery disease hyperlipidemia reflux CVA TIA patient presenting to the ER 2 days ago for evaluation of weakness apparently position symptom has been getting worse and the patient was unable to ambulate and do activities of daily living for the patient presented to the hospital patient denies having any headache or URI symptoms denies any chest pain has been complaining of some shortness of breath he did have a cough mild to moderate intensity and did have some sputum not clear about the color no hemoptysis no nausea vomiting no choking on the food no abdominal pain or diarrhea patient presented to hospital have fever 100.1 F patient was not tachycardic mild hypoxemia however currently doing well off supplemental oxygen patient did have a normal white count with mild lymphopenia creatinine was normal liver enzymes are normal patient did tested positive for COVID influenza RSV was negative patient did have a chest x- ray no acute findings in the chest with a repeat chest x-ray this morning COPD changes and no acute cardiopulmonary disease process infectious disease was consulted for concern for possible secondary bacterial pneumonia Review of Systems Positive point and negatives has been mentioned in the HPI, complete review of systems was performed and all other systems are negative Past Medical History Past Medical History: Coronary Artery Disease (CAD), Cancer, CVA/TIA, Eye Disorder, GERD/Reflux, Hyperlipidemia, Memory Impairment, Myocardial Infarction (MS), Pneumonia, Prostate Disorder Additional Past Medical History / Comment(s): DYSPHAGIA, CHRONIC DRY COUGH, HX COLON CANCER-2004 WITH SURGERY., DIVERTICULAR DISORDER, Hiatal Hernia, TIA'S , CATARACT RIGHT EYE, PROBLEMS WITH BALANCE- USES CANE. HAVING PAINS IN BILAT LEGS AND FATIGUE,forgetfulness,enlarged prostate Last Myocardial Infarction Date:: UNKNOWN History of Any Multi-Drug Resistant Organisms: None Reported Past Surgical History: Bowel Resection, Cholecystectomy, Coronary Bypass/CABG, Heart Catheterization, Heart Catheterization With Stent, Hernia Repair Additional Past Surgical History / Comment(s): QUAD CABG (MPH 2009), Umbilical hernia repair, DEVIATED SEPTUM REPAIR/SPUR REMOVED from nose, Past Anesthesia/Blood Transfusion Reactions: Motion Sickness, Postoperative Nausea & Vomiting (PONV) Additional Past Anesthesia/Blood Transfusion Reaction / Comm: PONV X1. Claustrophobic Date of Last Stent Placement:: 08-13-22 Past Psychological History: Anxiety, Depression, PTSD Smoking Status: Former smoker Past Alcohol Use History: None Reported Additional Past Alcohol Use History / Comment(s): started smoking in his teens- quit 1969's, smoked 1/2-1 PPD Past Drug Use History: None Reported - Past Family History Son(s) Family Medical History: Cancer Father Family Medical History: Blood Disorder Additional Family Medical History / Comment(s): from a blood disorder Mother Family Medical History: Diabetes Mellitus Additional Family Medical History / Comment(s): age 53 -complications from dm Sister(s) Family Medical History: Diabetes Mellitus Medications and Allergies Home Medications Medication Instructions Recorded Confirmed Type Fluticasone Nasal [place] [Flonase 1 spr EA NOSTRIL DAILY 06/21/15 08/29/23 History Nasal [place]] Isosorbide Mononitrate ER [Imdur] 30 mg PO DAILY 10/09/15 08/29/23 History lamoTRIgine [LaMICtal] 100 mg PO HS #30 tab 08/11/18 08/29/23 Rx Tamsulosin HCl [Flomax] 0.4 mg PO BID 07/12/19 08/29/23 History Aspirin EC [Ecotrin Low Dose] 81 mg PO DAILY 11/07/21 08/29/23 History Atorvastatin [Lipitor] 20 mg PO HS 11/07/21 08/29/23 History Metoprolol Tartrate [Lopressor] 25 mg PO HS 11/07/21 08/29/23 History OLANZapine [ZyPREXA] 2.5 mg PO HS 11/07/21 08/29/23 History Omeprazole 40 mg PO DAILY 11/07/21 08/29/23 History Clopidogrel [Plavix] 75 mg PO DAILY 08/12/22 08/29/23 History Cholecalciferol [Vitamin D3 (25 50 mcg PO DAILY 08/28/22 08/29/23 History Mcg = 1000 Iu)] Memantine [Namenda] 10 mg PO BID 08/29/23 08/29/23 History Mirabegron [Myrbetriq] 50 mg PO HS 08/29/23 08/29/23 History Acetaminophen Tab [Tylenol] 650 mg PO Q6HR PRN tab 09/01/23 Rx Albuterol Inhaler [Ventolin Hfa 2 puff INHALATION RT-TID each 09/01/23 Rx Inhaler] Melatonin 10 mg PO HS tab 09/01/23 Rx Sertraline [Zoloft] 200 mg PO DAILY #0 09/01/23 08/29/23 Rx Zinc Sulfate [Orazinc] 220 mg PO DAILY cap 09/01/23 Rx traZODone HCL [Desyrel] 50 mg PO HS PRN tab 09/01/23 Rx Allergies Allergy/AdvReac Type Severity Reaction Status Date / Time No Known Allergies Allergy Verified 08/29/23 08:23 Physical Exam Vitals: Vital Signs Temp Pulse Resp BP Pulse Ox 08/31/23 07:00 98.3 F 70 18 163/82 95 08/31/23 01:45 97.8 F 58 L 20 149/79 93 L 08/30/23 20:38 99.2 F 62 18 130/64 94 L 08/30/23 17:05 95 08/30/23 14:00 98.0 F 68 19 125/62 93 L Intake and Output 08/30/23 08/31/23 08/31/23 22:59 06:59 14:59 Other: Voiding Method Bedside Commode # Voids 2 5 1 # Bowel Movements 1 GENERAL DESCRIPTION: Elderly male lying in bed, no distress. No tachypnea or accessory muscle of respiration use. HEENT: Shows Pallor , no scleral icterus. Oral mucous membrane is dry. NECK: Trachea central, no thyromegaly. LUNGS: Unlabored breathing. Decreased intensity of breath sounds no wheeze HEART: S1, S2, regular rate and rhythm. No loud murmur ABDOMEN: Soft, no tenderness , EXTREMITIES: No edema of feet. SKIN: No rash, no masses palpable. NEUROLOGICAL: The patient is awake, alert, oriented x3, mood and affect normal. Results CBC & Chem 7: 09/01/23 08:04 09/01/23 08:04 Labs: Abnormal Lab Results - Last 24 Hours (Table) 08/31/23 08/31/23 Range/Units 07:47 07:47 Plt Count 125 L (150-450) k/uL Lymphocytes # 0.7 L (1.0-4.8) k/uL Chloride 110 H (98-107) mmol/L Creatinine 0.56 L (0.66-1.25) mg/dL Calcium 8.3 L (8.4-10.2) mg/dL Assessment and Plan (1) COVID-19 Status: Acute Code(s): U07.1 - COVID-19 SNOMED Code(s): 846803423 Plan: 1patient presented to hospital with generalized weakness also complaining of shortness of breath and cough likely related to acute COVID-19 infection in this patient with 2 chest x-ray that has been negative for any pneumonia and the patient not requiring any supplemental oxygen treatment will be mostly supportive clinic suspicious low for secondary bacterial pneumonia. 2we will wait for the procalcitonin level to be finalized. 3patient to continue with Lovenox zinc ascorbic acid, not qualifying for remdesivir though may benefit from steroids 4-droplet isolation We will follow on clinical condition and cultures to further adjust medication if needed Thank you for this consultation we will follow the patient along with you Dictation was produced using [employer] dictation software. please excuse any grammatical, word or spelling errors. Time with Patient: Greater than 30
[2023-09-01] MEDS: CLOPIDOGREL 75 MG TAB PO SCH (08:37)
[2023-09-01] MEDS: TAMSULOSIN 0.4 MG CAP.ER.24H PO SCH (08:37)
[2023-09-01] MEDS: PANTOPRAZOLE 40 MG TABLET PO SCH (08:37)
[2023-09-01] MEDS: ZINC SULFATE 220 MG CAP PO SCH (08:37)
[2023-09-01] MEDS: ASPIRIN 81 MG PO SCH (08:37)
[2023-09-01] MEDS: SERTRALINE 50 MG TAB PO SCH (08:37)
[2023-09-01] MEDS: CHOLECALCIFEROL 25 MCG (1000 IU) TABLET PO SCH (08:37)
[2023-09-01] MEDS: MEMANTINE 10 MG TAB PO SCH (08:37)
[2023-09-01] MEDS: ISOSORBIDE MONONITRATE ER 30 MG TAB.ER.24H PO SCH (08:37)
[2023-09-01] MEDS: SODIUM CHLORIDE 0.9% 1,000 ML IV SCH (08:38)
[2023-09-01] MEDS: FLUTICASONE 50MCG/SPRAY NASAL 16GM EA NOSTRIL SCH (08:38)
[2023-09-01] MEDS: AMOXIC-POT CLAV 875-125MG 1 EACH TAB PO SCH (08:38)
[2023-09-01] MEDS ORDERED: ENOXAPARIN 30 MG/0.3 ML SYRINGE SQ SCH (09:00)
[2023-09-01] MEDS: ALBUTEROL HFA INHALER INHALATION SCH ×2 (09:30→15:48)
[2023-09-01 10:29] LABS: African American GFR (CKD) >90 (>60 ml/min/1.73 sqM); Anion Gap 10 mmol/L; Blood Urea Nitrogen 12 mg/dL (9-20); Calcium 8.7 mg/dL (8.4-10.2); Carbon Dioxide 23 mmol/L (22-30); Chloride 109 mmol/L (98-107); Glucose 99 mg/dL (74-99); Non-African American GFR(CKD) >90 (>60 ml/min/1.73 sqM); Sodium 142 mmol/L (137-145)
--- NOTE | 2023-09-01 12:53 | CT ---
EXAMINATION TYPE: CT angio chest CT DLP: 322.4 mGycm, Automated exposure control for dose reduction was used. DATE OF EXAM: 09/01/2023 12:46 PM COMPARISON: Chest radiograph from 08/31/2023 CLINICAL INDICATION:Male, 78 years old with history of elevated d dimer, covid ?PE; Elevated D-dimer, COVID, ?PE TECHNIQUE/CONTRAST: CTA scan of the thorax is performed without and with IV Contrast, patient injected with 100 ml mL of Isovue 370, pulmonary embolism protocol. MIP images are created and reviewed. FINDINGS: Pulmonary Artery: There is no evidence for a filling defect within the pulmonary vasculature to sugge st acute pulmonary embolism. The pulmonary artery is of normal size. Lungs/Pleura: No evidence of focal consolidation, pleural effusion or pneumothorax. Calcified pleural plaques identified in the lung apices bilaterally. No suspicious pulmonary nodule or mass. Airway: Large airways are patent. Heart: The heart is mildly enlarged for size.. Post CABG changes. Vasculature: No evidence of aortic aneurysm. Atherosclerotic calcification of the aorta and its branc hes. Mediastinum: No evidence of adenopathy. Musculoskeletal: No acute osseous abnormalities. Sternotomy wires. Mild degenerative changes of the t horacic spine. Soft Tissues: Unremarkable. Lower neck: No significant findings. Upper Abdomen: Small hiatal hernia. IMPRESSION: 1. No evidence of pulmonary embolism or acute thoracic process. 2. Cardiomegaly with post CABG changes. 3. Bilateral apical calcified pleural plaques. Correlate for prior asbestosis exposure.
[2023-09-01] MEDS ORDERED: traZODone HCL 50 MG TAB PO PRN (13:57)
--- NOTE | 2023-09-01 14:01 | P.PN ---
Progress Note - Text Progress Note Date: 09/01/23 Interval History: Patient was seen today for psychiatric follow-up at the bedside. Patient's mo ther states the patient is doing fairly well today. Patient was agreeable to speak to physician underwriter today in the room. He claims that he still feeling somewhat depressed however claims that the medications have been helping him. He also doesn't report some anxiety. He claims that his is home sick as well and he is worried about her. States that his sleep has been on and off. He claims that majority of his symptoms are likely related to his illness having covid. He was fairly future oriented and we spoke about medications. At this time patient denies any suicidal or homical ideations, intent or plan. Patient denies any auditory, visual hallucinations and denies any paranoia or delusions. Patient denies any side effects from the medications and has been compliant with meds. Claims that his appetite is improving moderately. Mental Status Exam: General Appearance: 78-year-old male who appears older than stated age, laying in bed, dressed appropriately in a hospital gown Behavior: Cooperative, improving Speech: Patient's speech is [fluent and nonpressured.] Mood/Affect: Patient reports their mood is [depressed however improving], affect is congruent and constricted. Not tearful today Suicidality/Homicidality: Patient denies having any homicidal ideation intent or plan. [Denies any suicidal ideations intent or plan] Perceptions: Patient denies any visual hallucinations [and denies any auditory hallucinations] Though content/process: [There is no evidence of any delusional thought content and thought process is linear and goal-directed.] More future oriented Memory and concentration: AOX3, grossly intact for the purposes of this session. Judgment and insight: Improving mildly IMPRESSIONS: Major depressive disorder Plan: -Increase Zoloft to 200 mg daily for mood/anxiety -Continue Lamictal 100 mg daily at bedtime, Namenda 10 mg twice a day, and Zyprexa 2.5 milligrams at bedtime -added trazodone 50 mg qhs prn for insomnia. melatonin 10 mg scheduled qhs for sleep -At this time, patient does NOT meet criteria for inpatient psychiatric hospitalization -physician underwriter communicated the plan to pts nurse and patient. -Psychiatry will sign off at this time.
--- NOTE | 2023-09-01 14:39 | P.DS ---
Providers Date of admission: 08/30/23 15:50 Expected date of discharge: 09/01/23 Attending physician: Rojas Bowens Consults: 08/29/23 00:50 Consult Physician Routine Consulting Provider: Mark Claudio Consult Reason/Comments: depression Do you want consulting provider notified?: Yes 08/31/23 11:28 Consult Physician Routine Consulting Provider: Radha Mancini Consult Reason/Comments: covid, bacterial infection Do you want consulting provider notified?: Yes Primary care physician: [place] Hospital Course: Hospital course: Admitted with weakness and sweating. COVID-19 tested positive. No hypoxia. Supportive treatment. Remained afebrile. Was feeling weak and tired. Seen by PTOT. Qualified for inpatient rehab. Today-has some cough. Not requiring any oxygen. Eating well. Using a walker. Spoke to social service technician. Authorization received for rehab. Discussed. Questions answered. Medications adjusted by psychiatrist Dr. Claudio. Discussion and discharge planning more than 35 minutes On examination: VITAL SIGNS: [98.4, 64, 16, 135/84, 92% room air] GENERAL APPEARANCE: Reclining in bed, comfortable HEENT: Normal external appearance of nose and ear. Oral cavity normal EYES: Pupils equal. Conjunctiva normal. NECK: JVD not raised. Mass not palpable. RESPIRATORY: Respiratory effort normal. Lungs fair air entry. CARDIOVASCULAR: First and second sounds normal. No edema. ABDOMEN: Soft. Liver and spleen not palpable. No tenderness. No mass palpable. PSYCHIATRY: Slightly anxious. Able to answer simple questions . INVESTIGATIONS, reviewed in the clinical context: Sodium 142 potassium 4 BUN 12 creatinine 0.56 white count 4.7 hemoglobin 14.6 platelets 125 Procalcitonin 0.09 COVID PCR: Detected CT chest angiogram: Negative PE. Bilateral apical calcified pleural plaques. CT brain: Chronic changes EKG tracing-sinus rhythm. Nonspecific ST-T wave changes Assessment plan: -. COVID-19 positive. No hypoxia. Supportive treatment. No steroids. -Acute bronchitis from COVID-19 pneumonia. -Acute medical debility secondary to COVID-19. Seen by PTOT. For rehab -Mild cognitive impairment Namenda, -BPH Flomax 0.4 mg twice a day -GERD Omeprazole 40 mg a day -CAD with prior history of coronary bypass and stent Imdur, aspirin, Lipitor, Plavix, -Major depressive disorder Zoloft increased to 200 mg day. Lamictal 100 mg daily at bedtime. Zyprexa 2.5 mg daily at bedtime. -Insomnia from medical conditions Melatonin 10 mg daily at bedtime. Trazodone 50 mg daily at bedtime when necessary Disposition: [facility] Plan - Discharge Summary New Discharge Prescriptions: New Zinc Sulfate [Orazinc] 220 mg PO DAILY cap Albuterol Inhaler [Ventolin Hfa Inhaler] 2 puff INHALATION RT-TID each Acetaminophen Tab [Tylenol] 650 mg PO Q6HR PRN tab PRN Reason: Fever And/ Or Pain traZODone HCL [Desyrel] 50 mg PO HS PRN tab PRN Reason: Insomnia Melatonin 10 mg PO HS tab Continue Fluticasone Nasal [place] [Flonase Nasal [place]] 1 spr EA NOSTRIL DAILY Isosorbide Mononitrate ER [Imdur] 30 mg PO DAILY lamoTRIgine [LaMICtal] 100 mg PO HS #30 tab Tamsulosin HCl [Flomax] 0.4 mg PO BID OLANZapine [ZyPREXA] 2.5 mg PO HS Atorvastatin [Lipitor] 20 mg PO HS Aspirin EC [Ecotrin Low Dose] 81 mg PO DAILY Cholecalciferol [Vitamin D3 (25 Mcg = 1000 Iu)] 50 mcg PO DAILY Memantine [Namenda] 10 mg PO BID Omeprazole 40 mg PO DAILY Metoprolol Tartrate [Lopressor] 25 mg PO HS Clopidogrel [Plavix] 75 mg PO DAILY Mirabegron [Myrbetriq] 50 mg PO HS Changed Sertraline [Zoloft] 200 mg PO DAILY #0 Discontinued Melatonin 6 mg PO HS PRN PRN Reason: Insomnia Discharge Medication List Fluticasone Nasal [place] [Flonase Nasal [place]] 1 spr EA NOSTRIL DAILY 06/21/15 [History] Isosorbide Mononitrate ER [Imdur] 30 mg PO DAILY 10/09/15 [History] lamoTRIgine [LaMICtal] 100 mg PO HS #30 tab 08/11/18 [Rx] Tamsulosin HCl [Flomax] 0.4 mg PO BID 07/12/19 [History] Aspirin EC [Ecotrin Low Dose] 81 mg PO DAILY 11/07/21 [History] Atorvastatin [Lipitor] 20 mg PO HS 12/15/21 [History] Metoprolol Tartrate [Lopressor] 25 mg PO HS 11/07/21 [History] OLANZapine [ZyPREXA] 2.5 mg PO HS 11/07/21 [History] Omeprazole 40 mg PO DAILY 11/07/21 [History] Clopidogrel [Plavix] 75 mg PO DAILY 08/12/22 [History] Cholecalciferol [Vitamin D3 (25 Mcg = 1000 Iu)] 50 mcg PO DAILY 08/28/22 [History] Memantine [Namenda] 10 mg PO BID 08/29/23 [History] Mirabegron [Myrbetriq] 50 mg PO HS 08/29/23 [History] Acetaminophen Tab [Tylenol] 650 mg PO Q6HR PRN tab 09/01/23 [Rx] Albuterol Inhaler [Ventolin Hfa Inhaler] 2 puff INHALATION RT-TID each 09/01/23 [Rx] Melatonin 10 mg PO HS tab 09/01/23 [Rx] Sertraline [Zoloft] 200 mg PO DAILY #0 09/01/23 [Rx] Zinc Sulfate [Orazinc] 220 mg PO DAILY cap 09/01/23 [Rx] traZODone HCL [Desyrel] 50 mg PO HS PRN tab 09/01/23 [Rx] Follow up Appointment(s)/Referral(s): Mark Wells DO [Primary Care Provider] - 1-2 days (Samra, please call for follow-up appointment.)
[2023-09-01 15:39] LABS: Basophils # (A) 0.03 X 10*3/uL (0.00-0.10); Basophils % (A) 0.8 %; Eosinophils # (A) 0.14 X 10*3/uL (0.04-0.35); Eosinophils % (A) 3.6 %; HCT 46.1 % (39.6-50.0); HGB 15.6 d/dL (13.0-17.0); Lymphocytes # (A) 0.95 X 10*3/uL (0.90-5.00); Lymphocytes % (A) 24.2 %; MCH 30.9 pg (27.0-32.0); MCHC 33.8 d/dL (32.0-37.0); MCV 91.3 FL (80.0-97.0); Monocytes # (A) 0.49 X 10*3/uL (0.20-1.00); Monocytes % (A) 12.5 %; NRBC Per 100 WBC 0 X 10*3/uL (0.00-0.01); Neutrophils # (A) 2.31 X 10*3/uL (1.80-7.70); Neutrophils % (A) 58.6 %; Platelet Count 140 X 10*3/uL (140-440); RBC 5.05 X 10*6/uL (4.40-5.60); WBC 3.93 X 10*3/uL (4.50-10.00)
[2023-09-01 15:50] VITALS: BP 148/80; PULSE 68; RESP 17; TEMP 97.4
[2023-09-01] MEDS ORDERED: MELATONIN 5 MG TABLET PO SCH (21:00)
[2023-09-02] MEDS ORDERED: SERTRALINE 100 MG TAB PO SCH (09:00)
--- NOTE | 2023-09-02 12:14 | P.PN ---
Subjective Progress Note Date: 09/01/23 Principal diagnosis: covid 19 and a question of bacterial infection Patient is a 78-year-old male with a past medical history significant for coronary artery disease hyperlipidemia reflux CVA TIA patient presenting to the ER for evaluation of increasing shortness of breath and weakness patient did test positive for covid 19, chest x-ray however was negative. On today's evaluation that is 09/01/2023, the patient denies any fever or any chills, the patient is breathing comfortably on room air and no need for supplemental oxygen, patient denies abdominal pain and no nausea/vomiting /diarrhea,the patient denies chest pain did have mild cough with occasional sputum no hemoptysis patient did have a white count of 3.93, creatinine 0.56 Objective - Vital Signs Vital signs: Vital Signs Temp 98.4 F 09/01/23 07:26 Pulse 64 09/01/23 07:26 Resp 18 09/01/23 08:00 BP 135/84 09/01/23 07:26 Pulse Ox 92 L 09/01/23 07:26 FiO2 Intake & Output 08/31/23 09/01/23 09/01/23 18:59 06:59 18:59 Other: Voiding Method Bedside Commode Bedside Commode Urinal Urinal Diaper Diaper Incontinent Incontinent # Voids 2 12 # Bowel Movements 1 - Exam GENERAL DESCRIPTION: An elderly male lying in bed in no distress RESPIRATORY SYSTEM: Unlabored breathing , decreased breath sounds at bases HEART: S1 S2 regular rate and rhythm , ABDOMEN: Soft , no tenderness EXTREMITIES: No edema feet - Labs CBC & Chem 7: 09/01/23 08:04 09/01/23 08:04 Labs: Abnormal Lab Results - Last 24 Hours (Table) 08/31/23 09/01/23 Range/Units 12:27 08:04 D-Dimer 1.23 H (<0.60) mg/L FEU Chloride 109 H (98-107) mmol/L Creatinine 0.56 L (0.66-1.25) mg/dL Assessment and Plan (1) COVID-19 Status: Acute Code(s): U07.1 - COVID-19 SNOMED Code(s): 521595935 Plan: 1patient presented to hospital with generalized weakness also complaining of shortness of breath and cough likely related to acute COVID-19 infection in this patient with 2 chest x-ray that has been negative for any pneumonia and the patient not requiring any supplemental oxygen treatment will be mostly supportive clinic suspicious low for secondary bacterial pneumonia. 2patient did have normal procalcitonin of 0.09 3patient to continue with Lovenox zinc ascorbic acid, no need for systemic antibiotic therapy 4-droplet isolation Dictation was produced using [employer] dictation software. please excuse any grammatical, word or spelling errors. Time with Patient: Less than 30
== END 2023-09-01 16:50 | disposition home or self-care (01) ==
LOC: EC 20:16 → OBSVTOIN 08-29 00:50 → INTOOBSV 08-29 00:50 → UNDOADMOB 08-29 00:50 → 6NMEDSUR 08-29 00:50 → 5NMEDONC 08-29 01:53 → 6NMEDSUR 08-29 01:53 → 4SSUR 08-29 02:04 → 5NMEDONC 08-29 02:04 → 4SSUR 08-29 02:23 → OBSVTOIN 08-30 15:50 → INTOOBSV 08-30 15:50 → UNDODISIN 09-01 16:50
PROVIDERS: ADMIT Hospitalist; ATTEND Hospitalist
DX: U07.1 COVID-19 (principal); J20.8 Acute bronchitis due to other specified organisms; R53.1 Weakness; R45.851 Suicidal ideations; E86.0 Dehydration; E87.1 Hypo-osmolality and hyponatremia; R53.81 Other malaise; F32.9 Major depressive disorder, single episode, unspecified; E78.5 Hyperlipidemia, unspecified; K21.9 Gastro-esophageal reflux disease without esophagitis; I25.10 Atherosclerotic heart disease of native coronary artery without angina pectoris; N40.0 Benign prostatic hyperplasia without lower urinary tract symptoms; F41.9 Anxiety disorder, unspecified; G31.84 Mild cognitive impairment of uncertain or unknown etiology; G47.00 Insomnia, unspecified; I25.2 Old myocardial infarction; Z85.038 Personal history of other malignant neoplasm of large intestine; Z86.73 Personal history of transient ischemic attack (TIA), and cerebral infarction without residual deficits; Z87.891 Personal history of nicotine dependence; Z95.5 Presence of coronary angioplasty implant and graft; Z79.899 Other long term (current) drug therapy
CPT/HCPCS: 96361 ×2; 96372 ×4; 96360; 99285; 36415; 94640 ×3; 94760; 93005; 97162; 97166; 85379; 83880; 80053 ×2; 80048 ×2; 80175; 83605; 83735 ×2; 84100 ×2; 84484; 85025 ×4; 85610; 85730; 84145; 87636; 71045 ×2; 70450; 71275; G0378 ×5; J1650 ×4; Q9967

== ENCOUNTER 2023-10-13 19:12 | Observation (INO) | payer MEDICARE, OTHER ==
[2023-10-13 19:31] LABS: Glucose,Whole Blood 96 mg/dL (70-110)
[2023-10-13] MEDS ORDERED: SODIUM CHLORIDE 0.9% 1,000 ML IV STA (19:31)
[2023-10-13] MEDS ORDERED: ACETAMINOPHEN TAB 500 MG TAB PO STA (19:32)
--- NOTE | 2023-10-13 19:41 | ED ---
Weakness HPI - General Chief complaint: Weakness Stated complaint: Weakness Time Seen by Provider: 10/13/23 19:27 Source: patient, EMS, RN notes reviewed Mode of arrival: EMS Limitations: no limitations - History of Present Illness Initial comments: This is a 78-year-old male who presents to the emergency department for generalized weakness. His states that he went to the mall today to go for a walk, which is typical for him. He also spends time with his friends there. When he came home today, he essentially collapsed and felt very weak. He was unable to move his arms and legs. He has had problems with leg weakness from time to time, but states that he has never had them completely give out on him like they did today. Before leaving for the mall he was fine and had no complaints. Patient states that he does still feel weak. He was noted to have a fever on arrival, which he did not measure earlier today. He has had a cough for the last couple of days as well as increasing shortness of breath for a couple of days. Denies any chest pain. He was also just discharged from [facility] about a month ago [facility] Complaint: generalized weakness, difficulty walking - Related Data Home Medications Medication Instructions Recorded Confirmed Fluticasone Nasal Saline [Flonase 1 spr EA NOSTRIL DAILY 06/21/15 08/29/23 Nasal Saline] Isosorbide Mononitrate ER [Imdur] 30 mg PO DAILY 10/09/15 08/29/23 Tamsulosin HCl [Flomax] 0.4 mg PO BID 07/12/19 08/29/23 Aspirin EC [Ecotrin Low Dose] 81 mg PO DAILY 11/07/21 08/29/23 Atorvastatin [Lipitor] 20 mg PO HS 11/07/21 08/29/23 Metoprolol Tartrate [Lopressor] 25 mg PO HS 11/07/21 08/29/23 OLANZapine [ZyPREXA] 2.5 mg PO HS 11/07/21 08/29/23 Omeprazole 40 mg PO DAILY 11/07/21 08/29/23 Clopidogrel [Plavix] 75 mg PO DAILY 08/12/22 08/29/23 Cholecalciferol [Vitamin D3 (25 50 mcg PO DAILY 08/28/22 08/29/23 Mcg = 1000 Iu)] Memantine [Namenda] 10 mg PO BID 08/29/23 08/29/23 Mirabegron [Myrbetriq] 50 mg PO HS 08/29/23 08/29/23 Previous Rx's Medication Instructions Recorded lamoTRIgine [LaMICtal] 100 mg PO HS #30 tab 08/11/18 Acetaminophen Tab [Tylenol] 650 mg PO Q6HR PRN tab 09/01/23 Albuterol Inhaler [Ventolin Hfa 2 puff INHALATION RT-TID each 09/01/23 Inhaler] Melatonin 10 mg PO HS tab 09/01/23 Sertraline [Zoloft] 200 mg PO DAILY #0 09/01/23 Zinc Sulfate [Orazinc] 220 mg PO DAILY cap 09/01/23 traZODone HCL [Desyrel] 50 mg PO HS PRN tab 09/01/23 Allergies Allergy/AdvReac Type Severity Reaction Status Date / Time No Known Allergies Allergy Verified 10/13/23 19:27 Review of Systems ROS Statement: Those systems with pertinent positive or pertinent negative responses have been documented in the HPI. ROS Other: All systems not noted in ROS Statement are negative. Past Medical History Past Medical History: Coronary Artery Disease (CAD), Cancer, CVA/TIA, Eye Disorder, GERD/Reflux, Hyperlipidemia, Memory Impairment, Myocardial Infarction (ND), Pneumonia, Prostate Disorder Additional Past Medical History / Comment(s): DYSPHAGIA, CHRONIC DRY COUGH, HX COLON CANCER-2004 WITH SURGERY., DIVERTICULAR DISORDER, Hiatal Hernia, TIA'S , CATARACT RIGHT EYE, PROBLEMS WITH BALANCE- USES CANE. HAVING PAINS IN BILAT LEGS AND FATIGUE,forgetfulness,enlarged prostate Last Myocardial Infarction Date:: UNKNOWN History of Any Multi-Drug Resistant Organisms: None Reported Past Surgical History: Bowel Resection, Cholecystectomy, Coronary Bypass/CABG, Heart Catheterization, Heart Catheterization With Stent, Hernia Repair Additional Past Surgical History / Comment(s): QUAD CABG (MPH 2009), Umbilical hernia repair, DEVIATED SEPTUM REPAIR/SPUR REMOVED from nose, Past Anesthesia/Blood Transfusion Reactions: Motion Sickness, Postoperative Nausea & Vomiting (PONV) Additional Past Anesthesia/Blood Transfusion Reaction / Comment(s): PONV X1. Claustrophobic Date of Last Stent Placement:: 08-13-22 Past Psychological History: Anxiety, Depression, PTSD Smoking Status: Former smoker Past Alcohol Use History: None Reported Past Drug Use History: None Reported - Past Family History Son(s) Family Medical History: Cancer Father Family Medical History: Blood Disorder Additional Family Medical History / Comment(s): from a blood disorder Mother Family Medical History: Diabetes Mellitus Additional Family Medical History / Comment(s): age 53 -complications from dm Sister(s) Family Medical History: Diabetes Mellitus General Exam Limitations: no limitations General appearance: alert, in no apparent distress Head exam: Present: atraumatic, normocephalic, normal inspection Respiratory exam: Present: normal lung sounds bilaterally. Absent: respiratory distress, wheezes, rales, rhonchi, stridor Cardiovascular Exam: Present: regular rate, normal rhythm, normal heart sounds. Absent: systolic murmur, diastolic murmur, rubs, gallop, clicks GI/Abdominal exam: Present: soft, normal bowel sounds. Absent: distended, tenderness, guarding, rebound, rigid Neurological exam: Present: alert, oriented X3, CN II-XII intact Psychiatric exam: Present: normal affect, normal mood Skin exam: Present: warm, dry, intact, normal color. Absent: rash Course Vital Signs 10/13/23 10/13/23 10/13/23 19:23 19:24 19:50 Temperature 100.5 F H Pulse Rate 70 70 70 Respiratory 16 17 14 Rate Blood Pressure 140/79 140/79 135/97 O2 Sat by Pulse 96 95 96 Oximetry 10/13/23 10/13/23 10/13/23 21:10 21:30 21:41 Temperature 97.8 F Pulse Rate 72 66 Respiratory 16 13 Rate Blood Pressure 136/78 136/78 O2 Sat by Pulse 96 97 Oximetry 10/13/23 10/13/23 22:30 23:30 Temperature Pulse Rate 72 68 Respiratory 12 12 Rate Blood Pressure 134/80 131/75 O2 Sat by Pulse 96 97 Oximetry Medical Decision Making - Medical Decision Making This is a 78-year-old male who presents to the emergency department for generalized weakness. Was pt. sent in by a medical professional or institution? @ -No Did you speak to anyone other than the patient for history? @ -His provided the majority of the information. Did you review nursing and triage notes? @ -Yes, and I agree, it is accurate with regards to the patient's symptoms. Were old charts reviewed? @ -No Differential Diagnosis? @ -Differential Weakness: Hypoglycemia, shock, sepsis, hyponatremia, anemia, infection, ND, ETOH, adverse medicine reaction, overdose, stroke, this is not meant to be an all-inclusive list. EKG interpreted by me (3pts min.)? @ -EKG interpreted by me demonstrating the following: Sinus rhythm. Ventricular rate 66 bpm, MA interval 152 ms, QRS duration 99 ms, QTc 412 ms. X-rays interpreted by me (1pt min.)? @ -Chest x-ray obtained, my interpretation identifies no localized consolidations or infiltrates. CT interpreted by me (1pt min.)? @ -Not obtained U/S interpreted by me (1pt. min.)? @ -Not obtained What testing was considered but not performed? (CT, X-rays, U/S, labs)? Why? @ -None What meds were considered but not given? Why? @ -None Did you discuss the management of the patient with other professionals? @ -Yes, Kim Starks with [facility], who accepts the patient for admission. Did you reconcile home meds? @ -No Was smoking cessation discussed for >3mins.? @ -No Was critical care preformed (if so, how long)? @ -No Were there social determinants of health that impacted care today? How? (Homelessness, low income, unemployed, alcoholism, drug addiction, transportation, low edu. Level, literacy, decrease access to med. care, fpc, rehab)? @ -No Was there de-escalation of care discussed even if they declined? (Discuss DNR or withdrawal of care, Hospice)? @ -No What co-morbidities impacted this encounter? (DM, HTN, Smoking, COPD, CAD, Cancer, CVA, Hep., AIDS, mental health diagnosis, sleep apnea, morbid obesity)? @ -CAD, HLD, memory impairment Was patient admitted / discharged? @ -Admitted. Patient was febrile on arrival with a temperature of 100.5F. This was treated with Tylenol. Lab work obtained and found to be unremarkable. Covid, influenza, and RSV testing were negative. Chest x-ray reveals no acute process. Urinalysis negative for signs of infection. The cause of the patient's fever is not entirely clear. Blood cultures were obtained. He does not meet septic criteria. Nursing staff tried to get him up, and he was able to stand, but could not ambulate secondary to the weakness. Patient cannot be safely discharged at this point given his inability to ambulate. He was subsequently admitted to medicine for the weakness and fever of unknown origin. Consult placed for physical and occupational therapy. Undiagnosed new problem with uncertain prognosis? @ -None Drug Therapy requiring intensive monitoring for toxicity (Heparin, Nitro, Insulin, Cardizem)? @ -None Were any procedures done? @ -None Diagnosis/symptom? @ -Generalized weakness, difficulty with ambulation, fever Acute, or Chronic, or Acute on Chronic? @ -Acute Uncomplicated (without systemic symptoms) or Complicated (systemic symptoms)? @ -Complicated Side effects of treatment? @ -None Exacerbation, Progression, or Severe Exacerbation] @ -Not applicable Poses a threat to life or bodily function? @ -Yes, the weakness and inability to ambulate is completely interfering with his bodily function. This case was discussed in detail with the attending ED physician, Dr. Robles. Presentation, findings, and treatment plan discussed in detail as well. - Lab Data Result diagrams: 10/13/23 19:40 10/13/23 19:40 Lab Results 10/13/23 10/13/23 10/13/23 Range/Units 19:29 19:40 19:40 WBC 9.8 (3.8-10.6) k/uL RBC 4.91 (4.30-5.90) m/uL Hgb 15.1 (13.0-17.5) gm/dL Hct 44.9 (39.0-53.0) % MCV 91.5 (80.0-100.0) fL MCH 30.8 (25.0-35.0) pg MCHC 33.7 (31.0-37.0) g/dL RDW 13.6 (11.5-15.5) % Plt Count 152 (150-450) k/uL MPV 7.2 Neutrophils % 80 % Lymphocytes % 10 % Monocytes % 6 % Eosinophils % 1 % Basophils % 0 % Neutrophils # 7.8 H (1.3-7.7) k/uL Lymphocytes # 1.0 (1.0-4.8) k/uL Monocytes # 0.6 (0-1.0) k/uL Eosinophils # 0.1 (0-0.7) k/uL Basophils # 0.0 (0-0.2) k/uL PT 10.6 (10.0-12.5) sec INR 1.0 (<1.2) APTT 23.0 (22.0-30.0) sec Sodium (137-145) mmol/L Potassium (3.5-5.1) mmol/L Chloride (98-107) mmol/L Carbon Dioxide (22-30) mmol/L Anion Gap mmol/L BUN (9-20) mg/dL Creatinine (0.66-1.25) mg/dL Est GFR (CKD-EPI)AfAm (>60 ml/min/1.73 sqM) Est GFR (CKD-EPI)NonAf (>60 ml/min/1.73 sqM) Glucose (74-99) mg/dL POC Glucose (mg/dL) 96 (70-110) mg/dL POC Glu [employer] Consultant ID Willi Mc Plasma Lactic Acid Bhavik (0.7-2.0) mmol/L Calcium (8.4-10.2) mg/dL Magnesium (1.6-2.3) mg/dL Total Bilirubin (0.2-1.3) mg/dL AST (17-59) U/L ALT (4-49) U/L Alkaline Phosphatase (38-126) U/L Creatine Kinase (55-170) U/L Troponin I (0.000-0.034) ng/mL NT-Pro-B Natriuret Pep pg/mL Total Protein (6.3-8.2) g/dL Albumin (3.5-5.0) g/dL Urine Color Urine Appearance (Clear) Urine pH (5.0-8.0) Ur Specific [place] (1.001-1.035) Urine Protein (Negative) Urine Glucose (UA) (Negative) Urine Ketones (Negative) Urine Blood (Negative) Urine Nitrite (Negative) Urine Bilirubin (Negative) Urine Urobilinogen (<2.0) mg/dL Ur Leukocyte Esterase (Negative) Influenza Type A (PCR) (Not Detectd) Influenza Type B (PCR) (Not Detectd) RSV (PCR) (Not Detectd) SARS-CoV-2 (PCR) (Not Detectd) 10/13/23 10/13/23 10/13/23 Range/Units 19:40 19:40 19:40 WBC (3.8-10.6) k/uL RBC (4.30-5.90) m/uL Hgb (13.0-17.5) gm/dL Hct (39.0-53.0) % MCV (80.0-100.0) fL MCH (25.0-35.0) pg MCHC (31.0-37.0) g/dL RDW (11.5-15.5) % Plt Count (150-450) k/uL MPV Neutrophils % % Lymphocytes % % Monocytes % % Eosinophils % % Basophils % % Neutrophils # (1.3-7.7) k/uL Lymphocytes # (1.0-4.8) k/uL Monocytes # (0-1.0) k/uL Eosinophils # (0-0.7) k/uL Basophils # (0-0.2) k/uL PT (10.0-12.5) sec INR (<1.2) APTT (22.0-30.0) sec Sodium 137 (137-145) mmol/L Potassium 3.6 (3.5-5.1) mmol/L Chloride 106 (98-107) mmol/L Carbon Dioxide 19 L (22-30) mmol/L Anion Gap 12 mmol/L BUN 16 (9-20) mg/dL Creatinine 0.71 (0.66-1.25) mg/dL Est GFR (CKD-EPI)AfAm >90 (>60 ml/min/1.73 sqM) Est GFR (CKD-EPI)NonAf >90 (>60 ml/min/1.73 sqM) Glucose 97 (74-99) mg/dL POC Glucose (mg/dL) (70-110) mg/dL POC Glu [employer] Consultant ID Plasma Lactic Acid Bhavik 1.3 (0.7-2.0) mmol/L Calcium 9.1 (8.4-10.2) mg/dL Magnesium 1.9 (1.6-2.3) mg/dL Total Bilirubin 0.8 (0.2-1.3) mg/dL AST 24 (17-59) U/L ALT 20 (4-49) U/L Alkaline Phosphatase 115 (38-126) U/L Creatine Kinase (55-170) U/L Troponin I <0.012 (0.000-0.034) ng/mL NT-Pro-B Natriuret Pep 486 pg/mL Total Protein 6.6 (6.3-8.2) g/dL Albumin 4.0 (3.5-5.0) g/dL Urine Color Urine Appearance (Clear) Urine pH (5.0-8.0) Ur Specific [place] (1.001-1.035) Urine Protein (Negative) Urine Glucose (UA) (Negative) Urine Ketones (Negative) Urine Blood (Negative) Urine Nitrite (Negative) Urine Bilirubin (Negative) Urine Urobilinogen (<2.0) mg/dL Ur Leukocyte Esterase (Negative) Influenza Type A (PCR) (Not Detectd) Influenza Type B (PCR) (Not Detectd) RSV (PCR) (Not Detectd) SARS-CoV-2 (PCR) (Not Detectd) 10/13/23 10/13/23 10/13/23 Range/Units 19:40 19:40 21:28 WBC (3.8-10.6) k/uL RBC (4.30-5.90) m/uL Hgb (13.0-17.5) gm/dL Hct (39.0-53.0) % MCV (80.0-100.0) fL MCH (25.0-35.0) pg MCHC (31.0-37.0) g/dL RDW (11.5-15.5) % Plt Count (150-450) k/uL MPV Neutrophils % % Lymphocytes % % Monocytes % % Eosinophils % % Basophils % % Neutrophils # (1.3-7.7) k/uL Lymphocytes # (1.0-4.8) k/uL Monocytes # (0-1.0) k/uL Eosinophils # (0-0.7) k/uL Basophils # (0-0.2) k/uL PT (10.0-12.5) sec INR (<1.2) APTT (22.0-30.0) sec Sodium (137-145) mmol/L Potassium (3.5-5.1) mmol/L Chloride (98-107) mmol/L Carbon Dioxide (22-30) mmol/L Anion Gap mmol/L BUN (9-20) mg/dL Creatinine (0.66-1.25) mg/dL Est GFR (CKD-EPI)AfAm (>60 ml/min/1.73 sqM) Est GFR (CKD-EPI)NonAf (>60 ml/min/1.73 sqM) Glucose (74-99) mg/dL POC Glucose (mg/dL) (70-110) mg/dL POC Glu [employer] Consultant ID Plasma Lactic Acid Bhavik (0.7-2.0) mmol/L Calcium (8.4-10.2) mg/dL Magnesium (1.6-2.3) mg/dL Total Bilirubin (0.2-1.3) mg/dL AST (17-59) U/L ALT (4-49) U/L Alkaline Phosphatase (38-126) U/L Creatine Kinase 91 (55-170) U/L Troponin I (0.000-0.034) ng/mL NT-Pro-B Natriuret Pep pg/mL Total Protein (6.3-8.2) g/dL Albumin (3.5-5.0) g/dL Urine Color Light Yellow Urine Appearance Clear (Clear) Urine pH 5.5 (5.0-8.0) Ur Specific [place] 1.018 (1.001-1.035) Urine Protein Negative (Negative) Urine Glucose (UA) Negative (Negative) Urine Ketones Negative (Negative) Urine Blood Negative (Negative) Urine Nitrite Negative (Negative) Urine Bilirubin Negative (Negative) Urine Urobilinogen <2.0 (<2.0) mg/dL Ur Leukocyte Esterase Negative (Negative) Influenza Type A (PCR) Not Detected (Not Detectd) Influenza Type B (PCR) Not Detected (Not Detectd) RSV (PCR) Not Detected (Not Detectd) SARS-CoV-2 (PCR) Not Detected (Not Detectd) - Radiology Data Radiology results: report reviewed, image reviewed Disposition Clinical Impression: Fever, Weakness, Difficulty in walking Disposition: ADMITTED IP TO THIS HOSP
[2023-10-13 20:02] LABS: Basophils % (A) 0 %; Eosinophils # (A) 0.1 k/uL (0-0.7); Eosinophils % (A) 1 %; HCT 44.9 % (39.0-53.0); HGB 15.1 gm/dL (13.0-17.5); Lymphocytes % (A) 10 %; MCH 30.8 pg (25.0-35.0); MCHC 33.7 g/dL (31.0-37.0); MCV 91.5 fL (80.0-100.0); Mean Platelet Volume 7.2; Monocytes # (A) 0.6 k/uL (0-1.0); Monocytes % (A) 6 %; Neutrophils # (A) 7.8 k/uL (1.3-7.7); Neutrophils % (A) 80 %; Platelet Count 152 k/uL (150-450); RBC 4.91 m/uL (4.30-5.90); RDW 13.6 % (11.5-15.5); WBC 9.8 k/uL (3.8-10.6)
[2023-10-13 20:15] LABS: Prothrombin Time 10.6 sec (10.0-12.5)
--- NOTE | 2023-10-13 20:23 | XR ---
EXAMINATION TYPE: XR chest 2V DATE OF EXAM: 10/13/2023 8:09 PM CLINICAL INDICATION:Male, 78 years old with history of Weakness, NASH; PHH COMPARISON: Chest radiographs from 08/31/2023 TECHNIQUE: XR chest 2V Frontal and lateral views of the chest. FINDINGS: Lungs/Pleura: There is flattening of the diaphragm with increased lucency of the lungs. No evidence o f pneumothorax, pleural effusion or focal consolidation. Pulmonary vascularity: Unremarkable. Heart/mediastinum: Cardiomediastinal silhouette is unremarkable. Musculoskeletal: No acute osseous pathology. IMPRESSION: 1. No acute cardiopulmonary disease process. 2. COPD changes.
[2023-10-13 20:28] LABS: ALT 20 U/L (4-49); AST 24 U/L (17-59); African American GFR (CKD) >90 (>60 ml/min/1.73 sqM); Alkaline Phosphatase 115 U/L (38-126); Anion Gap 12 mmol/L; Blood Urea Nitrogen 16 mg/dL (9-20); Calcium 9.1 mg/dL (8.4-10.2); Carbon Dioxide 19 mmol/L (22-30); Chloride 106 mmol/L (98-107); Glucose 97 mg/dL (74-99); Magnesium 1.9 mg/dL (1.6-2.3); Non-African American GFR(CKD) >90 (>60 ml/min/1.73 sqM); Potassium 3.6 mmol/L (3.5-5.1); Sodium 137 mmol/L (137-145); Total Bilirubin 0.8 mg/dL (0.2-1.3); Total Protein 6.6 g/dL (6.3-8.2)
[2023-10-13 20:36] LABS: NT-Pro-B-Type Natriuretic Pept 486 pg/mL
[2023-10-13] MEDS ORDERED: guaiFENesin-Coden 100-10MG/5ML 10 ML CUP PO ONE (21:40)
[2023-10-13 22:56] LABS: Appearance,Urine Clear (Clear); Bilirubin,Urine Negative (Negative); Blood,Urine Negative (Negative); Color,Urine Light Yellow; Glucose,Urine (UA) Negative (Negative); Ketones,Urine Negative (Negative); Leukocyte Esterase,Urine Negative (Negative); Nitrite,Urine Negative (Negative); PH, Urine 5.5 (5.0-8.0); Protein,Urine Negative (Negative); Specific Gravity,Urine 1.018 (1.001-1.035); Urobilinogen,Urine <2.0 mg/dL (<2.0)
[2023-10-13] MEDS ORDERED: NALOXONE 0.4 MG/ML 1 ML VIAL IV PRN (23:14)
[2023-10-13] MEDS ORDERED: ONDANSETRON 4 MG/2 ML VIAL IVP PRN (23:14)
[2023-10-13] MEDS ORDERED: HYDROcodone/APAP 5-325MG 1 EACH TAB PO PRN (23:14)
[2023-10-13] MEDS ORDERED: ACETAMINOPHEN TAB 325 MG TAB PO PRN (23:14)
[2023-10-14] MEDS ORDERED: ACETAMINOPHEN TAB 325 MG TAB PO PRN (09:02)
[2023-10-14] MEDS: CHOLECALCIFEROL 25 MCG (1000 IU) TABLET PO SCH (10:32)
[2023-10-14] MEDS: SODIUM CHLORIDE 0.9% 1,000 ML IV SCH (10:32)
[2023-10-14] MEDS: CLOPIDOGREL 75 MG TAB PO SCH (10:32)
[2023-10-14] MEDS: ASPIRIN 81 MG PO SCH (10:32)
[2023-10-14] MEDS: PANTOPRAZOLE 40 MG TABLET PO SCH (10:32)
[2023-10-14] MEDS: TAMSULOSIN 0.4 MG CAP.ER.24H PO SCH ×2 (10:32→20:13)
[2023-10-14] MEDS: ISOSORBIDE MONONITRATE ER 30 MG TAB.ER.24H PO SCH (10:32)
[2023-10-14] MEDS: FLUTICASONE 50MCG/SPRAY NASAL 16GM EA NOSTRIL SCH (10:33)
[2023-10-14] MEDS: MEMANTINE 10 MG TAB PO SCH ×2 (10:33→20:13)
[2023-10-14] MEDS: SERTRALINE 100 MG TAB PO SCH (10:33)
[2023-10-14] MEDS: ALBUTEROL HFA INHALER INHALATION SCH ×2 (15:24→19:59)
--- NOTE | 2023-10-14 16:27 | P.HPIM ---
History of Present Illness H&P Date: 10/14/23 This is a 78 year old male with coronary artery disease and prior cardiac stenting, CABG, GERD, hyperlipidemia, colon cancer, recent diagnosis with covid and discharged to subacute rehab. Patient has been home now about 1 month and has had progressive weakness over the last few days. He came back from mall walking and was so weak he collapsed and was unable to stand on his own. He came into the hospital for evaluation. He does complain of fever, diarrhea, fatigue and weakness. He also feels congested. Denies shortness of breath. His viral panel was negative for covid influenza and RSV. White count is normal, electrolytes and renal function are normal. Troponin negative. Urinalysis not suggestive of infection. He did have fever on admission of 100.5 which has since resolved. He is admitted in observation and physical therapy will be consulted. REVIEW OF SYSTEMS: CONSTITUTIONAL: Reports fever fatigue and weakness. HEENT: No recent visual problems or hearing problems. Denied any sore throat. CARDIOVASCULAR: No chest pain, orthopnea, PND, no palpitations, no syncope. PULMONARY: No shortness of breath, no cough, no hemoptysis. GASTROINTESTINAL: No diarrhea, no nausea, no vomiting, no abdominal pain. NEUROLOGICAL: No headaches, no weakness, no numbness. HEMATOLOGICAL: Denies any bleeding or petechiae. GENITOURINARY: Denies any burning micturition, frequency, or urgency. MUSCULOSKELETAL/RHEUMATOLOGICAL: Denies any joint pain, swelling, or any muscle pain. ENDOCRINE: Denies any polyuria or polydipsia. The rest of the 14-point review of systems is negative. PHYSICAL EXAMINATION: GENERAL: The patient is alert and oriented x3, not in any acute distress. Well developed, well nourished. HEENT: Pupils are round and equally reacting to light. EOMI. No scleral icterus. No conjunctival pallor. Normocephalic, atraumatic. No pharyngeal erythema. No thyromegaly. CARDIOVASCULAR: S1 and S2 present. No murmurs, rubs, or gallops. PULMONARY: Chest is clear to auscultation, no wheezing or crackles. ABDOMEN: Soft, nontender, nondistended, normoactive bowel sounds. No palpable organomegaly. MUSCULOSKELETAL: No joint swelling or deformity. EXTREMITIES: No cyanosis, clubbing, or pedal edema. NEUROLOGICAL: Gross neurological examination did not reveal any focal deficits. SKIN: No rashes. Assessment Acute viral illness with gastroenteritis and generalized weakness which requires supportive care Recent Covid infection in Aug Mild cognitive impairment on Namenda Hx of coronary artery disease and prior PCI; CABG BPH hx Gastroesophageal reflux disease Hx depression GI prophylaxis DVT prophylaxis Full Code Plan Continue supportive care Gentle hydration over night Check C.Dif and procalcitonin level Social work consultation for discharge planning to subacute rehab The impression and plan of care has been dictated by Noy Cardenas, Nurse Practitioner as directed. Dr. Mirta MD I have performed a history and physical examination and medical decision making of this patient, discussed the same with the dictator, and agree with the dictators assessment and plan as written, documented as a scribe. Based on total visit time, I have performed more than 50% of this visit. Past Medical History Past Medical History: Coronary Artery Disease (CAD), Cancer, CVA/TIA, Eye Diso rder, GERD/Reflux, Hyperlipidemia, Memory Impairment, Myocardial Infarction (SD), Pneumonia, Prostate Disorder Additional Past Medical History / Comment(s): DYSPHAGIA, CHRONIC DRY COUGH, HX COLON CANCER-2004 WITH SURGERY., DIVERTICULAR DISORDER, Hiatal Hernia, TIA'S , CATARACT RIGHT EYE, PROBLEMS WITH BALANCE- USES CANE. HAVING PAINS IN BILAT LEGS AND FATIGUE,forgetfulness,enlarged prostate Last Myocardial Infarction Date:: UNKNOWN History of Any Multi-Drug Resistant Organisms: None Reported Past Surgical History: Bowel Resection, Cholecystectomy, Coronary Bypass/CABG, Heart Catheterization, Heart Catheterization With Stent, Hernia Repair Additional Past Surgical History / Comment(s): QUAD CABG (MPH 2009), Umbilical hernia repair, DEVIATED SEPTUM REPAIR/SPUR REMOVED from nose, Past Anesthesia/Blood Transfusion Reactions: Motion Sickness, Postoperative Nausea & Vomiting (PONV) Additional Past Anesthesia/Blood Transfusion Reaction / Comment(s): PONV X1. Claustrophobic Date of Last Stent Placement:: 08-13-22 Past Psychological History: Anxiety, Depression, PTSD Smoking Status: Former smoker Past Alcohol Use History: None Reported Past Drug Use History: None Reported - Past Family History Son(s) Family Medical History: Cancer Father Family Medical History: Blood Disorder Additional Family Medical History / Comment(s): from a blood disorder Mother Family Medical History: Diabetes Mellitus Additional Family Medical History / Comment(s): age 53 -complications from dm Sister(s) Family Medical History: Diabetes Mellitus Medications and Allergies Home Medications Medication Instructions Recorded Confirmed Type Fluticasone Nasal [place] [Flonase 1 spr EA NOSTRIL DAILY 06/21/15 10/14/23 History Nasal [place]] Isosorbide Mononitrate ER [Imdur] 30 mg PO DAILY 10/09/15 10/14/23 History lamoTRIgine [LaMICtal] 100 mg PO HS #30 tab 08/11/18 10/14/23 Rx Tamsulosin HCl [Flomax] 0.4 mg PO BID 07/12/19 10/14/23 History Aspirin EC [Ecotrin Low Dose] 81 mg PO DAILY 11/07/21 10/14/23 History Atorvastatin [Lipitor] 20 mg PO HS 11/07/21 10/14/23 History Metoprolol Tartrate [Lopressor] 25 mg PO HS 11/07/21 10/14/23 History OLANZapine [ZyPREXA] 2.5 mg PO HS 11/07/21 10/14/23 History Omeprazole 40 mg PO DAILY 11/07/21 10/14/23 History Clopidogrel [Plavix] 75 mg PO DAILY 08/12/22 10/14/23 History Cholecalciferol [Vitamin D3 (25 50 mcg PO DAILY 08/28/22 10/14/23 History Mcg = 1000 Iu)] Memantine [Namenda] 10 mg PO BID 08/29/23 10/14/23 History Mirabegron [Myrbetriq] 50 mg PO HS 08/29/23 10/14/23 History Acetaminophen Tab [Tylenol] 650 mg PO Q6HR PRN tab 09/01/23 10/14/23 Rx Albuterol Inhaler [Ventolin Hfa 2 puff INHALATION RT-TID each 09/01/23 10/14/23 Rx Inhaler] Melatonin 10 mg PO HS tab 09/01/23 10/14/23 Rx Sertraline [Zoloft] 200 mg PO DAILY #0 09/01/23 10/14/23 Rx traZODone HCL [Desyrel] 50 mg PO HS PRN tab 09/01/23 10/14/23 Rx Allergies Allergy/AdvReac Type Severity Reaction Status Date / Time No Known Allergies Allergy Verified 10/14/23 07:11 Physical Exam Vitals: Vital Signs Temp Pulse Pulse Resp BP BP Pulse Ox 10/14/23 07:00 98.4 F 82 18 136/80 97 10/14/23 01:39 97.9 F 62 15 147/71 97 10/13/23 23:30 68 12 131/75 97 10/13/23 22:30 72 12 134/80 96 10/13/23 21:41 97.8 F 10/13/23 21:30 66 13 136/78 97 10/13/23 21:10 72 16 136/78 96 10/13/23 19:50 70 14 135/97 96 10/13/23 19:24 100.5 F H 70 17 140/79 95 10/13/23 19:23 70 16 140/79 96 Intake and Output 10/13/23 10/14/23 10/14/23 22:59 06:59 14:59 Other: # Voids 2 Weight 133.81 kg 133.81 kg Results CBC & Chem 7: 10/13/23 19:40 10/13/23 19:40 Labs: Abnormal Lab Results - Last 24 Hours (Table) 10/13/23 10/13/23 Range/Units 19:40 19:40 Neutrophils # 7.8 H (1.3-7.7) k/uL Carbon Dioxide 19 L (22-30) mmol/L Thrombosis Risk Factor Assmnt - Choose All That Apply Any of the Below Risk Factors Present?: Yes Each Factor Represents 1 point: Obesity (BMI >25) Other Risk Factors: Yes Each Risk Factor Represents 3 Points: Age 75 years or older Other congenital or acquired thrombophilia - If yes, enter type in comment: No Thrombosis Risk Factor Assessment Total Risk Factor Score: 4 Thrombosis Risk Factor Assessment Level: Moderate Risk Assessment and Plan Time with Patient: Less than 30
[2023-10-14] MEDS: guaiFENesin-DM 100-10MG/5ML 10 ML CUP PO PRN (20:12)
[2023-10-14] MEDS: MELATONIN 5 MG TABLET PO SCH (20:13)
[2023-10-14] MEDS: Mirabegron [Myrbetriq] 50 MG Tab.Er.24h PO SCH (20:13)
[2023-10-14] MEDS: lamoTRIgine 100 MG TAB PO SCH (20:13)
[2023-10-14] MEDS: ATORVASTATIN 20 MG TAB PO SCH (20:13)
[2023-10-14] MEDS: METOPROLOL TARTRATE 25 MG TAB PO SCH (20:13)
[2023-10-14] MEDS: OLANZapine 2.5 MG TAB PO SCH (20:13)
[2023-10-15] MEDS: PANTOPRAZOLE 40 MG TABLET PO SCH (06:40)
[2023-10-15] MEDS: SODIUM CHLORIDE 0.9% 1,000 ML IV SCH (06:41)
[2023-10-15] MEDS: TAMSULOSIN 0.4 MG CAP.ER.24H PO SCH ×2 (08:16→21:40)
[2023-10-15] MEDS: SERTRALINE 100 MG TAB PO SCH (08:16)
[2023-10-15] MEDS: CLOPIDOGREL 75 MG TAB PO SCH (08:16)
[2023-10-15] MEDS: FLUTICASONE 50MCG/SPRAY NASAL 16GM EA NOSTRIL SCH (08:16)
[2023-10-15] MEDS: ASPIRIN 81 MG PO SCH (08:16)
[2023-10-15] MEDS: CHOLECALCIFEROL 25 MCG (1000 IU) TABLET PO SCH (08:16)
[2023-10-15] MEDS: ISOSORBIDE MONONITRATE ER 30 MG TAB.ER.24H PO SCH (08:16)
[2023-10-15] MEDS: MEMANTINE 10 MG TAB PO SCH ×2 (08:16→21:40)
[2023-10-15] MEDS: ALBUTEROL HFA INHALER INHALATION SCH ×3 (08:36→21:24)
[2023-10-15] MEDS ORDERED: LORATADINE 10 MG TAB PO STA (10:22)
--- NOTE | 2023-10-15 13:48 | P.PN ---
Subjective Progress Note Date: 10/15/23 This is a 78 year old male with coronary artery disease and prior cardiac stenting, CABG, GERD, hyperlipidemia, colon cancer, recent diagnosis with covid and discharged to subacute rehab. Patient has been home now about 1 month and has had progressive weakness over the last few days. He came back from mall walking and was so weak he collapsed and was unable to stand on his own. He came into the hospital for evaluation. He does complain of fever, diarrhea, fatigue and weakness. He also feels congested. Denies shortness of breath. His viral panel was negative for covid influenza and RSV. White count is normal, electrolytes and renal function are normal. Troponin negative. Urinalysis not suggestive of infection. He did have fever on admission of 100.5 which has since resolved. He is admitted in observation and physical therapy will be consulted. 10/15/2023 Patient evaluated today complaining of congestion and nonproductive cough. Diarrhea has resolved. Procalcitonin was checked at 0.14 which is considered negative and no need for antibiotics. Patient was hydrated overnight. He was evaluated by physical therapy with the recommendations made for subacute rehab. Had initially refused subacute rehab however states she cannot care for him at home due to this weakness. He is now pending insurance authorization. Review of Systems Constitutional: Denied any fatigue denied any fever. Cardio vascular: denied any chest pain, palpitations Gastrointestinal: denied any nausea, vomiting, diarrhea Pulmonary: Denied any shortness of breath reports cough Neurologic denied any new focal deficits All inpatient medications were reviewed and appropriate changes in these medications as dictated in the interval history and assessment and plan. PHYSICAL EXAMINATION: GENERAL: The patient is alert and oriented x3, not in any acute distress. Well developed, well nourished. HEENT: Pupils are round and equally reacting to light. EOMI. No scleral icterus. No conjunctival pallor. Normocephalic, atraumatic. No pharyngeal erythema. No thyromegaly. CARDIOVASCULAR: S1 and S2 present. No murmurs, rubs, or gallops. PULMONARY: Chest is clear to auscultation, no wheezing or crackles. ABDOMEN: Soft, nontender, nondistended, normoactive bowel sounds. No palpable organomegaly. MUSCULOSKELETAL: No joint swelling or deformity. EXTREMITIES: No cyanosis, clubbing, or pedal edema. NEUROLOGICAL: Gross neurological examination did not reveal any focal deficits. SKIN: No rashes. Assessment Acute viral illness with gastroenteritis and generalized weakness which requires supportive care Recent Covid infection in Aug Mild cognitive impairment on Namenda Hx of coronary artery disease and prior PCI; CABG BPH hx Gastroesophageal reflux disease Hx depression GI prophylaxis DVT prophylaxis Full Code Plan Continue supportive care Gentle hydration over night Claritin and flonase have been added for the congestion symptoms, at this time would recommend to monitor off antibiotics and continue with robitussin and tylenol. PT recommending subacute rehab patient is now agreeable after discussion with his and case mgt was reconsulted he is now pending insurance authorization and likely will DC on Friday at the earliest. OBRA completed. The impression and plan of care has been dictated by Noy Cardenas, Nurse Practitioner as directed. Dr. Mirta MD I have performed a history and physical examination and medical decision making of this patient, discussed the same with the dictator, and agree with the dictators assessment and plan as written, documented as a scribe. Based on total visit time, I have performed more than 50% of this visit. Objective - Vital Signs Vital signs: Vital Signs Temp 97.8 F 10/15/23 07:00 Pulse 62 10/15/23 07:00 Resp 18 10/15/23 07:00 BP 130/73 10/15/23 07:00 Pulse Ox 95 10/15/23 07:00 FiO2 Intake & Output 10/14/23 10/15/23 10/15/23 18:59 06:59 18:59 Intake Total 358 Output Total 1 Balance 357 Intake: Oral 358 Output: Stool 1 Other: Voiding Method Toilet Toilet # Voids 2 2 1 # Bowel Movements 1 - Labs CBC & Chem 7: 10/13/23 19:40 10/13/23 19:40 Labs: Abnormal Lab Results - Last 24 Hours (Table) 10/14/23 Range/Units 10:45 Procalcitonin 0.14 H (0.02-0.09) ng/mL Microbiology - Last 24 Hours (Table) 10/14/23 00:11 Blood Culture - Preliminary Blood 10/14/23 00:26 Blood Culture - Preliminary Blood Assessment and Plan Time with Patient: Less than 30
[2023-10-15] MEDS: MELATONIN 5 MG TABLET PO SCH (21:40)
[2023-10-15] MEDS: OLANZapine 2.5 MG TAB PO SCH (21:40)
[2023-10-15] MEDS: ATORVASTATIN 20 MG TAB PO SCH (21:40)
[2023-10-15] MEDS: guaiFENesin-DM 100-10MG/5ML 10 ML CUP PO PRN (21:40)
[2023-10-15] MEDS: METOPROLOL TARTRATE 25 MG TAB PO SCH (21:40)
[2023-10-15] MEDS: lamoTRIgine 100 MG TAB PO SCH (21:40)
[2023-10-15] MEDS: Mirabegron [Myrbetriq] 50 MG Tab.Er.24h PO SCH (21:43)
[2023-10-16] MEDS: SODIUM CHLORIDE 0.9% 1,000 ML IV SCH ×2 (03:35→21:25)
[2023-10-16] MEDS: PANTOPRAZOLE 40 MG TABLET PO SCH (06:16)
[2023-10-16] MEDS: ALBUTEROL HFA INHALER INHALATION SCH ×3 (07:57→20:29)
[2023-10-16] MEDS: FLUTICASONE 50MCG/SPRAY NASAL 16GM EA NOSTRIL SCH (08:23)
[2023-10-16] MEDS: ISOSORBIDE MONONITRATE ER 30 MG TAB.ER.24H PO SCH (08:23)
[2023-10-16] MEDS: CLOPIDOGREL 75 MG TAB PO SCH (08:23)
[2023-10-16] MEDS: MEMANTINE 10 MG TAB PO SCH ×2 (08:23→19:55)
[2023-10-16] MEDS: SERTRALINE 100 MG TAB PO SCH (08:23)
[2023-10-16] MEDS: CHOLECALCIFEROL 25 MCG (1000 IU) TABLET PO SCH (08:23)
[2023-10-16] MEDS: ASPIRIN 81 MG PO SCH (08:23)
[2023-10-16] MEDS: TAMSULOSIN 0.4 MG CAP.ER.24H PO SCH ×2 (08:23→19:55)
--- NOTE | 2023-10-16 12:50 | P.PN ---
Subjective Progress Note Date: 10/16/23 This is a 78 year old male with coronary artery disease and prior cardiac stenting, CABG, GERD, hyperlipidemia, colon cancer, recent diagnosis with covid and discharged to subacute rehab. Patient has been home now about 1 month and has had progressive weakness over the last few days. He came back from mall walking and was so weak he collapsed and was unable to stand on his own. He came into the hospital for evaluation. He does complain of fever, diarrhea, fatigue and weakness. He also feels congested. Denies shortness of breath. His viral panel was negative for covid influenza and RSV. White count is normal, electrolytes and renal function are normal. Troponin negative. Urinalysis not suggestive of infection. He did have fever on admission of 100.5 which has since resolved. He is admitted in observation and physical therapy will be consulted. 10/15/2023 Patient evaluated today complaining of congestion and nonproductive cough. Diarrhea has resolved. Procalcitonin was checked at 0.14 which is considered negative and no need for antibiotics. Patient was hydrated overnight. He was evaluated by physical therapy with the recommendations made for subacute rehab. Had initially refused subacute rehab however states she cannot care for him at home due to this weakness. He is now pending insurance authorization. 10/16/2023 Patient is evaluated today continues on supportive care for viral illness. Pending rehab placement for discharge. Review of Systems Constitutional: Denied any fatigue denied any fever. Cardio vascular: denied any chest pain, palpitations Gastrointestinal: denied any nausea, vomiting, diarrhea Pulmonary: Denied any shortness of breath reports cough Neurologic denied any new focal deficits All inpatient medications were reviewed and appropriate changes in these medications as dictated in the interval history and assessment and plan. PHYSICAL EXAMINATION: GENERAL: The patient is alert and oriented x3, not in any acute distress. Well developed, well nourished. HEENT: Pupils are round and equally reacting to light. EOMI. No scleral icterus. No conjunctival pallor. Normocephalic, atraumatic. No pharyngeal erythema. No thyromegaly. CARDIOVASCULAR: S1 and S2 present. No murmurs, rubs, or gallops. PULMONARY: Chest is clear to auscultation, no wheezing or crackles. ABDOMEN: Soft, nontender, nondistended, normoactive bowel sounds. No palpable o rganomegaly. MUSCULOSKELETAL: No joint swelling or deformity. EXTREMITIES: No cyanosis, clubbing, or pedal edema. NEUROLOGICAL: Gross neurological examination did not reveal any focal deficits. SKIN: No rashes. Assessment Acute viral illness with gastroenteritis and generalized weakness which requires supportive care Recent Covid infection in Aug Mild cognitive impairment on Namenda Hx of coronary artery disease and prior PCI; CABG BPH hx Gastroesophageal reflux disease Hx depression GI prophylaxis DVT prophylaxis Full Code Plan Continue supportive care Gentle hydration over night Claritin and flonase have been added for the congestion symptoms, at this time would recommend to monitor off antibiotics and continue with robitussin and tylenol. PT recommending subacute rehab patient is now agreeable after discussion with his and case mgt was reconsulted he is now pending insurance authorization and likely will DC on Friday at the earliest. OBRA completed. The impression and plan of care has been dictated by Noy Cardenas, Nurse Practitioner as directed. Dr. Major MD I have performed a history and physical examination and medical decision making of this patient, discussed the same with the dictator, and agree with the dictators assessment and plan as written, documented as a scribe. Based on total visit time, I have performed more than 100% of this visit. Objective - Vital Signs Vital signs: Vital Signs Temp 98.2 F 10/16/23 07:00 Pulse 70 10/16/23 07:00 Resp 18 10/16/23 07:00 BP 134/61 10/16/23 07:00 Pulse Ox 97 10/16/23 07:59 FiO2 Intake & Output 10/15/23 10/16/23 10/16/23 18:59 06:59 18:59 Intake Total 480 240 Balance 480 240 Intake: Oral 480 240 Other: Voiding Method Toilet # Voids 1 4 - Labs CBC & Chem 7: 10/13/23 19:40 10/13/23 19:40 Labs: Microbiology - Last 24 Hours (Table) 10/14/23 00:11 Blood Culture - Preliminary Blood 10/14/23 00:26 Blood Culture - Preliminary Blood Assessment and Plan Time with Patient: Less than 30
[2023-10-16] MEDS: LORATADINE 10 MG TAB PO SCH (13:50)
[2023-10-16] MEDS: guaiFENesin-DM 100-10MG/5ML 10 ML CUP PO PRN (17:59)
[2023-10-16] MEDS: ATORVASTATIN 20 MG TAB PO SCH (19:55)
[2023-10-16] MEDS: lamoTRIgine 100 MG TAB PO SCH (19:55)
[2023-10-16] MEDS: METOPROLOL TARTRATE 25 MG TAB PO SCH (19:55)
[2023-10-16] MEDS: MELATONIN 5 MG TABLET PO SCH (19:55)
[2023-10-16] MEDS: OLANZapine 2.5 MG TAB PO SCH (19:55)
[2023-10-16] MEDS: Mirabegron [Myrbetriq] 50 MG Tab.Er.24h PO SCH (19:57)
[2023-10-17] MEDS: guaiFENesin-DM 100-10MG/5ML 10 ML CUP PO PRN ×2 (00:24→22:36)
[2023-10-17] MEDS: traZODone HCL 50 MG TAB PO PRN ×2 (00:24→21:56)
[2023-10-17] MEDS: PANTOPRAZOLE 40 MG TABLET PO SCH (06:00)
[2023-10-17] MEDS: SERTRALINE 100 MG TAB PO SCH (08:17)
[2023-10-17] MEDS: MEMANTINE 10 MG TAB PO SCH ×2 (08:17→19:58)
[2023-10-17] MEDS: ISOSORBIDE MONONITRATE ER 30 MG TAB.ER.24H PO SCH (08:17)
[2023-10-17] MEDS: CHOLECALCIFEROL 25 MCG (1000 IU) TABLET PO SCH (08:17)
[2023-10-17] MEDS: ASPIRIN 81 MG PO SCH (08:17)
[2023-10-17] MEDS: TAMSULOSIN 0.4 MG CAP.ER.24H PO SCH ×2 (08:18→19:58)
[2023-10-17] MEDS: FLUTICASONE 50MCG/SPRAY NASAL 16GM EA NOSTRIL SCH (08:18)
[2023-10-17] MEDS: LORATADINE 10 MG TAB PO SCH (08:18)
[2023-10-17] MEDS: CLOPIDOGREL 75 MG TAB PO SCH (08:18)
[2023-10-17] MEDS: ALBUTEROL HFA INHALER INHALATION SCH ×3 (09:24→20:59)
--- NOTE | 2023-10-17 13:06 | P.PN ---
Subjective Progress Note Date: 10/17/23 * 78 year old male with coronary artery disease and prior cardiac stenting, CABG, GERD, hyperlipidemia, colon cancer, recent diagnosis with covid and discharged to subacute rehab. Patient has been home now about 1 month and has had progressive weakness over the last few days. He came back from mall walking and was so weak he collapsed and was unable to stand on his own. He came into the hospital for evaluation. He does complain of fever, diarrhea, fatigue and weakness. He also feels congested. Denies shortness of breath. His viral panel was negative for covid influenza and RSV. White count is normal, electrolytes and renal function are normal. Troponin negative. Urinalysis not suggestive of infection. He did have fever on admission of 100.5 which has since resolved. He is admitted in observation and physical therapy will be consulted. * 3Patient evaluated today complaining of congestion and nonproductive cough. Diarrhea has resolved. Procalcitonin was checked at 0.14 which is considered negative and no need for antibiotics. Patient was hydrated overnight. He was evaluated by physical therapy with the recommendations made for subacute rehab. Had initially refused subacute rehab however states she cannot care for him at home due to this weakness. He is now pending insurance authorization. * 10/16/2023 Patient is evaluated today continues on supportive care for viral illness. Pending rehab placement for discharge. * 10/17/2023: Patient seen and evaluated bedside, patient alert and oriented 3 , following commands, able to tolerate diet, hemodynamically stable remains on room air waiting for discharge to facility PHYSICAL EXAMINATION: GENERAL: The patient is alert and oriented x3, not in any acute distress. Well developed, well nourished. HEENT: Pupils are round and equally reacting to light. EOMI. . No conjunctival pallor. Normocephalic, atraumatic. CARDIOVASCULAR: S1 and S2 present. No murmurs, rubs, or gallops. PULMONARY: Chest is clear to auscultation, no wheezing or crackles. ABDOMEN: Soft, nontender, nondistended, normoactive bowel sounds. No palpable organomegaly. MUSCULOSKELETAL: No joint swelling or deformity. EXTREMITIES: No cyanosis, clubbing, or pedal edema. NEUROLOGICAL: Gross neurological examination did not reveal any focal deficits. Assessment Acute viral illness with gastroenteritis and generalized weakness which requires supportive care Recent Covid infection in Aug Mild cognitive impairment on Namenda Hx of coronary artery disease and prior PCI; CABG BPH hx Gastroesophageal reflux disease Hx depression GI prophylaxis DVT prophylaxis Full Code Plan Continue supportive care / patient eating hence IV fluid to be discontinued./Will need discharge to rehab facility In regards to chronic medical issues including coronary artery disease continue aspirin, Lipitor, Plavix, Imdur In regards to cognitive impairment continue patient on Namenda, continue with frequent orientation Claritin and flonase have been added for the congestion symptoms, at this time would recommend to monitor off antibiotics and continue with robitussin and tylenol. PT recommending subacute rehab patient is now agreeable after discussion with his and case mgt was reconsulted he is now pending insurance authorization OBRA completed. Objective - Vital Signs Vital signs: Vital Signs Temp 98.6 F 10/17/23 07:00 Pulse 69 10/17/23 07:00 Resp 14 10/17/23 07:00 BP 115/68 10/17/23 07:00 Pulse Ox 95 10/17/23 09:25 FiO2 Intake & Output 10/16/23 10/17/23 10/17/23 18:59 06:59 18:59 Intake Total 480 240 Balance 480 240 Intake: Oral 480 240 Other: Voiding Method Toilet # Voids 4 2 # Bowel Movements 1 0 - Labs CBC & Chem 7: 10/13/23 19:40 10/13/23 19:40 Labs: Microbiology - Last 24 Hours (Table) 10/14/23 00:11 Blood Culture - Preliminary Blood 10/14/23 00:26 Blood Culture - Preliminary Blood
[2023-10-17] MEDS: ATORVASTATIN 20 MG TAB PO SCH (19:58)
[2023-10-17] MEDS: lamoTRIgine 100 MG TAB PO SCH (19:58)
[2023-10-17] MEDS: MELATONIN 5 MG TABLET PO SCH (19:58)
[2023-10-17] MEDS: METOPROLOL TARTRATE 25 MG TAB PO SCH (19:58)
[2023-10-17] MEDS: OLANZapine 2.5 MG TAB PO SCH (19:58)
[2023-10-17] MEDS: Mirabegron [Myrbetriq] 50 MG Tab.Er.24h PO SCH (20:01)
[2023-10-18] MEDS: PANTOPRAZOLE 40 MG TABLET PO SCH (06:28)
[2023-10-18 07:43] VITALS: BP 112/62; PULSE 60; RESP 16; TEMP 98.5
[2023-10-18] MEDS: ALBUTEROL HFA INHALER INHALATION SCH ×2 (08:28→12:24)
[2023-10-18] MEDS: ASPIRIN 81 MG PO SCH (09:09)
[2023-10-18] MEDS: CHOLECALCIFEROL 25 MCG (1000 IU) TABLET PO SCH (09:09)
[2023-10-18] MEDS: CLOPIDOGREL 75 MG TAB PO SCH (09:10)
[2023-10-18] MEDS: MEMANTINE 10 MG TAB PO SCH (09:10)
[2023-10-18] MEDS: FLUTICASONE 50MCG/SPRAY NASAL 16GM EA NOSTRIL SCH (09:10)
[2023-10-18] MEDS: SERTRALINE 100 MG TAB PO SCH (09:10)
[2023-10-18] MEDS: LORATADINE 10 MG TAB PO SCH (09:10)
[2023-10-18] MEDS: ISOSORBIDE MONONITRATE ER 30 MG TAB.ER.24H PO SCH (09:10)
[2023-10-18] MEDS: TAMSULOSIN 0.4 MG CAP.ER.24H PO SCH (09:11)
--- NOTE | 2023-10-18 11:49 | P.DS ---
Providers Date of admission: 10/15/23 18:04 Expected date of discharge: 10/18/23 Attending physician: Yoly Elam Primary care physician: [facility] Course: * 78 year old male with coronary artery disease and prior cardiac stenting, CABG, GERD, hyperlipidemia, colon cancer, recent diagnosis with covid and discharged to subacute rehab. Patient has been home now about 1 month and has had progressive weakness over the last few days. He came back from mall walking and was so weak he collapsed and was unable to stand on his own. He came into the hospital for evaluation. He does complain of fever, diarrhea, fatigue and weakness. He also feels congested. Denies shortness of breath. His viral panel was negative for covid influenza and RSV. White count is normal, electrolytes and renal function are normal. Troponin negative. Urinalysis not suggestive of infection. He did have fever on admission of 100.5 which has since resolved. He is admitted in observation and physical therapy will be consulted. * 3Patient evaluated today complaining of congestion and nonproductive cough. Diarrhea has resolved. Procalcitonin was checked at 0.14 which is considered negative and no need for antibiotics. Patient was hydrated overnight. He was evaluated by physical therapy with the recommendations made for subacute rehab. Had initially refused subacute rehab however states she cannot care for him at home due to this weakness. He is now pending insurance authorization. * 10/16/2023 Patient is evaluated today continues on supportive care for viral illness. Pending rehab placement for discharge. * 10/17/2023: Patient seen and evaluated bedside, patient alert and oriented 3 , following commands, able to tolerate diet, hemodynamically stable remains on room air waiting for discharge to facility * 10/18/2023: Patient seen and evaluated bedside, patient alert and oriented to person place and situation. Patient remained stable insurance authorization approved. Overnight he had 1 episode of epistaxis which has resolved patient evaluated, nostril evaluated at bedside PHYSICAL EXAMINATION: GENERAL: The patient is alert and oriented x3, not in any acute distress. Well developed, well nourished. HEENT: Pupils are round and equally reacting to light. EOMI. . No conjunctival pallor. Normocephalic, atraumatic. CARDIOVASCULAR: S1 and S2 present. No murmurs, rubs, or gallops. PULMONARY: Chest is clear to auscultation, no wheezing or crackles. ABDOMEN: Soft, nontender, nondistended, normoactive bowel sounds. No palpable organomegaly. MUSCULOSKELETAL: No joint swelling or deformity. EXTREMITIES: No cyanosis, clubbing, or pedal edema. NEUROLOGICAL: Gross neurological examination did not reveal any focal deficits. Assessment Acute viral illness with gastroenteritis and generalized weakness which requires supportive care Recent Covid infection in Aug Mild cognitive impairment on Namenda Hx of coronary artery disease and prior PCI; CABG BPH hx Gastroesophageal reflux disease Hx depression GI prophylaxis DVT prophylaxis Full Code Plan Continue supportive care / patient eating hence IV fluid to be discontinued./Will need discharge to rehab facility In regards to chronic medical issues including coronary artery disease continue aspirin, Lipitor, Plavix, Imdur In regards to cognitive impairment continue patient on Namenda, continue with frequent orientation Claritin and flonase have been added for the congestion symptoms, at this time would recommended to monitor off antibiotics and continue with robitussin and tylenol. PT recommending subacute rehab patient is now agreeable after discussion with his and case mgt was reconsulted, assurance authorization approved OBRA completed. Patient Condition at Discharge: Fair Plan - Discharge Summary Discharge Rx Participant: No New Discharge Prescriptions: New Loratadine [Claritin] 5 mg PO DAILY #30 tab guaiFENesin-DM 100-10MG/5ML [Robitussin DM] 5 ml PO Q6HR PRN ml PRN Reason: Cough Continue Fluticasone Nasal Perry [Flonase Nasal Perry] 1 spr EA NOSTRIL DAILY Isosorbide Mononitrate ER [Imdur] 30 mg PO DAILY lamoTRIgine [LaMICtal] 100 mg PO HS #30 tab Tamsulosin HCl [Flomax] 0.4 mg PO BID OLANZapine [ZyPREXA] 2.5 mg PO HS Atorvastatin [Lipitor] 20 mg PO HS Aspirin EC [Ecotrin Low Dose] 81 mg PO DAILY Cholecalciferol [Vitamin D3 (25 Mcg = 1000 Iu)] 50 mcg PO DAILY Memantine [Namenda] 10 mg PO BID Albuterol Inhaler [Ventolin Hfa Inhaler] 2 puff INHALATION RT-TID each Omeprazole 40 mg PO DAILY Metoprolol Tartrate [Lopressor] 25 mg PO HS Clopidogrel [Plavix] 75 mg PO DAILY Mirabegron [Myrbetriq] 50 mg PO HS Acetaminophen Tab [Tylenol] 650 mg PO Q6HR PRN tab PRN Reason: Fever And/ Or Pain traZODone HCL [Desyrel] 50 mg PO HS PRN tab PRN Reason: Insomnia Melatonin 10 mg PO HS tab Sertraline [Zoloft] 200 mg PO DAILY #0 Discharge Medication List Fluticasone Nasal Perry [Flonase Nasal Perry] 1 spr EA NOSTRIL DAILY 06/21/15 [History] Isosorbide Mononitrate ER [Imdur] 30 mg PO DAILY 10/09/15 [History] lamoTRIgine [LaMICtal] 100 mg PO HS #30 tab 08/11/18 [Rx] Tamsulosin HCl [Flomax] 0.4 mg PO BID 07/12/19 [History] Aspirin EC [Ecotrin Low Dose] 81 mg PO DAILY 11/07/21 [History] Atorvastatin [Lipitor] 20 mg PO HS 11/07/21 [History] Metoprolol Tartrate [Lopressor] 25 mg PO HS 11/07/21 [History] OLANZapine [ZyPREXA] 2.5 mg PO HS 11/07/21 [History] Omeprazole 40 mg PO DAILY 11/07/21 [History] Clopidogrel [Plavix] 75 mg PO DAILY 08/12/22 [History] Cholecalciferol [Vitamin D3 (25 Mcg = 1000 Iu)] 50 mcg PO DAILY 08/28/22 [History] Memantine [Namenda] 10 mg PO BID 08/29/23 [History] Mirabegron [Myrbetriq] 50 mg PO HS 08/29/23 [History] Acetaminophen Tab [Tylenol] 650 mg PO Q6HR PRN tab 09/01/23 [Rx] Albuterol Inhaler [Ventolin Hfa Inhaler] 2 puff INHALATION RT-TID each 09/01/23 [Rx] Melatonin 10 mg PO HS tab 09/01/23 [Rx] Sertraline [Zoloft] 200 mg PO DAILY #0 09/01/23 [Rx] traZODone HCL [Desyrel] 50 mg PO HS PRN tab 09/01/23 [Rx] Loratadine [Claritin] 5 mg PO DAILY #30 tab 10/15/23 [Rx] guaiFENesin-DM 100-10MG/5ML [Robitussin DM] 5 ml PO Q6HR PRN ml 10/15/23 [Rx] Follow up Appointment(s)/Referral(s): Mark Wells DO [Primary Care Provider] - 1-2 days Activity/Diet/Wound Care/Special Instructions: Continue supportive care with cough syrup, antihistamine, tylenol. Discharge Disposition: TRANSFER TO SNF/ECF
== END 2023-10-18 13:37 ==
LOC: EC 19:12 → UNDOADMOB 10-14 00:02 → 6NMEDSUR 10-14 00:02 → OBSVTOIN 10-15 18:04 → INTOOBSV 10-15 18:04 → UNDODISIN 10-18 13:37
PROVIDERS: ADMIT Hospitalist; ATTEND Hospitalist
DX: B34.9 Viral infection, unspecified (principal); E87.1 Hypo-osmolality and hyponatremia; K52.9 Noninfective gastroenteritis and colitis, unspecified; K21.9 Gastro-esophageal reflux disease without esophagitis; I25.10 Atherosclerotic heart disease of native coronary artery without angina pectoris; E78.5 Hyperlipidemia, unspecified; R04.0 Epistaxis; N40.0 Benign prostatic hyperplasia without lower urinary tract symptoms; F32.A Depression, unspecified; R41.89 Other symptoms and signs involving cognitive functions and awareness; R50.9 Fever, unspecified; I25.2 Old myocardial infarction; R13.10 Dysphagia, unspecified; F41.9 Anxiety disorder, unspecified; F43.10 Post-traumatic stress disorder, unspecified; E66.9 Obesity, unspecified; Z68.41 Body mass index [BMI] 40.0-44.9, adult; Z95.1 Presence of aortocoronary bypass graft; Z95.5 Presence of coronary angioplasty implant and graft; Z86.16 Personal history of COVID-19; Z85.038 Personal history of other malignant neoplasm of large intestine; Z86.73 Personal history of transient ischemic attack (TIA), and cerebral infarction without residual deficits; Z87.891 Personal history of nicotine dependence; Z79.82 Long term (current) use of aspirin; Z79.899 Other long term (current) drug therapy; Z11.52 Encounter for screening for COVID-19; Z11.59 Encounter for screening for other viral diseases; Z80.9 Family history of malignant neoplasm, unspecified; Z83.3 Family history of diabetes mellitus
CPT/HCPCS: 96361 ×3; 96360; 99285; 36415; 94640 ×9; 94760 ×3; 93005; 97116; 97162; 97530; 97166; 83880; 80053; 82550; 83605; 83735; 84484; 85025; 85610; 85730; 81003; 87040; 84145; 87636; 71046; G0378 ×5

== ENCOUNTER 2023-11-10 17:35 | Observation (INO) | payer MEDICARE, OTHER ==
--- NOTE | 2023-11-10 18:43 | ED ---
General Adult HPI - General Source: patient Mode of arrival: wheelchair Limitations: no limitations <Anival Martínez - Last Filed: 11/10/23 18:44> - History of Present Illness -: hour(s) Location: head Quality: dull Consistency: constant Improves with: none Worsens with: none Associated Symptoms: weakness Treatments Prior to Arrival: none <Low Hoyt - Last Filed: 11/21/23 09:06> - General Chief complaint: Weakness Stated complaint: FALL hit head Time Seen by Provider: 11/10/23 18:43 - History of Present Illness Initial comments: 78-year-old male sent into the ED with a chief complaint of fall. Patient states that he lost his balance and fell forward and hit his head. No LOC at this time. Patient is on a blood thinner. Patient also notes injury to his left lower leg. No chest pain or shortness of breath. (Anival Martínez) This patient is 78-year-old man here to have evaluation after he had a ground- level fall. The patient states that he did have mild head injury. He is not complaining really of any pain currently. The patient was then not able to get up. He states that his legs are just too weak to hold him. He denies unilate ral weakness. The patient does note that he had previously had rehabilitation placement but does not feel that he was ready to be discharged from the. (Low Hoyt) - Related Data Home Medications Medication Instructions Recorded Confirmed Fluticasone Nasal [place] [Flonase 1 spr EA NOSTRIL DAILY 06/21/15 11/11/23 Nasal [place]] Isosorbide Mononitrate ER [Imdur] 30 mg PO DAILY 10/09/15 11/11/23 Tamsulosin HCl [Flomax] 0.4 mg PO BID 07/12/19 11/11/23 Aspirin EC [Ecotrin Low Dose] 81 mg PO DAILY 11/07/21 11/11/23 Atorvastatin [Lipitor] 20 mg PO HS 11/07/21 11/11/23 Metoprolol Tartrate [Lopressor] 25 mg PO HS 11/07/21 11/11/23 OLANZapine [ZyPREXA] 2.5 mg PO HS 11/07/21 11/11/23 Omeprazole 40 mg PO DAILY 11/07/21 11/11/23 Clopidogrel [Plavix] 75 mg PO DAILY 08/12/22 11/11/23 Cholecalciferol [Vitamin D3 (25 50 mcg PO DAILY 08/28/22 11/11/23 Mcg = 1000 Iu)] Memantine [Namenda] 10 mg PO BID 08/29/23 11/11/23 Mirabegron [Myrbetriq] 50 mg PO HS 08/29/23 11/11/23 Previous Rx's Medication Instructions Recorded lamoTRIgine [LaMICtal] 100 mg PO HS #30 tab 08/11/18 Acetaminophen Tab [Tylenol] 650 mg PO Q6HR PRN tab 09/01/23 Albuterol Inhaler [Ventolin Hfa 2 puff INHALATION RT-TID each 09/01/23 Inhaler] Melatonin 10 mg PO HS tab 09/01/23 Sertraline [Zoloft] 200 mg PO DAILY #0 09/01/23 traZODone HCL [Desyrel] 50 mg PO HS PRN tab 09/01/23 Loratadine [Claritin] 5 mg PO DAILY #30 tab 10/15/23 guaiFENesin-DM 100-10MG/5ML 5 ml PO Q6HR PRN ml 10/15/23 [Robitussin DM] Heparin Sodium,Porcine (1 ml) 5,000 unit SQ Q8HR each 11/13/23 [Heparin Sodium] Mag Hydrox/Al Hydrox/Simeth 15 ml PO Q6HR PRN ml 11/13/23 [Maalox] Allergies Allergy/AdvReac Type Severity Reaction Status Date / Time No Known Allergies Allergy Verified 11/11/23 07:58 Review of Systems ROS Other: All systems not noted in ROS Statement are negative. <Anival Martínez - Last Filed: 11/10/23 18:44> ROS Other: All systems not noted in ROS Statement are negative. Constitutional: Reports: weakness. Denies: fever, chills Eyes: Denies: vision change Respiratory: Denies: cough, dyspnea Cardiovascular: Denies: chest pain, palpitations, orthopnea, edema, syncope Gastrointestinal: Denies: abdominal pain, nausea, vomiting, diarrhea Genitourinary: Denies: dysuria, frequency, hematuria Musculoskeletal: Denies: back pain Skin: Denies: rash Neurological: Reports: headache. Denies: weakness, numbness, confusion <Trachy,Low - Last Filed: 11/21/23 09:06> ROS Statement: Those systems with pertinent positive or pertinent negative responses have been documented in the HPI. Past Medical History Past Medical History: Coronary Artery Disease (CAD), Cancer, CVA/TIA, Eye Disorder, GERD/Reflux, Hyperlipidemia, Memory Impairment, Myocardial Infarction (VA), Pneumonia, Prostate Disorder Additional Past Medical History / Comment(s): DYSPHAGIA, CHRONIC DRY COUGH, HX COLON CANCER-2004 WITH SURGERY., DIVERTICULAR DISORDER, Hiatal Hernia, TIA'S , CATARACT RIGHT EYE, PROBLEMS WITH BALANCE- USES CANE. HAVING PAINS IN BILAT LEGS AND FATIGUE,forgetfulness,enlarged prostate Last Myocardial Infarction Date:: UNKNOWN History of Any Multi-Drug Resistant Organisms: None Reported Past Surgical History: Bowel Resection, Cholecystectomy, Coronary Bypass/CABG, H eart Catheterization, Heart Catheterization With Stent, Hernia Repair Additional Past Surgical History / Comment(s): QUAD CABG (MPH 2009), Umbilical hernia repair, DEVIATED SEPTUM REPAIR/SPUR REMOVED from nose, Past Anesthesia/Blood Transfusion Reactions: Motion Sickness, Postoperative Nausea & Vomiting (PONV) Additional Past Anesthesia/Blood Transfusion Reaction / Comment(s): PONV X1. Claustrophobic Date of Last Stent Placement:: 08-13-22 Past Psychological History: Anxiety, Depression, PTSD Smoking Status: Former smoker Past Alcohol Use History: None Reported Past Drug Use History: None Reported - Past Family History Son(s) Family Medical History: Cancer Father Family Medical History: Blood Disorder Additional Family Medical History / Comment(s): from a blood disorder Mother Family Medical History: Diabetes Mellitus Additional Family Medical History / Comment(s): age 53 -complications from dm Sister(s) Family Medical History: Diabetes Mellitus <Anival Marítnez - Last Filed: 11/10/23 18:44> General Exam Limitations: no limitations <Anival Martínez - Last Filed: 11/10/23 18:44> Limitations: no limitations General appearance: alert, in no apparent distress Head exam: Present: atraumatic, normocephalic Eye exam: Present: normal appearance. Absent: scleral icterus, conjunctival injection Neck exam: Present: normal inspection, full ROM. Absent: tenderness Respiratory exam: Present: normal lung sounds bilaterally. Absent: respiratory distress, wheezes, rales, rhonchi, stridor, accessory muscle use Cardiovascular Exam: Present: regular rate, normal rhythm, normal heart sounds. Absent: systolic murmur, diastolic murmur, rubs, gallop GI/Abdominal exam: Present: soft. Absent: distended, tenderness, guarding, rebound, rigid, mass Extremities exam: Present: normal inspection, normal capillary refill. Absent: pedal edema, calf tenderness Back exam: Present: normal inspection. Absent: CVA tenderness (R), CVA tenderness (L), vertebral tenderness Neurological exam: Present: alert, oriented X3, CN II-XII intact. Absent: motor sensory deficit Skin exam: Present: warm, dry, intact, normal color. Absent: rash <Low Hoyt - Last Filed: 11/21/23 09:06> - General Exam Comments Initial Comments: Visual Physical Exam Vital signs reviewed General: Well-appearing, nontoxic, no acute distress. Head: Normocephalic, atraumatic Eyes: PERRLA, EOMI ENT: Airway patent Chest: Nonlabored breathing Skin: No visual rash, normal skin tone Neuro: Alert and oriented 3 Musculoskeletal: No gross abnormalities (Anival Martínez) Course Vital Signs 11/10/23 11/10/23 11/11/23 17:55 21:30 00:00 Temperature 97.6 F Pulse Rate 56 L 55 L 56 L Respiratory 18 20 18 Rate Blood Pressure 134/78 133/85 146/91 O2 Sat by Pulse 96 94 L Oximetry 11/11/23 02:18 Temperature Pulse Rate 64 Respiratory 14 Rate Blood Pressure 156/77 O2 Sat by Pulse 96 Oximetry EKG Findings - EKG Results: EKG: interpreted by ERMD, sinus rhythm (Rate 61 bpm), normal axis - Blocks, [place], Hypertrophy, ST Abn: QRS axis and voltage: low voltage (<0.5 MV total QRS and <1.0 MV in each precordial lead) Repolarization changes or abnormalities: nonspecific abnormality, ST segment, and/or T wave <Low Hoyt - Last Filed: 11/21/23 09:06> Medical Decision Making <Anival Martínez - Last Filed: 11/10/23 18:44> - Lab Data Result diagrams: 11/10/23 19:17 11/12/23 05:52 <Low Hoyt - Last Filed: 11/21/23 09:06> - Medical Decision Making Quicknote portion performed. Signed Anival Martínez PA-C (Anival Martínez) Patient 78-year-old man here after ground-level fall. The patient workup does not reveal definite etiology for weakness however he was not able to ambulate to the bathroom back. He can support weight but not walking. In light of this, will admit patient to probably have rehabilitation placements. Physical therapy consultation. Patient had computed tomography scan of the brain that I interpreted as negative for acute bony trauma or acute intracranial hemorrhage. The patient had chest x-ray that I interpreted as negative for acute infiltrate, pneumothorax, or congestive heart failure Was pt. sent in by a medical professional or institution (CRISTIANO Cota, BUSINESS CONTROL SPECIALIST, urgent care, hospital, or senior living...) When possible be specific @ -[No] Did you speak to anyone other than the patient for history (EMS, parent, family, police, friend...)? What history was obtained from this source @ -[No] Did you review nursing and triage notes (agree or disagree)? Why? @ -[I reviewed and agree with nursing and triage notes] Were old charts reviewed (outside hosp., previous admission, EMS record, old EKG, old radiological studies, urgent care reports/EKG's, senior living records)? Report findings @ -[No old charts were reviewed] Differential Diagnosis (chest pain, altered mental status, abdominal pain women, abdominal pain men, vaginal bleeding, weakness, fever, dyspnea, syncope, headache, dizziness, GI bleed, back pain, seizure, CVA, palpatations, mental health, musculoskeletal)? @ -[Differential Weakness: Hypoglycemia, shock, sepsis, hyponatremia, anemia, infection, VA, ETOH, adverse medicine reaction, overdose, stroke, this is not meant to be an all-inclusive list. EKG interpreted by me (3pts min.). @ -[I interpreted As above] X-rays interpreted by me (1pt min.). @ -[I interpreted as above CT interpreted by me (1pt min.). @ -[I interpreted as above U/S interpreted by me (1pt. min.). @ -[None done] What testing was considered but not performed or refused? (CT, X-rays, U/S, labs)? Why? @ -[None] What meds were considered but not given or refused? Why? @ -[None] Did you discuss the management of the patient with other professionals (professionals i.e. , PA, BUSINESS CONTROL SPECIALIST, lab, RT, psych nurse, geriatric social worker, fire adjuster, teacher, tactical debriefer officer, field case manager)? Give summary @ -[No] Was smoking cessation discussed for >3mins.? @ -[No] Was critical care preformed (if so, how long)? @ -[No] Were there social determinants of health that impacted care today? How? (Homelessness, low income, unemployed, alcoholism, drug addiction, transportation, low edu. Level, literacy, decrease access to med. care, prison, rehab)? @ -[No] Was there de-escalation of care discussed even if they declined (Discuss DNR or withdrawal of care, Hospice)? DNR status @ -[No] What co-morbidities impacted this encounter? (DM, HTN, Smoking, COPD, CAD, Cancer, CVA, ARF, Chemo, Hep., AIDS, mental health diagnosis, sleep apnea, morbid obesity)? @ -[None] Was patient admitted / discharged? Hospital course, mention meds given and route, prescriptions, significant lab abnormalities, going to OR and other pertinent info. @ -[As above Undiagnosed new problem with uncertain prognosis? @ -[No] Drug Therapy requiring intensive monitoring for toxicity (Heparin, Nitro, Insulin, Cardizem)? @ -[No] Were any procedures done? @ -[No] Diagnosis/symptom? @ -[Generalized weakness with inability to walk Acute, or Chronic, or Acute on Chronic? @ -[Acute on chronic Uncomplicated (without systemic symptoms) or Complicated (systemic symptoms)? @ -[Uncomplicated Side effects of treatment? @ -[No] Exacerbation, Progression, or Severe Exacerbation? @ -[No] Poses a threat to life or bodily function? How? (Chest pain, [place], VA, pneumonia, PE, COPD, DKA, ARF, appy, cholecystitis, CVA, Diverticulitis, Homicidal, Suicidal, threat to staff... and all critical care pts) @ -[No] (Low Hoyt) - Lab Data Lab Results 11/10/23 11/10/23 11/10/23 Range/Units 19:17 19:17 19:17 WBC 6.9 (3.8-10.6) k/uL RBC 4.99 (4.30-5.90) m/uL Hgb 15.3 (13.0-17.5) gm/dL Hct 45.8 (39.0-53.0) % MCV 91.8 (80.0-100.0) fL MCH 30.7 (25.0-35.0) pg MCHC 33.4 (31.0-37.0) g/dL RDW 13.6 (11.5-15.5) % Plt Count 184 (150-450) k/uL MPV 7.6 Neutrophils % 71 % Lymphocytes % 19 % Monocytes % 7 % Eosinophils % 2 % Basophils % 0 % Neutrophils # 4.9 (1.3-7.7) k/uL Lymphocytes # 1.3 (1.0-4.8) k/uL Monocytes # 0.5 (0-1.0) k/uL Eosinophils # 0.1 (0-0.7) k/uL Basophils # 0.0 (0-0.2) k/uL PT 11.1 (10.0-12.5) sec INR 1.0 (<1.2) APTT 23.4 (22.0-30.0) sec Sodium (137-145) mmol/L Potassium (3.5-5.1) mmol/L Chloride (98-107) mmol/L Carbon Dioxide (22-30) mmol/L Anion Gap mmol/L BUN (9-20) mg/dL Creatinine (0.66-1.25) mg/dL Est GFR (CKD-EPI)AfAm (>60 ml/min/1.73 sqM) Est GFR (CKD-EPI)NonAf (>60 ml/min/1.73 sqM) Glucose (74-99) mg/dL Plasma Lactic Acid Bhavik (0.7-2.0) mmol/L Calcium (8.4-10.2) mg/dL Phosphorus (2.5-4.5) mg/dL Magnesium (1.6-2.3) mg/dL Total Bilirubin (0.2-1.3) mg/dL AST (17-59) U/L ALT (4-49) U/L Alkaline Phosphatase (38-126) U/L Troponin I (0.000-0.034) ng/mL Total Protein (6.3-8.2) g/dL Albumin (3.5-5.0) g/dL Urine Color Yellow Urine Appearance Clear (Clear) Urine pH 5.5 (5.0-8.0) Ur Specific [place] 1.029 (1.001-1.035) Urine Protein Trace H (Negative) Urine Glucose (UA) Negative (Negative) Urine Ketones Trace H (Negative) Urine Blood Negative (Negative) Urine Nitrite Negative (Negative) Urine Bilirubin Negative (Negative) Urine Urobilinogen <2.0 (<2.0) mg/dL Ur Leukocyte Esterase Negative (Negative) Influenza Type A (PCR) (Not Detectd) Influenza Type B (PCR) (Not Detectd) RSV (PCR) (Not Detectd) SARS-CoV-2 (PCR) (Not Detectd) 11/10/23 11/10/23 11/10/23 Range/Units 19:17 19:17 19:17 WBC (3.8-10.6) k/uL RBC (4.30-5.90) m/uL Hgb (13.0-17.5) gm/dL Hct (39.0-53.0) % MCV (80.0-100.0) fL MCH (25.0-35.0) pg MCHC (31.0-37.0) g/dL RDW (11.5-15.5) % Plt Count (150-450) k/uL MPV Neutrophils % % Lymphocytes % % Monocytes % % Eosinophils % % Basophils % % Neutrophils # (1.3-7.7) k/uL Lymphocytes # (1.0-4.8) k/uL Monocytes # (0-1.0) k/uL Eosinophils # (0-0.7) k/uL Basophils # (0-0.2) k/uL PT (10.0-12.5) sec INR (<1.2) APTT (22.0-30.0) sec Sodium 141 (137-145) mmol/L Potassium 3.8 (3.5-5.1) mmol/L Chloride 108 H (98-107) mmol/L Carbon Dioxide 22 (22-30) mmol/L Anion Gap 11 mmol/L BUN 18 (9-20) mg/dL Creatinine 0.70 (0.66-1.25) mg/dL Est GFR (CKD-EPI)AfAm >90 (>60 ml/min/1.73 sqM) Est GFR (CKD-EPI)NonAf >90 (>60 ml/min/1.73 sqM) Glucose 113 H (74-99) mg/dL Plasma Lactic Acid Bhavik 1.0 (0.7-2.0) mmol/L Calcium 9.2 (8.4-10.2) mg/dL Phosphorus 3.5 (2.5-4.5) mg/dL Magnesium 2.1 (1.6-2.3) mg/dL Total Bilirubin 0.7 (0.2-1.3) mg/dL AST 26 (17-59) U/L ALT 29 (4-49) U/L Alkaline Phosphatase 122 (38-126) U/L Troponin I <0.012 (0.000-0.034) ng/mL Total Protein 6.8 (6.3-8.2) g/dL Albumin 4.1 (3.5-5.0) g/dL Urine Color Urine Appearance (Clear) Urine pH (5.0-8.0) Ur Specific [place] (1.001-1.035) Urine Protein (Negative) Urine Glucose (UA) (Negative) Urine Ketones (Negative) Urine Blood (Negative) Urine Nitrite (Negative) Urine Bilirubin (Negative) Urine Urobilinogen (<2.0) mg/dL Ur Leukocyte Esterase (Negative) Influenza Type A (PCR) (Not Detectd) Influenza Type B (PCR) (Not Detectd) RSV (PCR) (Not Detectd) SARS-CoV-2 (PCR) (Not Detectd) 11/10/23 Range/Units 20:42 WBC (3.8-10.6) k/uL RBC (4.30-5.90) m/uL Hgb (13.0-17.5) gm/dL Hct (39.0-53.0) % MCV (80.0-100.0) fL MCH (25.0-35.0) pg MCHC (31.0-37.0) g/dL RDW (11.5-15.5) % Plt Count (150-450) k/uL MPV Neutrophils % % Lymphocytes % % Monocytes % % Eosinophils % % Basophils % % Neutrophils # (1.3-7.7) k/uL Lymphocytes # (1.0-4.8) k/uL Monocytes # (0-1.0) k/uL Eosinophils # (0-0.7) k/uL Basophils # (0-0.2) k/uL PT (10.0-12.5) sec INR (<1.2) APTT (22.0-30.0) sec Sodium (137-145) mmol/L Potassium (3.5-5.1) mmol/L Chloride (98-107) mmol/L Carbon Dioxide (22-30) mmol/L Anion Gap mmol/L BUN (9-20) mg/dL Creatinine (0.66-1.25) mg/dL Est GFR (CKD-EPI)AfAm (>60 ml/min/1.73 sqM) Est GFR (CKD-EPI)NonAf (>60 ml/min/1.73 sqM) Glucose (74-99) mg/dL Plasma Lactic Acid Bhavik (0.7-2.0) mmol/L Calcium (8.4-10.2) mg/dL Phosphorus (2.5-4.5) mg/dL Magnesium (1.6-2.3) mg/dL Total Bilirubin (0.2-1.3) mg/dL AST (17-59) U/L ALT (4-49) U/L Alkaline Phosphatase (38-126) U/L Troponin I (0.000-0.034) ng/mL Total Protein (6.3-8.2) g/dL Albumin (3.5-5.0) g/dL Urine Color Urine Appearance (Clear) Urine pH (5.0-8.0) Ur Specific [place] (1.001-1.035) Urine Protein (Negative) Urine Glucose (UA) (Negative) Urine Ketones (Negative) Urine Blood (Negative) Urine Nitrite (Negative) Urine Bilirubin (Negative) Urine Urobilinogen (<2.0) mg/dL Ur Leukocyte Esterase (Negative) Influenza Type A (PCR) Not Detected (Not Detectd) Influenza Type B (PCR) Not Detected (Not Detectd) RSV (PCR) Not Detected (Not Detectd) SARS-CoV-2 (PCR) Not Detected (Not Detectd) Disposition <Anival Martínez - Last Filed: 11/10/23 18:44> <Low Hoyt - Last Filed: 11/21/23 09:06> Clinical Impression: Fall, Difficulty in walking, Leg weakness, bilateral Disposition: ADMITTED IP TO THIS [facility] Condition: Fair
[2023-11-10 20:28] LABS: Basophils % (A) 0 %; Eosinophils # (A) 0.1 k/uL (0-0.7); Eosinophils % (A) 2 %; HCT 45.8 % (39.0-53.0); HGB 15.3 gm/dL (13.0-17.5); Lymphocytes # (A) 1.3 k/uL (1.0-4.8); Lymphocytes % (A) 19 %; MCH 30.7 pg (25.0-35.0); MCHC 33.4 g/dL (31.0-37.0); MCV 91.8 fL (80.0-100.0); Mean Platelet Volume 7.6; Monocytes # (A) 0.5 k/uL (0-1.0); Monocytes % (A) 7 %; Neutrophils # (A) 4.9 k/uL (1.3-7.7); Neutrophils % (A) 71 %; Platelet Count 184 k/uL (150-450); RBC 4.99 m/uL (4.30-5.90); RDW 13.6 % (11.5-15.5); WBC 6.9 k/uL (3.8-10.6)
[2023-11-10 20:39] LABS: Partial Thromboplastin Time 23.4 sec (22.0-30.0); Prothrombin Time 11.1 sec (10.0-12.5)
[2023-11-10 20:41] LABS: ALT 29 U/L (4-49); AST 26 U/L (17-59); African American GFR (CKD) >90 (>60 ml/min/1.73 sqM); Albumin 4.1 g/dL (3.5-5.0); Alkaline Phosphatase 122 U/L (38-126); Anion Gap 11 mmol/L; Blood Urea Nitrogen 18 mg/dL (9-20); Calcium 9.2 mg/dL (8.4-10.2); Carbon Dioxide 22 mmol/L (22-30); Chloride 108 mmol/L (98-107); Glucose 113 mg/dL (74-99); Magnesium 2.1 mg/dL (1.6-2.3); Non-African American GFR(CKD) >90 (>60 ml/min/1.73 sqM); Phosphorus 3.5 mg/dL (2.5-4.5); Potassium 3.8 mmol/L (3.5-5.1); Sodium 141 mmol/L (137-145); Total Bilirubin 0.7 mg/dL (0.2-1.3); Total Protein 6.8 g/dL (6.3-8.2)
--- NOTE | 2023-11-10 21:46 | CT ---
EXAMINATION TYPE: CT brain cspine wo con CT DLP: 1486.2 mGycm, Automated exposure control for dose reduction was used. DATE OF EXAM: 11/10/2023 7:39 PM COMPARISON: CT head 08/28/2023 CLINICAL INDICATION:Male, 78 years old with history of s/p fall, head injury on thinner; weakness, mu ltiple recent falls. Pain to left side of skull. TECHNIQUE: Brain: Multiple axial CT images of the brain were obtained without IV contrast. Cspine: Axial CT images from the skull base to the inferior aspect of T2 we obtained without intraven ous contrast. Coronal and sagittal reformatted images were also reviewed. FINDINGS: Brain: Extra-axial spaces: No abnormal extra-axial fluid collections. Ventricular system: Appear dilated in proportion to the degree of cerebral atrophy. Cerebral parenchyma: No increased attenuation to suggest acute intraparenchymal hemorrhage. The gra y-white matter interface appears maintained. Moderate generalized brain atrophy. Scattered hypoatte nuating areas are seen within the cerebral white matter, nonspecific but most often seen with chronic microvascular ischemic changes; moderate in degree. Remote lacunar infarct versus prominent perivasc ular space in the left basal ganglia region. The overall appearance is similar to the prior study. Cerebellum: No acute abnormality. Mass effect: No evidence of mass effect or midline shift. Intracranial vasculature: Atherosclerotic calcifications of the larger arteries near the skull base. Soft tissues: Normal. Visualized orbits: Orbital contents appear grossly intact. Calvarium/osseous structures: No evidence of calvarial fracture. Paranasal sinuses and mastoid air cells: Operative openings in the medial maxillary sinus crawford bilat erally. Scattered mucosal thickening in the bilateral ethmoid air cells. Right mastoid air cells show no significant fluid. Partial sclerosis of the left mastoid air cells and irregularity suggesting pr evious surgery/mastoidectomy. MRI is more sensitive for detecting acute processes such as infarct, and may be considered if clinica lly warranted. Cervical spine: Fracture: None seen. Osseous structures, spinal canal/neural foramina: Bones appear somewhat demineralized. There is mild multilevel degenerative disc disease and facet arthrosis, without evidence of significant bony canal or neuroforaminal stenosis. Small foci of ventricular bone are seen at the anterior aspects of the C5 -C6 and C6-C7 levels. Vertebral alignment: No traumatic malalignment. Neck soft tissues: No acute findings. The airway is patent. Calcifications noted along the aortic arc h and at the carotid bifurcations. Other: Included lung apices show mild scarring/senescent changes. Mostly calcified bilateral pleural plaques, can be seen with prior asbestos exposure. IMPRESSION: CT head: 1. No acute intracranial CT abnormality. 2. Moderate atrophy and chronic microvascular ischemic changes. CT cervical spine: 1. No evidence of cervical spine fracture or traumatic malalignment. 2. Mild cervical spondylosis. 3. Calcified pleural plaques in the lung apices, can be seen with prior asbestos exposure.
[2023-11-10 23:36] LABS: Appearance,Urine Clear (Clear); Bilirubin,Urine Negative (Negative); Blood,Urine Negative (Negative); Color,Urine Yellow; Glucose,Urine (UA) Negative (Negative); Ketones,Urine Trace (Negative); Leukocyte Esterase,Urine Negative (Negative); Nitrite,Urine Negative (Negative); PH, Urine 5.5 (5.0-8.0); Protein,Urine Trace (Negative); Specific Gravity,Urine 1.029 (1.001-1.035); Urobilinogen,Urine <2.0 mg/dL (<2.0)
[2023-11-11] MEDS ORDERED: NALOXONE 0.4 MG/ML 1 ML VIAL IV PRN (00:02)
[2023-11-11] MEDS ORDERED: ACETAMINOPHEN TAB 325 MG TAB PO PRN (00:02)
[2023-11-11] MEDS ORDERED: MAG HYDROX/AL HYDROX/SIMETH 30 ML CUP PO PRN (00:02)
[2023-11-11] MEDS ORDERED: traZODone HCL 50 MG TAB PO PRN (00:05)
--- NOTE | 2023-11-11 00:55 | XR ---
EXAMINATION TYPE: XR chest 2V DATE OF EXAM: 11/10/2023 11:07 PM CLINICAL INDICATION:Male, 78 years old with history of weakness; [facility] COMPARISON: Chest radiographs from 10/13/2023 TECHNIQUE: XR chest 2V Frontal and lateral views of the chest. FINDINGS: Lungs/Pleura: There is no evidence of pleural effusion, focal consolidation, or pneumothorax. Pulmonary vascularity: Unremarkable. Heart/mediastinum: Cardiomediastinal silhouette is enlarged and stable. Musculoskeletal: No acute osseous pathology. Midline sternotomy wires are noted. IMPRESSION: No acute cardiopulmonary disease/process.
[2023-11-11] MEDS: SODIUM CHLORIDE 0.9% 1,000 ML IV SCH ×2 (01:21→17:36)
[2023-11-11] MEDS: ASPIRIN 81 MG PO SCH (08:45)
[2023-11-11] MEDS: CHOLECALCIFEROL 25 MCG (1000 IU) TABLET PO SCH (08:46)
[2023-11-11] MEDS: PANTOPRAZOLE 40 MG TABLET PO SCH (08:46)
[2023-11-11] MEDS: FAMOTIDINE 20 MG TAB PO SCH ×2 (08:46→20:10)
[2023-11-11] MEDS: ISOSORBIDE MONONITRATE ER 30 MG TAB.ER.24H PO SCH (08:46)
[2023-11-11] MEDS: CLOPIDOGREL 75 MG TAB PO SCH (08:46)
[2023-11-11] MEDS: TAMSULOSIN 0.4 MG CAP.ER.24H PO SCH ×2 (08:46→20:10)
[2023-11-11] MEDS: SERTRALINE 100 MG TAB PO SCH (09:00)
[2023-11-11] MEDS: ALBUTEROL NEBULIZED 2.5 MG/3 ML INHALATION SCH ×3 (09:06→20:33)
[2023-11-11] MEDS: METOPROLOL TARTRATE 25 MG TAB PO SCH (20:10)
[2023-11-11] MEDS: MELATONIN 5 MG TABLET PO SCH (20:10)
--- NOTE | 2023-11-11 22:46 | P.HPIM ---
History of Present Illness H&P Date: 11/11/23 Chief Complaint: fall Patient is a 78-year-old male with a known history of coronary artery disease status post CABG, prior history of stent placement, history of CVA/TIA, hyp erlipidemia, memory impairment, history of colon cancer diagnosed in 2004 s/p surgery, problems with balance/patient uses cane, enlarged prostate, anxiety/depression, PTSD and prior history of smoking presents to ER status post fall. Patient states that that his legs gave way and lost balance and fell forward and hit his head. Denies any loss of consciousness. Patient also noted to have injury to his left lower leg. Otherwise patient denies any complaints of chest pain or shortness of breath. No headache or dizziness or lightheadedness. Patient was unable to get up and stated that his legs are just too weak to hold him. Denies any focal weakness. Patient states that he was in rehab with similar episodes. Patient also states that his is also sick recently and is unable to take care of her. EKG showed sinus rhythm with low QRS voltage in precordial leads CT cervical spine and head showed no evidence of fracture or acute abnormality. Calcified pleural plaques in the lung apices can be seen with prior asbestos exposure. Laboratory showed WBC 6.9 hemoglobin 15.3 and platelets 184 Sodium 141 potassium 3.8 and chloride 108 bicarb is 22 BUN 18 and creatinine 0.7 blood sugar is 113 Liver enzymes are not elevated. Albumin 4.1. Urinalysis is negative for infection. GA, B, COVID-19 PCR and RSV not detected. Review of Systems Constitutional: Patient denies any fever or chills . no Generalized weakness. Abdomen: Patient denied any nausea or vomiting or abd. pain Cardiovascular: Patient denies any chest pain or short of breath no palpitations. Respiratory: patient denied any cough . no sputum production. No shortness of breath Neurologic: Patient denied any numbness or tingling or headache. Musculoskeletal: Patient denies any complaints of joint swelling or deformity. Skin: Negative Psychiatric: Negative Endocrine: No heat or cold intolerance. No recent weight gain. Genitourinary: No dysuria or hematuria. All other 14 point ROS negative except the above Past Medical History Past Medical History: Coronary Artery Disease (CAD), Cancer, CVA/TIA, Eye Disorder, GERD/Reflux, Hyperlipidemia, Memory Impairment, Myocardial Infarction ([place]), Pneumonia, Prostate Disorder Additional Past Medical History / Comment(s): DYSPHAGIA, CHRONIC DRY COUGH, HX COLON CANCER-2005 WITH SURGERY., DIVERTICULAR DISORDER, Hiatal Hernia, TIA'S , CATARACT RIGHT EYE, PROBLEMS WITH BALANCE- USES CANE. HAVING PAINS IN BILAT LEGS AND FATIGUE,forgetfulness,enlarged prostate, mutiple falls Last Myocardial Infarction Date:: UNKNOWN History of Any Multi-Drug Resistant Organisms: None Reported Past Surgical History: Bowel Resection, Cholecystectomy, Coronary Bypass/CABG, Heart Catheterization, Heart Catheterization With Stent, Hernia Repair Additional Past Surgical History / Comment(s): QUAD CABG ([facility] 2009), Umbilical hernia repair, DEVIATED SEPTUM REPAIR/SPUR REMOVED from nose, 5 stents Past Anesthesia/Blood Transfusion Reactions: Motion Sickness, Postoperative N ausea & Vomiting (PONV) Additional Past Anesthesia/Blood Transfusion Reaction / Comment(s): PONV X1. Claustrophobic Date of Last Stent Placement:: 08-13-22 Past Psychological History: Anxiety, Depression, PTSD Smoking Status: Former smoker Past Alcohol Use History: None Reported Additional Past Alcohol Use History / Comment(s): started smoking in his teens- quit , smoked 1/2-1 PPD Past Drug Use History: None Reported - Past Family History Son(s) Family Medical History: Cancer Father Family Medical History: Blood Disorder Additional Family Medical History / Comment(s): from a blood disorder Mother Family Medical History: Diabetes Mellitus Additional Family Medical History / Comment(s): age 53 -complications from dm Sister(s) Family Medical History: Diabetes Mellitus Medications and Allergies Home Medications Medication Instructions Recorded Confirmed Type Fluticasone Nasal [place] [Flonase 1 spr EA NOSTRIL DAILY 06/21/15 11/11/23 History Nasal [place]] Isosorbide Mononitrate ER [Imdur] 30 mg PO DAILY 10/09/15 11/11/23 History lamoTRIgine [LaMICtal] 100 mg PO HS #30 tab 08/11/18 11/11/23 Rx Tamsulosin HCl [Flomax] 0.4 mg PO BID 07/12/19 11/11/23 History Aspirin EC [Ecotrin Low Dose] 81 mg PO DAILY 11/07/21 11/11/23 History Atorvastatin [Lipitor] 20 mg PO HS 11/07/21 11/11/23 History Metoprolol Tartrate [Lopressor] 25 mg PO HS 11/07/21 11/11/23 History OLANZapine [ZyPREXA] 2.5 mg PO HS 11/07/21 11/11/23 History Omeprazole 40 mg PO DAILY 11/07/21 11/11/23 History Clopidogrel [Plavix] 75 mg PO DAILY 08/12/22 11/11/23 History Cholecalciferol [Vitamin D3 (25 50 mcg PO DAILY 08/28/22 11/11/23 History Mcg = 1000 Iu)] Memantine [Namenda] 10 mg PO BID 08/29/23 11/11/23 History Mirabegron [Myrbetriq] 50 mg PO HS 08/29/23 11/11/23 History Acetaminophen Tab [Tylenol] 650 mg PO Q6HR PRN tab 09/01/23 11/11/23 Rx Albuterol Inhaler [Ventolin Hfa 2 puff INHALATION RT-TID each 09/01/23 11/11/23 Rx Inhaler] Melatonin 10 mg PO HS tab 09/01/23 11/11/23 Rx Sertraline [Zoloft] 200 mg PO DAILY #0 09/01/23 11/11/23 Rx traZODone HCL [Desyrel] 50 mg PO HS PRN tab 09/01/23 11/11/23 Rx Loratadine [Claritin] 5 mg PO DAILY #30 tab 10/15/23 11/11/23 Rx guaiFENesin-DM 100-10MG/5ML 5 ml PO Q6HR PRN ml 10/15/23 11/11/23 Rx [Robitussin DM] Allergies Allergy/AdvReac Type Severity Reaction Status Date / Time No Known Allergies Allergy Verified 11/11/23 07:58 Physical Exam Vitals: Vital Signs Temp Pulse Pulse Resp BP BP Pulse Ox 11/11/23 09:15 60 11/11/23 09:06 60 11/11/23 07:00 98.2 F 65 18 165/81 97 11/11/23 02:46 98.3 F 64 15 141/79 96 11/11/23 02:18 64 14 156/77 96 11/11/23 00:00 56 L 18 146/91 11/10/23 21:30 55 L 20 133/85 94 L 11/10/23 17:55 97.6 F 56 L 18 134/78 96 Intake and Output 11/10/23 11/11/23 11/11/23 22:59 06:59 14:59 Other: Voiding Method Toilet Diaper # Voids 2 Weight 95.254 kg 95.254 kg PHYSICAL EXAMINATION: Patient is lying in the bed comfortably, no acute distress, awake alert and oriented.. HEENT: Normocephalic. Neck is supple. Pupils reactive. Nostrils clear. Oral cavity is moist. Neck reveals no JVD, carotid bruits, or thyromegaly. CHEST EXAMINATION: Trachea is central. Symmetrical expansion. Lung ribera clear to auscultation and percussion. CARDIAC: Normal S1, S2 with no gallops. No murmurs ABDOMEN: Soft. Bowel sounds present. Nontender. No organomegaly. No abdominal bruits. Extremities: reveal no edema. No clubbing or cyanosis Neurologically awake, alert, oriented x2-3 with well-coordinated movements. No gross focal deficits noted Skin: No rash or skin lesions. Psychiatric: Coperative. Nonsuicidal, Musculoskeletal: No joint swelling or deformity. Normal range of motion. Results CBC & Chem 7: 11/10/23 19:17 11/10/23 19:17 Labs: Abnormal Lab Results - Last 24 Hours (Table) 11/10/23 11/10/23 Range/Units 19:17 19:17 Chloride 108 H (98-107) mmol/L Glucose 113 H (74-99) mg/dL Urine Protein Trace H (Negative) Urine Ketones Trace H (Negative) Thrombosis Risk Factor Assmnt - DVT/VTE Prophylaxis DVT/VTE Prophylaxis: Pharmacologic Prophylaxis ordered - Choose All That Apply Any of the Below Risk Factors Present?: Yes Each Factor Represents 1 point: Obesity (BMI >25) Other Risk Factors: Yes Each Risk Factor Represents 3 Points: Age 75 years or older Other congenital or acquired thrombophilia - If yes, enter type in comment: No Thrombosis Risk Factor Assessment Total Risk Factor Score: 4 Thrombosis Risk Factor Assessment Level: Moderate Risk Assessment and Plan Assessment: Status post fall likely mechanical due to generalized weakness and gait instability. Patient uses cane at baseline. 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 GI and DVT prophylaxis Plan: Patient will be continued on IV hydration with normal saline and started back on home medication including aspirin Plavix and Imdur. GI and DVT prophylaxis and PT OT will be consulted. Continue with home medications and follow-up closely. Time with Patient: Greater than 30
[2023-11-11] MEDS: HEPARIN SODIUM,PORCINE 5,000 UNIT/ML 1 ML VIAL SQ SCH (23:11)
[2023-11-12] MEDS: SODIUM CHLORIDE 0.9% 1,000 ML IV SCH ×2 (03:52→16:01)
[2023-11-12] MEDS: HEPARIN SODIUM,PORCINE 5,000 UNIT/ML 1 ML VIAL SQ SCH ×2 (08:49→16:01)
[2023-11-12] MEDS: ASPIRIN 81 MG PO SCH (08:49)
[2023-11-12] MEDS: SERTRALINE 100 MG TAB PO SCH (08:50)
[2023-11-12] MEDS: TAMSULOSIN 0.4 MG CAP.ER.24H PO SCH ×2 (08:50→20:28)
[2023-11-12] MEDS: CHOLECALCIFEROL 25 MCG (1000 IU) TABLET PO SCH (08:50)
[2023-11-12] MEDS: ISOSORBIDE MONONITRATE ER 30 MG TAB.ER.24H PO SCH (08:50)
[2023-11-12] MEDS: FAMOTIDINE 20 MG TAB PO SCH ×2 (08:50→20:28)
[2023-11-12] MEDS: CLOPIDOGREL 75 MG TAB PO SCH (08:50)
[2023-11-12] MEDS: PANTOPRAZOLE 40 MG TABLET PO SCH (08:50)
[2023-11-12] MEDS: ALBUTEROL NEBULIZED 2.5 MG/3 ML INHALATION SCH ×3 (09:04→22:12)
[2023-11-12 09:37] LABS: ALT 20 U/L (10-49); AST 21 U/L (14-35); Albumin 3.6 g/dL (3.8-4.9); Alkaline Phosphatase 115 U/L (41-126); BUN/Creat Ratio 15.62 Ratio (12.00-20.00); Blood Urea Nitrogen 12.5 mg/dL (9.0-27.0); Calcium 8.8 mg/dL (8.7-10.3); Carbon Dioxide 21.4 mmol/L (21.6-31.8); Chloride 111 mmol/L (96-109); Glucose 97 mg/dL (70-110); Potassium 4.3 mmol/L (3.5-5.5); Sodium 141 mmol/L (135-145); Total Bilirubin 0.4 mg/dL (0.3-1.2); Total Protein 5.6 g/dL (6.2-8.2)
--- NOTE | 2023-11-12 14:17 | P.PN ---
Subjective Progress Note Date: 11/12/23 Patient is a 78-year-old male with a known history of coronary artery disease status post CABG, prior history of stent placement, history of CVA/TIA, hyperlipidemia, memory impairment, history of colon cancer diagnosed in 2004 s/p surgery, problems with balance/patient uses cane, enlarged prostate, anxiet y/depression, PTSD and prior history of smoking presents to ER status post fall. Patient states that that his legs gave way and lost balance and fell forward and hit his head. Denies any loss of consciousness. Patient also noted to have injury to his left lower leg. Otherwise patient denies any complaints of chest pain or shortness of breath. No headache or dizziness or lightheadedness. Dotty ent was unable to get up and stated that his legs are just too weak to hold him. Denies any focal weakness. Patient states that he was in rehab with similar episodes. Patient also states that his is also sick recently and is unable to take care of her. EKG showed sinus rhythm with low QRS voltage in precordial leads CT cervical spine and head showed no evidence of fracture or acute abnormality. Calcified pleural plaques in the lung apices can be seen with prior asbestos exposure. Laboratory showed WBC 6.9 hemoglobin 15.3 and platelets 184 Sodium 141 potassium 3.8 and chloride 108 bicarb is 22 BUN 18 and creatinine 0.7 blood sugar is 113 Liver enzymes are not elevated. Albumin 4.1. Urinalysis is negative for infection. GA, B, COVID-19 PCR and RSV not detected. 11/12/2023 Patient is seen and evaluated in follow-up today currently sitting up in the chair has worked with physical therapy recommending rehab and patient is agreeable. Patient has been significantly weak and has had progressive weakness with more frequent falls over the last few days and unable to stand. Patient is currently afebrile with no reports of chest pain or shortness of breath. Patient is tolerating diet with no reported nausea or vomiting. Social work has been consulted and working on [employer] and patient will require insurance authorization which has been submitted and currently pending. Review of systems: Constitutional: No reports of fatigue, fever, or chills Cardiovascular: No reports of chest pain or palpitations Respiratory: No reports of shortness of breath or cough GI: No reports of nausea, vomiting, or diarrhea : No reports of dysuria or retention Neurovascular: reports of generalized lower extremity weakness and difficulty ambulating All medications have been reviewed PHYSICAL EXAMINATION: Patient is sitting up in the chair, awake alert and oriented, well-developed, well-nourished, elderly-appearing.. HEENT: Normocephalic. Neck is supple. Pupils reactive. Nostrils clear. Oral cavity is moist. Neck reveals no JVD, carotid bruits, or thyromegaly. CHEST EXAMINATION: Trachea is central. Symmetrical expansion. Lung ribera clear to auscultation and percussion. CARDIAC: Normal S1, S2 with no gallops. No murmurs ABDOMEN: Soft. Bowel sounds present. Nontender. No organomegaly. No abdominal bruits. Extremities: reveal no edema. No clubbing or cyanosis, diffusely weak Neurologically awake, alert, oriented x2-3 with well-coordinated movements. No gross focal deficits noted Skin: No rash or skin lesions. Psychiatric: Cooperative. Non-suicidal, Musculoskeletal: No joint swelling or deformity. Normal range of motion. Assessment: Status post fall likely mechanical due to generalized weakness and gait instability. Patient uses cane at baseline. 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 GI and DVT prophylaxis Full code Plan: Patient will be continued on IV hydration with normal saline All medications reviewed and resumed Recommend Patient work to with physical therapy daily. Patient was evaluated recommending rehab and patient is agreeable Social work consulted and working on placing referrals [facility] and will require insurance authorization which has been submitted today and pending Continue to monitor closely with possible discharge planning in the next 24-48 hours The impression and plan of care has been dictated by Kim Starks Nurse Practitioner as directed. Dr. Eugeino MD I have performed a history and examination and MDM of this patient, discussed the same with the dictator, and agree with the dictator's assessment and plan as written ,documented as a scribe. Based on total visit time, I have performed more than 50% of the visit. Objective - Vital Signs Vital signs: Vital Signs Temp 97.7 F 11/12/23 07:25 Pulse 56 L 11/12/23 09:17 Resp 17 11/12/23 07:25 BP 150/82 11/12/23 07:25 Pulse Ox 97 11/12/23 07:25 FiO2 Intake & Output 11/11/23 11/12/23 11/12/23 18:59 06:59 18:59 Intake Total 599 290 Output Total 250 Balance 349 290 Intake: Oral 599 290 Output: Urine 250 Other: Voiding Method Toilet Toilet Diaper Diaper # Voids 1 5 - Labs CBC & Chem 7: 11/10/23 19:17 11/12/23 05:52 Labs: Abnormal Lab Results - Last 24 Hours (Table) 11/12/23 Range/Units 05:52 Chloride 111 H (96-109) mmol/L Carbon Dioxide 21.4 L (21.6-31.8) mmol/L Total Protein 5.6 L (6.2-8.2) g/dL Albumin 3.6 L (3.8-4.9) g/dL
[2023-11-12] MEDS: METOPROLOL TARTRATE 25 MG TAB PO SCH (20:28)
[2023-11-12] MEDS: MELATONIN 5 MG TABLET PO SCH (20:28)
[2023-11-13] MEDS: HEPARIN SODIUM,PORCINE 5,000 UNIT/ML 1 ML VIAL SQ SCH ×3 (00:43→16:41)
[2023-11-13 07:51] VITALS: TEMP 97.4
[2023-11-13] MEDS: FAMOTIDINE 20 MG TAB PO SCH (08:35)
[2023-11-13] MEDS: ISOSORBIDE MONONITRATE ER 30 MG TAB.ER.24H PO SCH (08:35)
[2023-11-13] MEDS: PANTOPRAZOLE 40 MG TABLET PO SCH (08:35)
[2023-11-13] MEDS: ASPIRIN 81 MG PO SCH (08:35)
[2023-11-13] MEDS: CHOLECALCIFEROL 25 MCG (1000 IU) TABLET PO SCH (08:36)
[2023-11-13] MEDS: TAMSULOSIN 0.4 MG CAP.ER.24H PO SCH (08:36)
[2023-11-13] MEDS: CLOPIDOGREL 75 MG TAB PO SCH (08:36)
[2023-11-13] MEDS: SERTRALINE 100 MG TAB PO SCH (08:36)
[2023-11-13] MEDS: ALBUTEROL NEBULIZED 2.5 MG/3 ML INHALATION SCH ×2 (08:57→12:33)
[2023-11-13] MEDS: SODIUM CHLORIDE 0.9% 1,000 ML IV SCH (13:24)
--- NOTE | 2023-11-13 13:54 | P.DS ---
Providers Date of admission: 11/11/23 00:03 Expected date of discharge: 11/13/23 Attending physician: Yoly Elam Primary care physician: Mark Wells [facility] Course: Final diagnosis Status post fall likely mechanical due to generalized weakness and gait instability. Patient uses cane at baseline. 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 GI and DVT prophylaxis Full code Discharge disposition Patient is being discharged in a stable condition with guarded prognosis to [facility] for continued PT/OT therapy . Patient will follow-up with Dr. Wells in the outpatient setting upon discharge. Patient is to continue with current medications as prescribed. Total time taken is greater than 35 minutes. Hospital course This is a 78-year-old male who was recently admitted with recurrent falls and progressive weakness has been getting weak over the last 2 weeks. Patient was seen and evaluated by physical therapy recommending rehab and patient would like to go to rehab and was awaiting insurance authorization. Authorization was approved and patient has been accepted by [facility]. Patient will be discharged to [facility] today for continued PT/OT therapy. Currently no reports of chest pain, shortness of breath, or palpitations. Patient is afebrile. No reports of nausea or vomiting and patient is tolerating diet. Patient will be going to [facility] today. Guarded prognosis and high risk for readmission as patient has had progressive weakness with frequent hospitalizations as well as frequent ER visits. Physical exam: Gen: This is a 78-year-old male who is awake, alert and oriented 3, well- developed and well-nourished HEENT: Head is atraumatic, normocephalic. Pupils equal, round. Sclerae is anicteric. NECK: Supple. No JVD. No lymphadenopathy. No thyromegaly. LUNGS: Clear to auscultation. No wheezes or rhonchi. No intercostal retractions. HEART: Regular rate and rhythm. No murmur. ABDOMEN: Soft. Bowel sounds are present. No masses. No tenderness. EXTREMITIES: No pedal edema. No calf tenderness. NEUROLOGICAL: Patient is awake, alert and oriented x3. Cranial nerves 2 through 12 are grossly intact. Please refer to medication reconciliation sheet for a list of medications. The impression and plan of care has been dictated by Kim Starks, Nurse Practitioner as directed. MD Nhung I have performed a history and examination and MDM of this patient, discussed the same with the dictator, and agree with the dictator's assessment and plan as written ,documented as a scribe. Based on total visit time, I have performed more than 50% of the visit. Patient Condition at Discharge: Fair Plan - Discharge Summary Discharge Rx Participant: No New Discharge Prescriptions: New Heparin Sodium,Porcine (1 ml) [Heparin Sodium] 5,000 unit SQ Q8HR each Mag Hydrox/Al Hydrox/Simeth [Maalox] 15 ml PO Q6HR PRN ml PRN Reason: Indigestion Continue Fluticasone Nasal [place] [Flonase Nasal [place]] 1 spr EA NOSTRIL DAILY Isosorbide Mononitrate ER [Imdur] 30 mg PO DAILY lamoTRIgine [LaMICtal] 100 mg PO HS #30 tab Tamsulosin HCl [Flomax] 0.4 mg PO BID OLANZapine [ZyPREXA] 2.5 mg PO HS Atorvastatin [Lipitor] 20 mg PO HS Aspirin EC [Ecotrin Low Dose] 81 mg PO DAILY Cholecalciferol [Vitamin D3 (25 Mcg = 1000 Iu)] 50 mcg PO DAILY Memantine [Namenda] 10 mg PO BID Albuterol Inhaler [Ventolin Hfa Inhaler] 2 puff INHALATION RT-TID each Loratadine [Claritin] 5 mg PO DAILY #30 tab guaiFENesin-DM 100-10MG/5ML [Robitussin DM] 5 ml PO Q6HR PRN ml PRN Reason: Cough Omeprazole 40 mg PO DAILY Metoprolol Tartrate [Lopressor] 25 mg PO HS Clopidogrel [Plavix] 75 mg PO DAILY Mirabegron [Myrbetriq] 50 mg PO HS Acetaminophen Tab [Tylenol] 650 mg PO Q6HR PRN tab PRN Reason: Fever And/ Or Pain traZODone HCL [Desyrel] 50 mg PO HS PRN tab PRN Reason: Insomnia Melatonin 10 mg PO HS tab Sertraline [Zoloft] 200 mg PO DAILY #0 Discharge Medication List Fluticasone Nasal [place] [Flonase Nasal [place]] 1 spr EA NOSTRIL DAILY 06/21/15 [History] Isosorbide Mononitrate ER [Imdur] 30 mg PO DAILY 10/09/15 [History] lamoTRIgine [LaMICtal] 100 mg PO HS #30 tab 08/11/18 [Rx] Tamsulosin HCl [Flomax] 0.4 mg PO BID 07/12/19 [History] Aspirin EC [Ecotrin Low Dose] 81 mg PO DAILY 11/07/21 [History] Atorvastatin [Lipitor] 20 mg PO HS 11/07/21 [History] Metoprolol Tartrate [Lopressor] 25 mg PO HS 11/07/21 [History] OLANZapine [ZyPREXA] 2.5 mg PO HS 11/07/21 [History] Omeprazole 40 mg PO DAILY 11/07/21 [History] Clopidogrel [Plavix] 75 mg PO DAILY 08/12/22 [History] Cholecalciferol [Vitamin D3 (25 Mcg = 1000 Iu)] 50 mcg PO DAILY 08/28/22 [History] Memantine [Namenda] 10 mg PO BID 08/29/23 [History] Mirabegron [Myrbetriq] 50 mg PO HS 08/29/23 [History] Acetaminophen Tab [Tylenol] 650 mg PO Q6HR PRN tab 09/01/23 [Rx] Albuterol Inhaler [Ventolin Hfa Inhaler] 2 puff INHALATION RT-TID each 09/01/23 [Rx] Melatonin 10 mg PO HS tab 09/01/23 [Rx] Sertraline [Zoloft] 200 mg PO DAILY #0 09/01/23 [Rx] traZODone HCL [Desyrel] 50 mg PO HS PRN tab 09/01/23 [Rx] Loratadine [Claritin] 5 mg PO DAILY #30 tab 10/15/23 [Rx] guaiFENesin-DM 100-10MG/5ML [Robitussin DM] 5 ml PO Q6HR PRN ml 10/15/23 [Rx] Heparin Sodium,Porcine (1 ml) [Heparin Sodium] 5,000 unit SQ Q8HR each 11/13/23 [Rx] Mag Hydrox/Al Hydrox/Simeth [Maalox] 15 ml PO Q6HR PRN ml 11/13/23 [Rx] Follow up Appointment(s)/Referral(s): Mark Wells DO [Primary Care Provider] - 1-2 days Activity/Diet/Wound Care/Special Instructions: Patient is going to [facility]CF Activity as tolerated Follow-up with primary care provider on discharge Continue medications as prescribed Discharge Disposition: TRANSFER TO SNF/ECF
[2023-11-13 14:18] VITALS: BP 138/75; PULSE 60; RESP 20
== END 2023-11-13 16:27 ==
LOC: EC 17:35 → 6NMEDSUR 11-11 00:03
PROVIDERS: ADMIT Hospitalist; ATTEND Hospitalist
DX: S09.90XA Unspecified injury of head, initial encounter (principal); W01.0XXA Fall on same level from slipping, tripping and stumbling without subsequent striking against object, initial encounter; Z95.1 Presence of aortocoronary bypass graft; Z95.5 Presence of coronary angioplasty implant and graft; Z83.3 Family history of diabetes mellitus; E78.5 Hyperlipidemia, unspecified; F32.A Depression, unspecified; F43.10 Post-traumatic stress disorder, unspecified; F17.200 Nicotine dependence, unspecified, uncomplicated; E87.1 Hypo-osmolality and hyponatremia; I25.10 Atherosclerotic heart disease of native coronary artery without angina pectoris; Z59.00 Homelessness unspecified; Z79.02 Long term (current) use of antithrombotics/antiplatelets; Z79.82 Long term (current) use of aspirin; Z79.899 Other long term (current) drug therapy; Z85.038 Personal history of other malignant neoplasm of large intestine; Z86.73 Personal history of transient ischemic attack (TIA), and cerebral infarction without residual deficits; Z91.81 History of falling
CPT/HCPCS: 96360; 96361; 96372 ×3; 99285; 36415; 94640 ×4; 93005; 97530 ×2; 97162; 97535; 97166; 80053 ×2; 84443; 83605; 83735; 84100; 84484; 85025; 85610; 85730; 81003; 87636; 71046; 72125; 70450; G0378 ×3; J1644 ×3